=== PATIENT | female | born 1950 | race Caucasian/White ===

== ENCOUNTER 2017-12-20 21:58 | Emergency (ER) | payer SELFPAY ==
[2017-11-19 03:09] VITALS: BMI 25.9
[2017-11-20 18:10] VITALS: PULSE 93; RESP 26; O2SAT 94
[2017-12-20 22:07] VITALS: BP 140/68; PULSE 85; RESP 18; TEMP 36.8; O2SAT 96
[2017-12-20 23:10] VITALS: BP 116/76; PULSE 84; RESP 14; O2SAT 98
[2017-12-21] VITALS: BP 133/86; PULSE 68
--- NOTE | 2017-12-21 02:48 | ED_ITS ---
HPI - Wound/Laceration General Chief Complaint: Wound/Laceration Stated Complaint: Bleeding post biopsy Time Seen by Provider: 12/20/17 22:33 Source: patient and EMS Mode of arrival: EMS Limitations: no limitations History of Present Illness HPI narrative: Patient presents to the emergency department today with a chief complaint of bleeding from a bone biopsy site from earlier today. She was seen and evaluated at another facility this morning and had a bone biopsy for evaluation of chronic anemia. The patient takes no blood thinners. She bled through the ABD bandage and requested EMS bring her to the hospital for evaluation. She is not dizzy nor weak or lightheaded. She denies any shortness of breath. Onset (ago): hour(s) 2 1. 2. Patient tetanus UTD: Yes Context: other (Post bone marrow biopsy) Related Data Home Medications Medication Instructions Recorded Confirmed tramadol 50 mg PO Q4-6H PRN 12/20/17 12/20/17 Previous Rx's Medication Instructions Recorded pantoprazole 40 mg PO BID #60 tab 11/22/17 Allergies Allergy/AdvReac Type Severity Reaction Status Date / Time No Known Drug Allergies Allergy Verified 11/19/17 04:13 Review of Systems Review of Systems All systems reviewed & are unremarkable except as noted in HPI and below Constitutional Denies chills, Denies fever(s), Denies lethargy and Denies weakness Eyes Denies change in vision, Denies eye discharge, Denies irritation and Denies loss of vision ENT Ears, Nose, Mouth, and Throat: Denies change in voice, Denies neck pain and Denies sore throat Cardiovascular Denies chest pain, Denies irregular heart rhythm, Denies lightheadedness, Denies palpitations, Denies dyspnea, Denies dyspnea on exertion and Denies orthopnea Respiratory Denies cough, Denies dyspnea, Denies dyspnea on exertion and Denies wheezing Gastrointestinal Gastrointestinal: Denies abdominal pain, Denies change in bowel habits, Denies diarrhea, Denies nausea and Denies vomiting Genitourinary Denies hematuria, Denies flank pain, Denies urinary incontinence and Denies urinary urgency Musculoskeletal Denies neck pain Integumentary/Breasts Denies pruritus, Denies erythema, Denies rash and Denies wounds Comments: Bleeding from surgical site Neurologic Denies confusion, Denies loss of vision and Denies weakness Psychiatric Denies anxiety, Denies confusion, Denies depression, Denies homicidal ideation and Denies suicidal ideation Endocrine Denies palpitations Hematologic/Lymphatic Denies easy bruising Allergic/Immunologic Denies wheezing PFSH Medical History Monoclonal gammopathy (Chronic) No significant past surgical history (Acute) Anemia (Chronic) Pneumonia (Resolved) Social History household members: none Smoking Status: Current some day smoker alcohol intake: current additional social history: The patient smokes tobacco. She does not use alcohol. No drugs. Family and social history are otherwise noncontributory Exam Initial Vital Signs Initial Vital Signs: Vital Signs Temperature 98.3 F 12/20/17 22:07 Pulse Rate 85 12/20/17 22:07 Respiratory Rate 18 12/20/17 22:07 Blood Pressure 140/68 H 12/20/17 22:07 Pulse Oximetry 96 12/20/17 22:07 Const General: cooperative and well developed Nutritional Appearance: well nourished Orientation: alert, awake, oriented x3 and not confused Resp Effort & Inspection: normal respiratory effort, able to speak in complete sentences, no respiratory distress and no use of accessory muscles Auscultation: clear to auscultation bilaterally, no rales, no rhonchi and no wheezes GI Inspection: non-distended Palpation: soft, no hepatosplenomegaly, No guarding, No pulsatile mass and No tender Auscultation: normal bowel sounds Back/Spine/Pelvis Back: No CVA tenderness Cervical Spine: cervical ROM normal and No pain with cervical ROM Thoracic/Lumbar Spine: other (Two biopsy site present. Medial of to with active dark bleeding. No surrounding hematoma the, erythema, or underlying induration) Procedures Laceration Repair Laceration 1: Site: back Size (cm): 0.25 Description: linear Depth: simple, single layer Local Anesthetic: lidocaine 1% and with epi Amount of anesthesia used (mL): 2 Skin layer closed with: nylon Size (cm): 4-0 Number of sutures: 1 Technique: simple, interrupted (Single suture placed to achieve hemostasis ) Course Vital Signs - 8 hr 12/20/17 22:07 12/20/17 23:10 12/21/17 00:00 Temperature 98.3 F Pulse Rate 85 84 68 Respiratory Rate 18 14 Blood Pressure 140/68 H 133/86 H Blood Pressure [Left Arm] 116/76 Pulse Oximetry 96 98 Discharge Plan Departure Patient Disposition: Home, Self-Care Clinical Impression: Bleeding at insertion site Discharge Date/Time: 12/21/17 00:00 Interventions: ED Discharge Assessment Last Done: 12/21/17 00:00 Activity Restrictions/Additional Instructions: *You have been diagnosed with [ bleeding from biopsy site ] *What to do: *Follow up with your primary care provider tomorrow as planned, have him look at the 1 suture in your back and if appropriate it can be removed tomorrow *Return to ER if you should have any recurrent bleeding, worsening pain, or develop weakness or dizziness Prescriptions: No Action pantoprazole 40 mg tablet,delayed release (DR/EC) 40 mg PO BID Qty: 60 RF: 0 tramadol 50 mg Tablet 50 mg PO Q4-6H PRN (Reason: Pain (Scale Score 4-6)) RF: 0 Referrals: Eliu Barnard MD [Primary Care Provider] -
== END 2017-12-21 | disposition home or self-care (01) ==
LOC: ED 23:45
PROVIDERS: Emergency Provider Emergency Medicine; Family Provider Family Medicine; PCP Family Medicine
DX: S21.219A Laceration without foreign body of unspecified back wall of thorax without penetration into thoracic cavity, initial encounter (principal); Z98.890 Other specified postprocedural states
CPT/HCPCS: 12001; 99282; 99283

== ENCOUNTER 2021-03-08 08:39 | Inpatient (IN) | payer OTHER, SELFPAY ==
[2017-11-19 03:09] VITALS: BMI 25.9
[2017-11-20 18:10] VITALS: PULSE 93; RESP 26; O2SAT 94
[2021-03-08] VITALS (8 sets, daily range): BP systolic 104–113; BP diastolic 68–77; PULSE 59–71; RESP 18–22; TEMP 36.1–37.4; O2SAT 94–95; BMI 32.9
--- NOTE | 2021-03-08 09:08 | DI.RAD.S_ITS ---
PROCEDURE: XR CHEST 1V INDICATIONS: shortness of breath TECHNIQUE: One view of the chest was acquired. COMPARISON: Merged With [facility], CT, CT CHEST ABDOMEN PELVIS WITHOUT CONTRAST, 09/26/2018, 11:24. [facility], CR, XR CHEST 2V, 11/18/2017, 22:57. FINDINGS: Surgical changes and devices: None. Lungs and pleura: No focal infiltrates are seen. Mild generalized interstitial prominence can be seen. No pleural effusions or pneumothorax. Mediastinum: Mediastinal contours appear normal. Heart size is at the upper limits of normal. Bones and chest wall: Minimal lucency can be seen involving the proximal humerus on both sides. Overlying soft tissues appear unremarkable. IMPRESSION: Mild generalized interstitial prominence can be seen. Pulmonary edema is suspected. However, please also consider atypical infection, including COVID pneumonia. Minimal lucency can be seen involving the proximal humerus on both sides. This may be related to the known history of multiple myeloma. Dictated by: Ruperto Kc M.D. on 03/08/2021 at 9:01 Approved by: Ruperto Kc M.D. on 03/08/2021 at 9:03
--- NOTE | 2021-03-08 09:12 | ED.SOB ---
HPI - SOB/Dyspnea General Chief Complaint: Shortness of Breath/Dyspnea Stated Complaint: Cant breathe/ache all over Time Seen by Provider: 03/08/21 08:49 History of Present Illness HPI Narrative: The patient presents with cough and dyspnea onset 2 days ago. The cough is productive. She has no hemoptysis. She is unaware of fever and chills although she has low-grade fever upon arrival. She is a former smoker, quitting recently. She is currently receiving chemotherapy for multiple myeloma. With the cough and dyspnea she denies headache, sore throat, ordered changes in taste or smell. She has not received COVID-19 vaccine. She does not require inhaler, she has no chronic pulmonary disease. She denies chest pain with current symptoms. She has GI symptoms. She does my of mild peripheral edema, she has no history of CHF. She denies cardiac history. She has been around no one with similar symptoms. Related Data Home Medications Medication Instructions Recorded Confirmed aspirin 81 mg tablet 81 mg PO DAILY 03/08/21 03/08/21 furosemide 20 mg tablet (Lasix) 20 mg PO DAILY 03/08/21 03/08/21 pantoprazole 40 mg tablet,delayed 40 mg PO DAILY 03/08/21 03/08/21 release pomalidomide 3 mg capsule 3 mg PO DAILY 03/08/21 03/08/21 (Pomalyst) valacyclovir 500 mg tablet 500 mg PO BID 03/08/21 03/08/21 Allergies Allergy/AdvReac Type Severity Reaction Status Date / Time No Known Drug Allergies Allergy Verified 11/19/17 04:13 Review of Systems Constitutional Constitutional: Denies body ache(s), Denies chills, Reports fatigue, Denies fever(s) and Denies headache(s) Eyes Eyes: Denies change in vision ENT Ears, Nose, Mouth, and Throat: Reports as per HPI and Denies headache(s) Cardiovascular Cardiovascular: Denies chest pain, Denies chest pain at rest, Denies rapid heart rate and Reports pedal edema Respiratory Respiratory: Reports chest congestion, Reports cough, Denies hemoptysis and Reports excessive phlegm production Gastrointestinal Gastrointestinal: Denies abdominal pain and Denies nausea Musculoskeletal Musculoskeletal: Denies back pain Comments: Lower extremity edema. Neurologic Neurologic: Denies headache(s) Psychiatric Psychiatric: Reports system reviewed and no additional complaints, except as documented Endocrine Endocrine: Reports fatigue Hematologic/Lymphatic Hematologic/Lymphatic: Reports as per HPI On Anticoagulants: No Allergic/Immunologic Allergic/Immunologic: Reports as per HPI Patient History Medical History Anemia Monoclonal gammopathy Pneumonia Surgical History No significant past surgical history Social History household members: none Smoking Status: Current some day smoker alcohol intake: current additional social history: The patient smokes tobacco. She does not use alcohol. No drugs. Family and social history are otherwise noncontributory Smoking Status: Current some day smoker alcohol intake frequency: holidays/special occasions only Substance Use Type: does not use Exam Initial Vital Signs Initial Vital Signs: Vital Signs Temperature 99.4 F 03/08/21 09:00 Pulse Rate 64 03/08/21 09:00 Respiratory Rate 18 03/08/21 09:00 Blood Pressure 113/77 03/08/21 09:00 Pulse Oximetry 94 03/08/21 09:00 Const General: cooperative, comfortable, well developed, well groomed and No acute distress [facility] Head: normocephalic and atraumatic Mouth: oral mucosae normal Eyes General: appearance normal, both eyes and all related structures Neck Neck: full ROM, supple and No lymphadenopathy Chest Chest: normal inspection of the chest Resp Effort & Inspection: normal respiratory effort Auscultation: rales (Right medial foot) Cardio Rate: regular rate Rhythm: regular rhythm Heart Sounds: S1 normal, S2 normal and no murmurs GI Inspection: normal to inspection Palpation: soft Percussion: normal to percussion Auscultation: normal bowel sounds Back/Spine/Pelvis Back: No CVA tenderness Skin General: no rashes or lesions noted Neuro General: patient alert, patient awake, patient oriented x3 and no focal motor deficits Extrem General: no calf tenderness and pedal edema (Bilateral, 2+ edema. Normal dorsalis pedis pulses.) Psych Appearance: grossly normal Course Course Course Narrative: The patient is COVID positive. Additional Information: The patient has COVID. O2 sats are marginal, 90% upon arrival. Infiltrates consistent with COVID-19 or present on chest x-ray. However, she has labs suggesting sepsis with leukopenia. Zosyn was initiated. Remdesivir and Dexamethasone were given for COVID. The patient has CHF. Vitals are stable, case was discussed with the admitting hospitalist, Dr. Colon, an IV fluid bolus was avoided. The patient is stable with the time of admission. Orders Ordered: ED Orders 03/08/21 08:50 COVID19 -Nasal swab/Pre-Proc Stat 03/08/21 09:08 XR chest 1V Stat Measure peak expiratory flow ONCE RT Consult Eval and Treat Now 03/08/21 09:10 C-Reactive Protein Quant Stat Complete Blood Count AUTO DIFF Stat Comprehensive Metabolic Panel Stat Lactate (Lactic Acid) Stat NT-proBNP (BNP-Adult 18+) Stat Procalcitonin Stat Troponin & CK Cardiac Panel Stat 03/08/21 10:01 EKG-12 Lead Stat 03/08/21 10:05 Blood Culture Stat D Dimer Stat Acetaminophen (Acetaminophen 325 Mg Tablet) 650 mg PO Q4HR PRN PRN Reason: Fever/Mild Pain (1-3) Last Admin: 03/08/21 09:44 Dose: 650 mg Documented by: WALE Remdesivir 200 mg/ Sodium (Chloride) 250 mls @ 250 mls/hr IV NOW [facility] Home Med Storage 0 each PO PRN PRN PRN Reason: HOME MED STORAGE Discontinued Medications Dexamethasone (Dexamethasone 10 Mg/Ml Vial) 6 mg IV NOW ONE Stop: 03/08/21 10:38 Last Admin: 03/08/21 11:08 Dose: 6 mg Documented by: PRASANNA Piperacillin Sod/Tazobactam (Sod 4.5 gm/ Sodium Chloride) 100 mls @ 200 mls/hr IV NOW ONE Stop: 03/08/21 10:31 Last Admin: 03/08/21 11:07 Dose: 200 mls/hr Documented by: BTONEMeaghan Remdesivir 200 mg/ Sodium (Chloride) 270 mls @ 270 mls/hr IV DAILY [facility] Stop: 03/16/21 10:41 Remdesivir 200 mg/ Sodium (Chloride) 270 mls @ 270 mls/hr IV DAILY [facility] Stop: 03/15/21 11:12 Remdesivir 200 mg/ Sodium (Chloride) 270 mls @ 270 mls/hr IV NOW [facility] Vital Signs Vital signs: Vital Signs - 8 hr 03/08/21 09:00 03/08/21 09:44 Temperature 99.4 F 99.4 F Pulse Rate 64 Respiratory Rate 18 Blood Pressure 113/77 Pulse Oximetry 94 MDM - SOB/Dyspnea Lab Data Result diagrams: 03/08/21 09:10 03/08/21 09:10 Labs: Lab Results 03/08/21 03/08/21 03/08/21 Range/Units 08:50 09:10 09:10 WBC 1.2 L* (4.5-11.0) X10^3/uL RBC 3.97 L (4.0-5.2) X10^6/uL Hgb 12.5 (12.0-16.0) g/dL Hct 37.7 (36-46) % MCV 94.9 (80-100) fL MCH 31.5 (26-34) PG MCHC 33.2 (30-36) % RDW 13.6 (11.6-14.8) % Plt Count 90 L (150-400) X10^3/uL Neut % (Auto) Not Reportable Lymph % (Auto) Not Reportable Jack % (Auto) Not Reportable Eos % (Auto) Not Reportable Baso % (Auto) Not Reportable Lymph # (Auto) Not Reportable Jack # (Auto) Not Reportable Baso # (Auto) Not Reportable Total Counted 100 Seg Neutrophils % 32.0 L (38-70) % Band Neutrophils % 2.0 L (3-7) % Lymphocytes % (Manual) 18.0 L (25-45) % Atypical Lymphs % 30.0 H ( - 0) % Monocytes % (Manual) 14.0 H (2-11) % Eosinophils % (Manual) 2.0 (2-4) % Basophils % (Manual) 2.0 H (0-1) % Neutrophils # (Manual) 408 L (1120-8956) /uL RBC Morphology Normal morphology D-Dimer (<230) ng/mL Sodium 135 L (137-145) mmol/L Potassium 4.3 (3.4-5.1) mmol/L Chloride 101 (98-107) mmol/L Carbon Dioxide 29 (22-32) mmol/L BUN 13 (7-17) mg/dL Creatinine 0.77 (0.52-1.04) mg/dL Estimated GFR > 60.0 (>60) mL/min BUN/Creatinine Ratio 16.9 (6-22) Glucose 125 H (80-110) mg/dL Lactate (0.7-2.1) mmol/L Calcium 8.8 (8.4-10.2) mg/dL Total Bilirubin 0.8 (0.2-1.3) mg/dL AST 33 (14-36) IU/L ALT 29 (<35) IU/L Alkaline Phosphatase 87 (38-126) U/L Total Creatine Kinase (30-135) U/L CK-MB (CK-2) CK-MB (CK-2) Rel Index Troponin I (0.01-0.034) ng/mL C-Reactive Protein (<1.0) mg/dL NT-Pro-B Natriuret Pep (<125) pg/mL Total Protein 6.3 (6.3-8.2) g/dL Albumin 3.9 (3.5-5.0) g/dL Globulin 2.4 (1.7-4.1) g/dL Albumin/Globulin Ratio 1.6 (1.0-2.8) Procalcitonin (<0.5) ng/mL SARS-CoV-2 (PCR) Positive H (Negative) 03/08/21 03/08/21 03/08/21 Range/Units 09:10 09:10 09:10 WBC (4.5-11.0) X10^3/uL RBC (4.0-5.2) X10^6/uL Hgb (12.0-16.0) g/dL Hct (36-46) % MCV (80-100) fL MCH (26-34) PG MCHC (30-36) % RDW (11.6-14.8) % Plt Count (150-400) X10^3/uL Neut % (Auto) Lymph % (Auto) Jack % (Auto) Eos % (Auto) Baso % (Auto) Lymph # (Auto) Jack # (Auto) Baso # (Auto) Total Counted Seg Neutrophils % (38-70) % Band Neutrophils % (3-7) % Lymphocytes % (Manual) (25-45) % Atypical Lymphs % ( - 0) % Monocytes % (Manual) (2-11) % Eosinophils % (Manual) (2-4) % Basophils % (Manual) (0-1) % Neutrophils # (Manual) (2268-1379) /uL RBC Morphology D-Dimer (<230) ng/mL Sodium (137-145) mmol/L Potassium (3.4-5.1) mmol/L Chloride (98-107) mmol/L Carbon Dioxide (22-32) mmol/L BUN (7-17) mg/dL Creatinine (0.52-1.04) mg/dL Estimated GFR (>60) mL/min BUN/Creatinine Ratio (6-22) Glucose (80-110) mg/dL Lactate 2.3 H (0.7-2.1) mmol/L Calcium (8.4-10.2) mg/dL Total Bilirubin (0.2-1.3) mg/dL AST (14-36) IU/L ALT (<35) IU/L Alkaline Phosphatase (38-126) U/L Total Creatine Kinase (30-135) U/L CK-MB (CK-2) CK-MB (CK-2) Rel Index Troponin I (0.01-0.034) ng/mL C-Reactive Protein 2.5 H (<1.0) mg/dL NT-Pro-B Natriuret Pep (<125) pg/mL Total Protein (6.3-8.2) g/dL Albumin (3.5-5.0) g/dL Globulin (1.7-4.1) g/dL Albumin/Globulin Ratio (1.0-2.8) Procalcitonin 0.11 (<0.5) ng/mL SARS-CoV-2 (PCR) (Negative) 03/08/21 03/08/21 Range/Units 09:10 10:05 WBC (4.5-11.0) X10^3/uL RBC (4.0-5.2) X10^6/uL Hgb (12.0-16.0) g/dL Hct (36-46) % MCV (80-100) fL MCH (26-34) PG MCHC (30-36) % RDW (11.6-14.8) % Plt Count (150-400) X10^3/uL Neut % (Auto) Lymph % (Auto) Jack % (Auto) Eos % (Auto) Baso % (Auto) Lymph # (Auto) Jack # (Auto) Baso # (Auto) Total Counted Seg Neutrophils % (38-70) % Band Neutrophils % (3-7) % Lymphocytes % (Manual) (25-45) % Atypical Lymphs % ( - 0) % Monocytes % (Manual) (2-11) % Eosinophils % (Manual) (2-4) % Basophils % (Manual) (0-1) % Neutrophils # (Manual) (4269-2390) /uL RBC Morphology D-Dimer < 200 (<230) ng/mL Sodium (137-145) mmol/L Potassium (3.4-5.1) mmol/L Chloride (98-107) mmol/L Carbon Dioxide (22-32) mmol/L BUN (7-17) mg/dL Creatinine (0.52-1.04) mg/dL Estimated GFR (>60) mL/min BUN/Creatinine Ratio (6-22) Glucose (80-110) mg/dL Lactate (0.7-2.1) mmol/L Calcium (8.4-10.2) mg/dL Total Bilirubin (0.2-1.3) mg/dL AST (14-36) IU/L ALT (<35) IU/L Alkaline Phosphatase (38-126) U/L Total Creatine Kinase 42 (30-135) U/L CK-MB (CK-2) TNP CK-MB (CK-2) Rel Index TNP Troponin I < 0.012 (0.01-0.034) ng/mL C-Reactive Protein (<1.0) mg/dL NT-Pro-B Natriuret Pep 456 H (<125) pg/mL Total Protein (6.3-8.2) g/dL Albumin (3.5-5.0) g/dL Globulin (1.7-4.1) g/dL Albumin/Globulin Ratio (1.0-2.8) Procalcitonin (<0.5) ng/mL SARS-CoV-2 (PCR) (Negative) Imaging Data Chest x-ray: Radiologist's Impression: [address] [id number] ReportSigned Patient: Tory Barney [facility]#: [id number]: 3Acct:[id number]/Sex: 70 / FDate of Service: 03/08/21Loc: EDAccession Number: [id number] Procedure: XR chest 1V Ordering Provider: Chapin Jackson MD PROCEDURE: XR CHEST 1V INDICATIONS: shortness of breath TECHNIQUE: One view of the chest was acquired. COMPARISON: [facility], CT, CT CHEST ABDOMEN PELVIS WITHOUT CONTRAST, 09/26/2018, 11:24. [facility], CR, XR CHEST 2V, 11/18/2017, 22:57. FINDINGS: Surgical changes and devices: None. Lungs and pleura: No focal infiltrates are seen. Mild generalized interstitial prominence can be seen. No pleural effusions or pneumothorax. Mediastinum: Mediastinal contours appear normal. Heart size is at the upper limits of normal. Bones and chest wall: Minimal lucency can be seen involving the proximal humerus on both sides. Overlying soft tissues appear unremarkable. IMPRESSION: Mild generalized interstitial prominence can be seen. Pulmonary edema is suspected. However, please also consider atypical infection, including COVID pneumonia. Minimal lucency can be seen involving the proximal humerus on both sides. This may be related to the known history of multiple myeloma. Dictated by: Ruperto Kc M.D. on 03/08/2021 at 9:01 Approved by: Ruperto Kc M.D. on 03/08/2021 at 9:03 ECG Data Attestation: I personally reviewed and interpreted this ECG as follows: (Normal sinus rhythm rate 63 beats per minute. Associated ST T wave changes. Probable old anterior RI. No acute findings.) Critical Care Time Critical Care Time Critical Care Time: Yes Total Critical Care Time: 45 Attestation: Critical care time included the initial assessment patient, review of lab, radiology and EKG data, in review of medical record obtained from outside hospital. The patient was informed of the situation. The case was discussed with the patient prior to admission. Discharge Plan Departure Patient Disposition: Admitted As Inpatient Clinical Impression: 2019 novel coronavirus-infected pneumonia (NCIP) Sepsis Qualifiers: Sepsis type: sepsis due to unspecified organism Sepsis acute organ dysfunction status: without acute organ dysfunction Qualified Code(s): A41.9 - Sepsis, unspecified organism Congestive heart failure Qualifiers: Heart failure type: unspecified Admit Date/Time: 03/08/21 11:18 Admit Provider: Fabricio Colon
[2021-03-08 09:15] LABS: COVID19 -Nasal RAPID POSITIVE (Negative)
[2021-03-08] MEDS: ACETAMINOPHEN 325 MG TABLET 650 MG PO (09:44)
[2021-03-08 09:46] LABS: Hematocrit 37.7 % (36-46); Hemoglobin 12.5 g/dL (12.0-16.0); Mean Corpuscular HGB Conc 33.2 % (30-36); Mean Corpuscular Hemoglobin 31.5 PG (26-34); Mean Corpuscular Volume 94.9 fL (80-100); Platelet Count 90 X10^3/uL (150-400); Red Blood Cell Count 3.97 X10^6/uL (4.0-5.2); Red Cell Distribution Width 13.6 % (11.6-14.8)
[2021-03-08 09:47] LABS: Add Manual Diff / Slide Review YES; White Blood Cell Count 1.2 X10^3/uL (4.5-11.0)
[2021-03-08 09:52] LABS: Lactate (Lactic Acid) 2.3 mmol/L (0.7-2.1)
[2021-03-08 09:53] LABS: Alanine Aminotransferase 29 IU/L (<35); Albumin 3.9 g/dL (3.5-5.0); Albumin Globulin Ratio 1.6 (1.0-2.8); Alkaline Phosphatase 87 U/L (38-126); Aspartate Aminotransferase 33 IU/L (14-36); BUN Creatinine Ratio 16.9 (6-22); Bilirubin Total 0.8 mg/dL (0.2-1.3); Blood Urea Nitrogen 13 mg/dL (7-17); Calcium 8.8 mg/dL (8.4-10.2); Carbon Dioxide 29 mmol/L (22-32); Chloride 101 mmol/L (98-107); Creatine Kinase 42 U/L (30-135); Estimated Glomerular Filt Rate > 60.0 mL/min (>60); Globulin 2.4 g/dL (1.7-4.1); Glucose 125 mg/dL (80-110); HEMOLYSIS < 15 (0-50); Potassium 4.3 mmol/L (3.4-5.1); Sodium 135 mmol/L (137-145); Total Protein 6.3 g/dL (6.3-8.2)
[2021-03-08 09:57] LABS: C-Reactive Protein Quant 2.5 mg/dL (<1.0)
[2021-03-08 10:05] LABS: NT-proBNP (BNP-Adult 18+) 456 pg/mL (<125); Troponin I < 0.012 ng/mL (0.01-0.034)
[2021-03-08 10:10] LABS: Procalcitonin 0.11 ng/mL (<0.5)
[2021-03-08 10:13] LABS: Neutrophils Absolute Manual 408 /uL (3000-5900); RBC Morphology Normal Morphology; Total Cells Counted 100
[2021-03-08 10:26] LABS: D Dimer < 200 ng/mL (<230)
[2021-03-08] MEDS: PIPERACILLIN/TAZO 4.5 GM in SODIUM CHLORIDE 0.9% 100 ML 200 ML IV (11:07)
[2021-03-08] MEDS: DEXAMETHASONE 10 MG/ML VIAL 6 MG IV (11:08)
[2021-03-08 11:35] LABS: Reflexed Lactate in 2 Hours Y
[2021-03-08 12:19] LABS: Lactate 2HR (Lactic Acid Rflx) 1.4 mmol/L (0.7-2.1)
[2021-03-08 13:13] LABS: COVID19 - ADMIT (NP swab/PCR) POSITIVE (Negative)
[2021-03-08] MEDS: REMDESIVIR 200 MG in SODIUM CHLORIDE 0.9% 210 ML 250 ML IV (13:44)
--- NOTE | 2021-03-08 14:37 | PM.HP.1 ---
History of Present Illness History of Present Illness Date Patient Seen: 03/08/21 Time Patient Seen: 14:00 Date of Onset of Symptoms: 03/05/21 Chief complaint: Cant breathe/ache all over Narrative: Patient is a 70-year-old female current smoker who is unvaccinated for COVID and has history of multiple myeloma not in remission, on active 3rd line palliative therapy, presents with complaints difficulty breathing and body aches for 3 days. She denies fevers or chills. She does have a dry cough. Her O2 sat in ER was reported to me as 90% on room air though this does not seem to be documented. Her current sat is 94% on 2 L. her chest x-ray showed mild diffuse infiltrate. She was noted to be neutropenic with a total WBC 1.2 and absolute neutrophil count of 408. Also thrombocytopenic with platelet count of 90. D-dimer was less than 200. Her CRP is mildly elevated at 2.5. Lactate is 2.3, procalcitonin and troponin are normal. Her SARs COVID 2 PCR test came back positive. Patient was provided dexamethasone, remdesivir and Zosyn in the ED and admitted for treatment COVID pneumonia. Patient History Medical History Anemia Monoclonal gammopathy Pneumonia Surgical History No significant past surgical history Family & Social History Family History (Updated 03/08/21 @ 14:43 by Fabricio Colon MD) Mother Cancer Social History: household members none Safety & Behavioral: Feels Safe in Current Yes Environment Been Physically Hurt or No Threatened By a Person Suicidal Ideation Description None Suicide Plan Description No Plan Tobacco & Substance use: Tobacco type cigarettes Smoking Status Current some day smoker alcohol intake current alcohol intake frequency holiday/special occasion Substance Use Type does not use Meds Home Medications and Allergies Home Medications Medication Instructions Recorded Confirmed Type aspirin 81 mg tablet 81 mg PO DAILY 03/08/21 03/08/21 History furosemide 20 mg tablet (Lasix) 20 mg PO DAILY 03/08/21 03/08/21 History pantoprazole 40 mg tablet,delayed 40 mg PO DAILY 03/08/21 03/08/21 History release pomalidomide 3 mg capsule 3 mg PO DAILY 03/08/21 03/08/21 History (Pomalyst) valacyclovir 500 mg tablet 500 mg PO BID 03/08/21 03/08/21 History Allergies Allergy/AdvReac Type Severity Reaction Status Date / Time No Known Drug Allergies Allergy Verified 11/19/17 04:13 Review of Systems Review of Systems Narrative: Positive myalgias, no chest pain, abdominal pain, nausea, vomiting, dysuria, unusual bruising Exam Vital Signs (past 8 hours): - 03/08/21 09:00 03/08/21 09:44 03/08/21 11:30 Temperature 99.4 F 99.4 F Pulse Rate 64 62 Respiratory Rate 18 21 Blood Pressure 113/77 112/68 Pulse Oximetry 94 94 Oxygen Delivery Method Nasal Cannula Oxygen Flow Rate 2 Narrative Exam Narrative: General: Alert female who appears comfortable at rest HEENT: Anicteric, pupils equal and reactive Neck: No lymphadenopathy Lungs: Clear to auscultation Heart: Normal S1 and S2, regular rate and rhythm, no murmur Abdomen: Soft and nontender, no HSM Extremities: No cyanosis or edema Neurological: Oriented, speech normal, affect normal Objective Labs Result Diagrams: 03/08/21 09:10 03/08/21 09:10 Labs: Laboratory Results - last 24 hr 03/08/21 03/08/21 03/08/21 08:50 09:10 09:10 WBC 1.2 L* RBC 3.97 L Hgb 12.5 Hct 37.7 MCV 94.9 MCH 31.5 MCHC 33.2 RDW 13.6 Plt Count 90 L Neut % (Auto) Not Reportable Lymph % (Auto) Not Reportable [place] % (Auto) Not Reportable Eos % (Auto) Not Reportable Baso % (Auto) Not Reportable Lymph # (Auto) Not Reportable [place] # (Auto) Not Reportable Baso # (Auto) Not Reportable Total Counted 100 Seg Neutrophils % 32.0 L Band Neutrophils % 2.0 L Lymphocytes % (Manual) 18.0 L Atypical Lymphs % 30.0 H Monocytes % (Manual) 14.0 H Eosinophils % (Manual) 2.0 Basophils % (Manual) 2.0 H Neutrophils # (Manual) 408 L RBC Morphology Normal morphology D-Dimer Sodium 135 L Potassium 4.3 Chloride 101 Carbon Dioxide 29 BUN 13 Creatinine 0.77 Estimated GFR > 60.0 BUN/Creatinine Ratio 16.9 Glucose 125 H Lactate Calcium 8.8 Total Bilirubin 0.8 AST 33 ALT 29 Alkaline Phosphatase 87 Total Creatine Kinase CK-MB (CK-2) CK-MB (CK-2) Rel Index Troponin I C-Reactive Protein NT-Pro-B Natriuret Pep Total Protein 6.3 Albumin 3.9 Globulin 2.4 Albumin/Globulin Ratio 1.6 Procalcitonin SARS-CoV-2 (PCR) Positive H 03/08/21 03/08/21 03/08/21 09:10 09:10 09:10 WBC RBC Hgb Hct MCV MCH MCHC RDW Plt Count Neut % (Auto) Lymph % (Auto) [place] % (Auto) Eos % (Auto) Baso % (Auto) Lymph # (Auto) [place] # (Auto) Baso # (Auto) Total Counted Seg Neutrophils % Band Neutrophils % Lymphocytes % (Manual) Atypical Lymphs % Monocytes % (Manual) Eosinophils % (Manual) Basophils % (Manual) Neutrophils # (Manual) RBC Morphology D-Dimer Sodium Potassium Chloride Carbon Dioxide BUN Creatinine Estimated GFR BUN/Creatinine Ratio Glucose Lactate 2.3 H Calcium Total Bilirubin AST ALT Alkaline Phosphatase Total Creatine Kinase CK-MB (CK-2) CK-MB (CK-2) Rel Index Troponin I C-Reactive Protein 2.5 H NT-Pro-B Natriuret Pep Total Protein Albumin Globulin Albumin/Globulin Ratio Procalcitonin 0.11 SARS-CoV-2 (PCR) 03/08/21 03/08/21 03/08/21 09:10 10:05 11:30 WBC RBC Hgb Hct MCV MCH MCHC RDW Plt Count Neut % (Auto) Lymph % (Auto) [place] % (Auto) Eos % (Auto) Baso % (Auto) Lymph # (Auto) [place] # (Auto) Baso # (Auto) Total Counted Seg Neutrophils % Band Neutrophils % Lymphocytes % (Manual) Atypical Lymphs % Monocytes % (Manual) Eosinophils % (Manual) Basophils % (Manual) Neutrophils # (Manual) RBC Morphology D-Dimer < 200 Sodium Potassium Chloride Carbon Dioxide BUN Creatinine Estimated GFR BUN/Creatinine Ratio Glucose Lactate Calcium Total Bilirubin AST ALT Alkaline Phosphatase Total Creatine Kinase 42 CK-MB (CK-2) TNP CK-MB (CK-2) Rel Index TNP Troponin I < 0.012 C-Reactive Protein NT-Pro-B Natriuret Pep 456 H Total Protein Albumin Globulin Albumin/Globulin Ratio Procalcitonin SARS-CoV-2 (PCR) Positive H 03/08/21 12:00 WBC RBC Hgb Hct MCV MCH MCHC RDW Plt Count Neut % (Auto) Lymph % (Auto) [place] % (Auto) Eos % (Auto) Baso % (Auto) Lymph # (Auto) [place] # (Auto) Baso # (Auto) Total Counted Seg Neutrophils % Band Neutrophils % Lymphocytes % (Manual) Atypical Lymphs % Monocytes % (Manual) Eosinophils % (Manual) Basophils % (Manual) Neutrophils # (Manual) RBC Morphology D-Dimer Sodium Potassium Chloride Carbon Dioxide BUN Creatinine Estimated GFR BUN/Creatinine Ratio Glucose Lactate 1.4 Calcium Total Bilirubin AST ALT Alkaline Phosphatase Total Creatine Kinase CK-MB (CK-2) CK-MB (CK-2) Rel Index Troponin I C-Reactive Protein NT-Pro-B Natriuret Pep Total Protein Albumin Globulin Albumin/Globulin Ratio Procalcitonin SARS-CoV-2 (PCR) Assessment & Plan Assessment & Plan narrative: 1. COVID-19 pneumonia with hypoxia -presented with shortness of breath x3 days -patient is high risk for progression to severe pneumonia due to presence of hematologic malignancy, neutropenia, and current smoking status -O2 sat reported 90% at rest, is 94% on 2 L and at this time she is not appearing severely symptomatic -reviewed management with infectious disease provider Dr. Red Shell at [facility] who recommends standard therapy with dexamethasone and remdesivir, specifically patient would not benefit from monoclonal antibody therapy which is not indicated for hypoxic or hospitalized patients, and currently no indication for additional therapy such as baricitinib since not requiring high-flow O2 -ordered dexamethasone 6 mg IV daily times 10 days or until hospital discharge, remdesivir 200 mg x 1 in the ED then 100 mg IV q.d. x4 days 2. Neutropenia due to chemotherapy for multiple myeloma -patient is just completing cycle Pomalyst -patient is neutropenic with a total WBC 1.2, ANC 400 on admission -per discussion with ID, patient is started on antibiotic prophylaxis with cefepime 2 g IV q.8 hours as she is high risk for bacterial infection 3. Multiple myeloma not in remission -continue aspirin 81 mg q.d., valacyclovir 500 mg b.i.d., pantoprazole 40 mg q.d., furosemide 20 mg q.d. per home regimen -sees Dr. Garcia for oncology 4. Mild thrombocytopenia secondary to malignancy/chemotherapy -platelet count 90 K -will continue aspirin due to high risk thrombosis with her multiple myeloma but hold off on heparin/Lovenox since her D-dimer is normal -start DVT prophylaxis with heparin/Lovenox if platelet counts improved Code status: DNR. Patient understands she is high risk for progression of COVID pneumonia and does not want to be intubated. Quality VTE Deep Vein Thrombosis/Pulmonary Embolism Present on Admission: No
[2021-03-08] MEDS: CEFEPIME 2 GM in SODIUM CHLORIDE 0.9% 100 ML 200 ML IV (20:29)
[2021-03-08] MEDS: valACYclovir 500 MG TABLET PO (20:30)
--- NOTE | 2021-03-08 21:32 | PC.NURSE ---
Pt states that she is feeling 'ok' SpO2 95% 2L Resting quietly at intervals. RAC IV site intact/patent. Call light w/in reach, pt calls appropriately for needs. Continue w/plan of care.
[2021-03-09] VITALS (11 sets, daily range): BP systolic 101–117; BP diastolic 64–76; PULSE 53–61; RESP 17–18; TEMP 36–36.4; O2SAT 85–97
[2021-03-09 06:15] LABS: Hemoglobin 12.4 g/dL (12.0-16.0); Mean Corpuscular HGB Conc 33.5 % (30-36); Mean Corpuscular Hemoglobin 31.7 PG (26-34); Mean Corpuscular Volume 94.8 fL (80-100); Platelet Count 83 X10^3/uL (150-400); Red Cell Distribution Width 13.6 % (11.6-14.8)
[2021-03-09 06:26] LABS: BUN Creatinine Ratio 30.6 (6-22); Blood Urea Nitrogen 22 mg/dL (7-17); Calcium 8.6 mg/dL (8.4-10.2); Carbon Dioxide 30 mmol/L (22-32); Chloride 102 mmol/L (98-107); Estimated Glomerular Filt Rate > 60.0 mL/min (>60); Glucose 137 mg/dL (80-110); HEMOLYSIS < 15 (0-50); Potassium 4.8 mmol/L (3.4-5.1); Sodium 135 mmol/L (137-145)
[2021-03-09 06:39] LABS: Add Manual Diff / Slide Review YES
[2021-03-09 06:40] LABS: White Blood Cell Count 1.3 X10^3/uL (4.5-11.0)
[2021-03-09 06:41] LABS: Basophils Percent Manual 1.6 % (0-1); Eosinophils Percent Manual 1.6 % (2-4); Lymphocytes Percent Manual 17.7 % (25-45); Monocytes Percent Manual 30.6 % (2-11); Neutrophils Absolute Manual 629 /uL (3000-5900); Segmented Neutrophils Percent 48.4 % (38-70); Total Cells Counted 62
--- NOTE | 2021-03-09 06:41 | PC.NURSE ---
0635 Slept most of the night, denies any pain, no C/O dyspnea, denies SOB with exertion. UP to the BR. independently, denies any dizziness. resting heart rate or when asleep 52-55 & 2 liters 02/NC SPO2 95-96%. Will cont. POC & monitor.
[2021-03-09 06:42] LABS: RBC Morphology Normal Morphology
[2021-03-09] MEDS: DEXAMETHASONE 10 MG/ML VIAL 6 MG IV (10:05)
[2021-03-09] MEDS: ASPIRIN EC 81 MG TABLET PO (10:07)
[2021-03-09] MEDS: valACYclovir 500 MG TABLET PO (10:07)
[2021-03-09] MEDS: PANTOPRAZOLE DR 40 MG TABLET PO (10:07)
[2021-03-09] MEDS: FUROSEMIDE 20 MG TABLET PO (10:07)
[2021-03-09] MEDS: SODIUM CHLORIDE 0.9% FLUSH 10 ML IV (10:08)
[2021-03-09] MEDS: CEFEPIME 2 GM in SODIUM CHLORIDE 0.9% 100 ML 200 ML IV (10:40)
--- NOTE | 2021-03-09 12:14 | P.DS_ITS ---
History of Present Illness History of Present Illness Date Patient Seen: 03/09/21 Time Patient Seen: 12:14 Chief complaint: Cant breathe/ache all over Narrative: Per Dr. So Patient is a 70-year-old female current smoker who is unvaccinated for COVID and has history of multiple myeloma not in remission, on active 3rd line palliative therapy, presents with complaints difficulty breathing and body aches for 3 days. She denies fevers or chills. She does have a dry cough. Her O2 sat in ER was reported to me as 90% on room air though this does not seem to be documented. Her current sat is 94% on 2 L. her chest x-ray showed mild diffuse infiltrate. She was noted to be neutropenic with a total WBC 1.2 and absolute neutrophil count of 408. Also thrombocytopenic with platelet count of 90. D- dimer was less than 200. Her CRP is mildly elevated at 2.5. Lactate is 2.3, procalcitonin and troponin are normal. Her SARs COVID 2 PCR test came back positive. Patient was provided dexamethasone, remdesivir and Zosyn in the ED and admitted for treatment COVID pneumonia. Discharge Providers Provider Date of admission: 03/08/21 11:18 Discharge Date: 03/09/21 Primary care physician: Eliu Barnard MD Discharge provider: Blake De Dios DO Summary Hospital Course Discharge Diagnosis: 1. COVID-19 pneumonia with acute hypoxic respiratory failure 2. Neutropenia due to chemotherapy for multiple myeloma 3. Multiple myeloma not in remission 4. Mild thrombocytopenia secondary to malignancy/chemotherapy Hospital Course: This is a 70-year-old female with a past history of multiple myeloma who was admitted with COVID-19 pneumonia and acute respiratory failure. She was started on steroid and antiviral therapy, given her neutropenia she was also started on empiric antibiotic therapy. Her respiratory status improved quite dramatically, though she was still requiring a bit of oxygen at the time of discharge, though this had markedly improved from her arrival yesterday. Counseled the patient on possible continued use of steroids and antiviral see in the setting of COVID-19, however the patient did not like how she felt with dexamethasone and did not want further steroid treatment and very much wanted to go home. She was discharged with oral Levaquin given her mild neutropenia which is more likely secondary to her recent treatment of multiple myeloma. She was discharged home on oxygen therapy, and I recommend she follow-up with her [facility] care provider. At the time of discharge she she was 89% on room air which improved to the mid 90s on 1 L, she required 2 L with activity. She was given return precautions and instructed on home oxygen and use with a pulse oximeter as well. Time Spent with Patient Time spent: Greater than 30 minutes Exam Vital Signs (past 8 hours): - 03/09/21 05:00 03/09/21 06:40 03/09/21 07:14 Temperature 97.1 F L Pulse Rate 53 L Respiratory Rate 17 Blood Pressure 101/64 Pulse Oximetry 95 96 95 Oxygen Delivery Method Nasal Cannula Oxygen Flow Rate 2 Narrative Exam Narrative: General: Alert female who appears comfortable at rest HEENT: Anicteric, pupils equal and reactive Neck: No lymphadenopathy Lungs: Clear to auscultation Heart: Normal S1 and S2, regular rate and rhythm, no murmur Abdomen: Soft and nontender, no HSM Extremities: No cyanosis or edema Neurological: Oriented, speech normal, affect normal Objective Labs Result Diagrams: 03/09/21 05:52 03/09/21 05:52 Labs: Laboratory Results - last 24 hr 03/08/21 03/08/21 03/09/21 11:30 12:00 05:52 WBC 1.3 L* RBC 3.90 L Hgb 12.4 Hct 37.0 MCV 94.8 MCH 31.7 MCHC 33.5 RDW 13.6 Plt Count 83 L Neut % (Auto) Not Reportable Lymph % (Auto) Not Reportable [place] % (Auto) Not Reportable Eos % (Auto) Not Reportable Baso % (Auto) Not Reportable Lymph # (Auto) Not Reportable [place] # (Auto) Not Reportable Baso # (Auto) Not Reportable Total Counted 62 Seg Neutrophils % 48.4 D Lymphocytes % (Manual) 17.7 L Monocytes % (Manual) 30.6 H Eosinophils % (Manual) 1.6 L Basophils % (Manual) 1.6 H Neutrophils # (Manual) 629 L RBC Morphology Normal morphology Sodium Potassium Chloride Carbon Dioxide BUN Creatinine Estimated GFR BUN/Creatinine Ratio Glucose Lactate 1.4 Calcium SARS-CoV-2 (PCR) Positive H 03/09/21 05:52 WBC RBC Hgb Hct MCV MCH MCHC RDW Plt Count Neut % (Auto) Lymph % (Auto) [place] % (Auto) Eos % (Auto) Baso % (Auto) Lymph # (Auto) [place] # (Auto) Baso # (Auto) Total Counted Seg Neutrophils % Lymphocytes % (Manual) Monocytes % (Manual) Eosinophils % (Manual) Basophils % (Manual) Neutrophils # (Manual) RBC Morphology Sodium 135 L Potassium 4.8 Chloride 102 Carbon Dioxide 30 BUN 22 H Creatinine 0.72 Estimated GFR > 60.0 BUN/Creatinine Ratio 30.6 H Glucose 137 H Lactate Calcium 8.6 SARS-CoV-2 (PCR) [facility] Medical History Anemia Monoclonal gammopathy Pneumonia Surgical History No significant past surgical history Family History (Updated 03/08/21 @ 14:43 by Fabricio Colon MD) Mother Cancer Social History household members: none Smoking Status: Current some day smoker alcohol intake: current additional social history: The patient smokes tobacco. She does not use alcohol. No drugs. Family and social history are otherwise noncontributory Discharge Plan Discharge Plan Patient Disposition: Home Provider Discharge Comment: You were admitted to the hospital with COVID-19 pneumonia requiring oxygen. You completed a course of therapy with steroids and an antiviral. I recommend you get a pulse oximeter at home. Only use oxygen if your O2 is <90% at home with rest or activity. Lower oxygen if O2 is >96% while using oxygen. you may not need oxygen for much longer as you're beginning to improve. Should you be requiring more and more oxygen please return to the hospital. Your blood counts were low, likely due to treatments for you cancer. As a precaution you're being discharged on an antibiotic, you can stop this if your cough is improved and no longer requiring oxygen at home. Otherwise complete 7 days of therapy prescribed. Discharge orders & Medications Prescriptions: New levofloxacin 750 mg tablet 750 mg PO DAILY 7 Days Qty: 7 RF: 0 Continued aspirin 81 mg Tablet 81 mg PO DAILY RF: 0 pantoprazole 40 mg Tablet,Delayed Release (Dr/Ec) 40 mg PO DAILY RF: 0 furosemide [Lasix] 20 mg Tablet 20 mg PO DAILY RF: 0 Pomalyst 3 mg Capsule 3 mg PO DAILY RF: 0 valacyclovir 500 mg Tablet 500 mg PO BID RF: 0 Follow up/Referrals: Eliu Barnard MD [Primary Care Provider] - Diet/Activity/Treatments Diet: Diet as Tolerated Oxygen: As needed, directions noted above. Discharge Data Primary Care Provider: Eliu Barnard Quality VTE Deep Vein Thrombosis/Pulmonary Embolism Present on Admission: No
[2021-03-09] MEDS: REMDESIVIR 100 MG in SODIUM CHLORIDE 0.9% 230 ML 250 ML IV (14:56)
--- NOTE | 2021-03-10 08:15 | CM.DANOTE ---
DCP/Assessment: Reviewed chart. Patient COVID positive discharging home with home 02. No additional needs identified. MIGUEL
== END 2021-03-09 16:10 | disposition home or self-care (01) | DRG 177 ==
LOC: ED 10:37 → AC 11:19
PROVIDERS: Admitting Provider Internal Medicine; Emergency Provider Emergency Medicine; Family Provider Family Medicine; PCP Family Medicine; Referring Provider Emergency Medicine; Visit Provider Internal Medicine
DX: U07.1 COVID-19 (principal); J12.82 Pneumonia due to coronavirus disease 2019; J96.01 Acute respiratory failure with hypoxia; C90.00 Multiple myeloma not having achieved remission; D70.1 Agranulocytosis secondary to cancer chemotherapy; D69.59 Other secondary thrombocytopenia; F17.210 Nicotine dependence, cigarettes, uncomplicated; T45.1X5A Adverse effect of antineoplastic and immunosuppressive drugs, initial encounter
CPT/HCPCS: 36415; 71045; 80048; 80053; 82550; 83605; 83880; 84145; 84484; 85007; 85025; 85379; 86140; 87040; 87635; 93005; 93010; 94618; 94760; 96375; 99285; 99291; 99406; C9803; J0692; J1100; J2543

== ENCOUNTER 2021-12-15 00:51 | Emergency (ER) | payer OTHER, SELFPAY ==
[2017-11-20 18:10] VITALS: PULSE 93; RESP 26; O2SAT 94
[2021-03-08 13:08] VITALS: BMI 32.9
[2021-12-15] VITALS (12 sets, daily range): BP systolic 105–187; BP diastolic 69–104; PULSE 107–117; RESP 25–38; TEMP 36.4–37.1; O2SAT 90–100
--- NOTE | 2021-12-15 01:22 | ED_ITS ---
HPI - General Adult General Chief complaint: Shortness of Breath/Dyspnea Stated complaint: SOB fell 3 days ago, passed out Time Seen by Provider: 12/15/21 01:14 Source: patient Mode of arrival: Wheelchair History of Present Illness HPI narrative: 70-year-old woman with a history of relapsed multiple myeloma, chemotherapy today(bortezomib SQ, 4th line pale eat of treatment) and followed at [facility], hypertension, history of tobacco abuse, prior vertebral compression fractures presents after a syncopal episode 3 days ago. She was standing up in the bathroom and fell down landing on her face she has significant bilateral black eyes bruising over her nose. She was seen for chemotherapy today in nursing staff suggested that she follow up in the ER a but she was unwilling to do that. This evening she was becoming more short of breath so she presents to [place] the ER for further evaluation. She is using pursed lipped breathing, can speak in 4-5 word sentences, poor overall air movement complaining of headache, neck pain and abdominal pain. She is weak enough that she is unable to walk. She appears to be having chills but is not currently febrile. Med list from [facility] indicates that she is on valacyclovir daily due to her chemotherapy and has recently completed a 7 day course of Levaquin for uncertain reasons. She reports mild headache, no significant cough, does not note palpitations. She does have 5 kids at home who apparently love to climb up her legs, she has multiple minor skin abrasions up to the knees bilaterally. She has multiple bruises over her upper extremities. She reports no dysuria, flank pain, diarrhea or constipation but has noticed increasing abdominal pain. Related Data Home Medications Medication Instructions Recorded Confirmed aspirin 81 mg tablet 81 mg PO DAILY 03/08/21 03/08/21 furosemide 20 mg tablet (Lasix) 20 mg PO DAILY 03/08/21 03/08/21 pantoprazole 40 mg tablet,delayed 40 mg PO DAILY 03/08/21 03/08/21 release pomalidomide 3 mg capsule 3 mg PO DAILY 03/08/21 03/08/21 (Pomalyst) valacyclovir 500 mg tablet 500 mg PO BID 03/08/21 03/08/21 Allergies Allergy/AdvReac Type Severity Reaction Status Date / Time No Known Drug Allergies Allergy Verified 11/19/17 04:13 Review of Systems Review of Systems Narrative: Remainder of complete review of systems is otherwise unremarkable except for that included in the HPI. Patient History Medical History (Updated 12/15/21 @ 04:52 by Leah Acharya MD) Anemia Congestive heart failure Multiple myeloma Pneumonia Surgical History No significant past surgical history Family History Mother Cancer Social History household members: none Smoking Status: Current some day smoker alcohol intake: current additional social history: The patient smokes tobacco. She does not use alcohol. No drugs. Family and social history are otherwise noncontributory Smoking Status: Current some day smoker alcohol intake frequency: holidays/special occasions only Substance Use Type: does not use Exam Initial Vital Signs Initial Vital Signs: Vital Signs Temperature 97.6 F 12/15/21 00:57 Pulse Rate 113 H 12/15/21 00:57 Respiratory Rate 30 H 12/15/21 00:57 Blood Pressure 145/96 H 12/15/21 00:57 Pulse Oximetry 92 12/15/21 00:57 General: Chronically ill-appearing woman with tachypnea ended able to speak in 4-5 word sentences HEENT: Moist mucous membranes, normal sclera with reactive pupils, contusions around both eyes over the bridge of her nose and beginning to extend over the malar eminence bilaterally Neck: No JVD, midline cervical spine tenderness through the entire cervical spine extending into the trapezius muscles Respiratory: Lungs with overall diminished breath sounds, wheezing in all lung aguilar, no rhonchi, no crackles Cardiac: Tachycardic but otherwiseRegular rate and rhythm no murmurs no bruits Abdomen: Mild distention with mild diffuse abdominal tenderness, no rebound or guarding good bowel tones, no flank pain Skin: Overall bronze discoloration, multiple bruises in various stages of healing, multiple scratches over lower extremities from her 5 kittens Neurologic: Globally weak but Grossly neurologically intact with no obvious asymmetries or abnormalities Extremities: No acute trauma, decreased overall perfusion Psych: Cooperative, appropriate insight and affect Course Orders Ordered: ED Orders 12/15/21 EKG-12 Lead Routine 12/15/21 01:05 COVID19 -Nasal RAPID/Pre-Proc Stat 12/15/21 01:20 Complete Blood Count AUTO DIFF Stat Comprehensive Metabolic Panel Stat Lactate (Lactic Acid) Stat Lipase Stat Magnesium Stat NT-proBNP (BNP-Adult 18+) Stat Procalcitonin Stat Troponin I Stat 12/15/21 01:23 CT chest abd pel w con Stat 12/15/21 01:25 CT facial bones wo con Stat CT head/brain wo con Stat 12/15/21 01:26 CT cervical spine wo con Stat 12/15/21 01:35 Blood Culture Stat 12/15/21 03:00 Urinalysis and Microscopic Stat Discontinued Medications Albuterol/Ipratropium (Albuterol/Ipratropium 3 Ml Ampul) 3 ml INH NOW ONE Stop: 12/15/21 01:24 Last Admin: 12/15/21 02:05 Dose: 3 ml Documented by: HUNTER Sodium Chloride (Normal Saline 0.9%) 1,000 mls @ 1,000 mls/hr IV BOLUS ONE Stop: 12/15/21 02:22 Last Infusion: 12/15/21 03:55 Dose: 0 mls/hr Documented by: Admin: 12/15/21 02:05 Dose: 1,000 mls/hr Documented by: ZOE Ondansetron HCl (Ondansetron 4 Mg/2 Ml Inj) 4 mg IV NOW ONE Stop: 12/15/21 01:24 Last Admin: 12/15/21 02:06 Dose: 4 mg Documented by: ZOE Vital Signs Vital signs: Vital Signs - 8 hr 12/15/21 00:57 12/15/21 01:09 12/15/21 01:17 Temperature 97.6 F Pulse Rate 113 H 116 H 113 H Respiratory Rate 30 H Blood Pressure 145/96 H 125/86 Pulse Oximetry 92 100 99 12/15/21 01:30 12/15/21 02:03 12/15/21 02:05 Temperature 98.8 F Pulse Rate 107 H 116 H 115 H Respiratory Rate 38 H 29 H Blood Pressure 187/104 H Pulse Oximetry 100 99 100 12/15/21 02:30 12/15/21 03:01 12/15/21 03:30 Temperature Pulse Rate 117 H 117 H 114 H Respiratory Rate 26 H 32 H Blood Pressure 139/86 Pulse Oximetry 93 94 Medical Decision Making Lab Data Result diagrams: 12/15/21 01:20 12/15/21 01:20 Labs: Lab Results 12/15/21 12/15/21 12/15/21 Range/Units 01:05 01:20 01:20 WBC 6.8 (4.5-11.0) X10^3/uL RBC 3.48 L (4.0-5.2) X10^6/uL Hgb 11.7 L (12.0-16.0) g/dL Hct 34.2 L (36-46) % MCV 98.2 (80-100) fL MCH 33.5 (26-34) PG MCHC 34.1 (30-36) % RDW 13.7 (11.6-14.8) % Plt Count 33 L* (150-400) X10^3/uL Neut % (Auto) 96.0 H (50-75) % Lymph % (Auto) 0.3 L (25-40) % Mccreary % (Auto) 3.1 (3-14) % Eos % (Auto) 0.3 L (2-4) % Baso % (Auto) 0.3 (0-2) % Neut # (Auto) 6500 (9971-5807) /uL Lymph # (Auto) 0 L (7821-2279) /uL Mccreary # (Auto) 200 (0-900) /uL Eos # (Auto) 0 (0-450) /uL Baso # (Auto) 0 (0-100) /uL Platelet Estimate Decreased on smear RBC Morphology Normal morphology Sodium 140 (137-145) mmol/L Potassium 3.8 (3.4-5.1) mmol/L Chloride 100 (98-107) mmol/L Carbon Dioxide 31 (22-32) mmol/L BUN 19 H (7-17) mg/dL Creatinine 0.96 (0.52-1.04) mg/dL Estimated GFR > 60 (>60) mL/min BUN/Creatinine Ratio 19.8 (6-22) Glucose 111 H (80-110) mg/dL Lactate (0.7-2.1) mmol/L Calcium 9.2 (8.4-10.2) mg/dL Magnesium (1.6-2.3) mg/dL Total Bilirubin 0.8 (0.2-1.3) mg/dL AST 29 (14-36) IU/L ALT 24 (<35) IU/L Alkaline Phosphatase 77 (38-126) U/L Troponin I (0.01-0.034) ng/mL NT-Pro-B Natriuret Pep (<125) pg/mL Total Protein 6.5 (6.3-8.2) g/dL Albumin 4.2 (3.5-5.0) g/dL Globulin 2.3 (1.7-4.1) g/dL Albumin/Globulin Ratio 1.8 (1.0-2.8) Lipase (23-300) U/L Procalcitonin (<0.5) ng/mL Urine Color Urine Appearance Urine pH (4.5-8.0) Ur Specific [place] (1.000-1.035) Urine Protein (Negative) Urine Glucose (UA) (Negative) g/dL Urine Ketones (NEGATIVE) Urine Occult Blood (Negative) Urine Nitrate (Negative) Urine Bilirubin (NEGATIVE) Urine Urobilinogen (0.2) E.U./dL Ur Leukocyte Esterase (NEGATIVE) Urine RBC (0-5/HPF) Urine WBC (0-5/HPF) Ur Squamous Epith Cells (0-5/HPF) Urine Bacteria (None) Ur Culture Indicated? SARS-CoV-2 (PCR) Negative (Negative) 12/15/21 12/15/21 12/15/21 Range/Units 01:20 01:20 03:00 WBC (4.5-11.0) X10^3/uL RBC (4.0-5.2) X10^6/uL Hgb (12.0-16.0) g/dL Hct (36-46) % MCV (80-100) fL MCH (26-34) PG MCHC (30-36) % RDW (11.6-14.8) % Plt Count (150-400) X10^3/uL Neut % (Auto) (50-75) % Lymph % (Auto) (25-40) % Mccreary % (Auto) (3-14) % Eos % (Auto) (2-4) % Baso % (Auto) (0-2) % Neut # (Auto) (7516-7919) /uL Lymph # (Auto) (2134-4682) /uL Mccreary # (Auto) (0-900) /uL Eos # (Auto) (0-450) /uL Baso # (Auto) (0-100) /uL Platelet Estimate RBC Morphology Sodium (137-145) mmol/L Potassium (3.4-5.1) mmol/L Chloride (98-107) mmol/L Carbon Dioxide (22-32) mmol/L BUN (7-17) mg/dL Creatinine (0.52-1.04) mg/dL Estimated GFR (>60) mL/min BUN/Creatinine Ratio (6-22) Glucose (80-110) mg/dL Lactate 2.3 H (0.7-2.1) mmol/L Calcium (8.4-10.2) mg/dL Magnesium 1.4 L (1.6-2.3) mg/dL Total Bilirubin (0.2-1.3) mg/dL AST (14-36) IU/L ALT (<35) IU/L Alkaline Phosphatase (38-126) U/L Troponin I < 0.012 (0.01-0.034) ng/mL NT-Pro-B Natriuret Pep 4800 H (<125) pg/mL Total Protein (6.3-8.2) g/dL Albumin (3.5-5.0) g/dL Globulin (1.7-4.1) g/dL Albumin/Globulin Ratio (1.0-2.8) Lipase 84 (23-300) U/L Procalcitonin 0.11 (<0.5) ng/mL Urine Color Yellow Urine Appearance Clear Urine pH 5.0 (4.5-8.0) Ur Specific [place] <=1.005 (1.000-1.035) Urine Protein Negative (Negative) Urine Glucose (UA) Negative (Negative) g/dL Urine Ketones Negative (NEGATIVE) Urine Occult Blood Negative (Negative) Urine Nitrate Negative (Negative) Urine Bilirubin Negative (NEGATIVE) Urine Urobilinogen 0.2 (0.2) E.U./dL Ur Leukocyte Esterase Negative (NEGATIVE) Urine RBC None seen (0-5/HPF) Urine WBC None seen (0-5/HPF) Ur Squamous Epith Cells 0-1 /hpf (0-5/HPF) Urine Bacteria None seen (None) Ur Culture Indicated? Cult not indicated SARS-CoV-2 (PCR) (Negative) 12/15/21 Range/Units 03:34 WBC (4.5-11.0) X10^3/uL RBC (4.0-5.2) X10^6/uL Hgb (12.0-16.0) g/dL Hct (36-46) % MCV (80-100) fL MCH (26-34) PG MCHC (30-36) % RDW (11.6-14.8) % Plt Count (150-400) X10^3/uL Neut % (Auto) (50-75) % Lymph % (Auto) (25-40) % Mccreary % (Auto) (3-14) % Eos % (Auto) (2-4) % Baso % (Auto) (0-2) % Neut # (Auto) (5201-9185) /uL Lymph # (Auto) (8445-0090) /uL Mccreary # (Auto) (0-900) /uL Eos # (Auto) (0-450) /uL Baso # (Auto) (0-100) /uL Platelet Estimate RBC Morphology Sodium (137-145) mmol/L Potassium (3.4-5.1) mmol/L Chloride (98-107) mmol/L Carbon Dioxide (22-32) mmol/L BUN (7-17) mg/dL Creatinine (0.52-1.04) mg/dL Estimated GFR (>60) mL/min BUN/Creatinine Ratio (6-22) Glucose (80-110) mg/dL Lactate 2.0 (0.7-2.1) mmol/L Calcium (8.4-10.2) mg/dL Magnesium (1.6-2.3) mg/dL Total Bilirubin (0.2-1.3) mg/dL AST (14-36) IU/L ALT (<35) IU/L Alkaline Phosphatase (38-126) U/L Troponin I (0.01-0.034) ng/mL NT-Pro-B Natriuret Pep (<125) pg/mL Total Protein (6.3-8.2) g/dL Albumin (3.5-5.0) g/dL Globulin (1.7-4.1) g/dL Albumin/Globulin Ratio (1.0-2.8) Lipase (23-300) U/L Procalcitonin (<0.5) ng/mL Urine Color Urine Appearance Urine pH (4.5-8.0) Ur Specific [place] (1.000-1.035) Urine Protein (Negative) Urine Glucose (UA) (Negative) g/dL Urine Ketones (NEGATIVE) Urine Occult Blood (Negative) Urine Nitrate (Negative) Urine Bilirubin (NEGATIVE) Urine Urobilinogen (0.2) E.U./dL Ur Leukocyte Esterase (NEGATIVE) Urine RBC (0-5/HPF) Urine WBC (0-5/HPF) Ur Squamous Epith Cells (0-5/HPF) Urine Bacteria (None) Ur Culture Indicated? SARS-CoV-2 (PCR) (Negative) Imaging Data CT - cervical spine: My Impression: No acute bony abnormality involving the cervical spine Dr Gage Gilliland MD Radiologist's Impression: No acute bony abnormality involving the cervical spine. Degenerative changes from C3-C7. Dr Gage Gilliland MD CT scan - abdomen/pelvis: Radiologist's Impression: Chest: Multiple age indeterminate compression fractures of the spine. Small pulmonary nodules as outlined above although these may be infectious/inflammatory in etiology given the history of melanoma presents pulmonary metastatic disease is not excluded. (patient initially said that she had metastatic multiple melanoma, she actually has progressive multiple myeloma) Abd: No evidence of solid organ or visceral injury. Small bilateral adrenal nodules. Adrenal masses are not excluded. Multiple age indeterminate compression fractures throughout the lower thoracic spine and lumbar spine. Possible gallbladder wall thickening and trace amount of pericholecystic fluid. No radiopaque gallstones are identified however the gallbladder may be more sensitive maia assessed with abdominal ultrasound as clinically warranted. Dr Gage Gilliland MD CT scan - head: Radiologist's Impression: No acute intracranial abnormality. Subtle lucency within the calvarium likely related to her multiple myeloma. Left sphenoid sinus disease. MDM Narrative Medical decision making narrative: 70-year-old woman with progressive multiple myeloma on pale eat of chemotherapy. Syncopal episode 3 days ago with significant black eyes small nasal bone fracture no intracranial hemorrhage no cervical spine injury. Significant dyspnea with respiratory rate of 30 typically on 2-4 L of oxygen at home without evidence of infection, acute coronary syndrome, pulmonary embolism, pneumothorax or other immediately treatable diagnoses. I do not have full explanation for her syncopal episode 3 days ago however I suspect it is related to her progressive multiple myeloma. The bruises are consistent with her diagnosis as well as her thrombocytopenia. With deep breathing her oxygen levels are up to 98%. Wheezing has significantly improved. She remains mildly tachypneic and tachycardic however I think that that is not far from her baseline. She does complain of mid face pain which is consistent with the bruising and the nasal bone fracture. At this time I am not seeing signs or symptoms of sepsis. There does not appear to be any overt bacterial infection, pneumonia, pneumothorax, COPD exacerbation, asthma exacerbation. No pulmonary embolism, acute coronary disease, pneumothorax. At this time I believe she is at her baseline, progressively worsening overall health status. I have given her copies of her imaging study reports as well as all of her labs to share with her oncologist with her follow-up appointment that is scheduled on December 17. If she has worsening signs or symptoms she is welcome to return to the emergency department. Her lactate levels are trendin down and of her blood cultures do return positive will certainly call her. At this time she is safe for home discharge questions are answered Discharge Plan Departure Patient Disposition: Home Clinical Impression: Syncope, Closed fracture nasal bone, Traumatic black eye of left side, Trau matic black eye of right side, Thrombocytopenia Instructions: DI for Syncope in Adults (Fainting), DI for Nose Fracture Activity Restrictions/Additional Instructions: Thank you for coming in today You did break your nose, however, there is no additional work to be done at this time. You do have black eyes and these will likely get slightly worse before they begin to improve. We did do CT scans of your head your cervical spine your chest, abdomen and pelvis. There were no acute findings that seemed to be related to your fall from 3 days ago, specifically, you do not have any bleeding in your head, and nothing that appears that you have had a stroke. Your lab work does not suggest an acute heart attack or overall infection. At this time I think it is safe for you to return home. I have given you copies of the blood work as well as CT scan reports from today for you to share with Dr. Hampton with your follow-up appointment on you sec. If you find that you are getting worse or develop any new symptoms, please feel free to return to the emergency department for further evaluation. Prescriptions: No Action aspirin 81 mg Tablet 81 mg PO DAILY 0RF pantoprazole 40 mg Tablet,Delayed Release (Dr/Ec) 40 mg PO DAILY 0RF furosemide [Lasix] 20 mg Tablet 20 mg PO DAILY 0RF Pomalyst 3 mg Capsule 3 mg PO DAILY 0RF Rx Instructions: Patient takes this for 21 days straight and then is off of it for 7 days. She has 4 capsules left to take and then will be off for one week. valacyclovir 500 mg Tablet 500 mg PO BID 0RF Referrals: Eliu Barnard MD [Primary Care Provider] -
--- NOTE | 2021-12-15 01:23 | DI.CT.S_ITS ---
PROCEDURE: CT CHEST ABD PEL W CON INDICATIONS: fall, dyspnea, abdominal pain and distention TECHNIQUE: After the administration of intravenous contrast, axial sections acquired from the supraclavicular neck to the pubic symphysis. Coronal and sagittal reformats were performed. For radiation dose reduction, the following was used: automated exposure control, adjustment of mA and/or kV according to patient size. COMPARISON: [facility], CR, XR BONE SURVEY COMPLETE, 09/26/2018, 10:11. CT, CT CHEST ABD PEL WO CON, 11/20/2017, 8:38. [facility], CT, CT CHEST ABDOMEN PELVIS WITHOUT CONTRAST, 09/26/2018, 11:24. FINDINGS: Image quality: Excellent. CHEST: Lower Neck: No enlarged lymph nodes. Thyroid: Unremarkable. Axillae: No enlarged lymph nodes. Chest Wall: Right-sided port with the catheter tip terminating at the lower 3rd of the SVC. Healed bilateral rib fractures. Lungs and Airways: A few scattered pulmonary nodules. These nodules are indeterminate and cannot be confirmed on prior CT. For example: -Right upper lobe pulmonary nodule measuring 0.5 cm, (97). -Right middle lobe nodular opacity measuring 0.9 cm, (10/191). -Right lower lobe pulmonary nodule measuring 0.3 cm, (10/218). -Left upper lobe pulmonary nodule measuring 0.4 cm, (10/80). No acute airspace opacity. Airways are clear. Pleura: No pneumothorax or pleural effusions. Heart: Heart size is normal. Trace pericardial effusion. Thoracic Vessels: The aorta and pulmonary arteries demonstrate normal size. Mediastinum and Brandy: No enlarged lymph nodes. Esophagus: No wall thickening. No hiatal hernia. ABDOMEN: Liver: No focal lesion. Gallbladder: Not distended. Suspect trace pericholecystic fluid or wall thickening. No calcified gallstones. Biliary ducts: Unremarkable. Pancreas: Unremarkable. Spleen: No splenomegaly. Calcified granulomas. Adrenal Glands: Right adrenal nodule or thickening measuring 1 cm. Left adrenal nodule or thickening measuring 0.9 cm. Overall these appear similar to the prior CT. Kidneys and Ureters: No hydronephrosis. Mild perinephric stranding bilaterally. Left greater than right. No solid renal mass. Stomach and Bowel: Stomach, small bowel loops, and colon are unremarkable. Normal appendix. Peritoneum: No abnormal intraperitoneal fluid. No free air. Ventral Wall: Small fat containing umbilical hernia. Abdominal Nodes: No retroperitoneal or mesenteric adenopathy by size criteria. Vessels: Aorta and inferior vena cava are normal in size. Mild plaque. PELVIS: Pelvic Organs: Uterus is unremarkable. Bladder: Unremarkable. Pelvic Nodes: No enlarged lymph nodes. Miscellaneous: No inguinal hernias are seen. Flank and lumbar subcutaneous edema. Bones: Multiple thoracic and lumbar spine vertebral body fractures. Overall these appear similar to the prior CT from 2019. Multilevel DDD. Anterolisthesis of L5 on S1 measuring 0.7 cm, unchanged. Bilateral L5 pars defect. Cyst at the left scapula measuring 2.3 cm, (01/20), previously 2.5 cm in 2018, and partially visualized in 2006 where it measured 1.8 cm. Presence given the long time frame suggests a benign etiology. IMPRESSION: 1. Several small subcentimeter pulmonary nodules and nodular opacities which are not seen on the prior CT and indeterminate for metastatic disease. Recommend CT chest in 3 months. PET/CT could also be considered, but these pulmonary nodules may be below the resolution for PET. 2. Thickening of the adrenal glands or small adrenal nodules. These appear similar to the prior CTs. It is difficult to exclude metastatic disease. 3. Concern for trace gallbladder wall thickening or pericholecystic fluid. Recommend clinical correlation. This could be further evaluated with gallbladder ultrasound. 4. Multilevel thoracic and lumbar spine compression fractures. Overall these are similar to the prior CTs. This report is concordant with the overnight preliminary interpretation. Dictated by: Russell Hackett M.D. on 12/15/2021 at 7:45 Approved by: Russell Hackett M.D. on 12/15/2021 at 8:16
--- NOTE | 2021-12-15 01:25 | DI.CT.S_ITS ---
PROCEDURE: CT FACIAL BONES WO CON INDICATIONS: fall, trauma TECHNIQUE: Noncontrast 2.5 mm thick axial images acquired from the mandible through the frontal sinuses, with coronal and sagittal reformatting. For radiation dose reduction, the following was used: automated exposure control, adjustment of mA and/or kV according to patient size. COMPARISON: None. FINDINGS: Image quality: Excellent. Bones and teeth: Orbital johnson are intact. Sinus johnson show no fracture or deformity. Bilateral nasal bone fractures.. Visualized portions of the mandible demonstrate no fractures or subluxation. Zygomatic arches are intact. Pterygoid plates are intact. Visualized portions of the skull base and auditory canals are intact. Sinuses: Moderate mucosal thickening noted in the left sphenoid sinus. Scattered opacities noted in the dependent portions of the mastoid air cells bilaterally. Soft tissues: No edema, masses, or fluid collections. No enlarged lymph nodes. No soft tissue lacerations or debris. Vascular: Visualized vascular structures appear normal in the absence of contrast. Bony vascular foramina and canals are intact. IMPRESSION: Bilateral nasal bone fractures. Dictated by: Toya Mao MD, PhD on 12/15/2021 at 7:32 Approved by: Toya Mao MD, PhD on 12/15/2021 at 7:35
--- NOTE | 2021-12-15 01:25 | DI.CT.S_ITS ---
PROCEDURE: CT HEAD/BRAIN WO CON INDICATIONS: fall, trauma TECHNIQUE: Noncontrast 4.5 mm thick angled axial sections acquired from the foramen magnum to the vertex, with coronal and sagittal reformats. For radiation dose reduction, the following was used: automated exposure control, adjustment of mA and/or kV according to patient size. COMPARISON: None. FINDINGS: Image quality: Excellent. CSF spaces: Basal cisterns are patent. No extra-axial fluid collections. The ventricles are symmetric in size and shape. Brain: No intracranial bleeds or masses. There is cerebral volume loss for age, with resultant ventricular and sulcal prominence. There are periventricular and deep white matter chronic small vessel ischemic changes. There is intracranial internal carotid artery atherosclerosis. Skull and face: Scattered lucencies in the calvarium visualized facial bones appear intact, without suspicious lesions. Sinuses: Visualized sinuses and mastoids are clear. IMPRESSION: No acute intracranial disease process. Scattered lucencies in the calvarium which could represent multiple venous lakes or metastatic disease. Left sphenoid sinusitis. Fluid in the mastoid air cells. Recommend correlation with physical findings to differentiate serous fluid from an inflammatory process. Dictated by: Toya Mao MD, PhD on 12/15/2021 at 7:36 Approved by: Toya Mao MD, PhD on 12/15/2021 at 7:38
--- NOTE | 2021-12-15 01:26 | DI.CT.S_ITS ---
PROCEDURE: CT CERVICAL SPINE WO CON INDICATIONS: fall, pain midline c spine TECHNIQUE: Noncontrast 3 mm thick sections acquired from the skull base to the T4 level. Sagittal and coronal reformats were then constructed. For radiation dose reduction, the following was used: automated exposure control, adjustment of mA and/or kV according to patient size. COMPARISON: None. FINDINGS: Image quality: Excellent. Bones: No fractures or dislocations. Visualized superior ribs are intact. Spine degenerative disc disease and facet arthropathy. Soft tissues: Prevertebral soft tissues are normal in thickness. No paravertebral hematomas. No apical pneumothoraces. Right IJ central venous catheter. IMPRESSION: No fracture. No acute osseous lesion. If symptoms and/or clinical suspicion for pathology persists, evaluation with MRI should be considered for further assessment. Dictated by: Toya Mao MD, PhD on 12/15/2021 at 7:28 Approved by: Toya Mao MD, PhD on 12/15/2021 at 7:31
[2021-12-15 01:43] LABS: Lipase 84 U/L (23-300); Magnesium 1.4 mg/dL (1.6-2.3)
[2021-12-15 01:44] LABS: Alanine Aminotransferase 24 IU/L (<35); Albumin 4.2 g/dL (3.5-5.0); Albumin Globulin Ratio 1.8 (1.0-2.8); Alkaline Phosphatase 77 U/L (38-126); Aspartate Aminotransferase 29 IU/L (14-36); BUN Creatinine Ratio 19.8 (6-22); Bilirubin Total 0.8 mg/dL (0.2-1.3); Blood Urea Nitrogen 19 mg/dL (7-17); Calcium 9.2 mg/dL (8.4-10.2); Carbon Dioxide 31 mmol/L (22-32); Chloride 100 mmol/L (98-107); Estimated Glomerular Filt Rate > 60 mL/min (>60); Globulin 2.3 g/dL (1.7-4.1); Glucose 111 mg/dL (80-110); HEMOLYSIS < 15 (0-50); Potassium 3.8 mmol/L (3.4-5.1); Sodium 140 mmol/L (137-145); Total Protein 6.5 g/dL (6.3-8.2)
[2021-12-15 01:45] LABS: Lactate (Lactic Acid) 2.3 mmol/L (0.7-2.1)
[2021-12-15 01:45] LABS: COVID19 -Nasal RAPID Negative (Negative)
[2021-12-15 01:46] LABS: Add Manual Diff / Slide Review NO; Basophils Absolute Auto 0 /uL (0-100); Basophils Percent Auto 0.3 % (0-2); Eosinophils Absolute Auto 0 /uL (0-450); Eosinophils Percent Auto 0.3 % (2-4); Hematocrit 34.2 % (36-46); Hemoglobin 11.7 g/dL (12.0-16.0); Lymphocytes Absolute Auto 0 /uL (1100-4500); Lymphocytes Percent Auto 0.3 % (25-40); Mean Corpuscular HGB Conc 34.1 % (30-36); Mean Corpuscular Hemoglobin 33.5 PG (26-34); Mean Corpuscular Volume 98.2 fL (80-100); Monocytes Absolute Auto 200 /uL (0-900); Monocytes Percent Auto 3.1 % (3-14); Neutrophils Absolute Auto 6500 /uL (1500-7000); Red Blood Cell Count 3.48 X10^6/uL (4.0-5.2); Red Cell Distribution Width 13.7 % (11.6-14.8); White Blood Cell Count 6.8 X10^3/uL (4.5-11.0)
[2021-12-15 01:48] LABS: Platelet Count 33 X10^3/uL (150-400)
[2021-12-15 01:56] LABS: NT-proBNP (BNP-Adult 18+) 4800 pg/mL (<125); Troponin I < 0.012 ng/mL (0.01-0.034)
[2021-12-15 02:01] LABS: Procalcitonin 0.11 ng/mL (<0.5)
[2021-12-15] MEDS: SODIUM CHLORIDE 0.9% 1,000 ML 1000 ML IV (02:05)
[2021-12-15] MEDS: ALBUTEROL/IPRATROPIUM 3 ML AMPUL INH (02:05)
[2021-12-15] MEDS: ONDANSETRON 4 MG/2 ML INJ IV (02:06)
[2021-12-15 02:16] LABS: Platelet Estimate Decreased on smear; RBC Morphology Normal Morphology
[2021-12-15 03:16] LABS: Appearance Urine UA CLEAR; Bilirubin Urine UA NEGATIVE (NEGATIVE); Color Urine UA YELLOW; Glucose Urine UA NEGATIVE (Negative); Ketones Urine UA NEGATIVE (NEGATIVE); Leukocyte Esterase Urine UA NEGATIVE (NEGATIVE); Nitrite Urine UA NEGATIVE (Negative); Occult Blood Urine UA NEGATIVE (Negative); Protein Urine UA NEGATIVE (Negative); Specific Gravity Urine UA <=1.005 (1.000-1.035); Urobilinogen Urine UA 0.2 E.U./dL (0.2)
[2021-12-15 03:21] LABS: Bacteria Urine None Seen; Culture Indicated Urine Cult Not Indicated; RBC Urine None Seen (0-5/HPF); Squamous Epithelial Cell Urine 0-1 /HPF (0-5/HPF); WBC Urine None Seen (0-5/HPF)
[2021-12-15 03:29] LABS: Reflexed Lactate in 2 Hours Y
--- NOTE | 2021-12-15 04:20 | PC.NURSE ---
R chest port heparinized per protocol
== END 2021-12-15 05:05 | disposition home or self-care (01) ==
PROVIDERS: Emergency Provider Emergency Medicine; Family Provider Family Medicine; PCP Family Medicine
DX: R55 Syncope and collapse (principal); S02.2XXA Fracture of nasal bones, initial encounter for closed fracture; S00.12XA Contusion of left eyelid and periocular area, initial encounter; S00.11XA Contusion of right eyelid and periocular area, initial encounter; D69.6 Thrombocytopenia, unspecified; R51.9 Headache, unspecified; R10.9 Unspecified abdominal pain; Z20.822 Contact with and (suspected) exposure to COVID-19
CPT/HCPCS: 36415; 70450; 70486; 71260; 72125; 74177; 80053; 81001; 83605; 83690; 83735; 83880; 84145; 84484; 85025; 87040; 87635; 93005; 94640; 96361; 96374; 99285; C9803; J1642; J2405

== ENCOUNTER 2022-08-30 06:50 | Emergency (ER) | payer MEDICARE, SELFPAY ==
[2017-11-20 18:10] VITALS: PULSE 93; RESP 26; O2SAT 94
[2021-03-08 13:08] VITALS: BMI 32.9
[2022-08-30] VITALS (31 sets, daily range): BP systolic 92–125; BP diastolic 55–73; PULSE 85–114; RESP 25–40; TEMP 38.1–39.8; O2SAT 91–98; BMI 30.9
--- NOTE | 2022-08-30 07:27 | DI.RAD.S_ITS ---
PROCEDURE: XR CHEST 1V INDICATIONS: suspected sepsis TECHNIQUE: One view of the chest was acquired. COMPARISON: [facility], JOSE ANTONIO, XR CHEST 1V, 03/08/2021, 9:37. [facility], JOSE ANTONIO, XR CHEST 2V, 11/18/2017, 22:57. FINDINGS: Surgical changes and devices: Right port catheter terminates in the SVC. Lungs and pleura: No dense consolidation or pleural effusion. Mediastinum: Heart size is normal. Bones and chest wall: No suspicious bony lesions. Overlying soft tissues appear unremarkable. IMPRESSION: No acute radiographic abnormality. Dictated by: Tod Joyce M.D. on 08/30/2022 at 7:52 Approved by: Tod Joyce M.D. on 08/30/2022 at 7:53
--- NOTE | 2022-08-30 07:31 | ED_ITS ---
HPI - SOB/Dyspnea General Chief Complaint: Shortness of Breath/Dyspnea Stated Complaint: difficulty breathing, sore throat Time Seen by Provider: 08/30/22 06:53 Source: patient and family Mode of arrival: Wheelchair History of Present Illness HPI Narrative: 71F smoker with relapsed IgA multiple myeloma, chronic pain, chronic lower extremity edema and GERD presents with a chief complaint of fever and shortness of breath. She was just discharged yesterday from an outside facility after having been admitted for a week for the initiation of Teclistamab. She tolerated the initiation quite well and was told upon discharge that she should present to the emergency department for any worsening symptoms hence her visit. Patient started feeling anxious and having some generalized achy pain around her lower abdomen over the course of the night and presents with fever as high as 103.6. She denies any headache or blurred vision. She has no runny nose, sore throat but has had a rather chronic cough. She denies her cough is any differ ent than normal and states she is no more short of breath than normal. She does activate our sepsis protocol Related Data Home Medications Medication Instructions Recorded Confirmed aspirin 81 mg tablet 81 mg PO DAILY 03/08/21 03/08/21 furosemide 20 mg tablet (Lasix) 20 mg PO DAILY 03/08/21 03/08/21 pantoprazole 40 mg tablet,delayed 40 mg PO DAILY 03/08/21 03/08/21 release pomalidomide 3 mg capsule 3 mg PO DAILY 03/08/21 03/08/21 (Pomalyst) valacyclovir 500 mg tablet 500 mg PO BID 03/08/21 03/08/21 Previous Rx's Medication Instructions Recorded oxycodone 5 mg tablet 5 mg PO Q8H PRN pain #14 tabs 12/15/21 Allergies Allergy/AdvReac Type Severity Reaction Status Date / Time No Known Drug Allergies Allergy Verified 11/19/17 04:13 Review of Systems Review of Systems Narrative: GENERAL: see HPI HEENT: Denies sinus pain, ear pain, sore throat, difficulty swallowing, dizziness. RESPIRATORY: see HPI CARDIOVASCULAR: Denies chest pain, palpitations, orthopnea, edema, GASTROINTESTINAL: Denies nausea, vomiting, abdominal pain, diarrhea, constip ation, melena. : Denies dysuria, frequency, incontinence, hematuria, urinary retention. MUSCULOSKELETAL: denies weakness, joint pain, or bony pain SKIN: Denies rash, skin lesions, or other NEUROLOGIC: Denies weakness, headache, numbness, change in speech, confusion, seizures, incoordination. PSYCHIATRIC: No concerning psychosocial issues. 12 point review of systems is negative except for those stated above Patient History Medical History (Updated 08/30/22 @ 13:03 by Trenton Davila DO) Anemia Congestive heart failure Multiple myeloma Pneumonia Surgical History No significant past surgical history Family History Mother Cancer Social History household members: none Smoking Status: Current some day smoker alcohol intake: current additional social history: The patient smokes tobacco. She does not use alcohol. No drugs. Family and social history are otherwise noncontributory Smoking Status: Current some day smoker tobacco type: cigarettes alcohol intake frequency: holidays/special occasions only Substance Use Type: does not use Exam Narrative Exam Narrative: GENERAL: [71] year old patient appears stated age. Well-developed patient, in mild distress. HEAD: Atraumatic. Normocephalic. EYES: Pupils equal round and reactive. Extraocular motions intact. No scleral icterus. No injection or drainage. ENT: Nose without bleeding, purulent drainage. Throat without erythema, tons illar hypertrophy or exudate. Airway patent. NECK: Trachea midline. Non tender CARDIOVASCULAR: Regular rate and rhythm without murmurs, gallops, or rubs. RESPIRATORY: Clear to auscultation. Breath sounds equal bilaterally. No wheezes, rales, or rhonchi. GASTROINTESTINAL: Abdomen soft, non-tender, nondistended. EXTREMITIES: No edema or joint tenderness. BACK: Nontender without deformity or crepitance. No flank tenderness. NEURO: AOx3. SKIN: No rash or erythema of visible areas Initial Vital Signs Initial Vital Signs: Vital Signs Pulse Rate 113 H 08/30/22 07:22 Respiratory Rate 38 H 08/30/22 07:22 Pulse Oximetry 96 08/30/22 07:22 Course Orders Ordered: ED Orders 08/30/22 07:20 Complete Blood Count AUTO DIFF Stat Comprehensive Metabolic Panel Stat D Dimer Stat Fibrinogen Stat LDH [Lactate Dehydrogenase] Stat Lactate (Lactic Acid) Stat Lipase Stat Partial Thromboplastin Time Stat Procalcitonin Stat Prothrombin Time INR Stat Respiratory Panel (Film Array) Stat 08/30/22 07:27 XR chest 1V Stat EKG-12 Lead Stat RT Consult Eval and Treat NOW 08/30/22 08:20 Blood Culture Stat 08/30/22 08:51 CT angio chest PE protocol Stat Discontinued Medications Acetaminophen (Acetaminophen 325 Mg Tablet) 650 mg PO NOW ONE Stop: 08/30/22 07:30 Last Admin: 08/30/22 07:34 Dose: 650 mg Documented By: SHANE Sodium Chloride (Normal Saline 0.9%) 1,000 mls @ 1,000 mls/hr IV BOLUS ONE Stop: 08/30/22 08:26 Last Infusion: 08/30/22 09:20 Dose: 0 mls/hr Documented By: Admin: 08/30/22 07:35 Dose: 1,000 mls/hr Documented By: SHANE Sodium Chloride (Normal Saline 0.9%) 1,503 mls @ 501 mls/hr 30 ml/kg infuse over 3 hr (1503 ml) IV NOW ONE Stop: 08/30/22 10:56 Last Infusion: 08/30/22 10:15 Dose: 0 mls/hr Documented By: Admin: 08/30/22 08:41 Dose: 501 mls/hr Documented By: SHANE Ceftriaxone Sodium 2,000 mg/ (Sodium Chloride) 100 mls @ 200 mls/hr IV NOW ONE Stop: 08/30/22 08:23 Last Infusion: 08/30/22 09:21 Dose: 0 mls/hr Documented By: Admin: 08/30/22 08:40 Dose: 200 mls/hr Documented By: SHANE Lorazepam (Lorazepam 2 Mg/Ml Inj) 0.5 mg IV NOW ONE Stop: 08/30/22 08:20 Last Admin: 08/30/22 08:23 Dose: 0.5 mg Documented By: SHANE Reevaluation(s) Reevaluation #1: Improved vitals after fluids, antibiotics and fever control Consultations Consultation #1: discussed with Dr. Garcia, patient's oncologist who suggest patient be hospitalized, agrees with our septic evaluation for now, recommends addition of fibrinogen and LDH, transfer to [facility] if bed available Consultation #2: discussed with Dr. Atkinson (hospitalist [facility]). Happy to accept patient in [facility], no request to add additional antibiotics for now Vital Signs Vital signs: Vital Signs - 8 hr 08/30/22 07:23 08/30/22 07:22 08/30/22 07:25 Temperature 103.6 F H Pulse Rate 114 H 113 H 114 H Respiratory Rate 30 H 38 H 36 H Blood Pressure 125/73 Pulse Oximetry 96 96 97 Oxygen Delivery Method Room Air 08/30/22 07:25 08/30/22 07:30 08/30/22 07:30 Temperature Pulse Rate 111 H Respiratory Rate 33 H Blood Pressure 114/71 117/72 Pulse Oximetry 98 Oxygen Delivery Method 08/30/22 08:00 08/30/22 08:30 08/30/22 08:33 Temperature Pulse Rate 110 H 112 H Respiratory Rate 36 H 40 H Blood Pressure 96/68 Pulse Oximetry 98 97 Oxygen Delivery Method 08/30/22 08:33 08/30/22 09:00 08/30/22 09:00 Temperature Pulse Rate 111 H 109 H Respiratory Rate 30 H 32 H Blood Pressure 104/64 Pulse Oximetry 97 93 Oxygen Delivery Method Room Air 08/30/22 10:00 08/30/22 09:15 08/30/22 09:30 Temperature 100.6 F H Pulse Rate 108 H 104 H Respiratory Rate 37 H 32 H Blood Pressure Pulse Oximetry 95 91 Oxygen Delivery Method 08/30/22 09:45 08/30/22 10:00 08/30/22 10:15 Temperature Pulse Rate 107 H 100 H 98 H Respiratory Rate 29 H 29 H 28 H Blood Pressure Pulse Oximetry 93 94 Oxygen Delivery Method 08/30/22 10:30 08/30/22 10:45 08/30/22 11:00 Temperature Pulse Rate 99 H 97 H 94 H Respiratory Rate 31 H 30 H 30 H Blood Pressure Pulse Oximetry 94 96 95 Oxygen Delivery Method 08/30/22 11:14 08/30/22 11:14 08/30/22 11:15 Temperature Pulse Rate 93 H 92 H Respiratory Rate 30 H 28 H Blood Pressure 106/70 Pulse Oximetry 94 93 Oxygen Delivery Method 08/30/22 11:30 08/30/22 11:32 08/30/22 11:32 Temperature Pulse Rate 97 H 94 H Respiratory Rate 33 H 34 H Blood Pressure 92/55 L Pulse Oximetry 97 95 Oxygen Delivery Method 08/30/22 11:45 08/30/22 12:00 08/30/22 12:00 Temperature Pulse Rate 92 H 93 H Respiratory Rate 32 H 26 H Blood Pressure 107/63 Pulse Oximetry 93 92 Oxygen Delivery Method 08/30/22 12:15 08/30/22 12:30 08/30/22 12:30 Temperature Pulse Rate 92 H 89 Respiratory Rate 27 H 29 H Blood Pressure 96/59 L Pulse Oximetry 94 95 Oxygen Delivery Method Room Air MDM - SOB/Dyspnea Lab Data 08/30/22 07:20 08/30/22 07:20 Labs: Lab Results 08/30/22 08/30/22 08/30/22 Range/Units 07:20 07:20 07:20 WBC 4.1 L (4.5-11.0) X10^3/uL RBC 3.24 L (4.0-5.2) X10^6/uL Hgb 10.9 L (12.0-16.0) g/dL Hct 31.5 L (36-46) % MCV 97.5 (80-100) fL MCH 33.7 (26-34) PG MCHC 34.6 (30-36) % RDW 12.4 (11.6-14.8) % Plt Count 83 L (150-400) X10^3/uL Neut % (Auto) Not Reportable Lymph % (Auto) Not Reportable [place] % (Auto) Not Reportable Eos % (Auto) Not Reportable Baso % (Auto) Not Reportable Lymph # (Auto) Not Reportable [place] # (Auto) Not Reportable Baso # (Auto) Not Reportable Total Counted 100 Seg Neutrophils % 78.0 H (38-70) % Band Neutrophils % 2.0 L (3-7) % Lymphocytes % (Manual) 1.0 L (25-45) % Monocytes % (Manual) 14.0 H (2-11) % Eosinophils % (Manual) 4.0 (2-4) % Basophils % (Manual) 1.0 (0-1) % Neutrophils # (Manual) 3280 (4689-7303) /uL RBC Morphology Normal morphology PT 12.8 H (10.1-12.7) SECONDS INR 1.1 (0.9-1.3) APTT 25 L (26-36) SECONDS Fibrinogen (211-428) mg/dL D-Dimer (<500) ng/ml Sodium 136 L (137-145) mmol/L Potassium 4.2 (3.4-5.1) mmol/L Chloride 97 L (98-107) mmol/L Carbon Dioxide 27 (22-32) mmol/L BUN 22 H (7-17) mg/dL Creatinine 0.98 (0.52-1.04) mg/dL Estimated GFR > 60 (>60) mL/min BUN/Creatinine Ratio 22.4 H (6-22) Glucose 122 H (80-110) mg/dL Lactate (0.7-2.1) mmol/L Calcium 8.6 (8.4-10.2) mg/dL Total Bilirubin 0.7 (0.2-1.3) mg/dL AST 28 (14-36) IU/L ALT 44 H (<35) IU/L Alkaline Phosphatase 85 (38-126) U/L Lactate Dehydrogenase (120-246) U/L Total Protein 7.4 (6.3-8.2) g/dL Albumin 4.1 (3.5-5.0) g/dL Globulin 3.3 (1.7-4.1) g/dL Albumin/Globulin Ratio 1.2 (1.0-2.8) Lipase 27 (23-300) U/L Procalcitonin 4.82 H (<0.5) ng/mL Chlamy pneumoniae PCR (Not Detect) Adenovirus (PCR) (Not Detect) B. pertussis DNA (PCR) (Not Detecte) B.parapertussis DNA PCR (Not Detecte) Coronavirus OC43 (PCR) (Not Detect) Coronavirus HKU1 (PCR) (Not Detect) Coronavirus 229E (PCR) (Not Detect) SARS-CoV-2 (PCR) (Not Detecte) Coronavirus NL63 (PCR) (Not Detect) Human Metapneumovir PCR (Not Detect) Influenza Type A (PCR) (Not Detect) Influenza Type B (PCR) (Not Detect) M. pneumoniae (PCR) (Not Detect) Parainfluenza 1 (PCR) (Not Detect) Parainfluenza 2 (PCR) (Not Detect) Parainfluenza 3 (PCR) (Not Detect) Parainfluenza 4 (PCR) (Not Detect) RSV (PCR) (Not Detect) Entero/Rhino (PCR) (Not Detect) 08/30/22 08/30/22 08/30/22 Range/Units 07:20 07:20 07:20 WBC (4.5-11.0) X10^3/uL RBC (4.0-5.2) X10^6/uL Hgb (12.0-16.0) g/dL Hct (36-46) % MCV (80-100) fL MCH (26-34) PG MCHC (30-36) % RDW (11.6-14.8) % Plt Count (150-400) X10^3/uL Neut % (Auto) Lymph % (Auto) [place] % (Auto) Eos % (Auto) Baso % (Auto) Lymph # (Auto) [place] # (Auto) Baso # (Auto) Total Counted Seg Neutrophils % (38-70) % Band Neutrophils % (3-7) % Lymphocytes % (Manual) (25-45) % Monocytes % (Manual) (2-11) % Eosinophils % (Manual) (2-4) % Basophils % (Manual) (0-1) % Neutrophils # (Manual) (4973-5600) /uL RBC Morphology PT (10.1-12.7) SECONDS INR (0.9-1.3) APTT (26-36) SECONDS Fibrinogen (211-428) mg/dL D-Dimer 1768 H (<500) ng/ml Sodium (137-145) mmol/L Potassium (3.4-5.1) mmol/L Chloride (98-107) mmol/L Carbon Dioxide (22-32) mmol/L BUN (7-17) mg/dL Creatinine (0.52-1.04) mg/dL Estimated GFR (>60) mL/min BUN/Creatinine Ratio (6-22) Glucose (80-110) mg/dL Lactate 1.8 (0.7-2.1) mmol/L Calcium (8.4-10.2) mg/dL Total Bilirubin (0.2-1.3) mg/dL AST (14-36) IU/L ALT (<35) IU/L Alkaline Phosphatase (38-126) U/L Lactate Dehydrogenase (120-246) U/L Total Protein (6.3-8.2) g/dL Albumin (3.5-5.0) g/dL Globulin (1.7-4.1) g/dL Albumin/Globulin Ratio (1.0-2.8) Lipase (23-300) U/L Procalcitonin (<0.5) ng/mL Chlamy pneumoniae PCR Not detected (Not Detect) Adenovirus (PCR) Not detected (Not Detect) B. pertussis DNA (PCR) Not detected (Not Detecte) B.parapertussis DNA PCR Not detected (Not Detecte) Coronavirus OC43 (PCR) Not detected (Not Detect) Coronavirus HKU1 (PCR) Not detected (Not Detect) Coronavirus 229E (PCR) Not detected (Not Detect) SARS-CoV-2 (PCR) Not detected (Not Detecte) Coronavirus NL63 (PCR) Not detected (Not Detect) Human Metapneumovir PCR Not detected (Not Detect) Influenza Type A (PCR) Not detected (Not Detect) Influenza Type B (PCR) Not detected (Not Detect) M. pneumoniae (PCR) Not detected (Not Detect) Parainfluenza 1 (PCR) Not detected (Not Detect) Parainfluenza 2 (PCR) Not detected (Not Detect) Parainfluenza 3 (PCR) Not detected (Not Detect) Parainfluenza 4 (PCR) Not detected (Not Detect) RSV (PCR) Not detected (Not Detect) Entero/Rhino (PCR) Not detected (Not Detect) 08/30/22 08/30/22 Range/Units 07:20 07:20 WBC (4.5-11.0) X10^3/uL RBC (4.0-5.2) X10^6/uL Hgb (12.0-16.0) g/dL Hct (36-46) % MCV (80-100) fL MCH (26-34) PG MCHC (30-36) % RDW (11.6-14.8) % Plt Count (150-400) X10^3/uL Neut % (Auto) Lymph % (Auto) [place] % (Auto) Eos % (Auto) Baso % (Auto) Lymph # (Auto) [place] # (Auto) Baso # (Auto) Total Counted Seg Neutrophils % (38-70) % Band Neutrophils % (3-7) % Lymphocytes % (Manual) (25-45) % Monocytes % (Manual) (2-11) % Eosinophils % (Manual) (2-4) % Basophils % (Manual) (0-1) % Neutrophils # (Manual) (6743-8031) /uL RBC Morphology PT (10.1-12.7) SECONDS INR (0.9-1.3) APTT (26-36) SECONDS Fibrinogen 483 H (211-428) mg/dL D-Dimer (<500) ng/ml Sodium (137-145) mmol/L Potassium (3.4-5.1) mmol/L Chloride (98-107) mmol/L Carbon Dioxide (22-32) mmol/L BUN (7-17) mg/dL Creatinine (0.52-1.04) mg/dL Estimated GFR (>60) mL/min BUN/Creatinine Ratio (6-22) Glucose (80-110) mg/dL Lactate (0.7-2.1) mmol/L Calcium (8.4-10.2) mg/dL Total Bilirubin (0.2-1.3) mg/dL AST (14-36) IU/L ALT (<35) IU/L Alkaline Phosphatase (38-126) U/L Lactate Dehydrogenase 196 (120-246) U/L Total Protein (6.3-8.2) g/dL Albumin (3.5-5.0) g/dL Globulin (1.7-4.1) g/dL Albumin/Globulin Ratio (1.0-2.8) Lipase (23-300) U/L Procalcitonin (<0.5) ng/mL Chlamy pneumoniae PCR (Not Detect) Adenovirus (PCR) (Not Detect) B. pertussis DNA (PCR) (Not Detecte) B.parapertussis DNA PCR (Not Detecte) Coronavirus OC43 (PCR) (Not Detect) Coronavirus HKU1 (PCR) (Not Detect) Coronavirus 229E (PCR) (Not Detect) SARS-CoV-2 (PCR) (Not Detecte) Coronavirus NL63 (PCR) (Not Detect) Human Metapneumovir PCR (Not Detect) Influenza Type A (PCR) (Not Detect) Influenza Type B (PCR) (Not Detect) M. pneumoniae (PCR) (Not Detect) Parainfluenza 1 (PCR) (Not Detect) Parainfluenza 2 (PCR) (Not Detect) Parainfluenza 3 (PCR) (Not Detect) Parainfluenza 4 (PCR) (Not Detect) RSV (PCR) (Not Detect) Entero/Rhino (PCR) (Not Detect) Urine Dip Bedside Urine Glucose Negative Bedside Urine Bilirubin - Negative Bedside Urine Ketone - Negative Urine Specific Camilla 1.010 Bedside Urine Occult Blood - Negative Bedside Urine pH 6.0 Bedside Urine Protein +/- 15 Bedside Urine Urobilinogen - Negative Bedside Urine Nitrite - Negative Bedside Urine Leukocytes - Negative Esterase Imaging Data Chest x-ray: Radiologist's Impression: [address] [address] XRay Report Signed Patient: Tory Barney MR#: [id number] : 1950 Acct:[id number] Age/Sex: 71 / F Date of Service: 08/30/22 Loc: ED Accession Number: [id number] ?? Procedure: XR chest 1V Ordering Provider: Trenton Davila D.O. PROCEDURE:? XR CHEST 1V ? INDICATIONS:? suspected sepsis ? TECHNIQUE:? One view of the chest was acquired.? ? COMPARISON:? [facility], CR, XR CHEST 1V, 03/08/2021, 9:37.? [facility], CR, XR CHEST 2V, 11/18/2017, 22:57. ? FINDINGS:? ? Surgical changes and devices:? Right port catheter terminates in the SVC. ? Lungs and pleura:? No dense consolidation or pleural effusion. ? Mediastinum:? Heart size is normal. ? Bones and chest wall:? No suspicious bony lesions.? Overlying soft tissues appear unremarkable.? ? IMPRESSION:? No acute radiographic abnormality. ? ? Dictated by: Tod Joyce M.D. on 08/30/2022 at 7:52 ? ? Approved by: Tod Joyce M.D. on 08/30/2022 at 7:53 ? CT scan - chest: Radiologist's Impression: [address] [address] [address] Scan Report Signed Patient: Tory Barney MR#: [id number] : 1950 Acct:[id number] Age/Sex: 71 / F Date of Service: 08/30/22 Loc: ED Accession Number: [id number] ?? Procedure: CT angio chest PE protocol Ordering Provider: Trenton Davila D.O. PROCEDURE:? CT ANGIO CHEST PE PROTOCOL ? INDICATIONS:? septic, SOB, tachy, recent admit, critical Dimer ? TECHNIQUE:? After the administration of intravenous contrast, 2 mm thick sections acquired from the pulmonary apices to the posterior costophrenic angles.? 3-dimensional maximum intensity projection (MIP) coronal and sagittal reformats were then acquired through the thorax.? For radiation dose reduction, the following was used:? automated exposure control, adjustment of mA and/or kV according to patient size.? ? COMPARISON:? [facility], CT, CT CHEST ABD PEL W CON, 12/15/2021, 1:31. ? FINDINGS:? Image quality:? Excellent.? ? Pulmonary arteries:? Pulmonary arteries are prominent in size, and demonstrate no intraluminal filling defects to suggest central pulmonary embolism.? ? Lungs and pleura:? Previously described bilateral subcentimeter pulmonary nodules are not well seen on the current study likely represent resolved nodular infiltrates versus atelectasis.? 7 x 5 mm oval nodule is noted in posterior left lower lobe series 5, image 158 not definitely seen on previous study.? Scattered atelectasis in periphery of bilateral lung aguilar are seen.? No acute airspace opacities.? No pleural effusions or pneumothorax.? Central and peripheral airways are patent.? ? Mediastinum:? Heart size is enlarged, without pericardial effusion.? No mediastinal or hilar adenopathy.? Thoracic aorta is normal in caliber and enhancement.? Esophagus is normal in caliber, without hiatal hernia.? ? Bones and chest wall:? Right chest wall Port-A-Cath tip is in SVC.? No suspicious bony lesions.? Chronic appearing compression deformities involving numerous mid to lower thoracic spine and upper lumbar spine vertebral bodies is seen.? Degenerative endplate changes also noted throughout thoracic spine and visualized upper lumbar spine.? Thyroid gland is within normal limits No axillary or supraclavicular adenopathy.? ? Abdomen:? Visualized upper abdominal solid organs appear normal in the early arterial phase of enhancement.? ? IMPRESSION:? 1. No evidence of pulmonary emboli.? Enlarged main pulmonary artery size which can be seen associated with pulmonary vascular hypertension. ? 2. No thoracic aortic aneurysm or gross dissection.? Cardiomegaly, no pericardial effusion.? No mediastinal or hilar lymphadenopathy. ? 3. Scattered atelectasis in periphery of bilateral lung aguilar.? No focal infiltrate, pleural effusion or pneumothorax.? Previously described scattered bilateral pulmonary nodules are not definitely seen on the current study.? Interval development of 7 x 5 mm nodular density in posterior left lower lobe.? CT chest follow-up in 6 months is recommended. ? 4. Chronic appearing anterior wedge compression deformities involving numerous mid to lower thoracic spine and lumbar spine vertebral bodies.? No suspicious bony lesions.? No definite acute vertebral body compression fracture.? ? ? Dictated by: Boom Mayberry M.D. on 08/30/2022 at 9:38 ? ? Approved by: Boom Mayberry M.D. on 08/30/2022 at 9:54? MDM Narrative Medical decision making narrative: CC: 71F with septic presentation after recent hospitalization for initiation of chemotherapy Complicating co-morbidities: Age, chemotherapy, recent hospitalization Data collected from: Patient Medical records reviewed: Including visits here and recent discharge note from [facility] Differential considered, but not limited to: Sepsis, cytokine release, versus other Exam documented above, pertinent findings include: Patient initially febrile, tachycardic and tachypneic without abnormal lung sounds patient has soft nontender abdomen Lab Test results independently reviewed as above. Pertinent findings: Absolute neutrophil count in reassuring zone, lactate in normal range, procalcitonin is critically elevated suggesting sepsis, critically elevated D-dimer to suggest advanced imaging to rule out PE would be indicated Independently reviewed EKG as above Imaging studies independently reviewed: CTA without evidence of pneumonia or pulmonary embolism Consultations: Discussed with patient's oncologist and accepting hospitalist at [facility], see details above Treatments: Patient treated with septic protocol including IV fluids at 30 cc/kilogram of ideal body weight given BMI greater than 30, antibiotics after cultures, Ativan 0.5 mg for anxiety Re-evaluations: Improved vital signs after above-stated therapies Discussion: Patient requires hospitalization due to septic presentation, particularly concerning in the aftermath of recent chemotherapy, transfer is indicated given need for inpatient Oncology and continuity of care Critical Care Time Critical Care Time Critical Care Time: Yes Total Critical Care Time: 30 Attestation: Critical Care Time [30] minutes: Critical care time is separate from other billable procedures. This critical care time includes consultation with family and other consulting doctors, review of records, and interpretation of data from labs, EKGs, imaging, etc. Discharge Plan Departure Patient Disposition: [facility] Clinical Impression: Sepsis Qualifiers: Sepsis type: sepsis due to unspecified organism Sepsis acute organ dysfunction status: without acute organ dysfunction Qualified Code(s): A41.9 - Sepsis, unspecified organism Prescriptions: No Action oxycodone 5 mg tablet 5 mg PO Q8H PRN (Reason: pain) Qty: 14 0RF aspirin 81 mg Tablet 81 mg PO DAILY pantoprazole 40 mg Tablet,Delayed Release (Dr/Ec) 40 mg PO DAILY furosemide [Lasix] 20 mg Tablet 20 mg PO DAILY Pomalyst 3 mg Capsule 3 mg PO DAILY Rx Instructions: Patient takes this for 21 days straight and then is off of it for 7 days. She has 4 capsules left to take and then will be off for one week. valacyclovir 500 mg Tablet 500 mg PO BID Referrals: Wilfredo Garcia MD [Primary Care Provider] -
[2022-08-30] MEDS: ACETAMINOPHEN 325 MG TABLET 650 MG PO (07:34)
[2022-08-30] MEDS: SODIUM CHLORIDE 0.9% 1,000 ML 1000 ML IV (07:35)
[2022-08-30 07:47] LABS: Hemoglobin 10.9 g/dL (12.0-16.0); Red Blood Cell Count 3.24 X10^6/uL (4.0-5.2); Red Cell Distribution Width 12.4 % (11.6-14.8); White Blood Cell Count 4.1 X10^3/uL (4.5-11.0)
[2022-08-30 07:51] LABS: Hematocrit 31.5 % (36-46); Mean Corpuscular HGB Conc 34.6 % (30-36); Mean Corpuscular Hemoglobin 33.7 PG (26-34); Mean Corpuscular Volume 97.5 fL (80-100); Platelet Count 83 X10^3/uL (150-400)
[2022-08-30 07:52] LABS: Add Manual Diff / Slide Review YES
[2022-08-30 07:54] LABS: INR 1.1 (0.9-1.3); Prothrombin Time 12.8 SECONDS (10.1-12.7)
[2022-08-30 07:57] LABS: PTT Partial Thromboplastin Tim 25 SECONDS (26-36)
[2022-08-30 08:04] LABS: D Dimer 1768 ng/ml (<500); Lactate (Lactic Acid) 1.8 mmol/L (0.7-2.1)
[2022-08-30 08:06] LABS: Alanine Aminotransferase 44 IU/L (<35); Albumin 4.1 g/dL (3.5-5.0); Albumin Globulin Ratio 1.2 (1.0-2.8); Alkaline Phosphatase 85 U/L (38-126); Aspartate Aminotransferase 28 IU/L (14-36); BUN Creatinine Ratio 22.4 (6-22); Bilirubin Total 0.7 mg/dL (0.2-1.3); Blood Urea Nitrogen 22 mg/dL (7-17); Calcium 8.6 mg/dL (8.4-10.2); Carbon Dioxide 27 mmol/L (22-32); Chloride 97 mmol/L (98-107); Estimated Glomerular Filt Rate > 60 mL/min (>60); Globulin 3.3 g/dL (1.7-4.1); Glucose 122 mg/dL (80-110); HEMOLYSIS 22 (0-50); Lipase 27 U/L (23-300); Potassium 4.2 mmol/L (3.4-5.1); Sodium 136 mmol/L (137-145); Total Protein 7.4 g/dL (6.3-8.2)
[2022-08-30 08:22] LABS: Procalcitonin 4.82 ng/mL (<0.5)
[2022-08-30] MEDS: LORazepam 2 MG/ML INJ 0.5 MG IV (08:23)
[2022-08-30 08:28] LABS: Neutrophils Absolute Manual 3280 /uL (3000-5900); Total Cells Counted 100
[2022-08-30 08:29] LABS: RBC Morphology Normal Morphology
[2022-08-30] MEDS: cefTRIAXone 2,000 MG in SODIUM CHLORIDE 0.9% 100 ML 200 MG IV (08:40)
[2022-08-30 08:41] LABS: Adenovirus Not Detected (Not Detect); B. parapertussis Not Detected (Not Detecte); Bordetella pertussis Not Detected (Not Detecte); Chlamydophila pneumoniae Not Detected (Not Detect); Coronavirus 229E Not Detected (Not Detect); Coronavirus HKU1 Not Detected (Not Detect); Coronavirus NL 63 Not Detected (Not Detect); Coronavirus OC43 Not Detected (Not Detect); Human Metapneumovirus Not Detected (Not Detect); Human Rhinovirus/Enterovirus Not Detected (Not Detect); Influenza A Not Detected (Not Detect); Influenza B Not Detected (Not Detect); Mycoplasma pneumoniae Not Detected (Not Detect); Parainfluenza Virus 1 Not Detected (Not Detect); Parainfluenza Virus 2 Not Detected (Not Detect); Parainfluenza Virus 3 Not Detected (Not Detect); Parainfluenza Virus 4 Not Detected (Not Detect); Respiratory Syncytial Virus Not Detected (Not Detect); SARS- CoV-2 Not Detected (Not Detecte)
[2022-08-30] MEDS: SODIUM CHLORIDE 0.9% 1,503 ML 501 ML IV (08:41)
--- NOTE | 2022-08-30 08:51 | DI.CT.S_ITS ---
PROCEDURE: CT ANGIO CHEST PE PROTOCOL INDICATIONS: septic, SOB, tachy, recent admit, critical Dimer TECHNIQUE: After the administration of intravenous contrast, 2 mm thick sections acquired from the pulmonary apices to the posterior costophrenic angles. 3-dimensional maximum intensity projection (MIP) coronal and sagittal reformats were then acquired through the thorax. For radiation dose reduction, the following was used: automated exposure control, adjustment of mA and/or kV according to patient size. COMPARISON: [facility], CT, CT CHEST ABD PEL W CON, 12/15/2021, 1:31. FINDINGS: Image quality: Excellent. Pulmonary arteries: Pulmonary arteries are prominent in size, and demonstrate no intraluminal filling defects to suggest central pulmonary embolism. Lungs and pleura: Previously described bilateral subcentimeter pulmonary nodules are not well seen on the current study likely represent resolved nodular infiltrates versus atelectasis. 7 x 5 mm oval nodule is noted in posterior left lower lobe series 5, image 158 not definitely seen on previous study. Scattered atelectasis in periphery of bilateral lung aguilar are seen. No acute airspace opacities. No pleural effusions or pneumothorax. Central and peripheral airways are patent. Mediastinum: Heart size is enlarged, without pericardial effusion. No mediastinal or hilar adenopathy. Thoracic aorta is normal in caliber and enhancement. Esophagus is normal in caliber, without hiatal hernia. Bones and chest wall: Right chest wall Port-A-Cath tip is in SVC. No suspicious bony lesions. Chronic appearing compression deformities involving numerous mid to lower thoracic spine and upper lumbar spine vertebral bodies is seen. Degenerative endplate changes also noted throughout thoracic spine and visualized upper lumbar spine. Thyroid gland is within normal limits No axillary or supraclavicular adenopathy. Abdomen: Visualized upper abdominal solid organs appear normal in the early arterial phase of enhancement. IMPRESSION: 1. No evidence of pulmonary emboli. Enlarged main pulmonary artery size which can be seen associated with pulmonary vascular hypertension. 2. No thoracic aortic aneurysm or gross dissection. Cardiomegaly, no pericardial effusion. No mediastinal or hilar lymphadenopathy. 3. Scattered atelectasis in periphery of bilateral lung aguilar. No focal infiltrate, pleural effusion or pneumothorax. Previously described scattered bilateral pulmonary nodules are not definitely seen on the current study. Interval development of 7 x 5 mm nodular density in posterior left lower lobe. CT chest follow-up in 6 months is recommended. 4. Chronic appearing anterior wedge compression deformities involving numerous mid to lower thoracic spine and lumbar spine vertebral bodies. No suspicious bony lesions. No definite acute vertebral body compression fracture. Dictated by: Boom Mayberry M.D. on 08/30/2022 at 9:38 Approved by: Boom Mayberry M.D. on 08/30/2022 at 9:54
[2022-08-30 10:56] LABS: Fibrinogen 483 mg/dL (211-428)
[2022-08-30 10:59] LABS: Lactate Dehydrogenase 196 U/L (120-246)
== END 2022-08-30 14:21 | disposition short-term general hospital (02) ==
PROVIDERS: Emergency Provider Emergency Medicine; Family Provider Family Medicine; PCP Internal Medicine Hematology & Oncology
DX: A41.9 Sepsis, unspecified organism (principal); R79.1 Abnormal coagulation profile; R00.0 Tachycardia, unspecified; R50.9 Fever, unspecified; Z20.822 Contact with and (suspected) exposure to COVID-19
CPT/HCPCS: 36415; 71045; 71275; 80053; 81003; 83605; 83615; 83690; 84145; 85007; 85025; 85379; 85384; 85610; 85730; 87040; 87633; 93005; 93010; 96365; 96375; 99285; 99291; J0696; J2060; Q9967

== ENCOUNTER 2022-09-30 15:08 | Inpatient (IN) | payer MEDICARE, MEDICAID, SELFPAY ==
[2017-11-20 18:10] VITALS: PULSE 93; RESP 26; O2SAT 94
[2021-03-08 13:08] VITALS: BMI 32.9
[2022-09-30] VITALS (67 sets, daily range): BP systolic 75–145; BP diastolic 50–95; PULSE 51–126; RESP 0–58; TEMP 36.3–37.7; O2SAT 70–100; BMI 30.9
--- NOTE | 2022-09-30 15:26 | DI.RAD.S_ITS ---
PROCEDURE: XR CHEST 1V INDICATIONS: suspected sepsis TECHNIQUE: One view of the chest was acquired. COMPARISON: [facility], CR, XR CHEST 1V, 08/30/2022, 7:34. [facility], CR, XR CHEST 1V, 03/08/2021, 9:37. FINDINGS: Surgical changes and devices: Right chest wall port tip projects over the mid SVC. Lungs and pleura: Consolidation of the right mid to lower lung zone. Mediastinum: Mediastinal contours appear normal. Heart size is normal. Bones and chest wall: No suspicious bony lesions. Overlying soft tissues appear unremarkable. IMPRESSION: Consolidation of the mid to lower right lung, concerning for pneumonia. Dictated by: Aftab Vega M.D. on 09/30/2022 at 15:46 Approved by: Aftab Vega M.D. on 09/30/2022 at 15:47
--- NOTE | 2022-09-30 15:35 | DI.CT.S_ITS ---
PROCEDURE: CT ANGIO CHEST PE PROTOCOL INDICATIONS: Right-sided chest pain/dyspnea TECHNIQUE: After the administration of intravenous contrast, 2 mm thick sections acquired from the pulmonary apices to the posterior costophrenic angles. 3-dimensional maximum intensity projection (MIP) coronal and sagittal reformats were then acquired through the thorax. For radiation dose reduction, the following was used: automated exposure control, adjustment of mA and/or kV according to patient size. COMPARISON: [facility], CT, CT ANGIO CHEST PE PROTOCOL, 08/30/2022, 9:13. FINDINGS: Image quality: Mildly motion degraded Lungs and pleura: Bilateral, right greater than left opacities, particularly involving the right middle lobe. There is superimposed atelectasis. Few solitary nodules are also present, for example in the left lower lobe (lung series image 5/133) measuring 7 mm, in a similar position in size compared to prior. No drainable effusion. Mediastinum, heart, and esophagus: No hiatal hernia. Mild cardiomegaly. Prominent main pulmonary artery can be seen with chronically high pulmonary pressures, as well as prominent right ventricle and right atrium. No pulmonary embolism identified. The distal arteries are difficult to evaluate due to motion. No pathologic adenopathy by size criteria. The right port catheter terminates in the lower SVC. Chest wall and thyroid: Unremarkable Upper abdomen: Splenic calcified granulomas. A left adrenal nodule is partially seen, as before. Mild nonspecific distal esophageal wall thickening. No gross abnormality otherwise on these limited arterial phase images. Bones: Degenerative changes. Multiple rib deformities. Exaggerated thoracic kyphosis. Height loss of multiple vertebral bodies in the thoracic spine, grossly similar compared to last month and 2021 imaging, but overall age-indeterminate IMPRESSION: No acute pulmonary embolism. The distal arteries are difficult to evaluate due to motion artifact. Right greater than left airspace disease, as well as a few individual nodules, for example in the left lower lobe 5/133 measuring up to 7 mm. Recommend surveillance imaging. Other findings as above. Dictated by: Tod Joyce M.D. on 09/30/2022 at 16:38 Approved by: Tod Joyce M.D. on 09/30/2022 at 16:45
[2022-09-30] MEDS: fentaNYL 100 MCG/2 ML INJ 50 MCG IV (15:36)
[2022-09-30] MEDS: ALBUTEROL/IPRATROPIUM 3 ML AMPUL INH (15:38)
--- NOTE | 2022-09-30 15:38 | ED_ITS ---
HPI - SOB/Dyspnea General Chief Complaint: Shortness of Breath/Dyspnea Stated Complaint: ABD pain Time Seen by Provider: 09/30/22 15:27 Source: patient Mode of arrival: Wheelchair History of Present Illness HPI Narrative: Patient complains of right side chest pain and shortness of breath for the past 2 days. Patient has history of multiple myeloma. Patient followed by [facility] oncology dr dacosta. Admitted last month for sepsis after starting chemotherapy. No cough cold congestion or fever complains of painful breathing on the right side. CT chest PE protocol last month negative for PE. Patient is not on home oxygen. Patient is dyspneic at this time. Related Data Home Medications Medication Instructions Recorded Confirmed aspirin 81 mg tablet 81 mg PO DAILY 03/08/21 10/01/22 pantoprazole 40 mg tablet,delayed 40 mg PO DAILY 03/08/21 10/01/22 release pomalidomide 3 mg capsule 3 mg PO DAILY 03/08/21 10/01/22 (Pomalyst) Previous Rx's Medication Instructions Recorded oxycodone 5 mg tablet 5 mg PO Q8H PRN pain #14 tabs 12/15/21 levofloxacin 750 mg tablet 750 mg PO DAILY 11 days #11 tabs 10/03/22 hydrocodone 5 mg-acetaminophen 325 1 tab PO BEDTIME PRN pain #7 tabs 10/06/22 mg tablet Allergies Allergy/AdvReac Type Severity Reaction Status Date / Time No Known Drug Allergies Allergy Verified 09/30/22 15:13 Review of Systems Review of Systems Narrative: GENERAL: negative chills, fatigue, malaise, fever, sweats. HEENT: negative sinus pain, ear pain, sore throat RESPIRATORY: Positive dyspnea, negative cough CARDIOVASCULAR: Positive right chest pain, negative palpitations GASTROINTESTINAL: negative nausea, vomiting, abdominal pain : negative dysuria, frequency, hematuria MUSCULOSKELETAL: negative muscle or bony pain SKIN: negative rash, skin lesions NEUROLOGIC: negative weakness, numbness ROS Unobtainable: All systems reviewed & are unremarkable except as noted in HPI and below Patient History Medical History Anemia Congestive heart failure Multiple myeloma Pneumonia Surgical History No significant past surgical history Family History Mother Cancer Social History household members: none Smoking Status: Current some day smoker alcohol intake: current additional social history: The patient smokes tobacco. She does not use alcohol. No drugs. Family and social history are otherwise noncontributory Smoking Status: Current some day smoker tobacco type: cigarettes alcohol intake frequency: holidays/special occasions only Substance Use Type: does not use Exam Narrative Exam Narrative: GENERAL: in no distress, not toxic not dyspneic HEAD: Normocephalic. EYES: Pupils equal round ENT: Mucous membranes moist. NECK: Trachea midline. CARDIOVASCULAR: Regular rate and rhythm without murmurs RESPIRATORY: Coarse lung sounds right worse than left at the bases. Patient is speaking short sentences. In respiratory distress but protecting airway. GASTROINTESTINAL: Abdomen soft, non-tender EXTREMITIES: No gross deformities. BACK: No flank tenderness. Healing left-sided shingles lesions. On right chest there is right lower anterior rib tenderness NEURO: AOx4. SKIN: Warm and dry PSYCH: Not anxious, is cooperative Initial Vital Signs Initial Vital Signs: Vital Signs Temperature 98.1 F 09/30/22 15:16 Course Orders Ordered: Discontinued Medications Acetaminophen (Acetaminophen 325 Mg Tablet) 650 mg PO Q6H PRN PRN Reason: Fever/Mild Pain (1-3) Last Admin: 10/02/22 18:02 Dose: 650 mg Documented By: Admin: 10/01/22 14:37 Dose: 650 mg Documented By: PRISCILLA Albuterol/Ipratropium (Albuterol/Ipratropium 3 Ml Ampul) 3 ml INH NOW ONE Stop: 09/30/22 15:39 Last Admin: 09/30/22 15:38 Dose: 3 ml Documented By: BEBA Dextrose (Dextrose 50 % In Water 25 Gm/50 Ml Syringe) 25 gm IV PRN PRN; Protocol PRN Reason: Hypoglycemia Famotidine (Famotidine 20 Mg/2 Ml Vial) 20 mg IV BID [facility] Last Admin: 10/02/22 08:14 Dose: 20 mg Documented By: Admin: 10/01/22 20:48 Dose: 20 mg Documented By: Admin: 10/01/22 08:10 Dose: 20 mg Documented By: Admin: 09/30/22 22:27 Dose: 20 mg Documented By: CHLOE Famotidine (Famotidine 20 Mg Tablet) 20 mg PO BID [facility] Last Admin: 10/03/22 08:56 Dose: 20 mg Documented By: Admin: 10/02/22 20:46 Dose: 20 mg Documented By: ROBERTO Fentanyl (Fentanyl 100 Mcg/2 Ml Inj) 50 mcg IV Q1H PRN PRN Reason: Pain, Severe (7-10) Last Admin: 09/30/22 15:36 Dose: 50 mcg Documented By: SHANE Fentanyl (Fentanyl 100 Mcg/2 Ml Inj) 100 mcg IV NOW ONE Stop: 09/30/22 15:59 Last Admin: 09/30/22 16:21 Dose: 100 mcg Documented By: SHANE Heparin Sodium (Porcine) (Heparin 5,000 Unit/Ml Vial) 5,000 unit SUBCUT BID [facility] Last Admin: 10/03/22 08:51 Dose: Not Given Documented By: Admin: 10/02/22 20:45 Dose: 5,000 unit Documented By: Admin: 10/02/22 08:14 Dose: 5,000 unit Documented By: Admin: 10/01/22 20:47 Dose: 5,000 unit Documented By: Admin: 10/01/22 08:10 Dose: 5,000 unit Documented By: Admin: 09/30/22 22:28 Dose: 5,000 unit Documented By: CHLOE Hydrocortisone (Hydrocortisone 100 Mg/2 Ml Vial) 50 mg IV Q6HR [facility] Last Admin: 10/02/22 06:22 Dose: 50 mg Documented By: Admin: 10/01/22 23:37 Dose: 50 mg Documented By: Admin: 10/01/22 18:11 Dose: 50 mg Documented By: Admin: 10/01/22 12:17 Dose: 50 mg Documented By: Admin: 10/01/22 05:47 Dose: 50 mg Documented By: Admin: 10/01/22 00:17 Dose: Not Given Documented By: Admin: 09/30/22 22:40 Dose: 50 mg Documented By: CHLOE Hydromorphone HCl (Hydromorphone 0.5 Mg Inj) 0.5 mg IV Q2H PRN PRN Reason: Pain, Moderate (4-6) Last Admin: 09/30/22 18:13 Dose: 0.5 mg Documented By: ANNALISE Hydromorphone HCl (Hydromorphone 0.5 Mg Inj) 0.5 mg IV Q2H PRN PRN Reason: Pain, Severe (7-10) Sodium Chloride (Normal Saline 0.9%) 1,000 mls @ 1,000 mls/hr IV BOLUS ONE Stop: 09/30/22 16:25 Last Admin: 09/30/22 15:38 Dose: Not Given Documented By: JOSUE Piperacillin Sod/Tazobactam (Sod 4.5 gm/ Sodium Chloride) 100 mls @ 200 mls/hr IV NOW ONE Stop: 09/30/22 16:42 Last Infusion: 09/30/22 17:31 Dose: 0 mls/hr Documented By: Admin: 09/30/22 16:47 Dose: 200 mls/hr Documented By: SHANE Sodium Chloride (Normal Saline 0.9%) 500 mls @ 1,000 mls/hr IV BOLUS ONE Stop: 09/30/22 17:15 Last Infusion: 09/30/22 17:31 Dose: 0 mls/hr Documented By: Admin: 09/30/22 16:49 Dose: 1,000 mls/hr Documented By: SHANE Dextrose/Sodium Chloride (Dextrose 5%-0.45% Ns) 1,000 mls @ 100 mls/hr IV CONT MYRNA Last Admin: 09/30/22 22:59 Dose: 100 mls/hr Documented By: Infusion: 09/30/22 22:59 Dose: 100 mls/hr Documented By: Admin: 09/30/22 18:16 Dose: 100 mls/hr Documented By: ANNALISE Piperacillin Sod/Tazobactam (Sod 3.375 gm/ Sodium Chloride) 100 mls @ 25 mls/hr IV Q8H MYRNA Last Admin: 10/03/22 05:25 Dose: 25 mls/hr Documented By: Infusion: 10/03/22 00:45 Dose: 25 mls/hr Documented By: Admin: 10/02/22 20:45 Dose: 25 mls/hr Documented By: Infusion: 10/02/22 16:20 Dose: 0 mls/hr Documented By: Admin: 10/02/22 12:16 Dose: 25 mls/hr Documented By: Infusion: 10/02/22 08:40 Dose: 0 mls/hr Documented By: Admin: 10/02/22 04:39 Dose: 25 mls/hr Documented By: Infusion: 10/02/22 00:48 Dose: 25 mls/hr Documented By: Admin: 10/01/22 20:48 Dose: 25 mls/hr Documented By: Infusion: 10/01/22 18:16 Dose: 0 mls/hr Documented By: Admin: 10/01/22 12:17 Dose: 25 mls/hr Documented By: Infusion: 10/01/22 09:17 Dose: 25 mls/hr Documented By: Admin: 10/01/22 05:17 Dose: 25 mls/hr Documented By: Infusion: 10/01/22 02:27 Dose: 25 mls/hr Documented By: Admin: 09/30/22 22:27 Dose: 25 mls/hr Documented By: CHLOE Lactated Ringer's (Lactated Ringers) 2,299.71 mls @ 766.57 mls/hr 30 ml/kg infuse over 3 hr (2299.71 ml) IV NOW ONE Stop: 09/30/22 21:53 Last Infusion: 09/30/22 22:46 Dose: 0 mls/hr Documented By: Admin: 09/30/22 20:52 Dose: 766.57 mls/hr Documented By: CHLOE Lactated Ringer's (Lactated Ringers) 1,000 mls @ 1,000 mls/hr IV BOLUS ONE Stop: 09/30/22 19:55 Last Infusion: 09/30/22 22:41 Dose: 0 mls/hr Documented By: Admin: 09/30/22 19:06 Dose: 1,000 mls/hr Documented By: MIROSLAVA Azithromycin 500 mg/ Dextrose 250 mls @ 250 mls/hr IV Q24H MYRNA Stop: 10/02/22 21:59 Last Infusion: 10/02/22 05:00 Dose: 0 mls/hr Documented By: Admin: 10/01/22 20:47 Dose: 250 mls/hr Documented By: Infusion: 09/30/22 23:30 Dose: 0 mls/hr Documented By: Admin: 09/30/22 22:30 Dose: 250 mls/hr Documented By: CHLOE Linezolid (Zyvox) 600 mg in 300 mls @ 600 mls/hr IV Q12H MYRNA Last Infusion: 10/01/22 12:52 Dose: 0 mls/hr Documented By: Admin: 10/01/22 08:10 Dose: 600 mls/hr Documented By: Infusion: 09/30/22 23:30 Dose: 0 mls/hr Documented By: Admin: 09/30/22 22:39 Dose: 600 mls/hr Documented By: CHLOE NOREPINEPHRINE BITARTRATE/D5W (Levophed) 4 mg in 250 mls @ 30 mls/hr IV TITRATE MYRNA; Protocol Last Titration: 10/01/22 08:37 Dose: 0 mcg/min, 0 mls/hr Documented By: Admin: 10/01/22 08:37 Dose: 2 mcg/min, 7.5 mls/hr Documented By: Titration: 10/01/22 08:36 Dose: 0 mcg/min, 0 mls/hr Documented By: Admin: 09/30/22 23:22 Dose: 8 mcg/min, 30 mls/hr Documented By: CHLOE Lactated Ringer's (Lactated Ringers) 1,000 mls @ 100 mls/hr IV CONT MYRNA Last Infusion: 10/02/22 09:45 Dose: 0 mls/hr Documented By: Admin: 10/02/22 04:40 Dose: 100 mls/hr Documented By: Infusion: 10/02/22 04:40 Dose: 100 mls/hr Documented By: Admin: 10/01/22 18:43 Dose: 100 mls/hr Documented By: Infusion: 10/01/22 18:43 Dose: 100 mls/hr Documented By: Admin: 10/01/22 10:33 Dose: 100 mls/hr Documented By: PRISCILLA Insulin Glargine (Insulin Glargine 100 Unit/Ml 3ml Pen) 5 unit SUBCUT BEDTIME ONE Stop: 10/01/22 05:55 Last Admin: 10/01/22 06:09 Dose: 5 unit Documented By: CHLOE Co-signed By: MARKUS Insulin Human Lispro (Insulin Lispro 100 Unit/Ml 3ml Vial) 0 unit SUBCUT Q6H MYRNA; Protocol Last Admin: 10/01/22 18:37 Dose: 1 unit Documented By: PRISCILLA Co-signed By: Admin: 10/01/22 12:43 Dose: 1 unit Documented By: PRISCILLA Co-signed By: Admin: 10/01/22 06:08 Dose: 1 unit Documented By: CHLOE Co-signed By: MARKUS Admin: 10/01/22 01:50 Dose: 3 unit Documented By: CHLOE Co-signed By: MARKUS Insulin Human Lispro (Insulin Lispro 100 Unit/Ml 3ml Vial) 0 unit SUBCUT Q6H [facility]; Protocol Last Admin: 10/02/22 18:04 Dose: 1 unit Documented By: BOSSMAN Co-signed By: Admin: 10/02/22 12:12 Dose: 1 unit Documented By: BOSSMAN Co-signed By: Admin: 10/02/22 06:22 Dose: Not Given Documented By: Admin: 10/01/22 23:39 Dose: 1 unit Documented By: ROBERTO Co-signed By: SHANT Levofloxacin (Levofloxacin 250 Mg Tablet) 750 mg PO NOW ONE Stop: 10/03/22 11:14 Last Admin: 10/03/22 11:53 Dose: 750 mg Documented By: MIROSLAVA Magnesium Chloride (Magnesium Chloride 64 Mg Tablet) 128 mg PO NOW ONE Stop: 10/03/22 09:01 Last Admin: 10/03/22 11:53 Dose: 128 mg Documented By: MIROSLAVA Naloxone HCl (Naloxone 0.4 Mg/Ml Vial) 0.2 mg IV Q2MIN PRN PRN Reason: Opiate Reversal Ondansetron HCl (Ondansetron 4 Mg/2 Ml Inj) 4 mg IV NOW PRN PRN Reason: Nausea And Vomiting Last Admin: 09/30/22 23:29 Dose: 4 mg Documented By: CHLOE Oxycodone HCl (Oxycodone Ir 5 Mg Tablet) 5 mg PO Q3HR PRN PRN Reason: Pain, Moderate (4-6) Last Admin: 10/02/22 20:45 Dose: 5 mg Documented By: Admin: 10/02/22 10:01 Dose: 5 mg Documented By: Admin: 10/01/22 23:50 Dose: 5 mg Documented By: Admin: 10/01/22 20:47 Dose: 5 mg Documented By: Admin: 10/01/22 15:26 Dose: 5 mg Documented By: PRISCILLA Potassium Chloride (Potassium Chloride 20 Meq Tab) 40 meq PO NOW ONE Stop: 10/03/22 09:01 Last Admin: 10/03/22 09:02 Dose: 40 meq Documented By: MIROSLAVA Potassium Phos/Sodium Phos (Sodium,Potassium Phosphates Packet) 2 each PO NOW ONE Stop: 10/03/22 09:01 Last Admin: 10/03/22 09:02 Dose: 2 each Documented By: MIROSLAVA Vital Signs Vital signs: Vital Signs - 8 hr 09/30/22 15:16 09/30/22 15:40 09/30/22 15:24 Temperature 98.1 F Pulse Rate 119 H Respiratory Rate 30 H Blood Pressure Pulse Oximetry 99 73 L Oxygen Delivery Method Non -Rebreather Oxygen Flow Rate 15 Fraction of Inspired Oxygen 90 09/30/22 15:25 09/30/22 15:25 09/30/22 15:30 Temperature Pulse Rate 51 L 126 H Respiratory Rate 54 H Blood Pressure 122/86 Pulse Oximetry 70 L 81 L Oxygen Delivery Method Oxygen Flow Rate Fraction of Inspired Oxygen 09/30/22 15:31 09/30/22 15:31 09/30/22 15:35 Temperature Pulse Rate 126 H 125 H Respiratory Rate 48 H 51 H Blood Pressure 103/74 Pulse Oximetry 80 L 83 L Oxygen Delivery Method Oxygen Flow Rate Fraction of Inspired Oxygen 09/30/22 15:40 09/30/22 15:44 09/30/22 15:44 Temperature Pulse Rate 121 H 123 H Respiratory Rate 40 H 50 H Blood Pressure 101/64 Pulse Oximetry 83 L 88 L Oxygen Delivery Method Oxygen Flow Rate Fraction of Inspired Oxygen 09/30/22 15:45 09/30/22 15:45 09/30/22 15:50 Temperature Pulse Rate 123 H 121 H Respiratory Rate 47 H 54 H Blood Pressure 97/67 Pulse Oximetry 84 L 87 L Oxygen Delivery Method Oxygen Flow Rate Fraction of Inspired Oxygen 09/30/22 15:55 09/30/22 15:58 09/30/22 15:58 Temperature Pulse Rate 122 H 120 H Respiratory Rate 51 H 58 H Blood Pressure 114/54 L Pulse Oximetry 85 L 77 L Oxygen Delivery Method Oxygen Flow Rate Fraction of Inspired Oxygen 09/30/22 16:00 09/30/22 16:00 09/30/22 16:05 Temperature Pulse Rate 119 H Respiratory Rate 32 H Blood Pressure 108/74 95/70 Pulse Oximetry 93 Oxygen Delivery Method Oxygen Flow Rate Fraction of Inspired Oxygen 09/30/22 16:05 09/30/22 16:10 09/30/22 16:15 Temperature Pulse Rate 119 H 118 H 118 H Respiratory Rate 41 H Blood Pressure Pulse Oximetry 81 L 92 Oxygen Delivery Method Oxygen Flow Rate Fraction of Inspired Oxygen 09/30/22 16:19 09/30/22 16:19 09/30/22 16:20 Temperature Pulse Rate 117 H Respiratory Rate Blood Pressure 97/63 105/65 Pulse Oximetry 92 Oxygen Delivery Method Nasal Cannula Oxygen Flow Rate 6 Fraction of Inspired Oxygen 09/30/22 16:25 09/30/22 16:25 09/30/22 17:10 Temperature Pulse Rate 115 H Respiratory Rate 22 Blood Pressure 102/59 L Pulse Oximetry 97 95 Oxygen Delivery Method High Flow Nasal Cannula Oxygen Flow Rate Fraction of Inspired Oxygen 09/30/22 16:32 09/30/22 16:33 09/30/22 16:33 Temperature Pulse Rate 118 H Respiratory Rate Blood Pressure 87/51 L 87/54 L Pulse Oximetry 90 L Oxygen Delivery Method Oxygen Flow Rate Fraction of Inspired Oxygen 09/30/22 16:35 09/30/22 16:37 09/30/22 16:40 Temperature Pulse Rate Respiratory Rate Blood Pressure 84/56 L 89/59 L 91/60 Pulse Oximetry Oxygen Delivery Method Oxygen Flow Rate Fraction of Inspired Oxygen 09/30/22 16:45 09/30/22 16:50 09/30/22 16:55 Temperature Pulse Rate Respiratory Rate Blood Pressure 98/66 101/67 90/62 Pulse Oximetry Oxygen Delivery Method Oxygen Flow Rate Fraction of Inspired Oxygen 09/30/22 17:00 09/30/22 17:05 09/30/22 16:45 Temperature Pulse Rate 118 H Respiratory Rate 22 Blood Pressure 95/65 90/61 Pulse Oximetry 95 Oxygen Delivery Method Heated High Flow Oxygen Flow Rate 50 Fraction of Inspired Oxygen 45 09/30/22 16:45 Temperature Pulse Rate 122 H Respiratory Rate 22 Blood Pressure Pulse Oximetry 95 Oxygen Delivery Method Oxygen Flow Rate Fraction of Inspired Oxygen MDM - SOB/Dyspnea Lab Data 10/03/22 05:30 10/03/22 05:30 Labs: Lab Results 09/30/22 09/30/22 09/30/22 Range/Units 15:25 15:25 15:25 WBC 14.2 H (4.5-11.0) X10^3/uL RBC 3.53 L (4.0-5.2) X10^6/uL Hgb 11.4 L (12.0-16.0) g/dL Hct 33.7 L (36-46) % MCV 95.5 (80-100) fL MCH 32.2 (26-34) PG MCHC 33.7 (30-36) % RDW 12.2 (11.6-14.8) % Plt Count 137 L (150-400) X10^3/uL Neut % (Auto) 84.7 H (50-75) % Lymph % (Auto) 2.9 L (25-40) % [place] % (Auto) 12.2 (3-14) % Eos % (Auto) 0.0 L (2-4) % Baso % (Auto) 0.2 (0-2) % Neut # (Auto) 77739 H (4609-6527) /uL Lymph # (Auto) 400 L (9924-2335) /uL [place] # (Auto) 1700 H (0-900) /uL Eos # (Auto) 0 (0-450) /uL Baso # (Auto) 0 (0-100) /uL PT 15.6 H (10.1-12.7) SECONDS INR 1.4 H (0.9-1.3) APTT 31 (26-36) SECONDS ABG pH (7.35-7.45) ABG pCO2 (35-45) mmHg ABG pO2 (80-100) mmHg ABG HCO3 (23-27) mmol/L ABG Total CO2 (23-27) mmol/L ABG O2 Saturation (95-100) % ABG Base Excess (-2-3) mmol/L FiO2 Sodium 131 L (137-145) mmol/L Potassium 4.3 (3.4-5.1) mmol/L Chloride 94 L (98-107) mmol/L Carbon Dioxide 23 (22-32) mmol/L BUN 23 H (7-17) mg/dL Creatinine 2.34 H (0.52-1.04) mg/dL Estimated GFR 22 L (>60) mL/min BUN/Creatinine Ratio 9.8 (6-22) Glucose 195 H (80-110) mg/dL Lactate (0.7-2.1) mmol/L Calcium 7.8 L (8.4-10.2) mg/dL Total Bilirubin 2.1 H (0.2-1.3) mg/dL AST 25 (14-36) IU/L ALT 38 H (<35) IU/L Alkaline Phosphatase 83 (38-126) U/L Total Creatine Kinase 84 (30-135) U/L CK-MB (CK-2) TNP CK-MB (CK-2) Rel Index TNP Troponin I < 0.012 (0.01-0.034) ng/mL NT-Pro-B Natriuret Pep 60274 H (<125) pg/mL Total Protein 6.6 (6.3-8.2) g/dL Albumin 4.2 (3.5-5.0) g/dL Globulin 2.4 (1.7-4.1) g/dL Albumin/Globulin Ratio 1.8 (1.0-2.8) Lipase 20 L (23-300) U/L Procalcitonin 16.9 H (<0.5) ng/mL A. baumannii (PCR) (Not Detect) Chlamy pneumoniae PCR (Not Detect) Adenovirus (PCR) (Not Detect) B. pertussis DNA (PCR) (Not Detecte) B.parapertussis DNA PCR (Not Detecte) Orquidea albicans (PCR) (Not Detect) C. glabrata (PCR) (Not Detect) C. krusei (PCR) (Not Detect) C. parapsilosis (PCR) (Not Detect) C. tropicalis (PCR) (Not Detect) Coronavirus OC43 (PCR) (Not Detect) Coronavirus HKU1 (PCR) (Not Detect) Coronavirus 229E (PCR) (Not Detect) SARS-CoV-2 (PCR) (Not Detecte) Coronavirus NL63 (PCR) (Not Detect) Enterobacteriac sp PCR (Not Detect) E. cloacae complex PCR (Not Detect) Enterococcus sp PCR (Not Detect) E. coli (PCR) (Not Detect) H. influenzae (PCR) (Not Detect) Human Metapneumovir PCR (Not Detect) Influenza Type A (PCR) (Not Detect) Influenza Type B (PCR) (Not Detect) Klebsiella oxytoca PCR (Not Detect) Klebsiella pneumoniae (Not Detect) List. monocytogenes PCR (Not Detect) M. pneumoniae (PCR) (Not Detect) N. meningitidis (PCR) (Not Detect) Parainfluenza 1 (PCR) (Not Detect) Parainfluenza 2 (PCR) (Not Detect) Parainfluenza 3 (PCR) (Not Detect) Parainfluenza 4 (PCR) (Not Detect) Proteus species (PCR) (Not Detect) RSV (PCR) (Not Detect) Entero/Rhino (PCR) (Not Detect) Serratia marcescens PCR (Not Detect) Staphylococcus sp PCR (Not Detect) Staph aureus (PCR) (Not Detect) mecA-Methicil Res Gene Streptococcus sp PCR (Not Detect) Group A Strep (PCR) (Not Detect) Strep agalactiae (PCR) (Not Detect) Strep pneumoniae (PCR) (Not Detect) P. aeruginosa (PCR) (Not Detect) KPC-Carbap Res Gene PCR 09/30/22 09/30/22 09/30/22 Range/Units 15:25 15:25 15:30 WBC (4.5-11.0) X10^3/uL RBC (4.0-5.2) X10^6/uL Hgb (12.0-16.0) g/dL Hct (36-46) % MCV (80-100) fL MCH (26-34) PG MCHC (30-36) % RDW (11.6-14.8) % Plt Count (150-400) X10^3/uL Neut % (Auto) (50-75) % Lymph % (Auto) (25-40) % [place] % (Auto) (3-14) % Eos % (Auto) (2-4) % Baso % (Auto) (0-2) % Neut # (Auto) (5010-3373) /uL Lymph # (Auto) (4539-4686) /uL [place] # (Auto) (0-900) /uL Eos # (Auto) (0-450) /uL Baso # (Auto) (0-100) /uL PT (10.1-12.7) SECONDS INR (0.9-1.3) APTT (26-36) SECONDS ABG pH (7.35-7.45) ABG pCO2 (35-45) mmHg ABG pO2 (80-100) mmHg ABG HCO3 (23-27) mmol/L ABG Total CO2 (23-27) mmol/L ABG O2 Saturation (95-100) % ABG Base Excess (-2-3) mmol/L FiO2 Sodium (137-145) mmol/L Potassium (3.4-5.1) mmol/L Chloride (98-107) mmol/L Carbon Dioxide (22-32) mmol/L BUN (7-17) mg/dL Creatinine (0.52-1.04) mg/dL Estimated GFR (>60) mL/min BUN/Creatinine Ratio (6-22) Glucose (80-110) mg/dL Lactate 4.3 H* (0.7-2.1) mmol/L Calcium (8.4-10.2) mg/dL Total Bilirubin (0.2-1.3) mg/dL AST (14-36) IU/L ALT (<35) IU/L Alkaline Phosphatase (38-126) U/L Total Creatine Kinase (30-135) U/L CK-MB (CK-2) CK-MB (CK-2) Rel Index Troponin I (0.01-0.034) ng/mL NT-Pro-B Natriuret Pep (<125) pg/mL Total Protein (6.3-8.2) g/dL Albumin (3.5-5.0) g/dL Globulin (1.7-4.1) g/dL Albumin/Globulin Ratio (1.0-2.8) Lipase (23-300) U/L Procalcitonin (<0.5) ng/mL A. baumannii (PCR) Not detected (Not Detect) Chlamy pneumoniae PCR Not detected (Not Detect) Adenovirus (PCR) Not detected (Not Detect) B. pertussis DNA (PCR) Not detected (Not Detecte) B.parapertussis DNA PCR Not detected (Not Detecte) Orquidea albicans (PCR) Not detected (Not Detect) C. glabrata (PCR) Not detected (Not Detect) C. krusei (PCR) Not detected (Not Detect) C. parapsilosis (PCR) Not detected (Not Detect) C. tropicalis (PCR) Not detected (Not Detect) Coronavirus OC43 (PCR) Not detected (Not Detect) Coronavirus HKU1 (PCR) Not detected (Not Detect) Coronavirus 229E (PCR) Not detected (Not Detect) SARS-CoV-2 (PCR) Not detected (Not Detecte) Coronavirus NL63 (PCR) Not detected (Not Detect) Enterobacteriac sp PCR Not detected (Not Detect) E. cloacae complex PCR Not detected (Not Detect) Enterococcus sp PCR Not detected (Not Detect) E. coli (PCR) Not detected (Not Detect) H. influenzae (PCR) Not detected (Not Detect) Human Metapneumovir PCR Not detected (Not Detect) Influenza Type A (PCR) Not detected (Not Detect) Influenza Type B (PCR) Not detected (Not Detect) Klebsiella oxytoca PCR Not detected (Not Detect) Klebsiella pneumoniae Not detected (Not Detect) List. monocytogenes PCR Not detected (Not Detect) M. pneumoniae (PCR) Not detected (Not Detect) N. meningitidis (PCR) Not detected (Not Detect) Parainfluenza 1 (PCR) Not detected (Not Detect) Parainfluenza 2 (PCR) Not detected (Not Detect) Parainfluenza 3 (PCR) Not detected (Not Detect) Parainfluenza 4 (PCR) Not detected (Not Detect) Proteus species (PCR) Not detected (Not Detect) RSV (PCR) Not detected (Not Detect) Entero/Rhino (PCR) Detected H (Not Detect) Serratia marcescens PCR Not detected (Not Detect) Staphylococcus sp PCR Not detected (Not Detect) Staph aureus (PCR) Not detected (Not Detect) mecA-Methicil Res Gene Not Reportable Streptococcus sp PCR Detected H (Not Detect) Group A Strep (PCR) Not detected (Not Detect) Strep agalactiae (PCR) Not detected (Not Detect) Strep pneumoniae (PCR) Detected H (Not Detect) P. aeruginosa (PCR) Not detected (Not Detect) KPC-Carbap Res Gene PCR Not Reportable 09/30/22 Range/Units 15:45 WBC (4.5-11.0) X10^3/uL RBC (4.0-5.2) X10^6/uL Hgb (12.0-16.0) g/dL Hct (36-46) % MCV (80-100) fL MCH (26-34) PG MCHC (30-36) % RDW (11.6-14.8) % Plt Count (150-400) X10^3/uL Neut % (Auto) (50-75) % Lymph % (Auto) (25-40) % [place] % (Auto) (3-14) % Eos % (Auto) (2-4) % Baso % (Auto) (0-2) % Neut # (Auto) (5889-1246) /uL Lymph # (Auto) (7978-0892) /uL [place] # (Auto) (0-900) /uL Eos # (Auto) (0-450) /uL Baso # (Auto) (0-100) /uL PT (10.1-12.7) SECONDS INR (0.9-1.3) APTT (26-36) SECONDS ABG pH 7.38 (7.35-7.45) ABG pCO2 38.5 (35-45) mmHg ABG pO2 101 H (80-100) mmHg ABG HCO3 23 (23-27) mmol/L ABG Total CO2 24 (23-27) mmol/L ABG O2 Saturation 98 (95-100) % ABG Base Excess -3.0 L (-2-3) mmol/L FiO2 90 Sodium (137-145) mmol/L Potassium (3.4-5.1) mmol/L Chloride (98-107) mmol/L Carbon Dioxide (22-32) mmol/L BUN (7-17) mg/dL Creatinine (0.52-1.04) mg/dL Estimated GFR (>60) mL/min BUN/Creatinine Ratio (6-22) Glucose (80-110) mg/dL Lactate (0.7-2.1) mmol/L Calcium (8.4-10.2) mg/dL Total Bilirubin (0.2-1.3) mg/dL AST (14-36) IU/L ALT (<35) IU/L Alkaline Phosphatase (38-126) U/L Total Creatine Kinase (30-135) U/L CK-MB (CK-2) CK-MB (CK-2) Rel Index Troponin I (0.01-0.034) ng/mL NT-Pro-B Natriuret Pep (<125) pg/mL Total Protein (6.3-8.2) g/dL Albumin (3.5-5.0) g/dL Globulin (1.7-4.1) g/dL Albumin/Globulin Ratio (1.0-2.8) Lipase (23-300) U/L Procalcitonin (<0.5) ng/mL A. baumannii (PCR) (Not Detect) Chlamy pneumoniae PCR (Not Detect) Adenovirus (PCR) (Not Detect) B. pertussis DNA (PCR) (Not Detecte) B.parapertussis DNA PCR (Not Detecte) Orquidea albicans (PCR) (Not Detect) C. glabrata (PCR) (Not Detect) C. krusei (PCR) (Not Detect) C. parapsilosis (PCR) (Not Detect) C. tropicalis (PCR) (Not Detect) Coronavirus OC43 (PCR) (Not Detect) Coronavirus HKU1 (PCR) (Not Detect) Coronavirus 229E (PCR) (Not Detect) SARS-CoV-2 (PCR) (Not Detecte) Coronavirus NL63 (PCR) (Not Detect) Enterobacteriac sp PCR (Not Detect) E. cloacae complex PCR (Not Detect) Enterococcus sp PCR (Not Detect) E. coli (PCR) (Not Detect) H. influenzae (PCR) (Not Detect) Human Metapneumovir PCR (Not Detect) Influenza Type A (PCR) (Not Detect) Influenza Type B (PCR) (Not Detect) Klebsiella oxytoca PCR (Not Detect) Klebsiella pneumoniae (Not Detect) List. monocytogenes PCR (Not Detect) M. pneumoniae (PCR) (Not Detect) N. meningitidis (PCR) (Not Detect) Parainfluenza 1 (PCR) (Not Detect) Parainfluenza 2 (PCR) (Not Detect) Parainfluenza 3 (PCR) (Not Detect) Parainfluenza 4 (PCR) (Not Detect) Proteus species (PCR) (Not Detect) RSV (PCR) (Not Detect) Entero/Rhino (PCR) (Not Detect) Serratia marcescens PCR (Not Detect) Staphylococcus sp PCR (Not Detect) Staph aureus (PCR) (Not Detect) mecA-Methicil Res Gene Streptococcus sp PCR (Not Detect) Group A Strep (PCR) (Not Detect) Strep agalactiae (PCR) (Not Detect) Strep pneumoniae (PCR) (Not Detect) P. aeruginosa (PCR) (Not Detect) KPC-Carbap Res Gene PCR Point of Care Testing Glucose POC 217 Imaging Data Chest x-ray: Radiologist's Impression: PROCEDURE:? XR CHEST 1V ? INDICATIONS:? suspected sepsis ? TECHNIQUE:? One view of the chest was acquired.? ? COMPARISON:? [facility], CR, XR CHEST 1V, 08/30/2022, 7:34.? [facility], CR, XR CHEST 1V, 03/08/2021, 9:37. ? FINDINGS:? ? Surgical changes and devices:? Right chest wall port tip projects over the mid SVC. ? Lungs and pleura:? Consolidation of the right mid to lower lung zone. ? Mediastinum:? Mediastinal contours appear normal.? Heart size is normal.? ? Bones and chest wall:? No suspicious bony lesions.? Overlying soft tissues appear unremarkable.? ? IMPRESSION:? Consolidation of the mid to lower right lung, concerning for pneumonia. ? ? Dictated by: Aftab Vega M.D. on 09/30/2022 at 15:46 ? ? Approved by: Aftab Vega M.D. on 09/30/2022 at 15:47 ? CT scan - chest: Radiologist's Impression: PROCEDURE:? CT ANGIO CHEST PE PROTOCOL ? INDICATIONS:? Right-sided chest pain/dyspnea ? TECHNIQUE:? After the administration of intravenous contrast, 2 mm thick sections acquired from the pulmonary apices to the posterior costophrenic angles.? 3-dimensional maximum intensity projection (MIP) coronal and sagittal reformats were then acquired through the thorax.? For radiation dose reduction, the following was used:? automated exposure control, adjustment of mA and/or kV according to patient size.? ? COMPARISON:? [facility], CT, CT ANGIO CHEST PE PROTOCOL, 08/30/2022, 9:13. ? FINDINGS:? Image quality:? Mildly motion degraded ? Lungs and pleura:? Bilateral, right greater than left opacities, particularly involving the right middle lobe.? There is superimposed atelectasis.? Few solitary nodules are also present, for example in the left lower lobe (lung series image 5/133) measuring 7 mm, in a similar position in size compared to prior.? No drainable effusion. ? Mediastinum, heart, and esophagus:? No hiatal hernia.? Mild cardiomegaly.? Prominent main pulmonary artery can be seen with chronically high pulmonary pressures, as well as prominent right ventricle and right atrium.? No pulmonary embolism identified.? The distal arteries are difficult to evaluate due to motion. No pathologic adenopathy by size criteria. The right port catheter terminates in the lower SVC. ? Chest wall and thyroid:? Unremarkable ? Upper abdomen:? Splenic calcified granulomas.? A left adrenal nodule is partially seen, as before.? Mild nonspecific distal esophageal wall thickening.? No gross abnormality otherwise on these limited arterial phase images. ? Bones:? Degenerative changes.? Multiple rib deformities.? Exaggerated thoracic kyphosis.? Height loss of multiple vertebral bodies in the thoracic spine, grossly similar compared to last month and 2021 imaging, but overall age-indeterminate ? IMPRESSION:? No acute pulmonary embolism.? The distal arteries are difficult to evaluate due to motion artifact. ? Right greater than left airspace disease, as well as a few individual nodules, for example in the left lower lobe 5/133 measuring up to 7 mm.? Recommend surveillance imaging. ? Other findings as above.? ? ? Dictated by: Tod Joyce M.D. on 09/30/2022 at 16:38 ? ? Approved by: Tod Joyce M.D. on 09/30/2022 at 16:45 ? [facility] Narrative Medical decision making narrative: Patient complains of right side chest pain and shortness of breath for the past 2 days. Patient has history of multiple myeloma. Patient followed by [facility] oncology dr dacosta. Admitted last month for sepsis after starting chemotherapy. No cough cold congestion or fever complains of painful breathing on the right side. CT chest PE protocol last month negative for PE. Patient is not on home oxygen. Patient is dyspneic at this time. After history and exam CBC CMP EKG troponin chest x-ray CT chest fentanyl ordered respiratory therapist at bedside MDM CC: Right-sided chest pain dyspnea Complicating co-morbidities: Multiple myeloma with chemotherapy Data collected from: Patient Medical records reviewed: ER records last month here Differential considered: Includes but not limited to pulmonary embolism pneumothorax pneumonia metastatic neoplasm Exam documented above, pertinent findings include: Coarse lung sounds tender right lower chest Lab Test results independently reviewed as above. Pertinent findings: WBC 14.2 hemoglobin 11.4 platelets 137 ABG pH 7.34 CO2 38 PO2 101 O2 saturation 98 Sodium 131 potassium 4.3 bicarb 23 BUN 23 creatinine 2.34 GFR 22 glucose 195 Lactic acid 4.3 Procalcitonin 16.9 Independently reviewed EKG as above sinus tachycardia rate [address] elevation or depression Imaging studies independently reviewed: Chest x-ray consolidation of the mid to lower right lung concerning for pneumonia, CT chest bilateral right greater than left opacities particular involving right middle lobe., no pulmonary embolism Consultations: 5:15 p.m.. Spoke with hospitalist, Dr. Santana, he will admit patient Treatments: Zosyn fentanyl normal saline Re-evaluations: 5:27 p.m.. Patient breathing much easier. Pain controlled. Heart rate 109. Breathing 24 respirations per minute. Patient on high flow. Patient agrees and understands reason for admit. Requiring ICU admission. ABG is reassuring Discussion: Appropriate for admission. Patient requiring high-flow supplem ental oxygen requiring ICU. Zosyn antibiotic has been started. Likely concomitant bacterial infection with viral infection. Procalcitonin 16.9 Patient feeling much better after high flow and pain control. Patient likely early sepsis. IV fluids have been started as well as antibiotics and blood culture and lactic acid and procalcitonin, clinically likely not CHF. [place] [address]. Fentanyl given for pain control as well as work of breathing. It has been successful. Patient protecting her airway Diagnosis: Community-acquired pneumonia Critical Care Time Critical Care Time Attestation: Critical Care Time 35 minutes: Critical care time is separate from other billable procedures. This critical care time includes consultation with family and other consulting doctors, review of records, and interpretation of data from labs, EKGs, imaging, etc. Discharge Plan Departure Patient Disposition: Admitted As Inpatient Clinical Impression: Respiratory failure, Community acquired pneumonia, Hypoxia Admit Date/Time: 09/30/22 17:15 Admit Provider: Fabricio Santana
--- NOTE | 2022-09-30 15:41 | PC.NURSE ---
Pt immediately to room 1. Yuan color, unable to speak in full sentences, severe resp distress. Placed on 100% NRB immediately. Dr. Shirley to bedside.
[2022-09-30 15:51] LABS: INR 1.4 (0.9-1.3); Prothrombin Time 15.6 SECONDS (10.1-12.7)
[2022-09-30 15:52] LABS: Add Manual Diff / Slide Review NO; Basophils Absolute Auto 0 /uL (0-100); Basophils Percent Auto 0.2 % (0-2); Eosinophils Absolute Auto 0 /uL (0-450); Hematocrit 33.7 % (36-46); Hemoglobin 11.4 g/dL (12.0-16.0); Lymphocytes Absolute Auto 400 /uL (1100-4500); Lymphocytes Percent Auto 2.9 % (25-40); Mean Corpuscular HGB Conc 33.7 % (30-36); Mean Corpuscular Hemoglobin 32.2 PG (26-34); Mean Corpuscular Volume 95.5 fL (80-100); Monocytes Absolute Auto 1700 /uL (0-900); Monocytes Percent Auto 12.2 % (3-14); Neutrophils Absolute Auto 12000 /uL (1500-7000); Neutrophils Percent Auto 84.7 % (50-75); Platelet Count 137 X10^3/uL (150-400); Red Blood Cell Count 3.53 X10^6/uL (4.0-5.2); Red Cell Distribution Width 12.2 % (11.6-14.8); White Blood Cell Count 14.2 X10^3/uL (4.5-11.0)
[2022-09-30 15:54] LABS: PTT Partial Thromboplastin Tim 31 SECONDS (26-36)
[2022-09-30 15:57] LABS: Alanine Aminotransferase 38 IU/L (<35); Albumin 4.2 g/dL (3.5-5.0); Albumin Globulin Ratio 1.8 (1.0-2.8); Alkaline Phosphatase 83 U/L (38-126); Aspartate Aminotransferase 25 IU/L (14-36); BUN Creatinine Ratio 9.8 (6-22); Bilirubin Total 2.1 mg/dL (0.2-1.3); Blood Urea Nitrogen 23 mg/dL (7-17); Calcium 7.8 mg/dL (8.4-10.2); Carbon Dioxide 23 mmol/L (22-32); Chloride 94 mmol/L (98-107); Creatine Kinase 84 U/L (30-135); Estimated Glomerular Filt Rate 22 mL/min (>60); Globulin 2.4 g/dL (1.7-4.1); Glucose 195 mg/dL (80-110); HEMOLYSIS < 15 (0-50); Lipase 20 U/L (23-300); Potassium 4.3 mmol/L (3.4-5.1); Sodium 131 mmol/L (137-145); Total Protein 6.6 g/dL (6.3-8.2)
[2022-09-30 16:05] LABS: Fractionated Inspired Oxygen 90; HCO3 ABG 23 mmol/L (23-27); Oxygen Saturation ABG 98 % (95-100); PCO2 ABG 38.5 mmHg (35-45); PO2 ABG 101 mmHg (80-100); TCO2 ABG 24 mmol/L (23-27); pH ABG 7.38 (7.35-7.45)
[2022-09-30 16:06] LABS: Lactate (Lactic Acid) 4.3 mmol/L (0.7-2.1)
[2022-09-30 16:08] LABS: NT-proBNP (BNP-Adult 18+) 10400 pg/mL (<125); Troponin I < 0.012 ng/mL (0.01-0.034)
--- NOTE | 2022-09-30 16:09 | PC.NURSE ---
pt vitals q5min, unable to obtain good waveform on pulse oximeter. ABG preformed by RT. patient immediately started on 15 nonrebreather. after ABG, Rt placed pt on 5L NC to transport to CT. Nurse to CT with pt.
[2022-09-30 16:12] LABS: Procalcitonin 16.9 ng/mL (<0.5)
[2022-09-30] MEDS: fentaNYL 100 MCG/2 ML INJ IV (16:21)
--- NOTE | 2022-09-30 16:25 | PC.NURSE ---
RT at bedside, pt switching from 6L NC to high flow NC. Continuing to monitor pt's airway/ breathing.
[2022-09-30] MEDS: PIPERACILLIN/TAZO 4.5 GM in SODIUM CHLORIDE 0.9% 100 ML IV (16:47)
[2022-09-30] MEDS: SODIUM CHLORIDE 0.9% 500 ML 1000 ML IV (16:49)
[2022-09-30 16:59] LABS: Adenovirus Not Detected (Not Detect); B. parapertussis Not Detected (Not Detecte); Coronavirus 229E Not Detected (Not Detect); Coronavirus HKU1 Not Detected (Not Detect); Coronavirus NL 63 Not Detected (Not Detect); Coronavirus OC43 Not Detected (Not Detect); Human Metapneumovirus Not Detected (Not Detect); Human Rhinovirus/Enterovirus Detected (Not Detect); Influenza A Not Detected (Not Detect); Influenza B Not Detected (Not Detect); Parainfluenza Virus 1 Not Detected (Not Detect); Parainfluenza Virus 2 Not Detected (Not Detect); Parainfluenza Virus 3 Not Detected (Not Detect); Parainfluenza Virus 4 Not Detected (Not Detect); Respiratory Syncytial Virus Not Detected (Not Detect); SARS- CoV-2 Not Detected (Not Detecte)
[2022-09-30 17:00] LABS: Bordetella pertussis Not Detected (Not Detecte); Chlamydophila pneumoniae Not Detected (Not Detect); Mycoplasma pneumoniae Not Detected (Not Detect)
--- NOTE | 2022-09-30 17:27 | CM.IDA ---
Initial Brief DCP Assessment Patient is 71 y/o female who presents to due to concern for right sided pain and SOB. Patient's PCP is Dr. Armando Jurado at [facility], Patient has Oncologist Dr. Garcia through [facility]. Patient has [facility] Medicare and Medicaid insurance. Patient has hx of Anemia, CHF, Pneumonia and Multiple Myeloma. SCREW MACHINE OPERATOR is unable to enter room to meet with patient at this time due to patient's SOB distress and patient resting. Per RN, patient endorses her friend drives her to oncology and PCP appts. RN reports hen asked if patient is in need of any social service resources or to speak with an SCREW MACHINE OPERATOR, patient declines. At this time, SCREW MACHINE OPERATOR is unable to assess patient's baseline, living situation and/or DCP needs. Per ED provider Dr. Shirley patient has been accepted by Hospitalist Dr. Santana to ICU and is currently in need of high flow oxygen. Patient is admitted due to concern for respiratory failure, community acquired Pneumonia and hypoxia. Plan: Patient to admit to ICU, DCP to f/u with patient regarding DCP needs DON Tena Discharge Planning/Care Management CM Discharge Assessment Start: 09/30/22 17:22 Freq: Status: Active Protocol: Document 09/30/22 17:22 LN (Rec: 09/30/22 17:27 LN [id number]) Discharge Planning Assessment Assigned Lawn Sprinkler Servicer DON Grace Advance Directives? No Advance Directives on File No History Provided By Medical Record Has Patient been admitted in last 30 No days? Comment Unknown at this time Household Members none Type of transporation used prior to Relies on Others admit Independent with ADL's Yes Is patient alert and oriented? Yes Comment It's likely none are needed, follow closely. Discharge Plan Home Transportation Arrangement Family/friend Please Provide Date Initial DC 09/30/22 Assessment Was Performed
[2022-09-30 17:35] LABS: Reflexed Lactate in 2 Hours Y
--- NOTE | 2022-09-30 17:40 | PM.HP.1 ---
History of Present Illness History of Present Illness Date Patient Seen: 09/30/22 Time Patient Seen: 18:30 Chief complaint: ABD pain Narrative: The patient is a 71-year-old female with a history of multiple myeloma which been treated for over 5 years. She presented to emergency department today with right-sided chest pain as well as dyspnea which has been progressive and worsening for 2 days. The patient denies a cough, or fevers. The patient is followed by Oncology at [facility]. The patient denies chest pain other than with cough or movement of her right ribcage. The recent URI symptoms including rhinorrhea, sore throat or cough. The son denies any exertional chest pain. The patient is quite hypoxemic see department and required high-flow oxygen in which she became comfortable sided anterior chest pain over the rib with palpation and was treated with IV patient lives on [facility] with a roommate. She notes full resuscitation and intubate if needed. The patient does not take oxygen at home. She was also slightly hypotensive was given 500 mL of fluid in the emergency department and had an elevated lactic acid. Patient History Medical History Anemia Congestive heart failure Multiple myeloma Pneumonia Surgical History No significant past surgical history Family & Social History Family History Mother Cancer Social History: household members none Safety & Behavioral: Feels Safe in Current Yes Environment Tobacco & Substance use: Tobacco type cigarettes Smoking Status Current some day smoker alcohol intake current alcohol intake frequency holiday/special occasion Substance Use Type does not use Comment: She lives on [facility] with her roommate. Meds Home Medications and Allergies Home Medications Medication Instructions Recorded Confirmed Type aspirin 81 mg tablet 81 mg PO DAILY 03/08/21 03/08/21 History furosemide 20 mg tablet (Lasix) 20 mg PO DAILY 03/08/21 03/08/21 History pantoprazole 40 mg tablet,delayed 40 mg PO DAILY 03/08/21 03/08/21 History release pomalidomide 3 mg capsule 3 mg PO DAILY 03/08/21 03/08/21 History (Pomalyst) valacyclovir 500 mg tablet 500 mg PO BID 03/08/21 03/08/21 History oxycodone 5 mg tablet 5 mg PO Q8H PRN pain #14 tabs 12/15/21 Rx Allergies Allergy/AdvReac Type Severity Reaction Status Date / Time No Known Drug Allergies Allergy Verified 09/30/22 15:13 Review of Systems Review of Systems Narrative: She denies recent fevers, nausea, vomiting or diarrhea. Also denies any abdominal pain. All else reviewed and otherwise negative. Exam Vital Signs (past 8 hours): - 09/30/22 15:16 09/30/22 15:40 09/30/22 15:24 Temperature 98.1 F Pulse Rate 119 H Respiratory Rate 30 H Blood Pressure Pulse Oximetry 99 73 L Oxygen Delivery Method Non -Rebreather Oxygen Flow Rate 15 Fraction of Inspired Oxygen 90 09/30/22 15:25 09/30/22 15:25 09/30/22 15:30 Temperature Pulse Rate 51 L 126 H Respiratory Rate 54 H Blood Pressure 122/86 Pulse Oximetry 70 L 81 L Oxygen Delivery Method Oxygen Flow Rate Fraction of Inspired Oxygen 09/30/22 15:31 09/30/22 15:31 09/30/22 15:35 Temperature Pulse Rate 126 H 125 H Respiratory Rate 48 H 51 H Blood Pressure 103/74 Pulse Oximetry 80 L 83 L Oxygen Delivery Method Oxygen Flow Rate Fraction of Inspired Oxygen 09/30/22 15:40 09/30/22 15:44 09/30/22 15:44 Temperature Pulse Rate 121 H 123 H Respiratory Rate 40 H 50 H Blood Pressure 101/64 Pulse Oximetry 83 L 88 L Oxygen Delivery Method Oxygen Flow Rate Fraction of Inspired Oxygen 09/30/22 15:45 09/30/22 15:45 09/30/22 15:50 Temperature Pulse Rate 123 H 121 H Respiratory Rate 47 H 54 H Blood Pressure 97/67 Pulse Oximetry 84 L 87 L Oxygen Delivery Method Oxygen Flow Rate Fraction of Inspired Oxygen 09/30/22 15:55 09/30/22 15:58 09/30/22 15:58 Temperature Pulse Rate 122 H 120 H Respiratory Rate 51 H 58 H Blood Pressure 114/54 L Pulse Oximetry 85 L 77 L Oxygen Delivery Method Oxygen Flow Rate Fraction of Inspired Oxygen 09/30/22 16:00 09/30/22 16:00 09/30/22 16:05 Temperature Pulse Rate 119 H Respiratory Rate 32 H Blood Pressure 108/74 95/70 Pulse Oximetry 93 Oxygen Delivery Method Oxygen Flow Rate Fraction of Inspired Oxygen 09/30/22 16:05 09/30/22 16:10 09/30/22 16:15 Temperature Pulse Rate 119 H 118 H 118 H Respiratory Rate 41 H Blood Pressure Pulse Oximetry 81 L 92 Oxygen Delivery Method Oxygen Flow Rate Fraction of Inspired Oxygen 09/30/22 16:19 09/30/22 16:19 09/30/22 16:20 Temperature Pulse Rate 117 H Respiratory Rate Blood Pressure 97/63 105/65 Pulse Oximetry 92 Oxygen Delivery Method Nasal Cannula Oxygen Flow Rate 6 Fraction of Inspired Oxygen 09/30/22 16:25 09/30/22 16:25 09/30/22 17:10 Temperature Pulse Rate 115 H Respiratory Rate 22 Blood Pressure 102/59 L Pulse Oximetry 97 95 Oxygen Delivery Method High Flow Nasal Cannula Oxygen Flow Rate Fraction of Inspired Oxygen 09/30/22 16:32 09/30/22 16:33 09/30/22 16:33 Temperature Pulse Rate 118 H Respiratory Rate Blood Pressure 87/51 L 87/54 L Pulse Oximetry 90 L Oxygen Delivery Method Oxygen Flow Rate Fraction of Inspired Oxygen 09/30/22 16:35 09/30/22 16:37 09/30/22 16:40 Temperature Pulse Rate Respiratory Rate Blood Pressure 84/56 L 89/59 L 91/60 Pulse Oximetry Oxygen Delivery Method Oxygen Flow Rate Fraction of Inspired Oxygen 09/30/22 16:45 09/30/22 16:50 09/30/22 16:55 Temperature Pulse Rate Respiratory Rate Blood Pressure 98/66 101/67 90/62 Pulse Oximetry Oxygen Delivery Method Oxygen Flow Rate Fraction of Inspired Oxygen 09/30/22 17:00 09/30/22 17:05 09/30/22 16:45 Temperature Pulse Rate 118 H Respiratory Rate 22 Blood Pressure 95/65 90/61 Pulse Oximetry 95 Oxygen Delivery Method Heated High Flow Oxygen Flow Rate 50 Fraction of Inspired Oxygen 45 09/30/22 16:45 Temperature Pulse Rate 122 H Respiratory Rate 22 Blood Pressure Pulse Oximetry 95 Oxygen Delivery Method Oxygen Flow Rate Fraction of Inspired Oxygen Fraction of Inspired Oxygen 45 SaO2/FiO2 Ratio 211 Oxygen Delivery Method High Flow Nasal Cannula Oxygen Flow Rate 50 Narrative Exam Narrative: The patient is comfortable on high-flow, she was normal speech and not dyspneic with talking. Head is atraumatic, eyes are notable for symmetric pupils and anicteric sclera. Oropharynx is with normal mucosa. Neck is supple, no adenopathy, normal thyroid. Lungs are clear to auscultation, with normal effort and rate on high-flow oxygen. Heart is regular without murmur gallop or rub. Abdomen is distended but nontender with no organomegaly. Right thorax is tender to palpation over the anterolateral aspect of the chest. No deformity. Extremities are free of edema, Good pedal pulses. Skin is free of rash, lesions or petechiae. Speech is normal, judgment normal. Neurologically the patient has intact cranial nerves and moves arms and legs symmetrically. Objective ECG Impression: Normal sinus rhythm Imaging CT scan - chest: Radiologist's impression: chest CTA is negative for pulmonary embolism, positive for bibasilar infiltrates consistent with pneumonia. Labs 09/30/22 15:25 09/30/22 15:25 Labs: Laboratory Results - last 24 hr 09/30/22 09/30/22 09/30/22 15:25 15:25 15:25 WBC 14.2 H RBC 3.53 L Hgb 11.4 L Hct 33.7 L MCV 95.5 MCH 32.2 MCHC 33.7 RDW 12.2 Plt Count 137 L Neut % (Auto) 84.7 H Lymph % (Auto) 2.9 L Mcdonald % (Auto) 12.2 Eos % (Auto) 0.0 L Baso % (Auto) 0.2 Neut # (Auto) 40661 H Lymph # (Auto) 400 L Mcdonald # (Auto) 1700 H Eos # (Auto) 0 Baso # (Auto) 0 PT 15.6 H INR 1.4 H APTT 31 ABG pH ABG pCO2 ABG pO2 ABG HCO3 ABG Total CO2 ABG O2 Saturation ABG Base Excess FiO2 Sodium 131 L Potassium 4.3 Chloride 94 L Carbon Dioxide 23 BUN 23 H Creatinine 2.34 H Estimated GFR 22 L BUN/Creatinine Ratio 9.8 Glucose 195 H Lactate Calcium 7.8 L Total Bilirubin 2.1 H AST 25 ALT 38 H Alkaline Phosphatase 83 Total Creatine Kinase 84 CK-MB (CK-2) TNP CK-MB (CK-2) Rel Index TNP Troponin I < 0.012 NT-Pro-B Natriuret Pep 99071 H Total Protein 6.6 Albumin 4.2 Globulin 2.4 Albumin/Globulin Ratio 1.8 Lipase 20 L Procalcitonin 16.9 H Chlamy pneumoniae PCR Adenovirus (PCR) B. pertussis DNA (PCR) B.parapertussis DNA PCR Coronavirus OC43 (PCR) Coronavirus HKU1 (PCR) Coronavirus 229E (PCR) SARS-CoV-2 (PCR) Coronavirus NL63 (PCR) Human Metapneumovir PCR Influenza Type A (PCR) Influenza Type B (PCR) M. pneumoniae (PCR) Parainfluenza 1 (PCR) Parainfluenza 2 (PCR) Parainfluenza 3 (PCR) Parainfluenza 4 (PCR) RSV (PCR) Entero/Rhino (PCR) 09/30/22 09/30/22 09/30/22 15:25 15:30 15:45 WBC RBC Hgb Hct MCV MCH MCHC RDW Plt Count Neut % (Auto) Lymph % (Auto) Mcdonald % (Auto) Eos % (Auto) Baso % (Auto) Neut # (Auto) Lymph # (Auto) Mcdonald # (Auto) Eos # (Auto) Baso # (Auto) PT INR APTT ABG pH 7.38 ABG pCO2 38.5 ABG pO2 101 H ABG HCO3 23 ABG Total CO2 24 ABG O2 Saturation 98 ABG Base Excess -3.0 L FiO2 90 Sodium Potassium Chloride Carbon Dioxide BUN Creatinine Estimated GFR BUN/Creatinine Ratio Glucose Lactate 4.3 H* Calcium Total Bilirubin AST ALT Alkaline Phosphatase Total Creatine Kinase CK-MB (CK-2) CK-MB (CK-2) Rel Index Troponin I NT-Pro-B Natriuret Pep Total Protein Albumin Globulin Albumin/Globulin Ratio Lipase Procalcitonin Chlamy pneumoniae PCR Not detected Adenovirus (PCR) Not detected B. pertussis DNA (PCR) Not detected B.parapertussis DNA PCR Not detected Coronavirus OC43 (PCR) Not detected Coronavirus HKU1 (PCR) Not detected Coronavirus 229E (PCR) Not detected SARS-CoV-2 (PCR) Not detected Coronavirus NL63 (PCR) Not detected Human Metapneumovir PCR Not detected Influenza Type A (PCR) Not detected Influenza Type B (PCR) Not detected M. pneumoniae (PCR) Not detected Parainfluenza 1 (PCR) Not detected Parainfluenza 2 (PCR) Not detected Parainfluenza 3 (PCR) Not detected Parainfluenza 4 (PCR) Not detected RSV (PCR) Not detected Entero/Rhino (PCR) Detected H Assessment & Plan Assessment & Plan narrative: 1. Acute hypoxic respiratory failure secondary to rhinovirus and super bacterial pneumonia. Present on admission and active. - the plan is to treat empirically with antibiotics, and support with high-flow oxygen, wean as able. The patient is intubate if she has decompensation. 2. Rhinovirus viral pneumonia, present on admission and active. 3. Probable secondary bacterial pneumonia, present on admission and active. 4. Severe sepsis, present on admission And active. - Fluid resuscitate, trend lactic, blood cultures. Sputum culture 1 able. 5. Lactic acidosis, present on admission and active 6. Apparent musculoskeletal chest pain versus bone pain of the right anterior thorax , present on admission and active. - analgesia as needed 7. Multiple myeloma, present on admission and stable. - We will notify oncologist of her admission tomorrow. Time Spent With Patient Critical Care time: I spent a total of 45 minutes of critical care time on this patient's care today; this time is exclusive of procedural time.
[2022-09-30] MEDS: HYDROMORPHONE 0.5 MG INJ IV (18:13)
[2022-09-30 18:16] LABS: Lactate 2HR (Lactic Acid Rflx) 1.1 mmol/L (0.7-2.1)
[2022-09-30] MEDS: DEXTROSE 5%-0.45% NS 1,000 ML 100 ML IV ×2 (18:16→22:59)
[2022-09-30] MEDS: LACTATED RINGERS 1,000 ML 1000 ML IV (19:06)
[2022-09-30 20:30] LABS: Add Manual Diff / Slide Review NO; Basophils Absolute Auto 0 /uL (0-100); Basophils Percent Auto 0.2 % (0-2); Eosinophils Absolute Auto 0 /uL (0-450); Hematocrit 26.3 % (36-46); Lymphocytes Absolute Auto 200 /uL (1100-4500); Lymphocytes Percent Auto 2.2 % (25-40); Mean Corpuscular HGB Conc 34.4 % (30-36); Mean Corpuscular Hemoglobin 32.6 PG (26-34); Mean Corpuscular Volume 94.9 fL (80-100); Monocytes Absolute Auto 1100 /uL (0-900); Monocytes Percent Auto 13.5 % (3-14); Neutrophils Absolute Auto 6800 /uL (1500-7000); Neutrophils Percent Auto 84.1 % (50-75); Platelet Count 94 X10^3/uL (150-400); Red Blood Cell Count 2.77 X10^6/uL (4.0-5.2); Red Cell Distribution Width 12.2 % (11.6-14.8); White Blood Cell Count 8.1 X10^3/uL (4.5-11.0)
[2022-09-30 20:45] LABS: Glucose 188 mg/dL (80-110)
[2022-09-30] MEDS: LACTATED RINGERS 766.57 ML IV (20:52)
[2022-09-30 21:15] LABS: Lactate (Lactic Acid) 1.9 mmol/L (0.7-2.1)
--- NOTE | 2022-09-30 21:56 | P.TELICUCN_ITS ---
History of Present Illness Consult details IF CAMERA ACTIVATED, patient seen via real-time interactive audiovisual communication: Camera activated Date Patient Seen: 09/30/22 Chief complaint: ABD pain Reason for consult: Septic shock Requesting provider: Russell Aadm Consent obtained for tele-adjunct philosophy faculty care: Yes Patient Location: ICU Provider location (State): [place] Other participants/roles: Bedside RN and Dr. Adam Narrative: Patient is a 71 year old female with history of multiple myeloma who was recently started on a new injection therapy 5 weeks ago presenting to the ER with complaints of right sided chest pain. Symptoms started about three days ago and pain worsen with deep inspiration. Associated with subjective chills and cough. Denies recent sick contact, travel history, abdominal pain, dysuria, or N/V. On presentation she was tested positive for rhinovirus. CTA PE study showed patchy RLL alveolar filling process and no central filling defect seen. Labs notable for WBC 14.2, lactic acid 4.3, procalcitonin 16.9, NT-BNP 21271, BUN 23, Cr 2.34, and ABG -> 7.38/38/101. She was placed on supplemental O2 and resuscitated with 30 cc/kg per sepsis protocol. Started on zosyn/linezolid/azithromycin. Repeat lactic acid 1.1. Admitted to ICU for further management. In ICU, patient remains hjypotensive with SBP ~85s and MAP ~62. Plan to start levophed for septic shock. Added stress dose steroids. [facility] Medical History Anemia Congestive heart failure Multiple myeloma Pneumonia Surgical History No significant past surgical history Family History Mother Cancer Social History household members: none Smoking Status: Current some day smoker alcohol intake: current additional social history: The patient smokes tobacco. She does not use alcohol. No drugs. Family and social history are otherwise noncontributory Current Medications Current Medications Medications: Home Medications aspirin 81 mg tablet 81 mg PO DAILY 03/08/21 [History Confirmed 03/08/21] furosemide 20 mg tablet (Lasix) 20 mg PO DAILY 03/08/21 [History Confirmed 03/08/21] pantoprazole 40 mg tablet,delayed release 40 mg PO DAILY 03/08/21 [History Confirmed 03/08/21] pomalidomide 3 mg capsule (Pomalyst) 3 mg PO DAILY 03/08/21 [History Confirmed 03/08/21] valacyclovir 500 mg tablet 500 mg PO BID 03/08/21 [History Confirmed 03/08/21] oxycodone 5 mg tablet 5 mg PO Q8H PRN pain #14 tabs 12/15/21 [Rx] Visit Medications (administered) Generic Name Dose Route Start Last Admin Trade Name Freq PRN Reason Stop Dose Admin Dextrose/Sodium Chloride 1,000 mls @ 100 mls/hr 09/30/22 17:45 09/30/22 18:16 Dextrose 5%-0.45% Ns IV 100 mls/hr CONT MYRNA Administration Exam Vital Signs (past 8 hours): - 09/30/22 15:16 09/30/22 15:40 09/30/22 15:24 Temperature 98.1 F Pulse Rate 119 H Respiratory Rate 30 H Blood Pressure Pulse Oximetry 99 73 L Oxygen Delivery Method Non -Rebreather Oxygen Flow Rate 15 Fraction of Inspired Oxygen 90 09/30/22 15:25 09/30/22 15:25 09/30/22 15:30 Temperature Pulse Rate 51 L 126 H Respiratory Rate 54 H Blood Pressure 122/86 Pulse Oximetry 70 L 81 L Oxygen Delivery Method Oxygen Flow Rate Fraction of Inspired Oxygen 09/30/22 15:31 09/30/22 15:31 09/30/22 15:35 Temperature Pulse Rate 126 H 125 H Respiratory Rate 48 H 51 H Blood Pressure 103/74 Pulse Oximetry 80 L 83 L Oxygen Delivery Method Oxygen Flow Rate Fraction of Inspired Oxygen 09/30/22 15:40 09/30/22 15:44 09/30/22 15:44 Temperature Pulse Rate 121 H 123 H Respiratory Rate 40 H 50 H Blood Pressure 101/64 Pulse Oximetry 83 L 88 L Oxygen Delivery Method Oxygen Flow Rate Fraction of Inspired Oxygen 09/30/22 15:45 09/30/22 15:45 09/30/22 15:50 Temperature Pulse Rate 123 H 121 H Respiratory Rate 47 H 54 H Blood Pressure 97/67 Pulse Oximetry 84 L 87 L Oxygen Delivery Method Oxygen Flow Rate Fraction of Inspired Oxygen 09/30/22 15:55 09/30/22 15:58 09/30/22 15:58 Temperature Pulse Rate 122 H 120 H Respiratory Rate 51 H 58 H Blood Pressure 114/54 L Pulse Oximetry 85 L 77 L Oxygen Delivery Method Oxygen Flow Rate Fraction of Inspired Oxygen 09/30/22 16:00 09/30/22 16:00 09/30/22 16:05 Temperature Pulse Rate 119 H Respiratory Rate 32 H Blood Pressure 108/74 95/70 Pulse Oximetry 93 Oxygen Delivery Method Oxygen Flow Rate Fraction of Inspired Oxygen 09/30/22 16:05 09/30/22 16:10 09/30/22 16:15 Temperature Pulse Rate 119 H 118 H 118 H Respiratory Rate 41 H Blood Pressure Pulse Oximetry 81 L 92 Oxygen Delivery Method Oxygen Flow Rate Fraction of Inspired Oxygen 09/30/22 16:19 09/30/22 16:19 09/30/22 16:20 Temperature Pulse Rate 117 H Respiratory Rate Blood Pressure 97/63 105/65 Pulse Oximetry 92 Oxygen Delivery Method Nasal Cannula Oxygen Flow Rate 6 Fraction of Inspired Oxygen 09/30/22 16:25 09/30/22 16:25 09/30/22 17:10 Temperature Pulse Rate 115 H Respiratory Rate 22 Blood Pressure 102/59 L Pulse Oximetry 97 95 Oxygen Delivery Method High Flow Nasal Cannula Oxygen Flow Rate Fraction of Inspired Oxygen 09/30/22 16:32 09/30/22 16:33 09/30/22 16:33 Temperature Pulse Rate 118 H Respiratory Rate Blood Pressure 87/51 L 87/54 L Pulse Oximetry 90 L Oxygen Delivery Method Oxygen Flow Rate Fraction of Inspired Oxygen 09/30/22 16:35 09/30/22 16:37 09/30/22 16:40 Temperature Pulse Rate Respiratory Rate Blood Pressure 84/56 L 89/59 L 91/60 Pulse Oximetry Oxygen Delivery Method Oxygen Flow Rate Fraction of Inspired Oxygen 09/30/22 16:45 09/30/22 16:50 09/30/22 16:55 Temperature Pulse Rate Respiratory Rate Blood Pressure 98/66 101/67 90/62 Pulse Oximetry Oxygen Delivery Method Oxygen Flow Rate Fraction of Inspired Oxygen 09/30/22 17:00 09/30/22 17:05 09/30/22 16:45 Temperature Pulse Rate 118 H Respiratory Rate 22 Blood Pressure 95/65 90/61 Pulse Oximetry 95 Oxygen Delivery Method Heated High Flow Oxygen Flow Rate 50 Fraction of Inspired Oxygen 45 09/30/22 16:45 09/30/22 17:10 09/30/22 17:10 Temperature Pulse Rate 122 H 111 H Respiratory Rate 22 Blood Pressure 100/64 Pulse Oximetry 95 95 Oxygen Delivery Method Oxygen Flow Rate Fraction of Inspired Oxygen 09/30/22 17:15 09/30/22 17:15 09/30/22 17:20 Temperature Pulse Rate 109 H Respiratory Rate Blood Pressure 97/56 L 93/60 Pulse Oximetry 97 Oxygen Delivery Method Oxygen Flow Rate Fraction of Inspired Oxygen 09/30/22 17:20 09/30/22 17:25 09/30/22 17:25 Temperature Pulse Rate 109 H 109 H Respiratory Rate Blood Pressure 93/61 Pulse Oximetry 95 97 Oxygen Delivery Method Oxygen Flow Rate Fraction of Inspired Oxygen 09/30/22 17:30 09/30/22 17:35 09/30/22 17:35 Temperature Pulse Rate 111 H Respiratory Rate Blood Pressure 92/59 L 89/57 L Pulse Oximetry 100 Oxygen Delivery Method Oxygen Flow Rate Fraction of Inspired Oxygen 09/30/22 17:40 09/30/22 17:40 09/30/22 17:45 Temperature Pulse Rate 112 H Respiratory Rate Blood Pressure 96/58 L 91/53 L Pulse Oximetry 98 Oxygen Delivery Method Oxygen Flow Rate Fraction of Inspired Oxygen 09/30/22 17:45 09/30/22 17:50 09/30/22 17:50 Temperature Pulse Rate 112 H 112 H Respiratory Rate Blood Pressure 93/55 L Pulse Oximetry 98 99 Oxygen Delivery Method Oxygen Flow Rate Fraction of Inspired Oxygen 09/30/22 17:55 09/30/22 18:00 09/30/22 17:22 Temperature Pulse Rate 112 H 113 H Respiratory Rate Blood Pressure Pulse Oximetry 96 Oxygen Delivery Method High Flow Nasal Cannula Heated High Flow Humidification Oxygen Flow Rate Fraction of Inspired Oxygen 09/30/22 18:05 09/30/22 19:40 09/30/22 19:00 Temperature 99.1 F Pulse Rate 123 H 106 H 109 H Respiratory Rate 24 17 Blood Pressure 91/58 L Pulse Oximetry 97 95 Oxygen Delivery Method Oxygen Flow Rate Fraction of Inspired Oxygen 09/30/22 20:00 09/30/22 20:13 09/30/22 20:13 Temperature Pulse Rate 105 H 108 H Respiratory Rate 23 36 H Blood Pressure 77/53 L Pulse Oximetry 94 91 Oxygen Delivery Method Oxygen Flow Rate Fraction of Inspired Oxygen 09/30/22 20:14 09/30/22 20:14 09/30/22 20:19 Temperature Pulse Rate 106 H Respiratory Rate 34 H Blood Pressure 80/53 L 80/52 L Pulse Oximetry 90 L Oxygen Delivery Method Oxygen Flow Rate Fraction of Inspired Oxygen 09/30/22 20:19 09/30/22 20:28 09/30/22 20:28 Temperature 97.4 F L Pulse Rate 102 H 100 H Respiratory Rate 23 24 Blood Pressure 79/50 L Pulse Oximetry 94 93 Oxygen Delivery Method Oxygen Flow Rate 50 Fraction of Inspired Oxygen 09/30/22 20:41 09/30/22 20:41 09/30/22 20:45 Temperature Pulse Rate 103 H Respiratory Rate 41 H Blood Pressure 75/52 L 79/54 L Pulse Oximetry 95 Oxygen Delivery Method Oxygen Flow Rate Fraction of Inspired Oxygen 09/30/22 20:45 09/30/22 21:00 09/30/22 21:00 Temperature Pulse Rate 105 H 104 H Respiratory Rate 30 H 29 H Blood Pressure 80/51 L Pulse Oximetry 88 L 95 Oxygen Delivery Method Oxygen Flow Rate Fraction of Inspired Oxygen Fraction of Inspired Oxygen 45 SaO2/FiO2 Ratio 211 Oxygen Delivery Method High Flow Nasal Cannula,Heated High Flow, Humidification Oxygen Flow Rate 50 Narrative Exam Narrative: Toxic appearing, tachypnea, on HFNC 50/45%; able to speak in full complete sentence Objective Labs 09/30/22 20:16 09/30/22 20:16 Labs: Laboratory Results - last 24 hr 09/30/22 09/30/22 09/30/22 15:25 15:25 15:25 WBC 14.2 H RBC 3.53 L Hgb 11.4 L Hct 33.7 L MCV 95.5 MCH 32.2 MCHC 33.7 RDW 12.2 Plt Count 137 L Neut % (Auto) 84.7 H Lymph % (Auto) 2.9 L [place] % (Auto) 12.2 Eos % (Auto) 0.0 L Baso % (Auto) 0.2 Neut # (Auto) 61298 H Lymph # (Auto) 400 L [place] # (Auto) 1700 H Eos # (Auto) 0 Baso # (Auto) 0 PT 15.6 H INR 1.4 H APTT 31 ABG pH ABG pCO2 ABG pO2 ABG HCO3 ABG Total CO2 ABG O2 Saturation ABG Base Excess FiO2 Sodium 131 L Potassium 4.3 Chloride 94 L Carbon Dioxide 23 BUN 23 H Creatinine 2.34 H Estimated GFR 22 L BUN/Creatinine Ratio 9.8 Glucose 195 H Lactate Calcium 7.8 L Total Bilirubin 2.1 H AST 25 ALT 38 H Alkaline Phosphatase 83 Total Creatine Kinase 84 CK-MB (CK-2) TNP CK-MB (CK-2) Rel Index TNP Troponin I < 0.012 NT-Pro-B Natriuret Pep 57606 H Total Protein 6.6 Albumin 4.2 Globulin 2.4 Albumin/Globulin Ratio 1.8 Lipase 20 L Procalcitonin 16.9 H Chlamy pneumoniae PCR Adenovirus (PCR) B. pertussis DNA (PCR) B.parapertussis DNA PCR Coronavirus OC43 (PCR) Coronavirus HKU1 (PCR) Coronavirus 229E (PCR) SARS-CoV-2 (PCR) Coronavirus NL63 (PCR) Human Metapneumovir PCR Influenza Type A (PCR) Influenza Type B (PCR) M. pneumoniae (PCR) Parainfluenza 1 (PCR) Parainfluenza 2 (PCR) Parainfluenza 3 (PCR) Parainfluenza 4 (PCR) RSV (PCR) Entero/Rhino (PCR) 09/30/22 09/30/22 09/30/22 15:25 15:30 15:45 WBC RBC Hgb Hct MCV MCH MCHC RDW Plt Count Neut % (Auto) Lymph % (Auto) [place] % (Auto) Eos % (Auto) Baso % (Auto) Neut # (Auto) Lymph # (Auto) [place] # (Auto) Eos # (Auto) Baso # (Auto) PT INR APTT ABG pH 7.38 ABG pCO2 38.5 ABG pO2 101 H ABG HCO3 23 ABG Total CO2 24 ABG O2 Saturation 98 ABG Base Excess -3.0 L FiO2 90 Sodium Potassium Chloride Carbon Dioxide BUN Creatinine Estimated GFR BUN/Creatinine Ratio Glucose Lactate 4.3 H* Calcium Total Bilirubin AST ALT Alkaline Phosphatase Total Creatine Kinase CK-MB (CK-2) CK-MB (CK-2) Rel Index Troponin I NT-Pro-B Natriuret Pep Total Protein Albumin Globulin Albumin/Globulin Ratio Lipase Procalcitonin Chlamy pneumoniae PCR Not detected Adenovirus (PCR) Not detected B. pertussis DNA (PCR) Not detected B.parapertussis DNA PCR Not detected Coronavirus OC43 (PCR) Not detected Coronavirus HKU1 (PCR) Not detected Coronavirus 229E (PCR) Not detected SARS-CoV-2 (PCR) Not detected Coronavirus NL63 (PCR) Not detected Human Metapneumovir PCR Not detected Influenza Type A (PCR) Not detected Influenza Type B (PCR) Not detected M. pneumoniae (PCR) Not detected Parainfluenza 1 (PCR) Not detected Parainfluenza 2 (PCR) Not detected Parainfluenza 3 (PCR) Not detected Parainfluenza 4 (PCR) Not detected RSV (PCR) Not detected Entero/Rhino (PCR) Detected H 09/30/22 09/30/22 09/30/22 17:30 20:16 20:16 WBC 8.1 RBC 2.77 L Hgb 9.0 L Hct 26.3 L MCV 94.9 MCH 32.6 MCHC 34.4 RDW 12.2 Plt Count 94 L Neut % (Auto) 84.1 H Lymph % (Auto) 2.2 L [place] % (Auto) 13.5 Eos % (Auto) 0.0 L Baso % (Auto) 0.2 Neut # (Auto) 6800 Lymph # (Auto) 200 L [place] # (Auto) 1100 H Eos # (Auto) 0 Baso # (Auto) 0 PT INR APTT ABG pH ABG pCO2 ABG pO2 ABG HCO3 ABG Total CO2 ABG O2 Saturation ABG Base Excess FiO2 Sodium Potassium Chloride Carbon Dioxide BUN Creatinine Estimated GFR BUN/Creatinine Ratio Glucose 188 H Lactate 1.1 Calcium Total Bilirubin AST ALT Alkaline Phosphatase Total Creatine Kinase CK-MB (CK-2) CK-MB (CK-2) Rel Index Troponin I NT-Pro-B Natriuret Pep Total Protein Albumin Globulin Albumin/Globulin Ratio Lipase Procalcitonin Chlamy pneumoniae PCR Adenovirus (PCR) B. pertussis DNA (PCR) B.parapertussis DNA PCR Coronavirus OC43 (PCR) Coronavirus HKU1 (PCR) Coronavirus 229E (PCR) SARS-CoV-2 (PCR) Coronavirus NL63 (PCR) Human Metapneumovir PCR Influenza Type A (PCR) Influenza Type B (PCR) M. pneumoniae (PCR) Parainfluenza 1 (PCR) Parainfluenza 2 (PCR) Parainfluenza 3 (PCR) Parainfluenza 4 (PCR) RSV (PCR) Entero/Rhino (PCR) 09/30/22 20:40 WBC RBC Hgb Hct MCV MCH MCHC RDW Plt Count Neut % (Auto) Lymph % (Auto) [place] % (Auto) Eos % (Auto) Baso % (Auto) Neut # (Auto) Lymph # (Auto) [place] # (Auto) Eos # (Auto) Baso # (Auto) PT INR APTT ABG pH ABG pCO2 ABG pO2 ABG HCO3 ABG Total CO2 ABG O2 Saturation ABG Base Excess FiO2 Sodium Potassium Chloride Carbon Dioxide BUN Creatinine Estimated GFR BUN/Creatinine Ratio Glucose Lactate 1.9 Calcium Total Bilirubin AST ALT Alkaline Phosphatase Total Creatine Kinase CK-MB (CK-2) CK-MB (CK-2) Rel Index Troponin I NT-Pro-B Natriuret Pep Total Protein Albumin Globulin Albumin/Globulin Ratio Lipase Procalcitonin Chlamy pneumoniae PCR Adenovirus (PCR) B. pertussis DNA (PCR) B.parapertussis DNA PCR Coronavirus OC43 (PCR) Coronavirus HKU1 (PCR) Coronavirus 229E (PCR) SARS-CoV-2 (PCR) Coronavirus NL63 (PCR) Human Metapneumovir PCR Influenza Type A (PCR) Influenza Type B (PCR) M. pneumoniae (PCR) Parainfluenza 1 (PCR) Parainfluenza 2 (PCR) Parainfluenza 3 (PCR) Parainfluenza 4 (PCR) RSV (PCR) Entero/Rhino (PCR) Assessment & Plan Assessment & Plan narrative: NEURO: -- PT/OT consultation -- Early mobility RESP: # Acute hypoxemia respiratory failure -- Secondary to viral PNA w/ superimposed bacterial PNA -- On HFNC 50/45% -- On linezolid/zosyn/azithromycin -- Check resp cx -- HOB elevation -- Aspiration precaution -- Goal SpO2 > 88% # Pneumonia -- On abx as above -- Check urinary legionella/strep -- Follow up cx data CVS: # Distributive shock -- Secondary to septic shock -- Received 30 cc/kg IVF bolus -- Plan to start levophed given persistent shock -- Added stress dose steroids -- Check TTE -- MAP goal > 65 : # LYLE vs CKD -- Unknown baseline Cr -- Avoid nephrotoxin agents -- Cont IVF -- Monitor UOP -- Daily BMP ID: # Septic shock -- Secondary to PNA -- Check blood and resp cx -- Follow up cx data -- Abx as above -- Follow up urinary legionella/strep -- Check MRSA swab HEME: # Anemia -- Secondary to multiple myeloma and sepsis -- Daily CBC -- Goal Hb > 7 # Multiple myeloma -- Will obtain records from [facility] -- Hold off all chemotherapy given septic shock ENDO: -- Goal BS < 180 D/w bedside RN and Dr. Adam. Time Spent With Patient Critical Care time: I spent a total of 38 minutes of critical care time on this patient's care today; this time is exclusive of procedural time.
[2022-09-30] MEDS: FAMOTIDINE 20 MG/2 ML VIAL IV (22:27)
[2022-09-30] MEDS: PIPERACILLIN/TAZO 3.375 GM in SODIUM CHLORIDE 0.9% 100 ML IV (22:27)
[2022-09-30] MEDS: HEPARIN 5,000 UNIT/ML VIAL 5000 UNIT SUBCUT (22:28)
[2022-09-30] MEDS: AZITHROMYCIN 500 MG in DEXTROSE 5% IN WATER 250 ML 250 MG IV (22:30)
[2022-09-30] MEDS: LINEZOLID 600 MG/300 ML IV.SOLN IV (22:39)
[2022-09-30] MEDS: HYDROCORTISONE 100 MG/2 ML VIAL 50 MG IV (22:40)
[2022-09-30] MEDS: NOREPINEPHRINE BITARTRATE/D5W 4 MG/250 ML PLAST..BAG 30 MG IV (23:22)
[2022-09-30] MEDS: ONDANSETRON 4 MG/2 ML INJ IV (23:29)
[2022-10-01] VITALS (183 sets, daily range): BP systolic 88–165; BP diastolic 55–108; PULSE 54–105; RESP 0–61; TEMP 36.5–37.7; O2SAT 61–100
[2022-10-01 00:03] LABS: MRSA (Nasal) PCR Not Detected (Not Detect)
[2022-10-01] MEDS: INSULIN LISPRO 100 UNIT/ML 3ML VIAL SUBCUT ×5 (01:50→23:39)
--- NOTE | 2022-10-01 02:03 | PC.NURSE ---
2009--pt's sbp high 70s to low 80s; MAP<65; status report called to Dr Adam; he is coming to see the patient
--- NOTE | 2022-10-01 02:06 | PC.NURSE ---
2029--Dr Adam here to see pt; she is able to answer questions; new orders received; will be speaking with teleICU (Dr Martínez)
--- NOTE | 2022-10-01 02:11 | PC.NURSE ---
2139--Dr Martínez called; status report given; he rang into the room and spoke with the patient
[2022-10-01] MEDS: PIPERACILLIN/TAZO 3.375 GM in SODIUM CHLORIDE 0.9% 100 ML IV ×3 (05:17→20:48)
[2022-10-01] MEDS: HYDROCORTISONE 100 MG/2 ML VIAL 50 MG IV ×4 (05:47→23:37)
[2022-10-01] MEDS: INSULIN GLARGINE 100 UNIT/ML 3ML PEN SUBCUT (06:09)
--- NOTE | 2022-10-01 06:38 | PC.NURSE ---
0425--Dr Martínez called for status report; he also video monitored into the room and visualized the patient; reported finger stick of [phone] earlier and new orders received
[2022-10-01 07:00] LABS: Acinetobacter baumannii Not Detected (Not Detect); Candida albicans Not Detected (Not Detect); Candida glabrata Not Detected (Not Detect); Candida krusei Not Detected (Not Detect); Candida parapsilosis Not Detected (Not Detect); Candida tropicalis Not Detected (Not Detect); E. coli Not Detected (Not Detect); Enterobacter cloacae complex Not Detected (Not Detect); Enterobacteriaceae species Not Detected (Not Detect); Enterococcus species Not Detected (Not Detect); Haemophilus influenzae Not Detected (Not Detect); Listeria monocytogenes Not Detected (Not Detect); Neisseria meningitidis Not Detected (Not Detect); Proteus species Not Detected (Not Detect); Pseudomonas aeruginosa Not Detected (Not Detect); Serratia marcescens Not Detected (Not Detect); Staphylococcus species Not Detected (Not Detect); Streptococcus agalactiae (Gr B Not Detected (Not Detect); Streptococcus pneumonia DETECTED (Not Detect); Streptococcus pyogenes (Gr A) Not Detected (Not Detect); Streptococcus species DETECTED (Not Detect)
--- NOTE | 2022-10-01 07:45 | P.PN_ITS ---
Subjective Subjective Interval history: No chest pain, dyspnea better. No chest or abdomen pain. Exam Vital Signs (past 8 hours): - 09/30/22 23:46 09/30/22 23:46 09/30/22 23:51 Temperature 99.7 F H 99.7 F H Pulse Rate 83 93 H Respiratory Rate 9 L 0 L Blood Pressure 145/95 H Pulse Oximetry 100 100 Oxygen Flow Rate 09/30/22 23:51 09/30/22 23:55 09/30/22 23:55 Temperature 99.7 F H Pulse Rate 92 H Respiratory Rate 7 L Blood Pressure 135/79 125/76 Pulse Oximetry 100 Oxygen Flow Rate 10/01/22 00:00 10/01/22 00:00 10/01/22 00:05 Temperature 99.7 F H Pulse Rate 91 H Respiratory Rate 9 L Blood Pressure 125/80 134/82 Pulse Oximetry 99 Oxygen Flow Rate 10/01/22 00:05 10/01/22 00:10 10/01/22 00:10 Temperature 99.7 F H 99.9 F H Pulse Rate 88 90 Respiratory Rate 3 L 26 H Blood Pressure 132/84 Pulse Oximetry 98 100 Oxygen Flow Rate 50 10/01/22 00:15 10/01/22 00:15 10/01/22 00:20 Temperature 99.9 F H Pulse Rate 95 H Respiratory Rate 25 H Blood Pressure 102/62 104/63 Pulse Oximetry 99 Oxygen Flow Rate 10/01/22 00:20 10/01/22 00:26 10/01/22 00:26 Temperature 99.9 F H 99.9 F H Pulse Rate 94 H 93 H Respiratory Rate 0 L 0 L Blood Pressure 101/64 Pulse Oximetry 99 99 Oxygen Flow Rate 10/01/22 00:30 10/01/22 00:30 10/01/22 00:35 Temperature 99.9 F H Pulse Rate 94 H Respiratory Rate 0 L Blood Pressure 100/64 108/65 Pulse Oximetry 99 Oxygen Flow Rate 10/01/22 00:35 10/01/22 00:40 10/01/22 00:40 Temperature 99.9 F H 99.9 F H Pulse Rate 93 H 98 H Respiratory Rate 0 L 32 H Blood Pressure 109/69 Pulse Oximetry 99 98 Oxygen Flow Rate 10/01/22 00:45 10/01/22 00:45 10/01/22 00:50 Temperature 99.7 F H 99.7 F H Pulse Rate 93 H 92 H Respiratory Rate 29 H 19 Blood Pressure 104/58 L Pulse Oximetry 98 99 Oxygen Flow Rate 10/01/22 00:50 10/01/22 00:55 10/01/22 00:55 Temperature 99.5 F Pulse Rate 90 Respiratory Rate 24 Blood Pressure 103/57 L 98/62 Pulse Oximetry 99 Oxygen Flow Rate 10/01/22 01:00 10/01/22 01:00 10/01/22 01:05 Temperature 99.5 F Pulse Rate 92 H Respiratory Rate 22 Blood Pressure 96/61 98/62 Pulse Oximetry 98 Oxygen Flow Rate 10/01/22 01:05 10/01/22 01:10 10/01/22 01:10 Temperature 99.5 F 99.3 F Pulse Rate 90 90 Respiratory Rate 15 20 Blood Pressure 100/64 Pulse Oximetry 98 98 Oxygen Flow Rate 10/01/22 01:15 10/01/22 01:15 10/01/22 01:20 Temperature 99.3 F Pulse Rate 89 Respiratory Rate 18 Blood Pressure 102/65 104/66 Pulse Oximetry 98 Oxygen Flow Rate 10/01/22 01:20 10/01/22 01:25 10/01/22 01:25 Temperature 99.3 F 99.1 F Pulse Rate 89 87 Respiratory Rate 21 22 Blood Pressure 102/63 Pulse Oximetry 99 98 Oxygen Flow Rate 10/01/22 01:30 10/01/22 01:30 10/01/22 01:35 Temperature 99.1 F Pulse Rate 88 Respiratory Rate 9 L Blood Pressure 102/64 108/67 Pulse Oximetry 98 Oxygen Flow Rate 10/01/22 01:35 10/01/22 01:40 10/01/22 01:40 Temperature 99.0 F 99.0 F Pulse Rate 86 86 Respiratory Rate 24 23 Blood Pressure 108/69 Pulse Oximetry 98 99 Oxygen Flow Rate 10/01/22 01:45 10/01/22 01:45 10/01/22 01:50 Temperature 99.0 F 99.0 F Pulse Rate 82 93 H Respiratory Rate 8 L 13 Blood Pressure 109/69 Pulse Oximetry 98 96 Oxygen Flow Rate 10/01/22 01:50 10/01/22 01:55 10/01/22 01:55 Temperature 99.0 F Pulse Rate 87 Respiratory Rate 25 H Blood Pressure 111/72 115/72 Pulse Oximetry 99 Oxygen Flow Rate 10/01/22 02:00 10/01/22 02:00 10/01/22 01:37 Temperature 99.0 F Pulse Rate 86 87 Respiratory Rate 22 20 Blood Pressure 108/69 108/67 Pulse Oximetry 98 98 Oxygen Flow Rate 40 10/01/22 02:51 10/01/22 02:05 10/01/22 02:05 Temperature 98.8 F Pulse Rate 80 84 Respiratory Rate 22 21 Blood Pressure 110/66 106/66 Pulse Oximetry 98 98 Oxygen Flow Rate 10/01/22 02:10 10/01/22 02:10 10/01/22 02:15 Temperature 98.8 F Pulse Rate 84 Respiratory Rate 23 Blood Pressure 111/67 115/69 Pulse Oximetry 98 Oxygen Flow Rate 10/01/22 02:15 10/01/22 02:20 10/01/22 02:20 Temperature 98.6 F 98.6 F Pulse Rate 84 84 Respiratory Rate 22 23 Blood Pressure 108/65 Pulse Oximetry 98 98 Oxygen Flow Rate 10/01/22 02:25 10/01/22 02:25 10/01/22 02:30 Temperature 98.6 F Pulse Rate 84 Respiratory Rate 19 Blood Pressure 118/70 116/72 Pulse Oximetry 99 Oxygen Flow Rate 10/01/22 02:30 10/01/22 02:35 10/01/22 02:35 Temperature 98.6 F 98.4 F Pulse Rate 82 83 Respiratory Rate 9 L 19 Blood Pressure 118/69 Pulse Oximetry 99 98 Oxygen Flow Rate 10/01/22 02:40 10/01/22 02:40 10/01/22 02:45 Temperature 98.4 F Pulse Rate 85 Respiratory Rate 13 Blood Pressure 112/69 114/68 Pulse Oximetry 98 Oxygen Flow Rate 10/01/22 02:45 10/01/22 02:50 10/01/22 02:50 Temperature 98.4 F 98.4 F Pulse Rate 81 80 Respiratory Rate 26 H 24 Blood Pressure 110/66 Pulse Oximetry 99 99 Oxygen Flow Rate 10/01/22 02:55 10/01/22 02:55 10/01/22 03:00 Temperature 98.4 F Pulse Rate 80 Respiratory Rate 25 H Blood Pressure 114/67 115/68 Pulse Oximetry 98 Oxygen Flow Rate 10/01/22 03:00 10/01/22 03:05 10/01/22 03:05 Temperature 98.2 F 98.2 F Pulse Rate 80 79 Respiratory Rate 25 H 23 Blood Pressure 109/67 Pulse Oximetry 97 97 Oxygen Flow Rate 10/01/22 03:10 10/01/22 03:10 10/01/22 03:15 Temperature 98.2 F Pulse Rate 79 Respiratory Rate 23 Blood Pressure 114/68 119/71 Pulse Oximetry 97 Oxygen Flow Rate 10/01/22 03:15 10/01/22 03:20 10/01/22 03:20 Temperature 98.1 F 98.1 F Pulse Rate 78 79 Respiratory Rate 24 25 H Blood Pressure 114/72 Pulse Oximetry 97 97 Oxygen Flow Rate 10/01/22 03:25 10/01/22 03:25 10/01/22 03:30 Temperature 98.1 F Pulse Rate 80 Respiratory Rate 22 Blood Pressure 115/69 118/67 Pulse Oximetry 96 Oxygen Flow Rate 40 10/01/22 03:30 10/01/22 03:35 10/01/22 03:35 Temperature 98.1 F 98.1 F Pulse Rate 76 81 Respiratory Rate 11 L 21 Blood Pressure 112/67 Pulse Oximetry 98 96 Oxygen Flow Rate 10/01/22 03:40 10/01/22 03:40 10/01/22 03:45 Temperature 98.1 F Pulse Rate 86 Respiratory Rate 26 H Blood Pressure 129/78 112/68 Pulse Oximetry 97 Oxygen Flow Rate 10/01/22 03:45 10/01/22 03:50 10/01/22 03:50 Temperature 98.1 F 98.1 F Pulse Rate 71 81 Respiratory Rate 21 20 Blood Pressure 115/73 Pulse Oximetry 97 96 Oxygen Flow Rate 10/01/22 03:55 10/01/22 03:55 10/01/22 04:00 Temperature 98.2 F 98.2 F Pulse Rate 81 79 Respiratory Rate 23 23 Blood Pressure 116/72 Pulse Oximetry 97 99 Oxygen Flow Rate 10/01/22 04:01 10/01/22 04:01 10/01/22 04:05 Temperature 98.2 F 98.2 F Pulse Rate 77 78 Respiratory Rate 20 14 Blood Pressure 120/81 Pulse Oximetry 99 98 Oxygen Flow Rate 10/01/22 04:05 10/01/22 04:10 10/01/22 04:10 Temperature 98.2 F Pulse Rate 76 Respiratory Rate 12 Blood Pressure 111/65 111/66 Pulse Oximetry 98 Oxygen Flow Rate 10/01/22 04:15 10/01/22 04:15 10/01/22 04:20 Temperature 98.2 F Pulse Rate 74 Respiratory Rate 22 Blood Pressure 111/71 109/69 Pulse Oximetry 98 Oxygen Flow Rate 10/01/22 04:20 10/01/22 04:25 10/01/22 04:25 Temperature 98.2 F 98.2 F Pulse Rate 75 72 Respiratory Rate 15 13 Blood Pressure 109/70 Pulse Oximetry 98 98 Oxygen Flow Rate 10/01/22 04:30 10/01/22 04:30 10/01/22 04:35 Temperature 98.1 F 98.1 F Pulse Rate 73 71 Respiratory Rate 12 12 Blood Pressure 110/71 Pulse Oximetry 98 98 Oxygen Flow Rate 10/01/22 04:35 10/01/22 04:40 10/01/22 04:40 Temperature 97.9 F Pulse Rate 72 Respiratory Rate 16 Blood Pressure 105/70 108/70 Pulse Oximetry 98 Oxygen Flow Rate 10/01/22 04:45 10/01/22 04:45 10/01/22 04:50 Temperature 97.9 F Pulse Rate 73 Respiratory Rate 13 Blood Pressure 107/69 110/70 Pulse Oximetry 97 Oxygen Flow Rate 10/01/22 04:50 10/01/22 04:55 10/01/22 04:55 Temperature 97.9 F 97.7 F Pulse Rate 72 69 Respiratory Rate 10 L 10 L Blood Pressure 107/66 Pulse Oximetry 98 98 Oxygen Flow Rate 40 10/01/22 04:56 10/01/22 05:00 10/01/22 05:00 Temperature 97.7 F Pulse Rate 67 70 Respiratory Rate 20 17 Blood Pressure 110/70 109/69 Pulse Oximetry 97 99 Oxygen Flow Rate 10/01/22 05:05 10/01/22 05:05 10/01/22 05:10 Temperature 97.9 F Pulse Rate 63 Respiratory Rate 15 Blood Pressure 106/70 117/74 Pulse Oximetry 98 Oxygen Flow Rate 10/01/22 05:10 10/01/22 05:15 10/01/22 05:15 Temperature 97.9 F 97.9 F Pulse Rate 77 76 Respiratory Rate 18 21 Blood Pressure 121/73 Pulse Oximetry 98 99 Oxygen Flow Rate 10/01/22 05:20 10/01/22 05:20 10/01/22 05:25 Temperature 97.9 F Pulse Rate 82 Respiratory Rate 26 H Blood Pressure 118/76 123/74 Pulse Oximetry 98 Oxygen Flow Rate 10/01/22 05:25 10/01/22 05:30 10/01/22 05:30 Temperature 97.9 F 97.9 F Pulse Rate 73 71 Respiratory Rate 22 23 Blood Pressure 119/72 Pulse Oximetry 98 99 Oxygen Flow Rate 10/01/22 05:35 10/01/22 05:35 10/01/22 05:40 Temperature 97.9 F Pulse Rate 72 Respiratory Rate 22 Blood Pressure 120/72 120/73 Pulse Oximetry 99 Oxygen Flow Rate 10/01/22 05:40 10/01/22 05:45 10/01/22 05:45 Temperature 97.9 F 97.9 F Pulse Rate 73 73 Respiratory Rate 20 17 Blood Pressure 117/74 Pulse Oximetry 99 100 Oxygen Flow Rate 10/01/22 05:50 10/01/22 05:50 10/01/22 05:55 Temperature 97.9 F Pulse Rate 72 Respiratory Rate 22 Blood Pressure 121/76 122/75 Pulse Oximetry 100 Oxygen Flow Rate 10/01/22 05:55 10/01/22 06:00 10/01/22 06:05 Temperature 97.9 F 97.9 F Pulse Rate 71 71 Respiratory Rate 14 23 Blood Pressure 120/75 Pulse Oximetry 100 100 Oxygen Flow Rate 10/01/22 06:05 10/01/22 06:10 10/01/22 06:10 Temperature 97.9 F 97.9 F Pulse Rate 81 72 Respiratory Rate 11 L 9 L Blood Pressure 119/76 Pulse Oximetry 99 99 Oxygen Flow Rate 10/01/22 06:15 10/01/22 06:15 10/01/22 06:20 Temperature 97.9 F Pulse Rate 74 Respiratory Rate 9 L Blood Pressure 115/73 110/70 Pulse Oximetry 100 Oxygen Flow Rate 40 10/01/22 06:20 10/01/22 06:25 10/01/22 06:25 Temperature 97.7 F 97.9 F Pulse Rate 89 76 Respiratory Rate 31 H 29 H Blood Pressure 139/76 Pulse Oximetry 97 100 Oxygen Flow Rate 10/01/22 06:30 10/01/22 06:32 10/01/22 06:32 Temperature 97.9 F 97.9 F Pulse Rate 76 83 Respiratory Rate 36 H 37 H Blood Pressure 119/80 Pulse Oximetry 100 99 Oxygen Flow Rate 10/01/22 06:35 10/01/22 06:35 10/01/22 06:40 Temperature 97.9 F 97.9 F Pulse Rate 76 71 Respiratory Rate 23 24 Blood Pressure 130/75 Pulse Oximetry 98 99 Oxygen Flow Rate 10/01/22 06:40 10/01/22 06:45 10/01/22 06:45 Temperature 98.1 F Pulse Rate 69 Respiratory Rate 26 H Blood Pressure 129/77 128/81 Pulse Oximetry 99 Oxygen Flow Rate 10/01/22 06:50 10/01/22 06:50 10/01/22 06:55 Temperature 98.1 F Pulse Rate 71 Respiratory Rate 26 H Blood Pressure 134/80 119/69 Pulse Oximetry 99 Oxygen Flow Rate 10/01/22 06:55 10/01/22 07:00 10/01/22 07:00 Temperature 98.1 F 98.1 F Pulse Rate 71 74 Respiratory Rate 25 H 22 Blood Pressure 126/77 Pulse Oximetry 99 82 L Oxygen Flow Rate 10/01/22 07:05 10/01/22 07:05 10/01/22 07:11 Temperature 98.1 F Pulse Rate 71 Respiratory Rate 23 Blood Pressure 127/81 130/63 Pulse Oximetry 100 Oxygen Flow Rate 10/01/22 07:11 10/01/22 07:15 10/01/22 07:15 Temperature 98.2 F 98.2 F Pulse Rate 83 73 Respiratory Rate 34 H 27 H Blood Pressure 137/78 Pulse Oximetry 99 100 Oxygen Flow Rate 10/01/22 07:20 10/01/22 07:20 10/01/22 07:25 Temperature 98.2 F Pulse Rate 71 Respiratory Rate 28 H Blood Pressure 131/77 127/72 Pulse Oximetry 100 Oxygen Flow Rate 10/01/22 07:25 10/01/22 07:30 10/01/22 07:30 Temperature 98.2 F 98.2 F Pulse Rate 63 67 Respiratory Rate 18 27 H Blood Pressure 132/84 Pulse Oximetry 100 100 Oxygen Flow Rate Fraction of Inspired Oxygen 45 SaO2/FiO2 Ratio 211 Oxygen Delivery Method High Flow Nasal Cannula Oxygen Flow Rate 40 Narrative Exam Narrative: The patient is comfortable on high-flow, she was normal speech. HF O2. ? Head is atraumatic, eyes are notable for symmetric pupils and anicteric sclera. ? Oropharynx is with normal mucosa. ? Neck is supple, no adenopathy, normal thyroid. ? Lungs are clear to auscultation, with normal effort and rate on high-flow oxygen. ? Heart is regular without murmur gallop or rub. ? Abdomen is distended but nontender with no organomegaly. ? Right thorax is tender to palpation over the anterolateral aspect of the chest.? No deformity. ? Extremities are free of edema, ? Good pedal pulses. ? Skin is free of rash, lesions or petechiae. ? Speech is normal, judgment normal. Objective Imaging CT scan - chest: Radiologist's impression: ? IMPRESSION:? No acute pulmonary embolism.? The distal arteries are difficult to evaluate due to motion artifact. ? Right greater than left airspace disease, as well as a few individual nodules, for example in the left lower lobe measuring up to 7 mm.? Recommend surveillance imaging. ? Labs 09/30/22 20:16 09/30/22 20:16 Labs: Laboratory Results - last 24 hr 09/30/22 09/30/22 09/30/22 15:25 15:25 15:25 WBC 14.2 H RBC 3.53 L Hgb 11.4 L Hct 33.7 L MCV 95.5 MCH 32.2 MCHC 33.7 RDW 12.2 Plt Count 137 L Neut % (Auto) 84.7 H Lymph % (Auto) 2.9 L [place] % (Auto) 12.2 Eos % (Auto) 0.0 L Baso % (Auto) 0.2 Neut # (Auto) 10497 H Lymph # (Auto) 400 L [place] # (Auto) 1700 H Eos # (Auto) 0 Baso # (Auto) 0 PT 15.6 H INR 1.4 H APTT 31 ABG pH ABG pCO2 ABG pO2 ABG HCO3 ABG Total CO2 ABG O2 Saturation ABG Base Excess FiO2 Sodium 131 L Potassium 4.3 Chloride 94 L Carbon Dioxide 23 BUN 23 H Creatinine 2.34 H Estimated GFR 22 L BUN/Creatinine Ratio 9.8 Glucose 195 H Lactate Calcium 7.8 L Total Bilirubin 2.1 H AST 25 ALT 38 H Alkaline Phosphatase 83 Total Creatine Kinase 84 CK-MB (CK-2) TNP CK-MB (CK-2) Rel Index TNP Troponin I < 0.012 NT-Pro-[place] Natri[place]t Pep 43844 H Total Protein 6.6 Albumin 4.2 Globulin 2.4 Albumin/Globulin Ratio 1.8 Lipase 20 L Procalcitonin 16.9 H Nasal Screen MRSA (PCR) A. baumannii (PCR) Chlamy pneumoniae PCR Adenovirus (PCR) B. pertussis DNA (PCR) B.parapertussis DNA PCR Orquidea albicans (PCR) C. glabrata (PCR) C. krusei (PCR) C. parapsilosis (PCR) C. tropicalis (PCR) Coronavirus OC43 (PCR) Coronavirus HKU1 (PCR) Coronavirus 229E (PCR) SARS-CoV-2 (PCR) Coronavirus NL63 (PCR) Enterobacteriac sp PCR E. cloacae complex PCR Enterococcus sp PCR E. coli (PCR) H. influenzae (PCR) Human Metapneumovir PCR Influenza Type A (PCR) Influenza Type B (PCR) Klebsiella oxytoca PCR Klebsiella pneumoniae List. monocytogenes PCR M. pneumoniae (PCR) N. meningitidis (PCR) Parainfluenza 1 (PCR) Parainfluenza 2 (PCR) Parainfluenza 3 (PCR) Parainfluenza 4 (PCR) Proteus species (PCR) RSV (PCR) Entero/Rhino (PCR) Serratia marcescens PCR Staphylococcus sp PCR Staph aureus (PCR) mecA-Methicil Res Gene Streptococcus sp PCR Group A Strep (PCR) Strep agalactiae (PCR) Strep pneumoniae (PCR) P. aeruginosa (PCR) KPC-Carbap Res Gene PCR 09/30/22 09/30/22 09/30/22 15:25 15:25 15:30 WBC RBC Hgb Hct MCV MCH MCHC RDW Plt Count Neut % (Auto) Lymph % (Auto) [place] % (Auto) Eos % (Auto) Baso % (Auto) Neut # (Auto) Lymph # (Auto) [place] # (Auto) Eos # (Auto) Baso # (Auto) PT INR APTT ABG pH ABG pCO2 ABG pO2 ABG HCO3 ABG Total CO2 ABG O2 Saturation ABG Base Excess FiO2 Sodium Potassium Chloride Carbon Dioxide BUN Creatinine Estimated GFR BUN/Creatinine Ratio Glucose Lactate 4.3 H* Calcium Total Bilirubin AST ALT Alkaline Phosphatase Total Creatine Kinase CK-MB (CK-2) CK-MB (CK-2) Rel Index Troponin I NT-Pro-B Natriuret Pep Total Protein Albumin Globulin Albumin/Globulin Ratio Lipase Procalcitonin Nasal Screen MRSA (PCR) A. baumannii (PCR) Not detected Chlamy pneumoniae PCR Not detected Adenovirus (PCR) Not detected B. pertussis DNA (PCR) Not detected B.parapertussis DNA PCR Not detected [place] albicans (PCR) Not detected C. glabrata (PCR) Not detected C. krusei (PCR) Not detected C. parapsilosis (PCR) Not detected C. tropicalis (PCR) Not detected Coronavirus OC43 (PCR) Not detected Coronavirus HKU1 (PCR) Not detected Coronavirus 229E (PCR) Not detected SARS-CoV-2 (PCR) Not detected Coronavirus NL63 (PCR) Not detected Enterobacteriac sp PCR Not detected E. cloacae complex PCR Not detected Enterococcus sp PCR Not detected E. coli (PCR) Not detected H. influenzae (PCR) Not detected Human Metapneumovir PCR Not detected Influenza Type A (PCR) Not detected Influenza Type B (PCR) Not detected Klebsiella oxytoca PCR Not detected Klebsiella pneumoniae Not detected List. monocytogenes PCR Not detected M. pneumoniae (PCR) Not detected N. meningitidis (PCR) Not detected Parainfluenza 1 (PCR) Not detected Parainfluenza 2 (PCR) Not detected Parainfluenza 3 (PCR) Not detected Parainfluenza 4 (PCR) Not detected Proteus species (PCR) Not detected RSV (PCR) Not detected Entero/Rhino (PCR) Detected H Serratia marcescens PCR Not detected Staphylococcus sp PCR Not detected Staph aureus (PCR) Not detected mecA-Methicil Res Gene Not Reportable Streptococcus sp PCR Detected H Group A Strep (PCR) Not detected Strep agalactiae (PCR) Not detected Strep pneumoniae (PCR) Detected H P. aeruginosa (PCR) Not detected KPC-Carbap Res Gene PCR Not Reportable 09/30/22 09/30/22 09/30/22 15:45 17:30 20:13 WBC RBC Hgb Hct MCV MCH MCHC RDW Plt Count Neut % (Auto) Lymph % (Auto) [place] % (Auto) Eos % (Auto) Baso % (Auto) Neut # (Auto) Lymph # (Auto) [place] # (Auto) Eos # (Auto) Baso # (Auto) PT INR APTT ABG pH 7.38 ABG pCO2 38.5 ABG pO2 101 H ABG HCO3 23 ABG Total CO2 24 ABG O2 Saturation 98 ABG Base Excess -3.0 L FiO2 90 Sodium Potassium Chloride Carbon Dioxide BUN Creatinine Estimated GFR BUN/Creatinine Ratio Glucose Lactate 1.1 Calcium Total Bilirubin AST ALT Alkaline Phosphatase Total Creatine Kinase CK-MB (CK-2) CK-MB (CK-2) Rel Index Troponin I NT-Pro-B Natriuret Pep Total Protein Albumin Globulin Albumin/Globulin Ratio Lipase Procalcitonin Nasal Screen MRSA (PCR) Not detected A. baumannii (PCR) Chlamy pneumoniae PCR Adenovirus (PCR) B. pertussis DNA (PCR) B.parapertussis DNA PCR Orquidea albicans (PCR) C. glabrata (PCR) C. krusei (PCR) C. parapsilosis (PCR) C. tropicalis (PCR) Coronavirus OC43 (PCR) Coronavirus HKU1 (PCR) Coronavirus 229E (PCR) SARS-CoV-2 (PCR) Coronavirus NL63 (PCR) Enterobacteriac sp PCR E. cloacae complex PCR Enterococcus sp PCR E. coli (PCR) H. influenzae (PCR) Human Metapneumovir PCR Influenza Type A (PCR) Influenza Type B (PCR) Klebsiella oxytoca PCR Klebsiella pneumoniae List. monocytogenes PCR M. pneumoniae (PCR) N. meningitidis (PCR) Parainfluenza 1 (PCR) Parainfluenza 2 (PCR) Parainfluenza 3 (PCR) Parainfluenza 4 (PCR) Proteus species (PCR) RSV (PCR) Entero/Rhino (PCR) Serratia marcescens PCR Staphylococcus sp PCR Staph aureus (PCR) mecA-Methicil Res Gene Streptococcus sp PCR Group A Strep (PCR) Strep agalactiae (PCR) Strep pneumoniae (PCR) P. aeruginosa (PCR) KPC-Carbap Res Gene PCR 09/30/22 09/30/22 09/30/22 20:16 20:16 20:40 WBC 8.1 RBC 2.77 L Hgb 9.0 L Hct 26.3 L MCV 94.9 MCH 32.6 MCHC 34.4 RDW 12.2 Plt Count 94 L Neut % (Auto) 84.1 H Lymph % (Auto) 2.2 L [place] % (Auto) 13.5 Eos % (Auto) 0.0 L Baso % (Auto) 0.2 Neut # (Auto) 6800 Lymph # (Auto) 200 L [place] # (Auto) 1100 H Eos # (Auto) 0 Baso # (Auto) 0 PT INR APTT ABG pH ABG pCO2 ABG pO2 ABG HCO3 ABG Total CO2 ABG O2 Saturation ABG Base Excess FiO2 Sodium Potassium Chloride Carbon Dioxide BUN Creatinine Estimated GFR BUN/Creatinine Ratio Glucose 188 H Lactate 1.9 Calcium Total Bilirubin AST ALT Alkaline Phosphatase Total Creatine Kinase CK-MB (CK-2) CK-MB (CK-2) Rel Index Troponin I NT-Pro-B Natriuret Pep Total Protein Albumin Globulin Albumin/Globulin Ratio Lipase Procalcitonin Nasal Screen MRSA (PCR) A. baumannii (PCR) Chlamy pneumoniae PCR Adenovirus (PCR) B. pertussis DNA (PCR) B.parapertussis DNA PCR Orquidea albicans (PCR) C. glabrata (PCR) C. krusei (PCR) C. parapsilosis (PCR) C. tropicalis (PCR) Coronavirus OC43 (PCR) Coronavirus HKU1 (PCR) Coronavirus 229E (PCR) SARS-CoV-2 (PCR) Coronavirus NL63 (PCR) Enterobacteriac sp PCR E. cloacae complex PCR Enterococcus sp PCR E. coli (PCR) H. influenzae (PCR) Human Metapneumovir PCR Influenza Type A (PCR) Influenza Type B (PCR) Klebsiella oxytoca PCR Klebsiella pneumoniae List. monocytogenes PCR M. pneumoniae (PCR) N. meningitidis (PCR) Parainfluenza 1 (PCR) Parainfluenza 2 (PCR) Parainfluenza 3 (PCR) Parainfluenza 4 (PCR) Proteus species (PCR) RSV (PCR) Entero/Rhino (PCR) Serratia marcescens PCR Staphylococcus sp PCR Staph aureus (PCR) mecA-Methicil Res Gene Streptococcus sp PCR Group A Strep (PCR) Strep agalactiae (PCR) Strep pneumoniae (PCR) P. aeruginosa (PCR) KPC-Carbap Res Gene PCR PFSH Medical History Anemia Congestive heart failure Multiple myeloma Pneumonia Surgical History No significant past surgical history Family History Mother Cancer Social History household members: none Smoking Status: Current some day smoker alcohol intake: current additional social history: The patient smokes tobacco. She does not use alcohol. No drugs. Family and social history are otherwise noncontributory Assessment & Plan Assessment & Plan narrative: 1. ? Acute hypoxic respiratory failure secondary to rhinovirus and super bacterial pneumonia.? Present on admission and active. - the plan is to treat empirically with antibiotics, and support with high-flow oxygen, wean as able.? The patient is intubate if she has decompensation. - expanded antibiotic coverage (Zosyn + Azithro). - PULM consult. - question of effect of MM treatment, however PCR pos for RHINO and Strept. 2. ? Rhinovirus viral pneumonia, present on admission and active. 3. ? Probable secondary bacterial pneumonia (possible pneumococcal), present on admission and active. 4. ? Severe sepsis, present on admission ?and active. -? Fluid resuscitate, trend lactic, blood cultures.? Sputum culture 1 able. - PULM/ICU added stress steroids. - Follow cultures (blood and sputum). 5. ? Lactic acidosis, present on admission and improving. - Trend. 6. ? Apparent musculoskeletal chest pain versus bone pain of the right anterior thorax? , present on admission and active. ?? ? - analgesia as needed 7.? Multiple myeloma, present on admission and stable. ?? ? -? We will notify oncologist of her admission tomorrow. Time Spent With Patient Critical Care time: I spent a total of 40 minutes of critical care time on this patient's care today; this time is exclusive of procedural time.
[2022-10-01] MEDS: HEPARIN 5,000 UNIT/ML VIAL 5000 UNIT SUBCUT ×2 (08:10→20:47)
[2022-10-01] MEDS: LINEZOLID 600 MG/300 ML IV.SOLN IV (08:10)
[2022-10-01] MEDS: FAMOTIDINE 20 MG/2 ML VIAL IV ×2 (08:10→20:48)
[2022-10-01] MEDS: NOREPINEPHRINE BITARTRATE/D5W 4 MG/250 ML PLAST..BAG 7.5 MG IV (08:37)
--- NOTE | 2022-10-01 09:18 | PM.PN.EICU ---
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 Adam and bedside RN Interval history: No acute issues overnight. Off levophed this morning. HFNC FiO2 down to 35%. Current Medications Current Medications Medications: Home Medications aspirin 81 mg tablet 81 mg PO DAILY 03/08/21 [History Confirmed 03/08/21] furosemide 20 mg tablet (Lasix) 20 mg PO DAILY 03/08/21 [History Confirmed 03/08/21] pantoprazole 40 mg tablet,delayed release 40 mg PO DAILY 03/08/21 [History Confirmed 03/08/21] pomalidomide 3 mg capsule (Pomalyst) 3 mg PO DAILY 03/08/21 [History Confirmed 03/08/21] valacyclovir 500 mg tablet 500 mg PO BID 03/08/21 [History Confirmed 03/08/21] oxycodone 5 mg tablet 5 mg PO Q8H PRN pain #14 tabs 12/15/21 [Rx] Visit Medications (administered) Generic Name Dose Route Start Last Admin Trade Name Freq PRN Reason Stop Dose Admin Famotidine 20 mg 09/30/22 21:00 10/01/22 08:10 Famotidine 20 Mg/2 Ml Vial IV 20 mg BID MYRNA Administration Heparin Sodium (Porcine) 5,000 unit 09/30/22 21:00 10/01/22 08:10 Heparin 5,000 Unit/Ml Vial SUBCUT 5,000 unit BID MYRNA Administration Hydrocortisone 50 mg 09/30/22 22:05 10/01/22 05:47 Hydrocortisone 100 Mg/2 Ml Vial IV 50 mg Q6HR MYRNA Administration Dextrose/Sodium Chloride 1,000 mls @ 100 mls/hr 09/30/22 17:45 09/30/22 22:59 Dextrose 5%-0.45% Ns IV 100 mls/hr CONT MYRNA Administration Piperacillin Sod/Tazobactam 100 mls @ 25 mls/hr 09/30/22 21:00 10/01/22 05:17 Sod 3.375 gm/ Sodium Chloride IV 25 mls/hr Q8H MYRNA Administration Azithromycin 500 mg/ Dextrose 250 mls @ 250 mls/hr 09/30/22 21:00 09/30/22 23:30 IV Infused Q24H MYRNA Infusion Linezolid 600 mg in 300 mls @ 600 mls/hr 09/30/22 20:52 10/01/22 08:10 Zyvox IV 600 mls/hr Q12H MYRNA Administration NOREPINEPHRINE BITARTRATE/D5W 4 mg in 250 mls @ 30 mls/hr 09/30/22 20:54 10/01/22 08:37 Levophed IV 0 mcg/min TITRATE MYRNA 0 mls/hr Titration Protocol 8 MCG/MIN Insulin Human Lispro 0 unit 10/01/22 01:30 10/01/22 06:08 Insulin Lispro 100 Unit/Ml 3ml Vial SUBCUT 1 unit Q6H MYRNA Administration Protocol Ondansetron HCl 4 mg 09/30/22 15:26 09/30/22 23:29 Ondansetron 4 Mg/2 Ml Inj IV 4 mg NOW PRN Administration Nausea And Vomiting Objective Ventilator Parameters: Ventilator Settings FiO2 35 Labs 09/30/22 20:16 09/30/22 20:16 Labs: Laboratory Results - last 24 hr 09/30/22 09/30/22 09/30/22 15:25 15:25 15:25 WBC 14.2 H RBC 3.53 L Hgb 11.4 L Hct 33.7 L MCV 95.5 MCH 32.2 MCHC 33.7 RDW 12.2 Plt Count 137 L Neut % (Auto) 84.7 H Lymph % (Auto) 2.9 L Clinch % (Auto) 12.2 Eos % (Auto) 0.0 L Baso % (Auto) 0.2 Neut # (Auto) 71646 H Lymph # (Auto) 400 L Clinch # (Auto) 1700 H Eos # (Auto) 0 Baso # (Auto) 0 PT 15.6 H INR 1.4 H APTT 31 ABG pH ABG pCO2 ABG pO2 ABG HCO3 ABG Total CO2 ABG O2 Saturation ABG Base Excess FiO2 Sodium 131 L Potassium 4.3 Chloride 94 L Carbon Dioxide 23 BUN 23 H Creatinine 2.34 H Estimated GFR 22 L BUN/Creatinine Ratio 9.8 Glucose 195 H Lactate Calcium 7.8 L Total Bilirubin 2.1 H AST 25 ALT 38 H Alkaline Phosphatase 83 Total Creatine Kinase 84 CK-MB (CK-2) TNP CK-MB (CK-2) Rel Index TNP Troponin I < 0.012 NT-Pro-B Natriuret Pep 97412 H Total Protein 6.6 Albumin 4.2 Globulin 2.4 Albumin/Globulin Ratio 1.8 Lipase 20 L Procalcitonin 16.9 H Nasal Screen MRSA (PCR) A. baumannii (PCR) Chlamy pneumoniae PCR Adenovirus (PCR) B. pertussis DNA (PCR) B.parapertussis DNA PCR Orquidea albicans (PCR) C. glabrata (PCR) C. krusei (PCR) C. parapsilosis (PCR) C. tropicalis (PCR) Coronavirus OC43 (PCR) Coronavirus HKU1 (PCR) Coronavirus 229E (PCR) SARS-CoV-2 (PCR) Coronavirus NL63 (PCR) Enterobacteriac sp PCR E. cloacae complex PCR Enterococcus sp PCR E. coli (PCR) H. influenzae (PCR) Human Metapneumovir PCR Influenza Type A (PCR) Influenza Type B (PCR) Klebsiella oxytoca PCR Klebsiella pneumoniae List. monocytogenes PCR M. pneumoniae (PCR) N. meningitidis (PCR) Parainfluenza 1 (PCR) Parainfluenza 2 (PCR) Parainfluenza 3 (PCR) Parainfluenza 4 (PCR) Proteus species (PCR) RSV (PCR) Entero/Rhino (PCR) Serratia marcescens PCR Staphylococcus sp PCR Staph aureus (PCR) mecA-Methicil Res Gene Streptococcus sp PCR Group A Strep (PCR) Strep agalactiae (PCR) Strep pneumoniae (PCR) P. aeruginosa (PCR) KPC-Carbap Res Gene PCR 09/30/22 09/30/22 09/30/22 15:25 15:25 15:30 WBC RBC Hgb Hct MCV MCH MCHC RDW Plt Count Neut % (Auto) Lymph % (Auto) Clinch % (Auto) Eos % (Auto) Baso % (Auto) Neut # (Auto) Lymph # (Auto) Clinch # (Auto) Eos # (Auto) Baso # (Auto) PT INR APTT ABG pH ABG pCO2 ABG pO2 ABG HCO3 ABG Total CO2 ABG O2 Saturation ABG Base Excess FiO2 Sodium Potassium Chloride Carbon Dioxide BUN Creatinine Estimated GFR BUN/Creatinine Ratio Glucose Lactate 4.3 H* Calcium Total Bilirubin AST ALT Alkaline Phosphatase Total Creatine Kinase CK-MB (CK-2) CK-MB (CK-2) Rel Index Troponin I NT-Pro-B Natriuret Pep Total Protein Albumin Globulin Albumin/Globulin Ratio Lipase Procalcitonin Nasal Screen MRSA (PCR) A. baumannii (PCR) Not detected Chlamy pneumoniae PCR Not detected Adenovirus (PCR) Not detected B. pertussis DNA (PCR) Not detected B.parapertussis DNA PCR Not detected Orquidea albicans (PCR) Not detected C. glabrata (PCR) Not detected C. krusei (PCR) Not detected C. parapsilosis (PCR) Not detected C. tropicalis (PCR) Not detected Coronavirus OC43 (PCR) Not detected Coronavirus HKU1 (PCR) Not detected Coronavirus 229E (PCR) Not detected SARS-CoV-2 (PCR) Not detected Coronavirus NL63 (PCR) Not detected Enterobacteriac sp PCR Not detected E. cloacae complex PCR Not detected Enterococcus sp PCR Not detected E. coli (PCR) Not detected H. influenzae (PCR) Not detected Human Metapneumovir PCR Not detected Influenza Type A (PCR) Not detected Influenza Type B (PCR) Not detected Klebsiella oxytoca PCR Not detected Klebsiella pneumoniae Not detected List. monocytogenes PCR Not detected M. pneumoniae (PCR) Not detected N. meningitidis (PCR) Not detected Parainfluenza 1 (PCR) Not detected Parainfluenza 2 (PCR) Not detected Parainfluenza 3 (PCR) Not detected Parainfluenza 4 (PCR) Not detected Proteus species (PCR) Not detected RSV (PCR) Not detected Entero/Rhino (PCR) Detected H Serratia marcescens PCR Not detected Staphylococcus sp PCR Not detected Staph aureus (PCR) Not detected mecA-Methicil Res Gene Not Reportable Streptococcus sp PCR Detected H Group A Strep (PCR) Not detected Strep agalactiae (PCR) Not detected Strep pneumoniae (PCR) Detected H P. aeruginosa (PCR) Not detected KPC-Carbap Res Gene PCR Not Reportable 09/30/22 09/30/22 09/30/22 15:45 17:30 20:13 WBC RBC Hgb Hct MCV MCH MCHC RDW Plt Count Neut % (Auto) Lymph % (Auto) Clinch % (Auto) Eos % (Auto) Baso % (Auto) Neut # (Auto) Lymph # (Auto) Clinch # (Auto) Eos # (Auto) Baso # (Auto) PT INR APTT ABG pH 7.38 ABG pCO2 38.5 ABG pO2 101 H ABG HCO3 23 ABG Total CO2 24 ABG O2 Saturation 98 ABG Base Excess -3.0 L FiO2 90 Sodium Potassium Chloride Carbon Dioxide BUN Creatinine Estimated GFR BUN/Creatinine Ratio Glucose Lactate 1.1 Calcium Total Bilirubin AST ALT Alkaline Phosphatase Total Creatine Kinase CK-MB (CK-2) CK-MB (CK-2) Rel Index Troponin I NT-Pro-B Natriuret Pep Total Protein Albumin Globulin Albumin/Globulin Ratio Lipase Procalcitonin Nasal Screen MRSA (PCR) Not detected A. baumannii (PCR) Chlamy pneumoniae PCR Adenovirus (PCR) B. pertussis DNA (PCR) B.parapertussis DNA PCR Orquidea albicans (PCR) C. glabrata (PCR) C. krusei (PCR) C. parapsilosis (PCR) C. tropicalis (PCR) Coronavirus OC43 (PCR) Coronavirus HKU1 (PCR) Coronavirus 229E (PCR) SARS-CoV-2 (PCR) Coronavirus NL63 (PCR) Enterobacteriac sp PCR E. cloacae complex PCR Enterococcus sp PCR E. coli (PCR) H. influenzae (PCR) Human Metapneumovir PCR Influenza Type A (PCR) Influenza Type B (PCR) Klebsiella oxytoca PCR Klebsiella pneumoniae List. monocytogenes PCR M. pneumoniae (PCR) N. meningitidis (PCR) Parainfluenza 1 (PCR) Parainfluenza 2 (PCR) Parainfluenza 3 (PCR) Parainfluenza 4 (PCR) Proteus species (PCR) RSV (PCR) Entero/Rhino (PCR) Serratia marcescens PCR Staphylococcus sp PCR Staph aureus (PCR) mecA-Methicil Res Gene Streptococcus sp PCR Group A Strep (PCR) Strep agalactiae (PCR) Strep pneumoniae (PCR) P. aeruginosa (PCR) KPC-Carbap Res Gene PCR 09/30/22 09/30/22 09/30/22 20:16 20:16 20:40 WBC 8.1 RBC 2.77 L Hgb 9.0 L Hct 26.3 L MCV 94.9 MCH 32.6 MCHC 34.4 RDW 12.2 Plt Count 94 L Neut % (Auto) 84.1 H Lymph % (Auto) 2.2 L Clinch % (Auto) 13.5 Eos % (Auto) 0.0 L Baso % (Auto) 0.2 Neut # (Auto) 6800 Lymph # (Auto) 200 L Clinch # (Auto) 1100 H Eos # (Auto) 0 Baso # (Auto) 0 PT INR APTT ABG pH ABG pCO2 ABG pO2 ABG HCO3 ABG Total CO2 ABG O2 Saturation ABG Base Excess FiO2 Sodium Potassium Chloride Carbon Dioxide BUN Creatinine Estimated GFR BUN/Creatinine Ratio Glucose 188 H Lactate 1.9 Calcium Total Bilirubin AST ALT Alkaline Phosphatase Total Creatine Kinase CK-MB (CK-2) CK-MB (CK-2) Rel Index Troponin I NT-Pro-B Natriuret Pep Total Protein Albumin Globulin Albumin/Globulin Ratio Lipase Procalcitonin Nasal Screen MRSA (PCR) A. baumannii (PCR) Chlamy pneumoniae PCR Adenovirus (PCR) B. pertussis DNA (PCR) B.parapertussis DNA PCR Orquidea albicans (PCR) C. glabrata (PCR) C. krusei (PCR) C. parapsilosis (PCR) C. tropicalis (PCR) Coronavirus OC43 (PCR) Coronavirus HKU1 (PCR) Coronavirus 229E (PCR) SARS-CoV-2 (PCR) Coronavirus NL63 (PCR) Enterobacteriac sp PCR E. cloacae complex PCR Enterococcus sp PCR E. coli (PCR) H. influenzae (PCR) Human Metapneumovir PCR Influenza Type A (PCR) Influenza Type B (PCR) Klebsiella oxytoca PCR Klebsiella pneumoniae List. monocytogenes PCR M. pneumoniae (PCR) N. meningitidis (PCR) Parainfluenza 1 (PCR) Parainfluenza 2 (PCR) Parainfluenza 3 (PCR) Parainfluenza 4 (PCR) Proteus species (PCR) RSV (PCR) Entero/Rhino (PCR) Serratia marcescens PCR Staphylococcus sp PCR Staph aureus (PCR) mecA-Methicil Res Gene Streptococcus sp PCR Group A Strep (PCR) Strep agalactiae (PCR) Strep pneumoniae (PCR) P. aeruginosa (PCR) KPC-Carbap Res Gene PCR Exam Vital Signs (past 8 hours): - 10/01/22 01:20 10/01/22 01:20 10/01/22 01:25 Temperature 99.3 F Pulse Rate 89 Respiratory Rate 21 Blood Pressure 104/66 102/63 Pulse Oximetry 99 Oxygen Flow Rate 10/01/22 01:25 10/01/22 01:30 10/01/22 01:30 Temperature 99.1 F 99.1 F Pulse Rate 87 88 Respiratory Rate 22 9 L Blood Pressure 102/64 Pulse Oximetry 98 98 Oxygen Flow Rate 10/01/22 01:35 10/01/22 01:35 10/01/22 01:40 Temperature 99.0 F Pulse Rate 86 Respiratory Rate 24 Blood Pressure 108/67 108/69 Pulse Oximetry 98 Oxygen Flow Rate 10/01/22 01:40 10/01/22 01:45 10/01/22 01:45 Temperature 99.0 F 99.0 F Pulse Rate 86 82 Respiratory Rate 23 8 L Blood Pressure 109/69 Pulse Oximetry 99 98 Oxygen Flow Rate 10/01/22 01:50 10/01/22 01:50 10/01/22 01:55 Temperature 99.0 F Pulse Rate 93 H Respiratory Rate 13 Blood Pressure 111/72 115/72 Pulse Oximetry 96 Oxygen Flow Rate 10/01/22 01:55 10/01/22 02:00 10/01/22 02:00 Temperature 99.0 F 99.0 F Pulse Rate 87 86 Respiratory Rate 25 H 22 Blood Pressure 108/69 Pulse Oximetry 99 98 Oxygen Flow Rate 40 10/01/22 01:37 10/01/22 02:51 10/01/22 02:05 Temperature 98.8 F Pulse Rate 87 80 84 Respiratory Rate 20 22 21 Blood Pressure 108/67 110/66 Pulse Oximetry 98 98 98 Oxygen Flow Rate 10/01/22 02:05 10/01/22 02:10 10/01/22 02:10 Temperature 98.8 F Pulse Rate 84 Respiratory Rate 23 Blood Pressure 106/66 111/67 Pulse Oximetry 98 Oxygen Flow Rate 10/01/22 02:15 10/01/22 02:15 10/01/22 02:20 Temperature 98.6 F 98.6 F Pulse Rate 84 84 Respiratory Rate 22 23 Blood Pressure 115/69 Pulse Oximetry 98 98 Oxygen Flow Rate 10/01/22 02:20 10/01/22 02:25 10/01/22 02:25 Temperature 98.6 F Pulse Rate 84 Respiratory Rate 19 Blood Pressure 108/65 118/70 Pulse Oximetry 99 Oxygen Flow Rate 10/01/22 02:30 10/01/22 02:30 10/01/22 02:35 Temperature 98.6 F Pulse Rate 82 Respiratory Rate 9 L Blood Pressure 116/72 118/69 Pulse Oximetry 99 Oxygen Flow Rate 10/01/22 02:35 10/01/22 02:40 10/01/22 02:40 Temperature 98.4 F 98.4 F Pulse Rate 83 85 Respiratory Rate 19 13 Blood Pressure 112/69 Pulse Oximetry 98 98 Oxygen Flow Rate 10/01/22 02:45 10/01/22 02:45 10/01/22 02:50 Temperature 98.4 F Pulse Rate 81 Respiratory Rate 26 H Blood Pressure 114/68 110/66 Pulse Oximetry 99 Oxygen Flow Rate 10/01/22 02:50 10/01/22 02:55 10/01/22 02:55 Temperature 98.4 F 98.4 F Pulse Rate 80 80 Respiratory Rate 24 25 H Blood Pressure 114/67 Pulse Oximetry 99 98 Oxygen Flow Rate 10/01/22 03:00 10/01/22 03:00 10/01/22 03:05 Temperature 98.2 F Pulse Rate 80 Respiratory Rate 25 H Blood Pressure 115/68 109/67 Pulse Oximetry 97 Oxygen Flow Rate 10/01/22 03:05 10/01/22 03:10 10/01/22 03:10 Temperature 98.2 F 98.2 F Pulse Rate 79 79 Respiratory Rate 23 23 Blood Pressure 114/68 Pulse Oximetry 97 97 Oxygen Flow Rate 10/01/22 03:15 10/01/22 03:15 10/01/22 03:20 Temperature 98.1 F Pulse Rate 78 Respiratory Rate 24 Blood Pressure 119/71 114/72 Pulse Oximetry 97 Oxygen Flow Rate 10/01/22 03:20 10/01/22 03:25 10/01/22 03:25 Temperature 98.1 F 98.1 F Pulse Rate 79 80 Respiratory Rate 25 H 22 Blood Pressure 115/69 Pulse Oximetry 97 96 Oxygen Flow Rate 40 10/01/22 03:30 10/01/22 03:30 10/01/22 03:35 Temperature 98.1 F Pulse Rate 76 Respiratory Rate 11 L Blood Pressure 118/67 112/67 Pulse Oximetry 98 Oxygen Flow Rate 10/01/22 03:35 10/01/22 03:40 10/01/22 03:40 Temperature 98.1 F 98.1 F Pulse Rate 81 86 Respiratory Rate 21 26 H Blood Pressure 129/78 Pulse Oximetry 96 97 Oxygen Flow Rate 10/01/22 03:45 10/01/22 03:45 10/01/22 03:50 Temperature 98.1 F Pulse Rate 71 Respiratory Rate 21 Blood Pressure 112/68 115/73 Pulse Oximetry 97 Oxygen Flow Rate 10/01/22 03:50 10/01/22 03:55 10/01/22 03:55 Temperature 98.1 F 98.2 F Pulse Rate 81 81 Respiratory Rate 20 23 Blood Pressure 116/72 Pulse Oximetry 96 97 Oxygen Flow Rate 10/01/22 04:00 10/01/22 04:01 10/01/22 04:01 Temperature 98.2 F 98.2 F Pulse Rate 79 77 Respiratory Rate 23 20 Blood Pressure 120/81 Pulse Oximetry 99 99 Oxygen Flow Rate 10/01/22 04:05 10/01/22 04:05 10/01/22 04:10 Temperature 98.2 F Pulse Rate 78 Respiratory Rate 14 Blood Pressure 111/65 111/66 Pulse Oximetry 98 Oxygen Flow Rate 10/01/22 04:10 10/01/22 04:15 10/01/22 04:15 Temperature 98.2 F 98.2 F Pulse Rate 76 74 Respiratory Rate 12 22 Blood Pressure 111/71 Pulse Oximetry 98 98 Oxygen Flow Rate 10/01/22 04:20 10/01/22 04:20 10/01/22 04:25 Temperature 98.2 F Pulse Rate 75 Respiratory Rate 15 Blood Pressure 109/69 109/70 Pulse Oximetry 98 Oxygen Flow Rate 10/01/22 04:25 10/01/22 04:30 10/01/22 04:30 Temperature 98.2 F 98.1 F Pulse Rate 72 73 Respiratory Rate 13 12 Blood Pressure 110/71 Pulse Oximetry 98 98 Oxygen Flow Rate 10/01/22 04:35 10/01/22 04:35 10/01/22 04:40 Temperature 98.1 F 97.9 F Pulse Rate 71 72 Respiratory Rate 12 16 Blood Pressure 105/70 Pulse Oximetry 98 98 Oxygen Flow Rate 10/01/22 04:40 10/01/22 04:45 10/01/22 04:45 Temperature 97.9 F Pulse Rate 73 Respiratory Rate 13 Blood Pressure 108/70 107/69 Pulse Oximetry 97 Oxygen Flow Rate 10/01/22 04:50 10/01/22 04:50 10/01/22 04:55 Temperature 97.9 F Pulse Rate 72 Respiratory Rate 10 L Blood Pressure 110/70 107/66 Pulse Oximetry 98 Oxygen Flow Rate 10/01/22 04:55 10/01/22 04:56 10/01/22 05:00 Temperature 97.7 F Pulse Rate 69 67 Respiratory Rate 10 L 20 Blood Pressure 110/70 109/69 Pulse Oximetry 98 97 Oxygen Flow Rate 40 10/01/22 05:00 10/01/22 05:05 10/01/22 05:05 Temperature 97.7 F 97.9 F Pulse Rate 70 63 Respiratory Rate 17 15 Blood Pressure 106/70 Pulse Oximetry 99 98 Oxygen Flow Rate 10/01/22 05:10 10/01/22 05:10 10/01/22 05:15 Temperature 97.9 F Pulse Rate 77 Respiratory Rate 18 Blood Pressure 117/74 121/73 Pulse Oximetry 98 Oxygen Flow Rate 10/01/22 05:15 10/01/22 05:20 10/01/22 05:20 Temperature 97.9 F 97.9 F Pulse Rate 76 82 Respiratory Rate 21 26 H Blood Pressure 118/76 Pulse Oximetry 99 98 Oxygen Flow Rate 10/01/22 05:25 10/01/22 05:25 10/01/22 05:30 Temperature 97.9 F Pulse Rate 73 Respiratory Rate 22 Blood Pressure 123/74 119/72 Pulse Oximetry 98 Oxygen Flow Rate 10/01/22 05:30 10/01/22 05:35 10/01/22 05:35 Temperature 97.9 F 97.9 F Pulse Rate 71 72 Respiratory Rate 23 22 Blood Pressure 120/72 Pulse Oximetry 99 99 Oxygen Flow Rate 10/01/22 05:40 10/01/22 05:40 10/01/22 05:45 Temperature 97.9 F Pulse Rate 73 Respiratory Rate 20 Blood Pressure 120/73 117/74 Pulse Oximetry 99 Oxygen Flow Rate 10/01/22 05:45 10/01/22 05:50 10/01/22 05:50 Temperature 97.9 F 97.9 F Pulse Rate 73 72 Respiratory Rate 17 22 Blood Pressure 121/76 Pulse Oximetry 100 100 Oxygen Flow Rate 10/01/22 05:55 10/01/22 05:55 10/01/22 06:00 Temperature 97.9 F 97.9 F Pulse Rate 71 71 Respiratory Rate 14 23 Blood Pressure 122/75 Pulse Oximetry 100 100 Oxygen Flow Rate 10/01/22 06:05 10/01/22 06:05 10/01/22 06:10 Temperature 97.9 F Pulse Rate 81 Respiratory Rate 11 L Blood Pressure 120/75 119/76 Pulse Oximetry 99 Oxygen Flow Rate 10/01/22 06:10 10/01/22 06:15 10/01/22 06:15 Temperature 97.9 F 97.9 F Pulse Rate 72 74 Respiratory Rate 9 L 9 L Blood Pressure 115/73 Pulse Oximetry 99 100 Oxygen Flow Rate 40 10/01/22 06:20 10/01/22 06:20 10/01/22 06:25 Temperature 97.7 F Pulse Rate 89 Respiratory Rate 31 H Blood Pressure 110/70 139/76 Pulse Oximetry 97 Oxygen Flow Rate 10/01/22 06:25 10/01/22 06:30 10/01/22 06:32 Temperature 97.9 F 97.9 F Pulse Rate 76 76 Respiratory Rate 29 H 36 H Blood Pressure 119/80 Pulse Oximetry 100 100 Oxygen Flow Rate 10/01/22 06:32 10/01/22 06:35 10/01/22 06:35 Temperature 97.9 F 97.9 F Pulse Rate 83 76 Respiratory Rate 37 H 23 Blood Pressure 130/75 Pulse Oximetry 99 98 Oxygen Flow Rate 10/01/22 06:40 10/01/22 06:40 10/01/22 06:45 Temperature 97.9 F Pulse Rate 71 Respiratory Rate 24 Blood Pressure 129/77 128/81 Pulse Oximetry 99 Oxygen Flow Rate 10/01/22 06:45 10/01/22 06:50 10/01/22 06:50 Temperature 98.1 F 98.1 F Pulse Rate 69 71 Respiratory Rate 26 H 26 H Blood Pressure 134/80 Pulse Oximetry 99 99 Oxygen Flow Rate 10/01/22 06:55 10/01/22 06:55 10/01/22 07:00 Temperature 98.1 F Pulse Rate 71 Respiratory Rate 25 H Blood Pressure 119/69 126/77 Pulse Oximetry 99 Oxygen Flow Rate 10/01/22 07:00 10/01/22 07:05 10/01/22 07:05 Temperature 98.1 F 98.1 F Pulse Rate 74 71 Respiratory Rate 22 23 Blood Pressure 127/81 Pulse Oximetry 82 L 100 Oxygen Flow Rate 10/01/22 07:11 10/01/22 07:11 10/01/22 07:15 Temperature 98.2 F Pulse Rate 83 Respiratory Rate 34 H Blood Pressure 130/63 137/78 Pulse Oximetry 99 Oxygen Flow Rate 10/01/22 07:15 10/01/22 07:20 10/01/22 07:20 Temperature 98.2 F 98.2 F Pulse Rate 73 71 Respiratory Rate 27 H 28 H Blood Pressure 131/77 Pulse Oximetry 100 100 Oxygen Flow Rate 10/01/22 07:25 10/01/22 07:25 10/01/22 07:30 Temperature 98.2 F Pulse Rate 63 Respiratory Rate 18 Blood Pressure 127/72 132/84 Pulse Oximetry 100 Oxygen Flow Rate 10/01/22 07:30 10/01/22 07:35 10/01/22 07:35 Temperature 98.2 F 98.2 F Pulse Rate 67 64 Respiratory Rate 27 H 17 Blood Pressure 130/74 Pulse Oximetry 100 99 Oxygen Flow Rate 10/01/22 07:40 10/01/22 07:40 10/01/22 07:45 Temperature 98.2 F Pulse Rate 71 Respiratory Rate 22 Blood Pressure 137/75 122/69 Pulse Oximetry 100 Oxygen Flow Rate 10/01/22 07:45 10/01/22 07:50 10/01/22 07:50 Temperature 98.2 F 98.2 F Pulse Rate 87 70 Respiratory Rate 27 H 16 Blood Pressure 129/81 Pulse Oximetry 100 98 Oxygen Flow Rate 10/01/22 07:55 10/01/22 07:55 10/01/22 08:00 Temperature 98.2 F Pulse Rate 80 Respiratory Rate 33 H Blood Pressure 138/81 146/77 H Pulse Oximetry 61 L Oxygen Flow Rate 10/01/22 08:00 10/01/22 08:06 10/01/22 08:06 Temperature 98.2 F 98.2 F Pulse Rate 80 90 Respiratory Rate 31 H 36 H Blood Pressure 141/67 H Pulse Oximetry 100 100 Oxygen Flow Rate 10/01/22 08:10 10/01/22 08:10 10/01/22 08:15 Temperature 98.2 F 98.2 F Pulse Rate 72 81 Respiratory Rate 34 H 40 H Blood Pressure 135/64 Pulse Oximetry 100 99 Oxygen Flow Rate 10/01/22 08:16 10/01/22 08:16 10/01/22 08:22 Temperature 98.2 F Pulse Rate 80 Respiratory Rate 36 H Blood Pressure 141/64 H 165/79 H Pulse Oximetry 99 Oxygen Flow Rate 10/01/22 08:22 10/01/22 08:23 10/01/22 08:23 Temperature 98.2 F 98.2 F Pulse Rate 55 L 54 L Respiratory Rate 21 24 Blood Pressure 151/102 H Pulse Oximetry 100 100 Oxygen Flow Rate 10/01/22 08:25 10/01/22 08:25 10/01/22 08:30 Temperature 98.2 F Pulse Rate 81 Respiratory Rate 16 Blood Pressure 138/108 H 102/62 Pulse Oximetry 99 Oxygen Flow Rate 10/01/22 08:30 Temperature 98.2 F Pulse Rate 87 Respiratory Rate 32 H Blood Pressure Pulse Oximetry 96 Oxygen Flow Rate Fraction of Inspired Oxygen 45 SaO2/FiO2 Ratio 211 Oxygen Delivery Method High Flow Nasal Cannula Oxygen Flow Rate 40 Narrative Exam Narrative: Awake, sitting up in bed eating breakfast Assessment & Plan Assessment & Plan narrative: NEURO: -- PT/OT and early mobiility RESP: # Acute hypoxemia respiratory failure -- Secondary to viral PNA w/ superimposed bacterial PNA -- FiO2 improving slowly -- Blood cx + GPC -- On linezolid/zosyn/azithromycin -- HOB elevation -- Aspiration precaution -- Goal SpO2 > 88% # Pneumonia? -- On abx as above -- Pending urinary legionella/strep -- Follow up cx data CVS: # Distributive shock -- Secondary to septic shock -- Received 30 cc/kg IVF bolus -- Off levophed this morning -- Cont stress dose steroids -- Pending TTE -- MAP goal > 65 : # LYLE vs CKD -- Avoid nephrotoxin agents -- Cont IVF -- Monitor UOP -- Daily BMP ID: # Septic shock -- Secondary to GPC bacteremia from ? PNA ? -- Follow up cx -- Abx as above -- Follow up urinary legionella/strep -- Pending MRSA swab HEME: # Anemia -- Secondary to multiple myeloma and sepsis -- Daily CBC -- Goal Hb > 7 # Multiple myeloma -- Pending records from [facility] -- Hold off all chemotherapy given septic shock ENDO: # Hyperglycemia -- Added lantus 5 U and on ISS -- DC D51/2 NS -- Goal BS < 180 Time Spent With Patient Critical Care time: I spent a total of 32 minutes of critical care time on this patient's care today; this time is exclusive of procedural time.
--- NOTE | 2022-10-01 09:38 | DI.ECHO.S_ITS ---
[facility]---------+ [facility] +---------+ : : [address] : : : : [id number] : : : : Phone: [phone]+ Echocardiogram Report + + :Name: MICHI LEA Study Date: 10/03/2022 Height: 62 in : :[facility] ReadingLocation: Weight: 169 lb : : Gender: Female BSA: 1.8 m2 : :: 1950 Age: 71 yrs BP: 118/80 mmHg: :Reason For Study: BACTEREMIA : :Ordering Physician: STAR ENGPerformed By: Misty Harrington : :Referring: STAR ENG : + + Interpretation Summary Normal sinus rhythm. Normal LV size and wall thickness. There is mild global hypokinesis and mildly reduced LV systolic function. Ejection fraction is 45-50%. Mildly dilated right ventricle with normal right ventricular function. Otherwise normal chamber sizes. D-shaped LV in systole and diastole consistent with RV pressure overload. Estimated PA systolic pressure of 51 mm Hg assuming RA pressure of 8 mm Hg. No significant valvular abnormalities. Mildly dilated ascending aorta measuring 4 cm in diameter. No prior study available for comparison. Procedure: A two-dimensional transthoracic echocardiogram with color flow and Doppler was performed. The study quality was technically adequate. There is no prior echocardiogram noted for this patient. The heart rate ranged between 78-100 bpm during the study. Left Ventricle: The left ventricle is normal in size and wall thickness. The ejection fraction is estimated to be 45-50%. Right Ventricle: The right ventricle is mildly dilated. The right ventricular systolic function is normal. Atria: The left atrial size is normal. Right atrial size is normal. There is no Doppler evidence for an interatrial shunt. Mitral Valve: The mitral valve leaflets appear mildly thickened, but open well. There is mild mitral annular calcification. There is mild mitral regurgitation. Aortic Valve: The aortic valve is trileaflet. The aortic valve opens well. There is no aortic valve stenosis. No aortic regurgitation is present. Tricuspid Valve: The tricuspid valve is normal in structure and function. There is mild tricuspid regurgitation. The right ventricular systolic pressure is estimated to be at least 51 mmHg based on an estimated right atrial pressure of 8 mm Hg. Pulmonic Valve: The pulmonic valve leaflets are thin and pliable; valve motion is normal. There is mild pulmonic regurgitation. Great Vessels: The aortic root is normal size. The ascending aorta is mildly enlarged. The IVC is dilated (diameter is greater than 2.1 cm) yet it collapses greater than 50% with a sniff. This suggests a right atrial pressure of 8 mm Hg. Pericardium/ Pleura There is no pericardial effusion. There is no pleural effusion. MMode/2D Measurements & Calculations LVIDd: 5.3 cm LVOT diam: 2.2 cm LVIDs: 3.7 cm Ao root diam: 3.1 cm FS: 29.3 % asc Aorta Diam: 4.0 cm IVSd: 0.75 cm Ao Arch Diam (Prox Trans): 2.8 cm LVPWd: 0.70 cm LV daniel. diameter/BSA (cm/m^2): 3.0 LV sys. diameter/BSA (cm/m^2): 2.1 LA A2 area: 20.0 cm2 RA long axis: 5.5 cm LA A4 area: 16.6 cm2 RA area: 19.5 cm2 LA length (vol): 5.4 cm RA vol: 58.8 ml LA vol: 52.4 ml RA : 33.0 ml/m2 LA vol index: 29.4 ml/m2 IVC diam: 2.6 cm RVD1 (basal): 4.1 cm RVD2 (mid): 3.7 cm TAPSE: 1.8 cm Doppler Measurements & Calculations Ao V2 max: 131.1 cm/sec LVOT Max Moise: 97.1 cm/sec Ao V2 mean: 88.0 cm/sec LV V1 max P.8 mmHg Ao max P.9 mmHg LV V1 VTI: 18.2 cm Ao mean P.5 mmHg CED(I,D): 3.0 cm2 Ao V2 VTI: 24.1 cm CED(V,D): 2.9 cm2 sev ratio: 0.76 CED indexed to BSA (cm^2/m^2): 1.7 MV E max moise: 51.9 cm/sec TR max omise: 329.3 cm/sec MV A max moise: 87.4 cm/sec TR max P.4 mmHg MV E/A: 0.59 PA V2 max: 96.1 cm/sec Med Peak E' Moise: 4.6 cm/sec PA V2 mean: 62.7 cm/sec E/E' med: 11.3 PA mean P.8 mmHg Lat Peak E' Moise: 6.5 cm/sec PA pr(Accel): 53.3 mmHg E/E' lat: 8.0 E/e' average: 9.7 MV dec time: 0.21 sec SV(OT): 72.0 ml Electronically signed by: Chelsie Jalloh M.D. on [place] Physician:10/03/2022 01:49 PM
[2022-10-01] MEDS: LACTATED RINGERS 1,000 ML 100 ML IV ×2 (10:33→18:43)
--- NOTE | 2022-10-01 12:59 | CM.DPNOTE ---
DCP Note Patient up in chair this afternoon, appears improved from yesterday, visiting with friend Ted Patient rhino and strep+ CM team will plan to follow closely for continued assessment of need and discussion about dispo options, expect DC home, support network unknown at this time JW
[2022-10-01] MEDS: ACETAMINOPHEN 325 MG TABLET 650 MG PO (14:37)
[2022-10-01] MEDS: OXYCODONE IR 5 MG TABLET PO ×3 (15:26→23:50)
--- NOTE | 2022-10-01 16:21 | PT.IIE ---
Current Diagnoses Acute respiratory failure with hypoxia (09/30/22) Surgical History (Last Reviewed 09/30/22 @ 15:41 by Roque Shirley MD) No significant past surgical history Medical History (Last Reviewed 09/30/22 @ 15:41 by Roque Shirley MD) Anemia Congestive heart failure Multiple myeloma Pneumonia Physical Therapy Inpatient Evaluation/Re-Eval M1 PT/OT-IP Prior Functional Status Start: 10/01/22 16:25 Freq: NEEDED Status: Active Protocol: Document 10/01/22 16:21 DLM (Rec: 10/01/22 16:51 [facility] [id number]) Medical Review Prior Functional Status Medical History Reviewed Yes Diet/Fluid Consistency Regular Communication WNL Mobility and Gait Independent in trailer without device, uses cane when she goes out. She reports she is not going out much due to her health issues. Activities of Daily Living and IADL's Independent Social History Household Members none Living Arrangements RV Number of Floors (Floors) One Floor Number of Stairs To Enter/Railing? 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 She lives with a roommate/ friend who helps her as needed . M2 PT-IP Current Condition Start: 10/01/22 16:25 Freq: NEEDED Status: Active Protocol: Document 10/01/22 16:21 DLM (Rec: 10/01/22 16:51 [facility] [id number]) Physical Therapy Current Condition Current Condition Evaluation Date 10/01/22 Treatment Diagnosis PNA/hypoxia, impaired mobility Onset Date 09/30/22 M3 PT-IP Subjective Start: 10/01/22 16:25 Freq: NEEDED Status: Active Protocol: Document 10/01/22 16:21 DLM (Rec: 10/01/22 16:51 DL [id number]) Subjective Physical Therapy Visit Type Type Initial Evaluation Visit Start Time 15:55 Visit Stop Time 16:21 Total Visit Minutes 26 Number of DOUGHNUT ICER MACHINE Visits 0 Physical Therapy Visit Comments Patient Comments She reports she has right sided chest/rib area pain. She reports her shingles has gotten a lot better. Patient Goals Discharge home Therapy Pain Assessment Pain When Pain Assessed At Rest Pain Present Pain Present Pain Reported Location Right side Intensity 5 Scale Used Numeric (0 - 10) Description Aching Pain Behaviors Wincing Pain Management Techniques Re-positioning M4 PT-IP Mobility and Gait Start: 10/01/22 16:25 Freq: NEEDED Status: Active Protocol: Document 10/01/22 16:21 DL (Rec: 10/01/22 16:51 [facility] [id number]) PT-Bed Mobility Assessment Supine to Sit Supine to Sit Standby Assistance,Head of Bed Elevated Sit to Supine Sit to Supine Standby Assistance Scooting Scooting to Edge of Bed Independent PT-Transfer Assessment Sit to and From Stand Sit to and from Stand Standby Assistance Equipment Transfer Assistive Device Front Wheeled Walker Transfers Transfer Destination Chair Transfer Technique Stand Step Pivot Transfer Ability Level of Assist Standby Assistance,Use of Upper Extremities Comments Mobility Comments She stood with the FWW and did stepping in place before progressing to up in the recliner. She demonstrates good balance with use of the FWW. Therapist and nurse assisted with her many lines. No shortness of breath noted with light activity Gait Assessment Gait Gait Assistance Required: Standby Assistance Distance (Feet) 3 Assistive Devices Assistive Device Front Wheeled Walker Factors Limiting Gait Function Factors Limiting Gait Function Decreased Activity Tolerance, Pain Comments Gait Comments she demonstrates safe and functional steps for gait with FWW Stair Climbing Assessment Comments Stair Climbing Comments she has 5 steps to enter the RV PT-Balance Assessment Sitting Balance and Reactions Static Sitting Balance Ability Good Dynamic Sitting Balance Ability Good Standing Balance and Reactions Static Standing Balance Ability Good Dynamic Standing Balance Ability Good Device Used FWW M5 PT-IP Objective Assessments Start: 10/01/22 16:25 Freq: NEEDED Status: Active Protocol: Document 10/01/22 16:21 DL (Rec: 10/01/22 16:51 [facility] [id number]) Orientation Orientation/Cognition Level of Alertness Alert Orientation Name,Age,Birthday,Month,Date, Year,Day of Week,Place, Situation Language Function Ability No Deficits Noted Safety Awareness Understands Safety Issues Memory Description No Deficits Noted Gross Range of Motion Upper Extremity ROM Assessment Within Functional Limits Lower Extremity ROM Assessment Within Functional Limits Strength Upper Extremity Strength Assessment Within Functional Limits Lower Extremity Strength Assessment Within Functional Limits Coordination Assessment Gross Coordination Gross Coordination WNL Sensation Assessment Sensation Gross Sensation Right LE Impaired,Left LE Impaired Sensation Description Tingling Comments Sensation Comments she reports tingling in bilateral feet in standing Muscle Tone Muscle Tone WNL Yes M6 PT-IP Treatment Start: 10/01/22 16:25 Freq: NEEDED Status: Active Protocol: Document 10/01/22 16:21 DLM (Rec: 10/01/22 16:51 DL [id number]) Physical Therapy Treatment Other Treatments Other Treatment Performed no family/friends present this visit M7 PT-IP Assessment and Plan Start: 10/01/22 16:25 Freq: NEEDED Status: Active Protocol: Document 10/01/22 16:21 DLM (Rec: 10/01/22 16:51 DL [id number]) PT Summary Assessment and Plan Potential Rehabilitation Potential Good Status of Condition at Evaluation Evolving Summary Impairments Pain,Bed Mobility,Transfers, Gait,Activity Tolerance Assessment Summary Tory is alert and is motivated to participate in physical therapy. She was up in the chair earlier today with nursing. Pt shows good functional strength for standing and taking steps with the FWW. She has many lines at this time which limit her mobility. Pt up to the recliner again this visit and plans to stay up for dinner. She is progressing well during this admission. She wants to discharge home and has a supportive roommate to help. Will plan for discharge home if she continues to progress well during this admission. Goals Bed Mobility Goal Independent Transfer Goal Independent,Front Wheeled Walker Gait Goal Independent,Front Wheel Walker Gait Distance 100 feet Other Goals up/down 5 steps with rail and CG assist Days to Meet Goals 7 Frequency of Treatment Frequency Of Treatment Once a Day Treatment Plan Physical Therapy Treatment Plan Bed Mobility Training,Transfer Training,Gait Training, Therapeutic Exercise,Balance Retraining,Discharge Planning Precautions Other Precautions help with her many lines Recommendations To Nursing Amount of Assist Needed 1 Person Assist Discharge Recommendations PT Discharge Recommendations Home with Assistance Other Discharge Recommendations she does not want home health services, she feels she has enough help from her roommate Transportation Needs at Discharge Private Vehicle
--- NOTE | 2022-10-01 17:41 | PC.NURSE ---
Day shift: Patient up with minimal standby assistance with FWW. Oxygenation saturation during movement stable with heated HiFlow O2 nasal cannula. Patient has healing shingles rash from left back to anterior chest midline between her breasts from a recent shingles infection. Patient states comfort in the chair and ease of breathing while sitting up. VSS, call light in reach, will continue to monitor.
--- NOTE | 2022-10-01 20:26 | PM.ICURNDS ---
- Date Patient Seen: 10/01/22 Time Patient Seen: 20:26 :: This patient was seen via real time interactive two-way audiovisual telecommunication. Note: Patient remains off pressor. On HFNC 40/35%. Ordered repeat blood cx for tomorrow X2. TTE pending. Will stop stress dose steroids. Discussed with bedside RN.
[2022-10-01] MEDS: AZITHROMYCIN 500 MG in DEXTROSE 5% IN WATER 250 ML 250 MG IV (20:47)
[2022-10-02] VITALS (52 sets, daily range): BP systolic 112–133; BP diastolic 69–87; PULSE 55–101; RESP 11–61; TEMP 36.2–37.1; O2SAT 91–100
[2022-10-02] MEDS: PIPERACILLIN/TAZO 3.375 GM in SODIUM CHLORIDE 0.9% 100 ML IV ×3 (04:39→20:45)
[2022-10-02] MEDS: LACTATED RINGERS 1,000 ML 100 ML IV (04:40)
[2022-10-02] MEDS: HYDROCORTISONE 100 MG/2 ML VIAL 50 MG IV (06:22)
[2022-10-02] MEDS: HEPARIN 5,000 UNIT/ML VIAL 5000 UNIT SUBCUT ×2 (08:14→20:45)
[2022-10-02] MEDS: FAMOTIDINE 20 MG/2 ML VIAL IV (08:14)
--- NOTE | 2022-10-02 09:25 | PC.NURSE ---
[address] Martínez for morning rounds. Okay to downgrade patient to acute care. Follow blood cultures and echo. Work to get patient to [place]. Stop LR.
--- NOTE | 2022-10-02 09:26 | P.TELICUPN_ITS ---
Subjective Subjective IF CAMERA ACTIVATED, patient seen via real-time interactive audiovisual communication: Camera activated Date Patient Seen: 10/02/22 Consent obtained for tele-cane flume watcher care: Yes Patient Location: ICU Provider location (State): [place] Other participants/roles: Bedside RN Interval history: NO acute issues overnight. Remains off pressor. On HFNC 40/30%. Repeat blood cx drawn this morning. Pending TTE. Current Medications Current Medications Medications: Home Medications aspirin 81 mg tablet 81 mg PO DAILY 03/08/21 [History Confirmed 10/01/22] furosemide 20 mg tablet (Lasix) 20 mg PO DAILY 03/08/21 [History Confirmed 10/01/22] pantoprazole 40 mg tablet,delayed release 40 mg PO DAILY 03/08/21 [History Confirmed 10/01/22] pomalidomide 3 mg capsule (Pomalyst) 3 mg PO DAILY 03/08/21 [History Confirmed 10/01/22] oxycodone 5 mg tablet 5 mg PO Q8H PRN pain #14 tabs 12/15/21 [Rx Confirmed 10/01/22] Visit Medications (administered) Generic Name Dose Route Start Last Admin Trade Name Freq PRN Reason Stop Dose Admin Acetaminophen 650 mg 09/30/22 17:37 10/01/22 14:37 Acetaminophen 325 Mg Tablet PO 650 mg Q6H PRN Administration Fever/Mild Pain (1-3) Famotidine 20 mg 09/30/22 21:00 10/02/22 08:14 Famotidine 20 Mg/2 Ml Vial IV 20 mg BID MYRNA Administration Heparin Sodium (Porcine) 5,000 unit 09/30/22 21:00 10/02/22 08:14 Heparin 5,000 Unit/Ml Vial SUBCUT 5,000 unit BID MYRNA Administration Piperacillin Sod/Tazobactam 100 mls @ 25 mls/hr 09/30/22 21:00 10/02/22 04:39 Sod 3.375 gm/ Sodium Chloride IV 25 mls/hr Q8H MYRNA Administration Insulin Human Lispro 0 unit 10/02/22 00:00 10/02/22 06:22 Insulin Lispro 100 Unit/Ml 3ml Vial SUBCUT Not Given Q6H MYRNA Protocol Ondansetron HCl 4 mg 09/30/22 15:26 09/30/22 23:29 Ondansetron 4 Mg/2 Ml Inj IV 4 mg NOW PRN Administration Nausea And Vomiting Oxycodone HCl 5 mg 10/01/22 15:07 10/01/22 23:50 Oxycodone Ir 5 Mg Tablet PO 5 mg Q3HR PRN Administration Pain, Moderate (4-6) Objective Ventilator Parameters: Ventilator Settings FiO2 35 Labs 09/30/22 20:16 09/30/22 20:16 Exam Vital Signs (past 8 hours): - 10/02/22 01:30 10/02/22 01:45 10/02/22 02:00 Pulse Rate 96 H 99 H 95 H Respiratory Rate 17 33 H 21 Blood Pressure Pulse Oximetry 96 96 96 Oxygen Delivery Method 10/02/22 02:15 10/02/22 02:30 10/02/22 02:45 Pulse Rate 95 H 95 H 92 H Respiratory Rate 37 H 19 22 Blood Pressure Pulse Oximetry 97 97 97 Oxygen Delivery Method 10/02/22 03:00 10/02/22 03:15 10/02/22 03:30 Pulse Rate 90 92 H 89 Respiratory Rate 19 25 H 16 Blood Pressure Pulse Oximetry 97 95 97 Oxygen Delivery Method 10/02/22 03:45 10/02/22 04:02 10/02/22 04:15 Pulse Rate 68 91 H 98 H Respiratory Rate 21 42 H 30 H Blood Pressure Pulse Oximetry 95 95 Oxygen Delivery Method 10/02/22 04:00 10/02/22 04:30 10/02/22 04:45 Pulse Rate 94 H 90 86 Respiratory Rate 22 23 26 H Blood Pressure Pulse Oximetry 96 95 91 Oxygen Delivery Method 10/02/22 05:00 10/02/22 05:05 10/02/22 05:05 Pulse Rate 96 H 73 Respiratory Rate Blood Pressure 118/84 Pulse Oximetry 98 98 Oxygen Delivery Method 10/02/22 05:15 10/02/22 05:30 10/02/22 05:45 Pulse Rate 63 73 100 H Respiratory Rate Blood Pressure Pulse Oximetry 99 99 98 Oxygen Delivery Method 10/02/22 07:46 10/02/22 07:45 10/02/22 07:50 Pulse Rate 78 79 Respiratory Rate 18 20 Blood Pressure Pulse Oximetry 99 97 Oxygen Delivery Method Heated High Flow 10/02/22 06:00 10/02/22 06:15 10/02/22 06:30 Pulse Rate 88 84 83 Respiratory Rate 26 H Blood Pressure Pulse Oximetry 97 98 99 Oxygen Delivery Method 10/02/22 06:45 10/02/22 07:00 10/02/22 07:15 Pulse Rate 85 85 76 Respiratory Rate 20 17 26 H Blood Pressure Pulse Oximetry 98 98 99 Oxygen Delivery Method 10/02/22 07:30 10/02/22 07:45 10/02/22 08:00 Pulse Rate 55 L 57 L Respiratory Rate 11 L 18 Blood Pressure 133/87 Pulse Oximetry 99 100 Oxygen Delivery Method 10/02/22 08:00 10/02/22 08:15 10/02/22 08:30 Pulse Rate 75 101 H 84 Respiratory Rate 17 15 Blood Pressure Pulse Oximetry 100 96 94 Oxygen Delivery Method 10/02/22 08:45 10/02/22 09:00 Pulse Rate 91 H 87 Respiratory Rate 23 21 Blood Pressure Pulse Oximetry 93 92 Oxygen Delivery Method Fraction of Inspired Oxygen 45 SaO2/FiO2 Ratio 211 Oxygen Delivery Method Heated High Flow Oxygen Flow Rate 40 Narrative Exam Narrative: Not in acute distress. Sitting at side of bed eating breakfast. Assessment & Plan Assessment & Plan narrative: NEURO: -- Encourage mobiility RESP: # Acute hypoxemia respiratory failure -- Secondary to viral PNA w/ superimposed bacterial PNA -- FiO2 down to 30% -- Plan to transition to NC -- Follow up blood cx -- DC zithromycin -- On linezolid/zosyn -- HOB elevation -- Aspiration precaution -- Goal SpO2 > 88% # Pneumonia? -- On abx as above -- Pending urinary legionella/strep -- Follow up cx data CVS: # Distributive shock -- Resolved -- DC stress dose steroids -- MAP goal > 65 : # LYLE vs CKD -- Check renal panel -- DC IVF -- Avoid nephrotoxin agents -- Monitor UOP -- Daily BMP ID: # GPC bacteremia -- Secondary to PNA from ? strep vs MRSA -- Pending speciation -- Repeat blood cx sent -- Pending TTE to rule out endocarditis -- On linezolid and zosyn -- Follow up urinary legionella/strep HEME: # Anemia -- Secondary to multiple myeloma and sepsis -- Check CBC -- Goal Hb > 7 # Multiple myeloma -- Hold off all chemotherapy given septic shock ENDO: # Hyperglycemia -- On ISS and latnus 5 U -- Goal BS < 180 D/w bedside RN Time Spent With Patient Time with patient: less than 30 minutes Critical Care time: I spent a total of [] minutes of critical care time on this patient's care today; this time is exclusive of procedural time.
[2022-10-02] MEDS: OXYCODONE IR 5 MG TABLET PO ×2 (10:01→20:45)
[2022-10-02 10:26] LABS: Add Manual Diff / Slide Review NO; Basophils Absolute Auto 0 /uL (0-100); Eosinophils Absolute Auto 0 /uL (0-450); Hematocrit 26.4 % (36-46); Hemoglobin 9.2 g/dL (12.0-16.0); Lymphocytes Absolute Auto 100 /uL (1100-4500); Lymphocytes Percent Auto 1.9 % (25-40); Mean Corpuscular HGB Conc 34.8 % (30-36); Mean Corpuscular Hemoglobin 32.9 PG (26-34); Mean Corpuscular Volume 94.3 fL (80-100); Monocytes Absolute Auto 400 /uL (0-900); Monocytes Percent Auto 6.5 % (3-14); Neutrophils Absolute Auto 5900 /uL (1500-7000); Neutrophils Percent Auto 91.6 % (50-75); Platelet Count 112 X10^3/uL (150-400); Red Blood Cell Count 2.79 X10^6/uL (4.0-5.2); White Blood Cell Count 6.4 X10^3/uL (4.5-11.0)
[2022-10-02 10:43] LABS: Albumin 3.2 g/dL (3.5-5.0); BUN Creatinine Ratio 17.4 (6-22); Blood Urea Nitrogen 16 mg/dL (7-17); Calcium 7.5 mg/dL (8.4-10.2); Carbon Dioxide 28 mmol/L (22-32); Chloride 100 mmol/L (98-107); Estimated Glomerular Filt Rate > 60 mL/min (>60); Glucose 187 mg/dL (80-110); HEMOLYSIS < 15 (0-50); Magnesium 1.6 mg/dL (1.6-2.3); Phosphorous 2.4 mg/dL (2.8-4.1); Potassium 3.8 mmol/L (3.4-5.1); Sodium 135 mmol/L (137-145)
--- NOTE | 2022-10-02 11:02 | CM.DPNOTE ---
Discharge Planning Note: Patient is ICU status with acute hypoxemic respiratory failure 2ndary to PNA. Septic shock from bacteremia, cultures pending. Hx multiple yeloma which she is currently being treated for. She is currently on high flow O2. Echo pending. Patient apparently lives in a trailer with a roommate and has expressed she does not want Home Health upon discharge. Plan: When medically cleared return home with assistance from roommate. Regine Trinh RN/DCP
--- NOTE | 2022-10-02 11:27 | PT.IPTN ---
Current Diagnoses Acute respiratory failure with hypoxia (09/30/22) Physical Therapy Treatment Note M2 PT-IP Current Condition Start: 10/01/22 16:25 Freq: NEEDED Status: Active Protocol: Document 10/01/22 16:21 DLM (Rec: 10/01/22 16:51 DLM [id number]) Physical Therapy Current Condition Current Condition Evaluation Date 10/01/22 Treatment Diagnosis PNA/hypoxia, impaired mobility Onset Date 09/30/22 M3 PT-IP Subjective Start: 10/01/22 16:25 Freq: NEEDED Status: Active Protocol: Document 10/02/22 11:57 TS (Rec: 10/02/22 12:36 TS [id number]) Subjective Physical Therapy Visit Type Type Treatment Note Visit Start Time 11:27 Visit Stop Time 11:55 Total Visit Minutes 28 Notes On high flow O2 95% 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 Patient Goals Discharge home M4 PT-IP Mobility and Gait Start: 10/01/22 16:25 Freq: NEEDED Status: Active Protocol: Document 10/02/22 11:57 TS (Rec: 10/02/22 12:36 TS [id number]) PT-Bed Mobility Assessment Supine to Sit Supine to Sit Independent,Head of Bed Elevated Scooting Scooting to Edge of Bed Independent PT-Transfer Assessment Sit to and From Stand Sit to and from Stand Standby Assistance Equipment Transfer Assistive Device None,Gait Belt Transfers Transfer Destination Chair Transfer Technique Stand Step Pivot Transfer Ability Level of Assist Standby Assistance Comments Mobility Comments Pt was impulsive to move before therapist had room setup. She performed supine to sit SBA with no use of UE's. Sit to stands x2 no AD and UE' s SBA. Standing september x5 no signs of buckling or LOB. She ambulated to window and back to bed 5x10' with some swaying , SBA, no LOB or buckling of knees. She performed NBOS with eyes closed x30 secs with some swaying but no LOB. SLS x 2 secs ea LE Ryan for LOB. Sit to stand test x5 13 secs. She performed stairs CGA with LUE handrail support x5, minor LOB descending stair x1 Ryan. She was left in bedside chair with call light nearby and chair alarm. Gait Assessment Gait Gait Assistance Required: Standby Assistance Distance (Feet) 50 Assistive Devices Assistive Device None,Gait Belt Gait Deviations General Gait Pattern Narrow Based Gait Factors Limiting Gait Function Factors Limiting Gait Function Poor Safety Awareness, Respiratory Distress Comments Gait Comments She ambulated 50' this session progressing to no AD, demonstrated some swaying but no LOB or buckling of knees. Stair Climbing Assessment Evaluation Level of Assist On Stairs Contact Guard Assistance, Minimal Assistance Devices Stair Climbing Assistive Devices Left Railing Technique/Endurance Stair Climbing Direction Ascend and Descend Stair Climbing Technique Step to Step Number of Steps Climbed 5 Comments Stair Climbing Comments She performed stairs x5 CGA with 1 LOB descending due to quick pacing,requiring Ryan and cues for slower pace. PT-Balance Assessment Sitting Balance and Reactions Static Sitting Balance Ability Normal Dynamic Sitting Balance Ability Good Standing Balance and Reactions Static Standing Balance Ability Good Dynamic Standing Balance Ability Good Balance Tests Single Limb Standing x2 secs ea LE Functional Assessments Functional Tests 5 Times Sit to Stand 13 secs M5 PT-IP Objective Assessments Start: 10/01/22 16:25 Freq: NEEDED Status: Active Protocol: Document 10/01/22 16:21 DLM (Rec: 10/01/22 16:51 [facility] [id number]) Orientation Orientation/Cognition Level of Alertness Alert Orientation Name,Age,Birthday,Month,Date, Year,Day of Week,Place, Situation Language Function Ability No Deficits Noted Safety Awareness Understands Safety Issues Memory Description No Deficits Noted Gross Range of Motion Upper Extremity ROM Assessment Within Functional Limits Lower Extremity ROM Assessment Within Functional Limits Strength Upper Extremity Strength Assessment Within Functional Limits Lower Extremity Strength Assessment Within Functional Limits Coordination Assessment Gross Coordination Gross Coordination WNL Sensation Assessment Sensation Gross Sensation Right LE Impaired,Left LE Impaired Sensation Description Tingling Comments Sensation Comments she reports tingling in bilateral feet in standing Muscle Tone Muscle Tone WNL Yes M6 PT-IP Treatment Start: 10/01/22 16:25 Freq: NEEDED Status: Active Protocol: Document 10/01/22 16:21 DLM (Rec: 10/01/22 16:51 DL [id number]) Physical Therapy Treatment Other Treatments Other Treatment Performed no family/friends present this visit M7 PT-IP Assessment and Plan Start: 10/01/22 16:25 Freq: NEEDED Status: Active Protocol: Document 10/02/22 11:57 TS (Rec: 10/02/22 12:36 TS [id number]) PT Summary Assessment and Plan Potential Rehabilitation Potential Good Status of Condition at Evaluation Evolving Summary Impairments Pain,Bed Mobility,Transfers, Gait,Activity Tolerance Assessment Summary Tory progressed her ambulation distance this session to 50' with no AD SBA, demonstrated some swaying but no LOB or buckling of knees. She performs sit to stands with no UE support and is independent with her bed mobility. She had difficulty finding her balance with SLS but did well with NBOS with HT 's and eyes closed. She continues to want to go home and has roommate who can help her when she needs. PT is recommending she return home with HHPT (which she refuses at this time). She was open to trying outpatient therapy to improve her balance and activity tolerance, discussed with JEFFREY Aguayo. Goals Bed Mobility Goal Independent Transfer Goal Independent,Front Wheeled Walker Gait Goal Independent,Front Wheel Walker Gait Distance 100 feet Other Goals up/down 5 steps with rail and CG assist Days to Meet Goals 7 Frequency of Treatment Frequency Of Treatment Once a Day Treatment Plan Physical Therapy Treatment Plan Bed Mobility Training,Transfer Training,Gait Training, Therapeutic Exercise,Balance Retraining,Discharge Planning Precautions Other Precautions help with her many lines Recommendations To Nursing Amount of Assist Needed Standby Assistance Discharge Recommendations PT Discharge Recommendations Home with Assistance Other Discharge Recommendations she does not want home health services, she feels she has enough help from her roommate. Discussed trying outpatient therapy, she is open to trying to improve her balance and activity tolerance, discussed with JEFFREY Aguayo. Transportation Needs at Discharge Private Vehicle
[2022-10-02] MEDS: INSULIN LISPRO 100 UNIT/ML 3ML VIAL SUBCUT ×2 (12:12→18:04)
--- NOTE | 2022-10-02 16:53 | PM.PN.1 ---
Subjective Subjective Interval history: No chest pain, dyspnea better and on much less O2 today. No chest or abdomen pain. Exam Vital Signs (past 8 hours): - 10/02/22 09:00 10/02/22 09:15 10/02/22 09:30 Temperature Pulse Rate 87 84 82 Respiratory Rate 21 20 30 H Blood Pressure Pulse Oximetry 92 95 94 Oxygen Delivery Method Oxygen Flow Rate 10/02/22 09:45 10/02/22 10:00 10/02/22 10:15 Temperature Pulse Rate 89 83 97 H Respiratory Rate 61 H 39 H 44 H Blood Pressure Pulse Oximetry 95 97 98 Oxygen Delivery Method Oxygen Flow Rate 10/02/22 10:30 10/02/22 10:45 10/02/22 11:00 Temperature Pulse Rate 69 75 92 H Respiratory Rate 17 16 20 Blood Pressure Pulse Oximetry 100 99 93 Oxygen Delivery Method Oxygen Flow Rate 10/02/22 12:00 10/02/22 12:05 10/02/22 13:30 Temperature Pulse Rate Respiratory Rate Blood Pressure Pulse Oximetry 94 Oxygen Delivery Method High Flow Nasal Cannula High Flow Nasal Cannula High Flow Nasal Cannula Oxygen Flow Rate 5 10/02/22 14:30 10/02/22 12:30 10/02/22 15:30 Temperature 97.4 F L Pulse Rate 93 H Respiratory Rate 21 Blood Pressure 116/74 Pulse Oximetry 96 Oxygen Delivery Method High Flow Nasal Cannula Room Air Oxygen Flow Rate Fraction of Inspired Oxygen 45 SaO2/FiO2 Ratio 211 Oxygen Delivery Method Room Air Oxygen Flow Rate 5 Narrative Exam Narrative: The patient is comfortable on nasal cannula this afternoon, no distress. ? Head is atraumatic, eyes are notable for symmetric pupils and anicteric sclera. ? Oropharynx is with normal mucosa. ? Neck is supple, no adenopathy, normal thyroid. ? Lungs are clear to auscultation, with normal effort on nasal cannula. ? Heart is regular without murmur gallop or rub. ? Abdomen is distended but nontender with no organomegaly. ? Right thorax is tender to palpation over the anterolateral aspect of the chest.? No deformity. ? Extremities are free of edema, ? Good pedal pulses. ? Skin is free of rash, lesions or petechiae. ? Speech is normal, judgment normal. Objective Labs 10/02/22 10:15 10/02/22 10:15 Labs: Laboratory Results - last 24 hr 10/02/22 10/02/22 10:15 10:15 WBC 6.4 RBC 2.79 L Hgb 9.2 L Hct 26.4 L MCV 94.3 MCH 32.9 MCHC 34.8 RDW 12.0 Plt Count 112 L Neut % (Auto) 91.6 H Lymph % (Auto) 1.9 L [place] % (Auto) 6.5 Eos % (Auto) 0.0 L Baso % (Auto) 0.0 Neut # (Auto) 5900 Lymph # (Auto) 100 L [place] # (Auto) 400 Eos # (Auto) 0 Baso # (Auto) 0 Sodium 135 L Potassium 3.8 Chloride 100 Carbon Dioxide 28 BUN 16 Creatinine 0.92 Estimated GFR > 60 BUN/Creatinine Ratio 17.4 Glucose 187 H Calcium 7.5 L Phosphorus 2.4 L Magnesium 1.6 Albumin 3.2 L PFSH Medical History Anemia Congestive heart failure Multiple myeloma Pneumonia Surgical History No significant past surgical history Family History Mother Cancer Social History household members: none Smoking Status: Current some day smoker alcohol intake: current additional social history: The patient smokes tobacco. She does not use alcohol. No drugs. Family and social history are otherwise noncontributory Assessment & Plan Assessment & Plan narrative: 1. ?Sepsis with shock with Acute hypoxic respiratory failure,thromboycytopenia, secondary to rhinovirus and superimposed bacterial pneumonia and gram positive bacteremia.? Present on admission and active. - on as much as high flow nasal cannula, now improved. Continue zosyn. - was on Levophed, now weaned off. - blood cultures with GPC, follow up final sp. and sens. - wean O2 as tolerated, goal O2 90-96%. - trialed stress dose steroids as well, now off per tele-icu. Teleintensivists signed off. - TTE pending given GPC in blood. 2. ? Rhinovirus viral pneumonia, present on admission and active. - continue supportive care. 3. ? Probable secondary bacterial pneumonia (possible pneumococcal), and gram positive bacteremia present on admission and active. - Continue zosyn, narrow once results finalized. Will need at least 2 weeks of IV antibiotics. - follow up TTE. 4. ? Lactic acidosis, present on admission, resolved 6. ? Apparent musculoskeletal chest pain versus bone pain of the right anterior thorax? , present on admission and active. ?? ? - analgesia as needed 7.? Multiple myeloma, present on admission and stable. Code: Full Dispo: probable discharge home in the next couple of days, will need 2 weeks of IV antibiotics at least. Pending TTE and repeat blood cultures. Able to be downgraded today from ICU now that off of high flow nasal cannula and off pressors. I spent 35 minutes providing critical care management this patient. This excludes time spent in performing separately billed procedures. Time Spent With Patient Critical Care time: I spent a total of [] minutes of critical care time on this patient's care today; this time is exclusive of procedural time.
[2022-10-02] MEDS: ACETAMINOPHEN 325 MG TABLET 650 MG PO (18:02)
[2022-10-02] MEDS: FAMOTIDINE 20 MG TABLET PO (20:46)
[2022-10-03] MEDS: PIPERACILLIN/TAZO 3.375 GM in SODIUM CHLORIDE 0.9% 100 ML IV (05:25)
[2022-10-03 05:45] LABS: Add Manual Diff / Slide Review NO; Basophils Absolute Auto 0 /uL (0-100); Basophils Percent Auto 0.1 % (0-2); Eosinophils Absolute Auto 0 /uL (0-450); Eosinophils Percent Auto 0.3 % (2-4); Hematocrit 24.7 % (36-46); Hemoglobin 8.5 g/dL (12.0-16.0); Lymphocytes Absolute Auto 100 /uL (1100-4500); Lymphocytes Percent Auto 2.3 % (25-40); Mean Corpuscular HGB Conc 34.4 % (30-36); Mean Corpuscular Hemoglobin 32.3 PG (26-34); Monocytes Absolute Auto 600 /uL (0-900); Monocytes Percent Auto 16.5 % (3-14); Neutrophils Absolute Auto 3100 /uL (1500-7000); Neutrophils Percent Auto 80.8 % (50-75); Platelet Count 100 X10^3/uL (150-400); Red Blood Cell Count 2.63 X10^6/uL (4.0-5.2); Red Cell Distribution Width 11.7 % (11.6-14.8); White Blood Cell Count 3.8 X10^3/uL (4.5-11.0)
[2022-10-03 05:56] LABS: Alanine Aminotransferase 21 IU/L (<35); Albumin 2.7 g/dL (3.5-5.0); Albumin Globulin Ratio 1.3 (1.0-2.8); Alkaline Phosphatase 56 U/L (38-126); Aspartate Aminotransferase 32 IU/L (14-36); BUN Creatinine Ratio 16.5 (6-22); Bilirubin Total 0.3 mg/dL (0.2-1.3); Blood Urea Nitrogen 15 mg/dL (7-17); Calcium 7.3 mg/dL (8.4-10.2); Carbon Dioxide 32 mmol/L (22-32); Chloride 105 mmol/L (98-107); Estimated Glomerular Filt Rate > 60 mL/min (>60); Globulin 2.1 g/dL (1.7-4.1); Glucose 87 mg/dL (80-110); HEMOLYSIS < 15 (0-50); Magnesium 1.7 mg/dL (1.6-2.3); Potassium 3.3 mmol/L (3.4-5.1); Sodium 140 mmol/L (137-145); Total Protein 4.8 g/dL (6.3-8.2)
[2022-10-03 07:50] VITALS: BP 118/80; PULSE 91; RESP 23; TEMP 36.4; O2SAT 96
[2022-10-03] MEDS: FAMOTIDINE 20 MG TABLET PO (08:56)
[2022-10-03] MEDS: POTASSIUM CHLORIDE 20 MEQ TAB 40 MEQ PO (09:02)
[2022-10-03] MEDS: SODIUM,POTASSIUM PHOSPHATES PACKET 2 EACH PO (09:02)
--- NOTE | 2022-10-03 10:52 | PT.IPTN ---
Current Diagnoses Acute respiratory failure with hypoxia (09/30/22) Physical Therapy Treatment Note M2 PT-IP Current Condition Start: 10/01/22 16:25 Freq: NEEDED Status: Active Protocol: Document 10/01/22 16:21 DLM (Rec: 10/01/22 16:51 DLM [id number]) Physical Therapy Current Condition Current Condition Evaluation Date 10/01/22 Treatment Diagnosis PNA/hypoxia, impaired mobility Onset Date 09/30/22 M3 PT-IP Subjective Start: 10/01/22 16:25 Freq: NEEDED Status: Active Protocol: Document 10/03/22 10:40 KS (Rec: 10/03/22 11:13 KS [id number]) Subjective Physical Therapy Visit Type Type Treatment Note Visit Start Time 10:35 Visit Stop Time 10:52 Total Visit Minutes 17 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 Patient Goals Discharge home M4 PT-IP Mobility and Gait Start: 10/01/22 16:25 Freq: NEEDED Status: Active Protocol: Document 10/03/22 10:40 KS (Rec: 10/03/22 11:13 KS [id number]) PT-Bed Mobility Assessment Supine to Sit Supine to Sit Independent,Head of Bed Elevated Sit to Supine Sit to Supine Independent Scooting Scooting to Edge of Bed Independent PT-Transfer Assessment Sit to and From Stand Sit to and from Stand Standby Assistance Equipment Transfer Assistive Device None,Gait Belt Transfers Transfer Destination Bed Transfer Technique Ambulated w/o AD Transfer Ability Level of Assist Standby Assistance Comments Mobility Comments Pt continues to be somewhat impulsive, requiring jacklyn to wait for gaitbelt application. Ambulated ~60 ft around room w/o AD SBA w/ no LOB. Became slightly SOB but recovered quickly. Reveiwed LE exercises and energy conservation tecniques. Gait Assessment Gait Gait Assistance Required: Standby Assistance Distance (Feet) 60 Assistive Devices Assistive Device None,Gait Belt Gait Deviations General Gait Pattern Narrow Based Gait Factors Limiting Gait Function Factors Limiting Gait Function Poor Safety Awareness, Respiratory Distress Comments Gait Comments 60 ft w/o AD SBA NBOS and SOB. PT-Balance Assessment Sitting Balance and Reactions Static Sitting Balance Ability Normal Dynamic Sitting Balance Ability Good Standing Balance and Reactions Static Standing Balance Ability Good Dynamic Standing Balance Ability Good M5 PT-IP Objective Assessments Start: 10/01/22 16:25 Freq: NEEDED Status: Active Protocol: Document 10/01/22 16:21 DLM (Rec: 10/01/22 16:51 DLM [id number]) Orientation Orientation/Cognition Level of Alertness Alert Orientation Name,Age,Birthday,Month,Date, Year,Day of Week,Place, Situation Language Function Ability No Deficits Noted Safety Awareness Understands Safety Issues Memory Description No Deficits Noted Gross Range of Motion Upper Extremity ROM Assessment Within Functional Limits Lower Extremity ROM Assessment Within Functional Limits Strength Upper Extremity Strength Assessment Within Functional Limits Lower Extremity Strength Assessment Within Functional Limits Coordination Assessment Gross Coordination Gross Coordination WNL Sensation Assessment Sensation Gross Sensation Right LE Impaired,Left LE Impaired Sensation Description Tingling Comments Sensation Comments she reports tingling in bilateral feet in standing Muscle Tone Muscle Tone WNL Yes M6 PT-IP Treatment Start: 10/01/22 16:25 Freq: NEEDED Status: Active Protocol: Document 10/03/22 11:13 KS (Rec: 10/03/22 11:15 KS [id number]) Physical Therapy Treatment Exercises Exercises Ankle Pumps,Gluteal Sets,Quad Sets Other Treatments Other Treatment Performed Discussed energy conservation techniques, HHPT vs OP PT to improve safety and activity tolerance. M7 PT-IP Assessment and Plan Start: 10/01/22 16:25 Freq: NEEDED Status: Active Protocol: Document 10/03/22 10:40 KS (Rec: 10/03/22 11:13 KS [id number]) PT Summary Assessment and Plan Potential Rehabilitation Potential Good Summary Impairments Pain,Bed Mobility,Transfers, Gait,Activity Tolerance Progress Towards Goals Slow Progress due to Activity Tolerance Assessment Summary Pt able to ambulate ~60 ft w/o AD, becoming somewhat SOB following but was able to recover quickly once resting. Agreeable to LE exercises to promote bloodflow and strengthening. PT recommends HHPT to improve activity tolerance however pt at this does is not agreeable. Goals Bed Mobility Goal Independent Transfer Goal Independent,Front Wheeled Walker Gait Goal Independent,Front Wheel Walker Gait Distance 100 feet Other Goals up/down 5 steps with rail and CG assist Days to Meet Goals 7 Frequency of Treatment Frequency Of Treatment Once a Day Treatment Plan Physical Therapy Treatment Plan Bed Mobility Training,Transfer Training,Gait Training, Therapeutic Exercise,Balance Retraining,Discharge Planning Recommendations To Nursing Amount of Assist Needed Standby Assistance Discharge Recommendations PT Discharge Recommendations Home with Assistance,Home Health Other Discharge Recommendations she does not want home health services, she feels she has enough help from her roommate. Discussed trying outpatient therapy, she is open to trying to improve her balance and activity tolerance, discussed with PT Dede. Transportation Needs at Discharge Private Vehicle
--- NOTE | 2022-10-03 11:06 | P.DS_ITS ---
History of Present Illness History of Present Illness Date Patient Seen: 10/03/22 Time Patient Seen: 10:55 Chief complaint: ABD pain Narrative: Per admitting provider, The patient is a 71-year-old female with a history of multiple myeloma which been treated for over 5 years. She presented to emergency department today with right-sided chest pain as well as dyspnea which has been progressive and worsening for 2 days. The patient denies a cough, or fevers. The patient is followed by Oncology at [facility]. The patient denies chest pain other than with cough or movement of her right ribcage. The recent URI symptoms including rhinorrhea, sore throat or cough. The son denies any exertional chest pain. The patient is quite hypoxemic see department and required high-flow oxygen in which she became comfortable sided anterior chest pain over the rib with palpation and was treated with IV patient lives on [facility] with a roommate. She notes full resuscitation and intubate if needed. The patient does not take oxygen at home. She was also slightly hypotensive was given 500 mL of fluid in the emergency department and had an elevated lactic acid. Discharge Providers Provider Date of admission: 09/30/22 17:15 Discharge Date: 10/03/22 Primary care physician: Wilfredo Garcia MD Consults: 09/30/22 15:27 Consult to JUNIOR DATABASE ADMINISTRATOR - Program Strategist Stat Comment: 09/30/22 17:38 Consult to Physical Therapy Evaluate & Treat Comment: Physician Instructions: Evaluate and Treat 09/30/22 22:01 Consult to Tele-bindery assistant Routine Comment: Consulting Provider: [employer] Tele-intensivists Reason for consultation: Elevator Service Mechanic services Has provider been notified: Yes Discharge provider: Blake De Dios DO Summary Hospital Course Discharge Diagnosis: 1. ?Sepsis with shock with Acute hypoxic respiratory failure,thromboycytopenia, secondary to rhinovirus and superimposed bacterial pneumonia and gram positive bacteremia.? Present on admission and active. 2. ? Rhinovirus viral pneumonia, present on admission and active. 3. ? Probable secondary bacterial pneumonia (possible pneumococcal), and gram positive bacteremia present on admission and active. 4. ? Lactic acidosis, present on admission, resolved 6. ? Apparent musculoskeletal chest pain versus bone pain of the right anterior thorax? , present on admission and active. 7.? Multiple myeloma, present on admission and stable. Hospital Course: This is a 71 year old female with PMH of multiple myeloma who was admitted with sepsis and developed septic shock requiring pressor support. Blood cultures from the ER ultimately grew Strep pneumoniae, suspected source is pneumonia with recent rhinoviral infection and subsequent superimposed bacterial pneumonia. She developed hypoxic respiratory failure requiring high flow oxygen. She improved with initiation of broad antibiotics, and once blood cultures finalized she was transitioned to oral levofloxacin (HD#3). On HD#3 patient had improvement in BP, was asymptomatic, mobilizing well and tolerating a diet. Risks and benefits of continued hospitalization or discharge home were discussed, and patient elected for discharge home. Repeat blood cultures were negative, and there was no cinda dence of infection near her port site, and TTE showed no evidence of possible vegetation. Her echo did show an EF of 45-50% but with no current symptoms and rapid improvement no futher investigation is necessary at this time. With a probable pneumonia as the underlying cause, rapid clearance of her bacteremia, further evaluation of her port site was not deemed necessary at this time and oral antibiotic therapy is appropriate for treatment of her bacteremia. She will complete 2 week total course of therapy with levofloxacin based on susceptabilities at home. I recommend she hold furosemide at home until SBP is >130, at which point she can resume this medication. No other medication changes are recommended at this time. Time Spent with Patient Time spent: Greater than 30 minutes Exam Vital Signs (past 8 hours): - 10/03/22 07:50 10/03/22 07:00 Temperature 97.6 F Pulse Rate 91 H Respiratory Rate 23 Blood Pressure 118/80 Pulse Oximetry 96 Oxygen Delivery Method Room Air Fraction of Inspired Oxygen 45 SaO2/FiO2 Ratio 211 Oxygen Delivery Method Room Air Oxygen Flow Rate 2 Narrative Exam Narrative: The patient is comfortable on nasal cannula this afternoon, no distress. ? Head is atraumatic, eyes are notable for symmetric pupils and anicteric sclera. ? Oropharynx is with normal mucosa. ? Neck is supple, no adenopathy, normal thyroid. ? Lungs are clear to auscultation, with normal effort on nasal cannula. ? Heart is regular without murmur gallop or rub. ? Abdomen is distended but nontender with no organomegaly. ? Right thorax is tender to palpation over the anterolateral aspect of the chest.? No deformity. ? Extremities are free of edema, ? Good pedal pulses. ? Skin is free of rash, lesions or petechiae. ? Speech is normal, judgment normal. Objective Labs 10/03/22 05:30 10/03/22 05:30 Labs: Laboratory Results - last 24 hr 10/03/22 10/03/22 05:30 05:30 WBC 3.8 L RBC 2.63 L Hgb 8.5 L Hct 24.7 L MCV 94.0 MCH 32.3 MCHC 34.4 RDW 11.7 Plt Count 100 L Neut % (Auto) 80.8 H Lymph % (Auto) 2.3 L [place] % (Auto) 16.5 H Eos % (Auto) 0.3 L Baso % (Auto) 0.1 Neut # (Auto) 3100 Lymph # (Auto) 100 L [place] # (Auto) 600 Eos # (Auto) 0 Baso # (Auto) 0 Sodium 140 Potassium 3.3 L Chloride 105 Carbon Dioxide 32 BUN 15 Creatinine 0.91 Estimated GFR > 60 BUN/Creatinine Ratio 16.5 Glucose 87 D Calcium 7.3 L Magnesium 1.7 Total Bilirubin 0.3 AST 32 ALT 21 Alkaline Phosphatase 56 Total Protein 4.8 L Albumin 2.7 L Globulin 2.1 Albumin/Globulin Ratio 1.3 PFSH Medical History Anemia Congestive heart failure Multiple myeloma Pneumonia Surgical History No significant past surgical history Family History Mother Cancer Social History household members: none Smoking Status: Current some day smoker alcohol intake: current additional social history: The patient smokes tobacco. She does not use alcohol. No drugs. Family and social history are otherwise noncontributory Discharge Plan Discharge Plan Patient Disposition: Home Provider Discharge Comment: You were admitted to the hospital with pneumonia, which the bacteria then entered your blood stream. This blood stream infection cleared quickly, and you elected for discharge home. Complete full course of antibiotics at home. I would continue to not take furosemide at home unless your BP improves to SBP (top #) > 130. No other medication changes are needed at this time. Discharge orders & Medications Prescriptions: New levofloxacin 750 mg tablet 750 mg PO DAILY 11 Days Qty: 11 0RF Continued oxycodone 5 mg tablet 5 mg PO Q8H PRN (Reason: pain) Qty: 14 0RF aspirin 81 mg Tablet 81 mg PO DAILY pantoprazole 40 mg Tablet,Delayed Release (Dr/Ec) 40 mg PO DAILY Pomalyst 3 mg Capsule 3 mg PO DAILY Rx Instructions: Patient takes this for 21 days straight and then is off of it for 7 days. She has 4 capsules left to take and then will be off for one week. Discontinued furosemide [Lasix] 20 mg Tablet 20 mg PO DAILY Follow up/Referrals: Wilfredo Garica MD [Primary Care Provider] - Diet/Activity/Treatments Diet: Diet as Tolerated Activity: As tolerated Visit Report/Discharge Packet Stand Alone Forms: Patient Portal/API, Stroke Signs & Symptoms Discharge Data Primary Care Provider: Wilfreod Garcia
--- NOTE | 2022-10-03 11:24 | CM.DPNOTE ---
Discharge Planning Note: Spoke with patient about need for home IV infusions upon discharge for several weeks based on MD orders. Cultures are still pending as to type(s) of antibiotics needed. Patient is amenable to receiving IV antibiotic home teaching and administering and with the help of her roommate who she states would be available to learn and administer. Called [facility] to place initial referral and will fax. Regine Trinh RN/DCP
[2022-10-03] MEDS: levoFLOXacin 250 MG TABLET 750 MG PO (11:53)
[2022-10-03] MEDS: MAGNESIUM CHLORIDE 64 MG TABLET 128 MG PO (11:53)
--- NOTE | 2022-10-03 12:11 | CM.DPNOTE ---
Discharge Planning Note: Patient unexpectedly discharged. Cancelled [facility] referral. Regine Trinh RN/DCP
[2022-10-04 14:37] LABS: Legionella pneumo Antigen Negative (Negative)
== END 2022-10-03 11:57 | disposition home or self-care (01) | DRG 871 ==
LOC: ED 15:27 → AC 17:16 → ICU 17:42
PROVIDERS: Internal Medicine; Internal Medicine Pulmonary Disease; Admitting Provider Hospitalist; Emergency Provider Emergency Medicine; Family Provider Family Medicine; PCP Internal Medicine Hematology & Oncology; Referring Provider Emergency Medicine; Visit Provider Hospitalist
DX: A41.9 Sepsis, unspecified organism (principal); J13 Pneumonia due to Streptococcus pneumoniae; J96.01 Acute respiratory failure with hypoxia; R65.21 Severe sepsis with septic shock; J16.8 Pneumonia due to other specified infectious organisms; E87.20 Acidosis, unspecified; C90.00 Multiple myeloma not having achieved remission; B97.89 Other viral agents as the cause of diseases classified elsewhere; D69.59 Other secondary thrombocytopenia; R07.89 Other chest pain; F17.210 Nicotine dependence, cigarettes, uncomplicated; Z20.822 Contact with and (suspected) exposure to COVID-19
CPT/HCPCS: 36415; 36600; 71045; 71275; 80053; 80069; 82550; 82805; 82947; 82962; 83605; 83690; 83735; 83880; 84145; 84484; 85025; 85610; 85730; 87040; 87077; 87150; 87186; 87449; 87633; 87797; 87899; 93005; 93010; 93306; 94640; 96365; 96375; 96376; 97110; 97112; 97162; 97530; 99232; 99285; 99291; 99292; A9270; J1170; J1644; J1720; J1815; J2020; J2405; J2543; J3010; Q9967

== ENCOUNTER 2022-10-06 05:37 | Emergency (ER) | payer MEDICARE, MEDICAID, SELFPAY ==
[2017-11-20 18:10] VITALS: PULSE 93; RESP 26; O2SAT 94
[2022-09-30 17:22] VITALS: BMI 30.9
[2022-10-06] VITALS (9 sets, daily range): BP systolic 125–176; BP diastolic 80–108; PULSE 100–116; RESP 20–26; TEMP 37.3; O2SAT 88–98
--- NOTE | 2022-10-06 05:46 | ED.GENADULT ---
HPI - General Adult <Trenton Davila DO - Last Filed: 10/07/22 04:59> General Chief complaint: Upper Respiratory Symptoms Stated complaint: chest pain, dehydrated Time Seen by Provider: 10/06/22 05:46 History of Present Illness HPI narrative: 71-year-old female smoker with a history of multiple myeloma and recent hospitalization for pneumonia with sepsis and left anterior chest pain secondary to herpes zoster returns with family in the chief complaint of increasing chest pain and shortness of breath as well as fatigue. She is had fever and chills as well as nausea but denies any vomiting. She denies coughing up any phlegm. She had initially been seen and evaluated on September 30 and was admitted to the hospital for a few days and just discharged on the . She had been at home and taking her medications as directed and symptoms have been gradually worsening. As part of her hospitalization she had a CT angiogram to rule out pulmonary embolism as well as an echocardiogram which noted an EF of about 45% Related Data Home Medications Medication Instructions Recorded Confirmed aspirin 81 mg tablet 81 mg PO DAILY 03/08/21 10/01/22 pantoprazole 40 mg tablet,delayed 40 mg PO DAILY 03/08/21 10/01/22 release pomalidomide 3 mg capsule 3 mg PO DAILY 03/08/21 10/01/22 (Pomalyst) Previous Rx's Medication Instructions Recorded oxycodone 5 mg tablet 5 mg PO Q8H PRN pain #14 tabs 12/15/21 levofloxacin 750 mg tablet 750 mg PO DAILY 11 days #11 tabs 10/03/22 hydrocodone 5 mg-acetaminophen 325 1 tab PO BEDTIME PRN pain #7 tabs 10/06/22 mg tablet Allergies Allergy/AdvReac Type Severity Reaction Status Date / Time No Known Drug Allergies Allergy Verified 09/30/22 15:13 Review of Systems <Trenton Davila DO - Last Filed: 10/07/22 04:59> Review of Systems Narrative: GENERAL: See HPI HEENT: Denies sinus pain, ear pain, sore throat, difficulty swallowing, dizziness. RESPIRATORY: See HPI CARDIOVASCULAR: See HPI GASTROINTESTINAL: Denies nausea, vomiting, abdominal pain, diarrhea, constipation, melena. : Denies dysuria, frequency, incontinence, hematuria, urinary retention. MUSCULOSKELETAL: denies weakness, joint pain, or bony pain SKIN: Denies rash, skin lesions, or other NEUROLOGIC: Denies weakness, headache, numbness, change in speech, confusion, seizures, incoordination. PSYCHIATRIC: No concerning psychosocial issues. 12 point review of systems is negative except for those stated above Patient History <Trenton Davila DO - Last Filed: 10/07/22 04:59> Medical History Anemia Congestive heart failure Multiple myeloma Pneumonia Surgical History No significant past surgical history Family History Mother Cancer Social History household members: none Smoking Status: Current some day smoker alcohol intake: current additional social history: The patient smokes tobacco. She does not use alcohol. No drugs. Family and social history are otherwise noncontributory Smoking Status: Current some day smoker tobacco type: cigarettes alcohol intake frequency: holidays/special occasions only Substance Use Type: does not use Exam <Trenton Davila DO - Last Filed: 10/07/22 04:59> Narrative Exam Narrative: GENERAL: [71] year old patient appears stated age. Well-developed patient, in mild distress. Tearful, clearly in pain HEAD: Atraumatic. Normocephalic. EYES: Pupils equal round and reactive. Extraocular motions intact. No scleral icterus. No injection or drainage. ENT: Nose without bleeding, purulent drainage. Throat without erythema, tonsillar hypertrophy or exudate. Airway patent. NECK: Trachea midline. Non tender CARDIOVASCULAR: Tachycardic but regular rhythm without murmurs, gallops, or rubs. RESPIRATORY: Increased work of breathing, relatively rapid and shallow with crackles in her right mid lung and base, pulse ox in the low 90s GASTROINTESTINAL: Abdomen soft, non-tender, nondistended. EXTREMITIES: No edema or joint tenderness. BACK: Nontender without deformity or crepitance. No flank tenderness. NEURO: AOx3. SKIN: Scabbed, healing rash on left lateral chest in the distribution of a single dermatome consistent with healing zoster Initial Vital Signs Initial Vital Signs: Vital Signs Temperature 99.2 F 10/06/22 05:45 Pulse Rate 116 H 10/06/22 05:45 Respiratory Rate 26 H 10/06/22 05:45 Blood Pressure 133/108 H 10/06/22 05:45 Pulse Oximetry 92 10/06/22 05:45 Oxygen Delivery Method Room Air 10/06/22 05:45 <Eliu Triplett DO - Last Filed: 10/06/22 09:51> Initial Vital Signs Initial Vital Signs: Vital Signs Temperature 99.2 F 10/06/22 05:45 Pulse Rate 116 H 10/06/22 05:45 Respiratory Rate 26 H 10/06/22 05:45 Blood Pressure 133/108 H 10/06/22 05:45 Pulse Oximetry 92 10/06/22 05:45 Oxygen Delivery Method Room Air 10/06/22 05:45 Course <Trenton Davila DO - Last Filed: 10/07/22 04:59> Orders Ordered: Discontinued Medications Sodium Chloride (Normal Saline 0.9%) 1,000 mls @ 150 mls/hr IV CONT MYRNA Last Infusion: 10/06/22 10:03 Dose: 0 mls/hr Documented By: Infusion: 10/06/22 07:00 Dose: 0 mls/hr Documented By: Admin: 10/06/22 06:18 Dose: 150 mls/hr Documented By: KH Sodium Chloride (Normal Saline 0.9%) 2,299.71 mls @ 766.57 mls/hr 30 ml/kg infuse over 3 hr (2299.71 ml) IV NOW ONE Stop: 10/06/22 09:28 Last Infusion: 10/06/22 09:40 Dose: 0 mls/hr Documented By: Admin: 10/06/22 06:48 Dose: 766.57 mls/hr Documented By: KH Cefepime HCl 2 gm/ Sodium (Chloride) 100 mls @ 200 mls/hr IV NOW ONE Stop: 10/06/22 06:45 Last Infusion: 10/06/22 07:37 Dose: 0 mls/hr Documented By: Admin: 10/06/22 07:06 Dose: 200 mls/hr Documented By: KH Vancomycin HCl/Dextrose (Vancomycin) 1,500 mg in 300 mls @ 200 mls/hr IV NOW ONE Stop: 10/06/22 08:13 Last Infusion: 10/06/22 09:40 Dose: 0 mls/hr Documented By: Admin: 10/06/22 07:40 Dose: 200 mls/hr Documented By: AT Ketorolac Tromethamine (Ketorolac 30 Mg/Ml Vial) 15 mg IV NOW ONE Stop: 10/06/22 06:32 Last Admin: 10/06/22 06:48 Dose: 15 mg Documented By: MIROSLAVA Vital Signs Vital signs: Vital Signs - 8 hr 10/06/22 05:45 10/06/22 06:30 10/06/22 07:00 Temperature 99.2 F Pulse Rate 116 H 102 H 100 H Respiratory Rate 26 H 26 H 26 H Blood Pressure 133/108 H 139/88 135/88 Pulse Oximetry 92 93 97 Oxygen Delivery Method Room Air Room Air Nasal Cannula Oxygen Flow Rate 2 10/06/22 07:30 10/06/22 08:00 10/06/22 08:30 Temperature Pulse Rate 105 H 116 H 103 H Respiratory Rate 24 22 24 Blood Pressure 176/80 H 125/82 136/90 Pulse Oximetry 97 98 96 Oxygen Delivery Method Nasal Cannula Room Air Nasal Cannula Oxygen Flow Rate 2 2 10/06/22 08:50 10/06/22 08:51 Temperature Pulse Rate Respiratory Rate Blood Pressure Pulse Oximetry 88 L 95 Oxygen Delivery Method Room Air Nasal Cannula Oxygen Flow Rate 2 <Eliu Triplett DO - Last Filed: 10/06/22 09:51> Orders Ordered: Discontinued Medications Sodium Chloride (Normal Saline 0.9%) 1,000 mls @ 150 mls/hr IV CONT MYRNA Last Infusion: 10/06/22 10:03 Dose: 0 mls/hr Documented By: Infusion: 10/06/22 07:00 Dose: 0 mls/hr Documented By: Admin: 10/06/22 06:18 Dose: 150 mls/hr Documented By: MIROSLAVA Sodium Chloride (Normal Saline 0.9%) 2,299.71 mls @ 766.57 mls/hr 30 ml/kg infuse over 3 hr (2299.71 ml) IV NOW ONE Stop: 10/06/22 09:28 Last Infusion: 10/06/22 09:40 Dose: 0 mls/hr Documented By: Admin: 10/06/22 06:48 Dose: 766.57 mls/hr Documented By: MIROSLAVA Cefepime HCl 2 gm/ Sodium (Chloride) 100 mls @ 200 mls/hr IV NOW ONE Stop: 10/06/22 06:45 Last Infusion: 10/06/22 07:37 Dose: 0 mls/hr Documented By: Admin: 10/06/22 07:06 Dose: 200 mls/hr Documented By: MIROSLAVA Vancomycin HCl/Dextrose (Vancomycin) 1,500 mg in 300 mls @ 200 mls/hr IV NOW ONE Stop: 10/06/22 08:13 Last Infusion: 10/06/22 09:40 Dose: 0 mls/hr Documented By: Admin: 10/06/22 07:40 Dose: 200 mls/hr Documented By: AT Ketorolac Tromethamine (Ketorolac 30 Mg/Ml Vial) 15 mg IV NOW ONE Stop: 10/06/22 06:32 Last Admin: 10/06/22 06:48 Dose: 15 mg Documented By: MIROSLAVA Vital Signs Vital signs: Vital Signs - 8 hr 10/06/22 05:45 10/06/22 06:30 10/06/22 07:00 Temperature 99.2 F Pulse Rate 116 H 102 H 100 H Respiratory Rate 26 H 26 H 26 H Blood Pressure 133/108 H 139/88 135/88 Pulse Oximetry 92 93 97 Oxygen Delivery Method Room Air Room Air Nasal Cannula Oxygen Flow Rate 2 10/06/22 07:30 10/06/22 08:00 10/06/22 08:30 Temperature Pulse Rate 105 H 116 H 103 H Respiratory Rate 24 22 24 Blood Pressure 176/80 H 125/82 136/90 Pulse Oximetry 97 98 96 Oxygen Delivery Method Nasal Cannula Room Air Nasal Cannula Oxygen Flow Rate 2 2 10/06/22 08:50 10/06/22 08:51 Temperature Pulse Rate Respiratory Rate Blood Pressure Pulse Oximetry 88 L 95 Oxygen Delivery Method Room Air Nasal Cannula Oxygen Flow Rate 2 Medical Decision Making <Trenton Davila, DO - Last Filed: 10/07/22 04:59> Lab Data 10/06/22 05:50 10/06/22 05:50 Labs: Lab Results 10/06/22 10/06/22 10/06/22 Range/Units 05:50 05:50 05:50 WBC 4.6 (4.5-11.0) X10^3/uL RBC 3.12 L (4.0-5.2) X10^6/uL Hgb 10.0 L (12.0-16.0) g/dL Hct 29.4 L (36-46) % MCV 94.4 (80-100) fL MCH 32.0 (26-34) PG MCHC 33.9 (30-36) % RDW 12.3 (11.6-14.8) % Plt Count 134 L (150-400) X10^3/uL Neut % (Auto) 76.2 H (50-75) % Lymph % (Auto) 3.1 L (25-40) % Evangeline % (Auto) 19.1 H (3-14) % Eos % (Auto) 1.4 L (2-4) % Baso % (Auto) 0.2 (0-2) % Neut # (Auto) 3500 (8179-9826) /uL Lymph # (Auto) 100 L (6216-2907) /uL Evangeline # (Auto) 900 (0-900) /uL Eos # (Auto) 100 (0-450) /uL Baso # (Auto) 0 (0-100) /uL PT 13.3 H (10.1-12.7) SECONDS INR 1.2 (0.9-1.3) D-Dimer 1659 H (<500) ng/ml Sodium 138 (137-145) mmol/L Potassium 3.4 (3.4-5.1) mmol/L Chloride 101 (98-107) mmol/L Carbon Dioxide 33 H (22-32) mmol/L BUN 8 (7-17) mg/dL Creatinine 0.88 (0.52-1.04) mg/dL Estimated GFR > 60 (>60) mL/min BUN/Creatinine Ratio 9.1 (6-22) Glucose 128 H (80-110) mg/dL Lactate (0.7-2.1) mmol/L Calcium 8.3 L (8.4-10.2) mg/dL Total Bilirubin 0.6 (0.2-1.3) mg/dL AST 18 (14-36) IU/L ALT 21 (<35) IU/L Alkaline Phosphatase 66 (38-126) U/L Total Creatine Kinase 28 L (30-135) U/L CK-MB (CK-2) TNP CK-MB (CK-2) Rel Index TNP Troponin I < 0.012 (0.01-0.034) ng/mL NT-Pro-B Natriuret Pep (<125) pg/mL Total Protein 5.7 L (6.3-8.2) g/dL Albumin 3.4 L (3.5-5.0) g/dL Globulin 2.3 (1.7-4.1) g/dL Albumin/Globulin Ratio 1.5 (1.0-2.8) Lipase 40 D (23-300) U/L Procalcitonin 0.32 (<0.5) ng/mL Chlamy pneumoniae PCR (Not Detect) Adenovirus (PCR) (Not Detect) B. pertussis DNA (PCR) (Not Detecte) B.parapertussis DNA PCR (Not Detecte) Coronavirus OC43 (PCR) (Not Detect) Coronavirus HKU1 (PCR) (Not Detect) Coronavirus 229E (PCR) (Not Detect) SARS-CoV-2 (PCR) (Not Detecte) Coronavirus NL63 (PCR) (Not Detect) Human Metapneumovir PCR (Not Detect) Influenza Type A (PCR) (Not Detect) Influenza Type B (PCR) (Not Detect) M. pneumoniae (PCR) (Not Detect) Parainfluenza 1 (PCR) (Not Detect) Parainfluenza 2 (PCR) (Not Detect) Parainfluenza 3 (PCR) (Not Detect) Parainfluenza 4 (PCR) (Not Detect) RSV (PCR) (Not Detect) Entero/Rhino (PCR) (Not Detect) 10/06/22 10/06/22 10/06/22 Range/Units 05:50 05:50 06:55 WBC (4.5-11.0) X10^3/uL RBC (4.0-5.2) X10^6/uL Hgb (12.0-16.0) g/dL Hct (36-46) % MCV (80-100) fL MCH (26-34) PG MCHC (30-36) % RDW (11.6-14.8) % Plt Count (150-400) X10^3/uL Neut % (Auto) (50-75) % Lymph % (Auto) (25-40) % Evangeline % (Auto) (3-14) % Eos % (Auto) (2-4) % Baso % (Auto) (0-2) % Neut # (Auto) (8505-5994) /uL Lymph # (Auto) (4073-2788) /uL Evangeline # (Auto) (0-900) /uL Eos # (Auto) (0-450) /uL Baso # (Auto) (0-100) /uL PT (10.1-12.7) SECONDS INR (0.9-1.3) D-Dimer (<500) ng/ml Sodium (137-145) mmol/L Potassium (3.4-5.1) mmol/L Chloride (98-107) mmol/L Carbon Dioxide (22-32) mmol/L BUN (7-17) mg/dL Creatinine (0.52-1.04) mg/dL Estimated GFR (>60) mL/min BUN/Creatinine Ratio (6-22) Glucose (80-110) mg/dL Lactate 1.2 (0.7-2.1) mmol/L Calcium (8.4-10.2) mg/dL Total Bilirubin (0.2-1.3) mg/dL AST (14-36) IU/L ALT (<35) IU/L Alkaline Phosphatase (38-126) U/L Total Creatine Kinase (30-135) U/L CK-MB (CK-2) CK-MB (CK-2) Rel Index Troponin I (0.01-0.034) ng/mL NT-Pro-B Natriuret Pep 2940 H (<125) pg/mL Total Protein (6.3-8.2) g/dL Albumin (3.5-5.0) g/dL Globulin (1.7-4.1) g/dL Albumin/Globulin Ratio (1.0-2.8) Lipase (23-300) U/L Procalcitonin (<0.5) ng/mL Chlamy pneumoniae PCR Not detected (Not Detect) Adenovirus (PCR) Not detected (Not Detect) B. pertussis DNA (PCR) Not detected (Not Detecte) B.parapertussis DNA PCR Not detected (Not Detecte) Coronavirus OC43 (PCR) Not detected (Not Detect) Coronavirus HKU1 (PCR) Not detected (Not Detect) Coronavirus 229E (PCR) Not detected (Not Detect) SARS-CoV-2 (PCR) Not detected (Not Detecte) Coronavirus NL63 (PCR) Not detected (Not Detect) Human Metapneumovir PCR Not detected (Not Detect) Influenza Type A (PCR) Not detected (Not Detect) Influenza Type B (PCR) Not detected (Not Detect) M. pneumoniae (PCR) Not detected (Not Detect) Parainfluenza 1 (PCR) Not detected (Not Detect) Parainfluenza 2 (PCR) Not detected (Not Detect) Parainfluenza 3 (PCR) Not detected (Not Detect) Parainfluenza 4 (PCR) Not detected (Not Detect) RSV (PCR) Not detected (Not Detect) Entero/Rhino (PCR) Detected H (Not Detect) 10/06/22 Range/Units 07:53 WBC (4.5-11.0) X10^3/uL RBC (4.0-5.2) X10^6/uL Hgb (12.0-16.0) g/dL Hct (36-46) % MCV (80-100) fL MCH (26-34) PG MCHC (30-36) % RDW (11.6-14.8) % Plt Count (150-400) X10^3/uL Neut % (Auto) (50-75) % Lymph % (Auto) (25-40) % Evangeline % (Auto) (3-14) % Eos % (Auto) (2-4) % Baso % (Auto) (0-2) % Neut # (Auto) (4525-3728) /uL Lymph # (Auto) (9586-8214) /uL Evangeline # (Auto) (0-900) /uL Eos # (Auto) (0-450) /uL Baso # (Auto) (0-100) /uL PT (10.1-12.7) SECONDS INR (0.9-1.3) D-Dimer (<500) ng/ml Sodium (137-145) mmol/L Potassium (3.4-5.1) mmol/L Chloride (98-107) mmol/L Carbon Dioxide (22-32) mmol/L BUN (7-17) mg/dL Creatinine (0.52-1.04) mg/dL Estimated GFR (>60) mL/min BUN/Creatinine Ratio (6-22) Glucose (80-110) mg/dL Lactate (0.7-2.1) mmol/L Calcium (8.4-10.2) mg/dL Total Bilirubin (0.2-1.3) mg/dL AST (14-36) IU/L ALT (<35) IU/L Alkaline Phosphatase (38-126) U/L Total Creatine Kinase (30-135) U/L CK-MB (CK-2) CK-MB (CK-2) Rel Index Troponin I < 0.012 (0.01-0.034) ng/mL NT-Pro-B Natriuret Pep (<125) pg/mL Total Protein (6.3-8.2) g/dL Albumin (3.5-5.0) g/dL Globulin (1.7-4.1) g/dL Albumin/Globulin Ratio (1.0-2.8) Lipase (23-300) U/L Procalcitonin (<0.5) ng/mL Chlamy pneumoniae PCR (Not Detect) Adenovirus (PCR) (Not Detect) B. pertussis DNA (PCR) (Not Detecte) B.parapertussis DNA PCR (Not Detecte) Coronavirus OC43 (PCR) (Not Detect) Coronavirus HKU1 (PCR) (Not Detect) Coronavirus 229E (PCR) (Not Detect) SARS-CoV-2 (PCR) (Not Detecte) Coronavirus NL63 (PCR) (Not Detect) Human Metapneumovir PCR (Not Detect) Influenza Type A (PCR) (Not Detect) Influenza Type B (PCR) (Not Detect) M. pneumoniae (PCR) (Not Detect) Parainfluenza 1 (PCR) (Not Detect) Parainfluenza 2 (PCR) (Not Detect) Parainfluenza 3 (PCR) (Not Detect) Parainfluenza 4 (PCR) (Not Detect) RSV (PCR) (Not Detect) Entero/Rhino (PCR) (Not Detect) <Eliu Triplett DO - Last Filed: 10/06/22 09:51> Differential Diagnosis Chronic Condition is having:: Moderate exacerbation Condition is at treatment goal?: No Medical Records Medical records reviewed: Yes I reviewed the patient's medical records. Lab Data Lab results reviewed: Yes I reviewed the patient's lab results. Labs: Lab Results 10/06/22 10/06/22 10/06/22 Range/Units 05:50 05:50 05:50 WBC 4.6 (4.5-11.0) X10^3/uL RBC 3.12 L (4.0-5.2) X10^6/uL Hgb 10.0 L (12.0-16.0) g/dL Hct 29.4 L (36-46) % MCV 94.4 (80-100) fL MCH 32.0 (26-34) PG MCHC 33.9 (30-36) % RDW 12.3 (11.6-14.8) % Plt Count 134 L (150-400) X10^3/uL Neut % (Auto) 76.2 H (50-75) % Lymph % (Auto) 3.1 L (25-40) % Evangeline % (Auto) 19.1 H (3-14) % Eos % (Auto) 1.4 L (2-4) % Baso % (Auto) 0.2 (0-2) % Neut # (Auto) 3500 (8879-4032) /uL Lymph # (Auto) 100 L (2604-7835) /uL Evangeline # (Auto) 900 (0-900) /uL Eos # (Auto) 100 (0-450) /uL Baso # (Auto) 0 (0-100) /uL PT 13.3 H (10.1-12.7) SECONDS INR 1.2 (0.9-1.3) D-Dimer 1659 H (<500) ng/ml Sodium 138 (137-145) mmol/L Potassium 3.4 (3.4-5.1) mmol/L Chloride 101 (98-107) mmol/L Carbon Dioxide 33 H (22-32) mmol/L BUN 8 (7-17) mg/dL Creatinine 0.88 (0.52-1.04) mg/dL Estimated GFR > 60 (>60) mL/min BUN/Creatinine Ratio 9.1 (6-22) Glucose 128 H (80-110) mg/dL Lactate (0.7-2.1) mmol/L Calcium 8.3 L (8.4-10.2) mg/dL Total Bilirubin 0.6 (0.2-1.3) mg/dL AST 18 (14-36) IU/L ALT 21 (<35) IU/L Alkaline Phosphatase 66 (38-126) U/L Total Creatine Kinase 28 L (30-135) U/L CK-MB (CK-2) TNP CK-MB (CK-2) Rel Index TNP Troponin I < 0.012 (0.01-0.034) ng/mL NT-Pro-B Natriuret Pep (<125) pg/mL Total Protein 5.7 L (6.3-8.2) g/dL Albumin 3.4 L (3.5-5.0) g/dL Globulin 2.3 (1.7-4.1) g/dL Albumin/Globulin Ratio 1.5 (1.0-2.8) Lipase 40 D (23-300) U/L Procalcitonin 0.32 (<0.5) ng/mL Chlamy pneumoniae PCR (Not Detect) Adenovirus (PCR) (Not Detect) B. pertussis DNA (PCR) (Not Detecte) B.parapertussis DNA PCR (Not Detecte) Coronavirus OC43 (PCR) (Not Detect) Coronavirus HKU1 (PCR) (Not Detect) Coronavirus 229E (PCR) (Not Detect) SARS-CoV-2 (PCR) (Not Detecte) Coronavirus NL63 (PCR) (Not Detect) Human Metapneumovir PCR (Not Detect) Influenza Type A (PCR) (Not Detect) Influenza Type B (PCR) (Not Detect) M. pneumoniae (PCR) (Not Detect) Parainfluenza 1 (PCR) (Not Detect) Parainfluenza 2 (PCR) (Not Detect) Parainfluenza 3 (PCR) (Not Detect) Parainfluenza 4 (PCR) (Not Detect) RSV (PCR) (Not Detect) Entero/Rhino (PCR) (Not Detect) 10/06/22 10/06/22 10/06/22 Range/Units 05:50 05:50 06:55 WBC (4.5-11.0) X10^3/uL RBC (4.0-5.2) X10^6/uL Hgb (12.0-16.0) g/dL Hct (36-46) % MCV (80-100) fL MCH (26-34) PG MCHC (30-36) % RDW (11.6-14.8) % Plt Count (150-400) X10^3/uL Neut % (Auto) (50-75) % Lymph % (Auto) (25-40) % Evangeline % (Auto) (3-14) % Eos % (Auto) (2-4) % Baso % (Auto) (0-2) % Neut # (Auto) (2172-5437) /uL Lymph # (Auto) (7156-5770) /uL Evangeline # (Auto) (0-900) /uL Eos # (Auto) (0-450) /uL Baso # (Auto) (0-100) /uL PT (10.1-12.7) SECONDS INR (0.9-1.3) D-Dimer (<500) ng/ml Sodium (137-145) mmol/L Potassium (3.4-5.1) mmol/L Chloride (98-107) mmol/L Carbon Dioxide (22-32) mmol/L BUN (7-17) mg/dL Creatinine (0.52-1.04) mg/dL Estimated GFR (>60) mL/min BUN/Creatinine Ratio (6-22) Glucose (80-110) mg/dL Lactate 1.2 (0.7-2.1) mmol/L Calcium (8.4-10.2) mg/dL Total Bilirubin (0.2-1.3) mg/dL AST (14-36) IU/L ALT (<35) IU/L Alkaline Phosphatase (38-126) U/L Total Creatine Kinase (30-135) U/L CK-MB (CK-2) CK-MB (CK-2) Rel Index Troponin I (0.01-0.034) ng/mL NT-Pro-B Natriuret Pep 2940 H (<125) pg/mL Total Protein (6.3-8.2) g/dL Albumin (3.5-5.0) g/dL Globulin (1.7-4.1) g/dL Albumin/Globulin Ratio (1.0-2.8) Lipase (23-300) U/L Procalcitonin (<0.5) ng/mL Chlamy pneumoniae PCR Not detected (Not Detect) Adenovirus (PCR) Not detected (Not Detect) B. pertussis DNA (PCR) Not detected (Not Detecte) B.parapertussis DNA PCR Not detected (Not Detecte) Coronavirus OC43 (PCR) Not detected (Not Detect) Coronavirus HKU1 (PCR) Not detected (Not Detect) Coronavirus 229E (PCR) Not detected (Not Detect) SARS-CoV-2 (PCR) Not detected (Not Detecte) Coronavirus NL63 (PCR) Not detected (Not Detect) Human Metapneumovir PCR Not detected (Not Detect) Influenza Type A (PCR) Not detected (Not Detect) Influenza Type B (PCR) Not detected (Not Detect) M. pneumoniae (PCR) Not detected (Not Detect) Parainfluenza 1 (PCR) Not detected (Not Detect) Parainfluenza 2 (PCR) Not detected (Not Detect) Parainfluenza 3 (PCR) Not detected (Not Detect) Parainfluenza 4 (PCR) Not detected (Not Detect) RSV (PCR) Not detected (Not Detect) Entero/Rhino (PCR) Detected H (Not Detect) 10/06/22 Range/Units 07:53 WBC (4.5-11.0) X10^3/uL RBC (4.0-5.2) X10^6/uL Hgb (12.0-16.0) g/dL Hct (36-46) % MCV (80-100) fL MCH (26-34) PG MCHC (30-36) % RDW (11.6-14.8) % Plt Count (150-400) X10^3/uL Neut % (Auto) (50-75) % Lymph % (Auto) (25-40) % Evangeline % (Auto) (3-14) % Eos % (Auto) (2-4) % Baso % (Auto) (0-2) % Neut # (Auto) (8362-1313) /uL Lymph # (Auto) (1316-4598) /uL Evangeline # (Auto) (0-900) /uL Eos # (Auto) (0-450) /uL Baso # (Auto) (0-100) /uL PT (10.1-12.7) SECONDS INR (0.9-1.3) D-Dimer (<500) ng/ml Sodium (137-145) mmol/L Potassium (3.4-5.1) mmol/L Chloride (98-107) mmol/L Carbon Dioxide (22-32) mmol/L BUN (7-17) mg/dL Creatinine (0.52-1.04) mg/dL Estimated GFR (>60) mL/min BUN/Creatinine Ratio (6-22) Glucose (80-110) mg/dL Lactate (0.7-2.1) mmol/L Calcium (8.4-10.2) mg/dL Total Bilirubin (0.2-1.3) mg/dL AST (14-36) IU/L ALT (<35) IU/L Alkaline Phosphatase (38-126) U/L Total Creatine Kinase (30-135) U/L CK-MB (CK-2) CK-MB (CK-2) Rel Index Troponin I < 0.012 (0.01-0.034) ng/mL NT-Pro-B Natriuret Pep (<125) pg/mL Total Protein (6.3-8.2) g/dL Albumin (3.5-5.0) g/dL Globulin (1.7-4.1) g/dL Albumin/Globulin Ratio (1.0-2.8) Lipase (23-300) U/L Procalcitonin (<0.5) ng/mL Chlamy pneumoniae PCR (Not Detect) Adenovirus (PCR) (Not Detect) B. pertussis DNA (PCR) (Not Detecte) B.parapertussis DNA PCR (Not Detecte) Coronavirus OC43 (PCR) (Not Detect) Coronavirus HKU1 (PCR) (Not Detect) Coronavirus 229E (PCR) (Not Detect) SARS-CoV-2 (PCR) (Not Detecte) Coronavirus NL63 (PCR) (Not Detect) Human Metapneumovir PCR (Not Detect) Influenza Type A (PCR) (Not Detect) Influenza Type B (PCR) (Not Detect) M. pneumoniae (PCR) (Not Detect) Parainfluenza 1 (PCR) (Not Detect) Parainfluenza 2 (PCR) (Not Detect) Parainfluenza 3 (PCR) (Not Detect) Parainfluenza 4 (PCR) (Not Detect) RSV (PCR) (Not Detect) Entero/Rhino (PCR) (Not Detect) Imaging Data CT scan - chest: Radiologist's Impression: PROCEDURE:? CT ANGIO CHEST PE PROTOCOL ? INDICATIONS:? tachy, hypoxia, recent hospitalization, also ? zoster pna ? TECHNIQUE:? After the administration of intravenous contrast, 2 mm thick sections acquired from the pulmonary apices to the posterior costophrenic angles.? 3-dimensional maximum intensity projection (MIP) coronal and sagittal reformats were then acquired through the thorax.? For radiation dose reduction, the following was used:? automated exposure control, adjustment of mA and/or kV according to patient size.? ? COMPARISON:? [facility], CT, CT CHEST ABDOMEN PELVIS WITHOUT CONTRAST, 09/26/2018, 11:24.? [facility], CT, CT ANGIO CHEST PE PROTOCOL, 08/30/2022, 9:13.? [facility], CT, CT ANGIO CHEST PE PROTOCOL, 09/30/2022, 15:41. ? FINDINGS:? Image quality:? Respiratory motion artifacts are present.? ? Pulmonary arteries:? Pulmonary arteries are normal in size, and demonstrate no intraluminal filling defects to suggest central pulmonary embolism.? ? Lungs and pleura:? There are patchy infiltrates and consolidation in right upper lobe, right lower lobe and left lower lobe.? Small to moderate right pleural effusion, increased since the last exam..? No pleural effusions or pneumothorax.? Central and peripheral airways are patent.? ? Mediastinum:? Heart size is normal, without pericardial effusion.? Mild coronary artery calcification.? No mediastinal or hilar adenopathy.? Thoracic aorta is normal in caliber and enhancement.? Esophagus is normal in caliber.? Small hiatal hernia.? Mild concentric thickening at the gastroesophageal junction.? ? Bones and chest wall:? No suspicious bony lesions.? Ribs and thoracic spine appear intact throughout.? Thyroid gland is unremarkable.? No axillary or supraclavicular adenopathy.? Soft tissue densities in breasts bilaterally are probably asymmetric fibroglandular tissues but cannot rule out masses.? There is a Port-A-Cath in the right anterior chest.? ? ? Multiple compression fractures again noted in thoracic and lumbar spine.? Numerous lucencies are seen in osseous structures, in keeping with history of multiple myelomas. ? Abdomen:? Liver demonstrates nodular contour.? There are calcified granulomas in spleen.? ? ? IMPRESSION:? ? 1. Suboptimal examination due to respiratory motion artifacts.? No definitive evidence for pulmonary embolism. 2. Bilateral airspace infiltrates consistent with pneumonia. 3. Small right pleural effusion, increased since the last exam. 4. Concentric thickening at the gastroesophageal junction.? Consider esophagram or EGD for follow-up. 5.? Multiple compression fractures in thoracic and upper lumbar spine.? There are multiple lucencies in bones in keeping with multiple myelomas.? MDM Narrative Medical decision making narrative: Dr Triplett: Received turned over. Review patient's history and physical and workup up to this point. Reviewed patient's past medical records. She was recently just admitted to the hospital for pneumonia. Was sent home with a prescription for Levaquin. She states she just got that medication yesterday and took a dose yesterday and also today. She is positive for adenovirus. CT scan does show pneumonia but no signs of pulmonary embolism. She also has shingles. After fluids and time here in the emergency department she states she feels much better. We were able to turn her oxygen off when she was lying in bed and she was able to maintain her saturations greater than 95%. States she felt well. She got up and walked to the bathroom when she came back her saturations dropped to 86% she became tachycardic. She stated that she did feel short of breath at the time. We put her back on oxygen and she quickly recovered. The initial plan was to admit the patient to the hospital secondary to the hypoxia and the persistent pneumonia however further questioning the patient we did find out that she does have an oxygen generator at home. She did not have the oxygen tubing. We were able to get her oxygen tubing. I did talk with her oncologist as well. He agreed with the current plan. He wanted me to reiterate that the patient should be on valacyclovir 2 times a day for the rest of her life. I did talk with her about this. She understands this and does have a prescription for this. The reason she came into the emergency department today was because of right-sided chest discomfort. Unsure of the exact etiology for this but it does not appear to be cardiac. It could potentially be her pneumonia. There is no signs of pneumothorax. Patient states she feels comfortable going home now that she has access to her oxygen. She was given strict return precautions. She expressed understanding and agreement. Discharge Plan Departure Patient Disposition: Home Clinical Impression: Pneumonia, Anemia, Hypoxia, Multiple myeloma, Herpes zoster Instructions: DI for Pneumonia -- Adult Activity Restrictions/Additional Instructions: It is important that you continue to take all of your medications as directed. Continue the antibiotics that you started yesterday that were prescribed to you after your last hospital stay. Your oncologist also would like you to continue to take the antiviral medicine twice a day. You should have a prescription for this already as well. Your oncologist stated that he would like to hold on any treatments for today. Your next appointment with him is on the of this month. Please keep that appointment. Use the oxygen at home like we discussed and return to the emergency department for any new or worsening symptoms. Prescriptions: New hydrocodone-acetaminophen 5-325 mg tablet 1 tab PO BEDTIME PRN (Reason: pain) Qty: 7 0RF No Action oxycodone 5 mg tablet 5 mg PO Q8H PRN (Reason: pain) Qty: 14 0RF aspirin 81 mg Tablet 81 mg PO DAILY pantoprazole 40 mg Tablet,Delayed Release (Dr/Ec) 40 mg PO DAILY Pomalyst 3 mg Capsule 3 mg PO DAILY Rx Instructions: Patient takes this for 21 days straight and then is off of it for 7 days. She has 4 capsules left to take and then will be off for one week. levofloxacin 750 mg tablet 750 mg PO DAILY 11 Days Qty: 11 0RF Referrals: Wilfredo Garcia MD [Primary Care Provider] - Stand Alone Forms: Patient Portal/API
--- NOTE | 2022-10-06 05:47 | DI.RAD.S_ITS ---
PROCEDURE: XR CHEST 1V INDICATIONS: chest pain TECHNIQUE: One view of the chest was acquired. COMPARISON: [facility], CT, CT ANGIO CHEST PE PROTOCOL, 09/30/2022, 15:41. [facility], CR, XR CHEST 1V, 09/30/2022, 15:23. FINDINGS: Surgical changes and devices: There is a Port-A-Cath on the right with the tip projecting to the SVC. Lungs and pleura: Infiltrates in the right mid to lower lung zone, decreased since 09/30/2022. No pleural effusions or pneumothorax. Mediastinum: Mediastinal contours appear normal. Heart size is normal. Bones and chest wall: No suspicious bony lesions. Overlying soft tissues appear unremarkable. IMPRESSION: Infiltrates to right mid to lower lung zone compatible with resolving pneumonia. Recommend follow-up to resolution. No significant discrepancy with the shift commander radiology preliminary report. Dictated by: Rome Wilson M.D. on 10/06/2022 at 8:57 Approved by: Rome Wilson M.D. on 10/06/2022 at 8:59
--- NOTE | 2022-10-06 06:03 | PC.NURSE ---
Addendum entered by Domi Martell R.N. 10/06/22 06:44: pt's shingles are on the left back and radiate around to the front, areas are scabbed over with no drainage noted Original Note: pt d/c from [facility] with pneumonia and shingles, pt states when she lays down it is very painful and hurts to breathe, pt's shingles are on her left back, pt is a chemo pt that usually gets a chemo injection weekly but has not had the medication x 3 wks d/t her being ill. States this is a new medication and she was not this sick with the other medications. pt has a port to the right chest wall, not accessed at this time, port area is warm and dry no drainage, redness or tenderness
[2022-10-06] MEDS: SODIUM CHLORIDE 0.9% 1,000 ML 150 ML IV (06:18)
[2022-10-06 06:24] LABS: Add Manual Diff / Slide Review NO; Basophils Absolute Auto 0 /uL (0-100); Basophils Percent Auto 0.2 % (0-2); Eosinophils Absolute Auto 100 /uL (0-450); Eosinophils Percent Auto 1.4 % (2-4); Hematocrit 29.4 % (36-46); Lymphocytes Absolute Auto 100 /uL (1100-4500); Lymphocytes Percent Auto 3.1 % (25-40); Mean Corpuscular HGB Conc 33.9 % (30-36); Mean Corpuscular Volume 94.4 fL (80-100); Monocytes Absolute Auto 900 /uL (0-900); Monocytes Percent Auto 19.1 % (3-14); Neutrophils Absolute Auto 3500 /uL (1500-7000); Neutrophils Percent Auto 76.2 % (50-75); Platelet Count 134 X10^3/uL (150-400); Red Blood Cell Count 3.12 X10^6/uL (4.0-5.2); Red Cell Distribution Width 12.3 % (11.6-14.8); White Blood Cell Count 4.6 X10^3/uL (4.5-11.0)
[2022-10-06 06:26] LABS: INR 1.2 (0.9-1.3); Prothrombin Time 13.3 SECONDS (10.1-12.7)
[2022-10-06 06:28] LABS: D Dimer 1659 ng/ml (<500)
[2022-10-06 06:32] LABS: Lactate (Lactic Acid) 1.2 mmol/L (0.7-2.1)
[2022-10-06 06:33] LABS: Alanine Aminotransferase 21 IU/L (<35); Albumin 3.4 g/dL (3.5-5.0); Albumin Globulin Ratio 1.5 (1.0-2.8); Alkaline Phosphatase 66 U/L (38-126); Aspartate Aminotransferase 18 IU/L (14-36); BUN Creatinine Ratio 9.1 (6-22); Bilirubin Total 0.6 mg/dL (0.2-1.3); Blood Urea Nitrogen 8 mg/dL (7-17); Calcium 8.3 mg/dL (8.4-10.2); Carbon Dioxide 33 mmol/L (22-32); Chloride 101 mmol/L (98-107); Creatine Kinase 28 U/L (30-135); Estimated Glomerular Filt Rate > 60 mL/min (>60); Globulin 2.3 g/dL (1.7-4.1); Glucose 128 mg/dL (80-110); HEMOLYSIS < 15 (0-50); Lipase 40 U/L (23-300); Potassium 3.4 mmol/L (3.4-5.1); Sodium 138 mmol/L (137-145); Total Protein 5.7 g/dL (6.3-8.2)
[2022-10-06 06:42] LABS: NT-proBNP (BNP-Adult 18+) 2940 pg/mL (<125)
--- NOTE | 2022-10-06 06:43 | PC.NURSE ---
pt placed on O2 @ 2liters NC d/t room air sats remain in the low 90's and pt continues tachypneic.
[2022-10-06 06:45] LABS: Troponin I < 0.012 ng/mL (0.01-0.034)
[2022-10-06] MEDS: SODIUM CHLORIDE 0.9% 766.57 ML IV (06:48)
[2022-10-06] MEDS: KETOROLAC 30 MG/ML VIAL 15 MG IV (06:48)
[2022-10-06 06:49] LABS: Procalcitonin 0.32 ng/mL (<0.5)
--- NOTE | 2022-10-06 06:50 | DI.CT.S_ITS ---
PROCEDURE: CT ANGIO CHEST PE PROTOCOL INDICATIONS: tachy, hypoxia, recent hospitalization, also ? zoster pna TECHNIQUE: After the administration of intravenous contrast, 2 mm thick sections acquired from the pulmonary apices to the posterior costophrenic angles. 3-dimensional maximum intensity projection (MIP) coronal and sagittal reformats were then acquired through the thorax. For radiation dose reduction, the following was used: automated exposure control, adjustment of mA and/or kV according to patient size. COMPARISON: [facility], CT, CT CHEST ABDOMEN PELVIS WITHOUT CONTRAST, 09/26/2018, 11:24. Merged With [facility], CT, CT ANGIO CHEST PE PROTOCOL, 08/30/2022, 9:13. Merged With [facility], CT, CT ANGIO CHEST PE PROTOCOL, 09/30/2022, 15:41. FINDINGS: Image quality: Respiratory motion artifacts are present. Pulmonary arteries: Pulmonary arteries are normal in size, and demonstrate no intraluminal filling defects to suggest central pulmonary embolism. Lungs and pleura: There are patchy infiltrates and consolidation in right upper lobe, right lower lobe and left lower lobe. Small to moderate right pleural effusion, increased since the last exam.. No pleural effusions or pneumothorax. Central and peripheral airways are patent. Mediastinum: Heart size is normal, without pericardial effusion. Mild coronary artery calcification. No mediastinal or hilar adenopathy. Thoracic aorta is normal in caliber and enhancement. Esophagus is normal in caliber. Small hiatal hernia. Mild concentric thickening at the gastroesophageal junction. Bones and chest wall: No suspicious bony lesions. Ribs and thoracic spine appear intact throughout. Thyroid gland is unremarkable. No axillary or supraclavicular adenopathy. Soft tissue densities in breasts bilaterally are probably asymmetric fibroglandular tissues but cannot rule out masses. There is a Port-A-Cath in the right anterior chest. Multiple compression fractures again noted in thoracic and lumbar spine. Numerous lucencies are seen in osseous structures, in keeping with history of multiple myelomas. Abdomen: Liver demonstrates nodular contour. There are calcified granulomas in spleen. IMPRESSION: 1. Suboptimal examination due to respiratory motion artifacts. No definitive evidence for pulmonary embolism. 2. Bilateral airspace infiltrates consistent with pneumonia. 3. Small right pleural effusion, increased since the last exam. 4. Concentric thickening at the gastroesophageal junction. Consider esophagram or EGD for follow-up. 5. Multiple compression fractures in thoracic and upper lumbar spine. There are multiple lucencies in bones in keeping with multiple myelomas. Dictated by: Rome Wilson M.D. on 10/06/2022 at 8:00 Approved by: Rome Wilson M.D. on 10/06/2022 at 8:10
[2022-10-06] MEDS: CEFEPIME 2 GM in SODIUM CHLORIDE 0.9% 100 ML IV (07:06)
[2022-10-06] MEDS: VANCOMYCIN 1,500 MG/300 ML PIGGYBACK 200 MG IV (07:40)
[2022-10-06 08:06] LABS: Adenovirus Not Detected (Not Detect); B. parapertussis Not Detected (Not Detecte); Bordetella pertussis Not Detected (Not Detecte); Chlamydophila pneumoniae Not Detected (Not Detect); Coronavirus 229E Not Detected (Not Detect); Coronavirus HKU1 Not Detected (Not Detect); Coronavirus NL 63 Not Detected (Not Detect); Coronavirus OC43 Not Detected (Not Detect); Human Metapneumovirus Not Detected (Not Detect); Human Rhinovirus/Enterovirus Detected (Not Detect); Influenza A Not Detected (Not Detect); Influenza B Not Detected (Not Detect); Mycoplasma pneumoniae Not Detected (Not Detect); Parainfluenza Virus 1 Not Detected (Not Detect); Parainfluenza Virus 2 Not Detected (Not Detect); Parainfluenza Virus 3 Not Detected (Not Detect); Parainfluenza Virus 4 Not Detected (Not Detect); Respiratory Syncytial Virus Not Detected (Not Detect); SARS- CoV-2 Not Detected (Not Detecte)
[2022-10-06 08:21] LABS: Troponin I < 0.012 ng/mL (0.01-0.034)
--- NOTE | 2022-10-06 08:39 | PC.NURSE ---
Pt ambulated to bathroom on RA, desat to 86% and heart rate increase to 135. Pt took a few minutes to recover, now 93% on RA. Ambulated with steady gait. Dr. Triplett notified.
--- NOTE | 2022-10-06 09:39 | PC.NURSE ---
Pt ambulated on 2L NC, saturations 93%.
== END 2022-10-06 10:00 | disposition home or self-care (01) ==
PROVIDERS: Emergency Medicine; Emergency Provider Emergency Medicine; Family Provider Family Medicine; PCP Internal Medicine Hematology & Oncology
DX: J18.9 Pneumonia, unspecified organism (principal); D64.9 Anemia, unspecified; R09.02 Hypoxemia; C90.00 Multiple myeloma not having achieved remission; B02.9 Zoster without complications; Z20.822 Contact with and (suspected) exposure to COVID-19
CPT/HCPCS: 36415; 71045; 71275; 80053; 82550; 83605; 83690; 83880; 84145; 84484; 85025; 85379; 85610; 87040; 87633; 93005; 93010; 96361; 96365; 96366; 96367; 96375; 99285; J0692; J1885

== ENCOUNTER 2023-04-24 04:24 | Inpatient (IN) | payer MEDICARE, MEDICAID, SELFPAY ==
[2017-11-20 18:10] VITALS: PULSE 93; RESP 26; O2SAT 94
[2022-09-30 17:22] VITALS: BMI 30.9
[2023-04-24] VITALS (53 sets, daily range): BP systolic 85–133; BP diastolic 52–88; PULSE 65–115; RESP 17–49; TEMP 30–36.6; O2SAT 76–100; BMI 30.2
--- NOTE | 2023-04-24 04:50 | DI.CT.S_ITS ---
PROCEDURE: CT ANGIO CHEST PE PROTOCOL INDICATIONS: Shortness of breath, hypoxia. TECHNIQUE: After the administration of intravenous contrast, 2 mm thick sections acquired from the pulmonary apices to the posterior costophrenic angles. 3-dimensional maximum intensity projection (MIP) coronal and sagittal reformats were then acquired through the thorax. For radiation dose reduction, the following was used: automated exposure control, adjustment of mA and/or kV according to patient size. COMPARISON: [facility], CT, CT ANGIO CHEST PE PROTOCOL, 08/30/2022, 9:13. [facility], CT, CT ANGIO CHEST PE PROTOCOL, 10/06/2022, 7:27. FINDINGS: Image quality: Excellent. Pulmonary arteries: Pulmonary arteries are normal in size, and demonstrate no intraluminal filling defects to suggest central pulmonary embolism. Lungs and pleura: Poorly defined nodular opacities can be seen throughout the lungs, which overall appear slightly worse on the current study than on the prior. Within the left lower lobe, there is a poorly defined nodule with spiculated margins measuring 9 x 7 mm in greatest axial dimension. The previously seen right-sided pleural effusion has resolved. No pleural effusions or pneumothorax. Central and peripheral airways are patent. Mediastinum: Heart size is moderately enlarged, with particular enlargement of the right heart. No pericardial effusion. No mediastinal or hilar adenopathy. Thoracic aorta is normal in caliber and enhancement. Esophagus is normal in caliber, without hiatal hernia. Stable wall thickening can be seen involving the distal esophagus. Bones and chest wall: No suspicious bony lesions. No displaced rib fractures are seen. Numerous thoracic spine anterior wedge deformities are seen, which appears similar to the prior. Accentuated thoracic kyphosis is seen. Thyroid gland demonstrates no significant abnormality. No axillary or supraclavicular adenopathy. A right-sided chest port is seen, with the tip within the inferior aspect of the superior vena cava. Abdomen: Calcified granulomas can be seen within the spleen. There is reflux of contrast seen into the inferior vena cava and into the hepatic veins. The visualized portions of the upper abdominal structures are otherwise unremarkable for imaging technique. IMPRESSION: Negative for pulmonary embolism. There is cardiomegaly with reflux of contrast seen into the inferior vena cava and into the patent veins. CHF is suspected. 9 mm nodule seen within the left lower lobe. Please consider three-month follow-up noncontrast chest CT. Patchy nodular infiltrates are seen throughout the lungs. Infection is suspected. Stable wall thickening involving the distal esophagus. Please consider gastroesophageal reflux disease. Additional findings: Right-sided chest port Numerous thoracic spine anterior wedge deformities Accentuated thoracic kyphosis Resolved right pleural effusion Prior granulomatous exposure. Note: This case (including differences between this final report and the preliminary report) discussed by telephone with Dr. Leah Acharya at 9:03 a.m. [place] time on April 24, 2023. Dictated by: Ruperto Kc M.D. on 04/24/2023 at 8:54 Approved by: Ruperto Kc M.D. on 04/24/2023 at 9:04
--- NOTE | 2023-04-24 04:52 | ED.SOB ---
HPI - SOB/Dyspnea <Shanda Childress DO - Last Filed: 04/25/23 03:17> General Chief Complaint: Shortness of Breath/Dyspnea Stated Complaint: sob Time Seen by Provider: 04/24/23 04:50 Source: patient and family Mode of arrival: Wheelchair Limitations: no limitations History of Present Illness HPI Narrative: Patient is a 72-year-old female history of multiple myeloma over 5 years presents today with increasing shortness of breath. She reports that over the last 1 week she is had increasing shortness of breath she is unable to sleep. She has severe dyspnea with exertion. No real chest pain she denies fever. She is chronic cough that is nonproductive. She reports that she gets chemotherapy shot every couple weeks. She denies any abdominal pain or lower extremity edema. She reports that she is sometimes on oxygen as needed but has needed it more over the last couple of days. Currently on about 2 L. he was previously admitted to the hospital in September with similar presentation elevated BNP CT scan showed pneumonia. However at the time she was having fever chills and cough Related Data Home Medications Medication Instructions Recorded Confirmed aspirin 81 mg tablet 81 mg PO DAILY 03/08/21 10/01/22 pantoprazole 40 mg tablet,delayed 40 mg PO DAILY 03/08/21 10/01/22 release pomalidomide 3 mg capsule 3 mg PO DAILY 03/08/21 10/01/22 (Pomalyst) Previous Rx's Medication Instructions Recorded oxycodone 5 mg tablet 5 mg PO Q8H PRN pain #14 tabs 12/15/21 hydrocodone 5 mg-acetaminophen 325 1 tab PO BEDTIME PRN pain #7 tabs 10/06/22 mg tablet Allergies Allergy/AdvReac Type Severity Reaction Status Date / Time No Known Drug Allergies Allergy Verified 09/30/22 15:13 Review of Systems <Shanda Childress DO - Last Filed: 04/25/23 03:17> Review of Systems ROS Unobtainable: All systems reviewed & are unremarkable except as noted in HPI and below Patient History <Shanda Childress DO - Last Filed: 04/25/23 03:17> Medical History Multiple myeloma Congestive heart failure Anemia Pneumonia Surgical History No significant past surgical history Family History Mother Cancer Social History household members: friend(s) and other Smoking Status: Former smoker alcohol intake: current additional social history: The patient smokes tobacco. She does not use alcohol. No drugs. Family and social history are otherwise noncontributory Smoking Status: Former smoker tobacco type: cigarettes alcohol intake frequency: holidays/special occasions only Substance Use Type: does not use Exam <Shanda Childress DO - Last Filed: 04/25/23 03:17> Initial Vital Signs Initial Vital Signs: Vital Signs Blood Pressure 93/62 04/24/23 04:34 GENERAL: Alert 72-year-old female in mild respiratory distress HEENT: Head atraumatic,EOMI, pupils reactive, face symmetric, [moist] mucous membranes CARDIOVASCULAR: Regular rate and rhythm without murmurs, rubs or gallops. RESPIRATORY: Tachypnea with crackles by laterally mild conversational dyspnea ABDOMEN: Soft, nontender. Normoactive bowel sounds all 4 quadrants. No guarding or rebound. EXTREMITIES: Normal range of motion, no clubbing or edema. Neurovascularly intact NEUROLOGICAL: Alert and oriented x4.Normal gait and speech. SKIN: Warm, dry, no laceration, no petechiae, no rashes or lesions. <Leah Acharya MD - Last Filed: 04/24/23 07:43> Initial Vital Signs Initial Vital Signs: Vital Signs Blood Pressure 93/62 04/24/23 04:34 Course <Shanda Childress DO - Last Filed: 04/25/23 03:17> Orders Ordered: ED Orders 04/25/23 05:00 BMP [Basic Metabolic Panel] DAILY CBC Auto Diff [Complete Blood Count AUTO DIFF] DAILY Procalcitonin DAILY 04/26/23 05:00 BMP [Basic Metabolic Panel] DAILY CBC Auto Diff [Complete Blood Count AUTO DIFF] DAILY Procalcitonin DAILY 04/27/23 05:00 BMP [Basic Metabolic Panel] DAILY CBC Auto Diff [Complete Blood Count AUTO DIFF] DAILY Procalcitonin DAILY 04/28/23 05:00 BMP [Basic Metabolic Panel] DAILY CBC Auto Diff [Complete Blood Count AUTO DIFF] DAILY 04/29/23 05:00 BMP [Basic Metabolic Panel] DAILY CBC Auto Diff [Complete Blood Count AUTO DIFF] DAILY Acetaminophen (Acetaminophen 325 Mg Tablet) 650 mg PO Q6H PRN PRN Reason: Fever/Mild Pain (1-3) Last Admin: 04/24/23 20:27 Dose: 650 mg Documented By: FR Aspirin (Aspirin Ec 81 Mg Tablet) 81 mg PO DAILY COUNTS INCLUDE 234 BEDS AT THE [facility] Last Admin: 04/24/23 12:57 Dose: 81 mg Documented By: BV Azithromycin (Azithromycin 250 Mg Tablet) 500 mg PO DAILY COUNTS INCLUDE 234 BEDS AT THE [facility] Stop: 04/25/23 09:01 Last Admin: 04/24/23 11:33 Dose: Not Given Documented By: Admin: 04/24/23 08:10 Dose: 500 mg Documented By: SPF Benzonatate (Benzonatate 100 Mg Capsule) 100 mg PO TID PRN PRN Reason: Cough Last Admin: 04/24/23 20:26 Dose: 100 mg Documented By: Admin: 04/24/23 12:57 Dose: 100 mg Documented By: BV Furosemide (Furosemide 40 Mg/4 Ml Vial) 40 mg IV 1600,0800 COUNTS INCLUDE 234 BEDS AT THE [facility] Last Admin: 04/24/23 15:40 Dose: 40 mg Documented By: BV Guaifenesin (Guaifenesin Er 600 Mg Tab) 600 mg PO BID COUNTS INCLUDE 234 BEDS AT THE [facility] Last Admin: 04/24/23 20:26 Dose: 600 mg Documented By: Admin: 04/24/23 12:57 Dose: 600 mg Documented By: BV Heparin Sodium (Porcine) (Heparin 5,000 Unit/Ml Vial) 5,000 unit SUBCUT BID COUNTS INCLUDE 234 BEDS AT THE [facility] Last Admin: 04/24/23 20:26 Dose: 5,000 unit Documented By: Admin: 04/24/23 12:56 Dose: 5,000 unit Documented By: BV Heparin Sodium (Porcine) (Heparin 500 Unit/5 Ml Port Flush) 500 unit IV PRN PRN PRN Reason: Flush dexmedeTOMIDine in 0.9 % NaCL (Precedex) 400 mcg in 100 mls @ 3.742 mls/hr IV TITRATE COUNTS INCLUDE 234 BEDS AT THE [facility]; Protocol Last Admin: 04/25/23 02:15 Dose: 0.5 mcg/kg/hr, 9.355 mls/hr Documented By: Titration: 04/25/23 02:15 Dose: Infused Documented By: Titration: 04/24/23 19:00 Dose: 0.6 mcg/kg/hr, 11.226 mls/hr Documented By: Titration: 04/24/23 18:43 Dose: 0.4 mcg/kg/hr, 7.484 mls/hr Documented By: Admin: 04/24/23 18:06 Dose: 0.2 mcg/kg/hr, 3.742 mls/hr Documented By: CW Sodium Chloride (Normal Saline 0.9%) 250 mls @ 21 mls/hr IV Q24H PRN PRN Reason: Flush Last Admin: 04/24/23 18:40 Dose: 21 mls/hr Documented By: CW Piperacillin Sod/Tazobactam (Sod 3.375 gm/ Sodium Chloride) 100 mls @ 25 mls/hr IV Q8H MYRNA Last Admin: 04/24/23 23:31 Dose: 25 mls/hr Documented By: Melatonin (Melatonin 3 Mg Tablet) 6 mg PO BEDTIME PRN PRN Reason: Insomnia Last Admin: 04/24/23 20:27 Dose: 6 mg Documented By: FR Naloxone HCl (Naloxone 0.4 Mg/Ml Vial) 0.2 mg IV Q2MIN PRN PRN Reason: Opiate Reversal Oxycodone HCl (Oxycodone Ir 5 Mg Tablet) 5 mg PO Q8H PRN PRN Reason: pain Last Admin: 04/24/23 20:27 Dose: 5 mg Documented By: Pantoprazole Sodium (Pantoprazole Dr 40 Mg Tablet) 40 mg PO 0700 COUNTS INCLUDE 234 BEDS AT [facility] Polyethylene Glycol (Polyethylene Glycol 3350 17 Gm Powd.Pack) 17 gm PO DAILY PRN PRN Reason: Constipation Prednisone (Prednisone 20 Mg Tablet) 40 mg PO DAILY COUNTS INCLUDE 234 BEDS AT [facility] Stop: 04/28/23 09:01 Last Admin: 04/24/23 12:57 Dose: 40 mg Documented By: ABIGAIL Sennosides (Sennosides 8.6 Mg Tablet) 8.6 mg PO BID PRN PRN Reason: Constipation Sodium Chloride (Sodium Chloride 0.9% Flush) 10 ml IV BID MYRNA Last Admin: 04/24/23 20:26 Dose: 10 ml Documented By: Admin: 04/24/23 15:41 Dose: 10 ml Documented By: ABIGAIL Discontinued Medications Furosemide (Furosemide 40 Mg/4 Ml Vial) 40 mg IV NOW ONE Stop: 04/24/23 04:51 Last Admin: 04/24/23 05:36 Dose: 40 mg Documented By: LEOBARDO Ceftriaxone Sodium 1,000 mg/ (Sodium Chloride) 100 mls @ 200 mls/hr IV Q24H MYRNA Stop: 04/25/23 07:44 Last Infusion: 04/24/23 09:00 Dose: Infused Documented By: Admin: 04/24/23 08:10 Dose: 200 mls/hr Documented By: LEONORA Piperacillin Sod/Tazobactam (Sod 3.375 gm/ Sodium Chloride) 100 mls @ 200 mls/hr IV NOW ONE Stop: 04/24/23 18:44 Last Infusion: 04/24/23 20:00 Dose: Infused Documented By: Admin: 04/24/23 18:42 Dose: 200 mls/hr Documented By: PIETRO Magnesium Chloride (Magnesium Chloride 64 Mg Tablet) 128 mg PO NOW ONE Stop: 04/24/23 09:01 Last Admin: 04/24/23 10:01 Dose: 128 mg Documented By: ABIGAIL Vital Signs Vital signs: Vital Signs - 8 hr 04/24/23 04:34 04/24/23 04:35 04/24/23 04:39 Temperature Pulse Rate 112 H 108 H Respiratory Rate Blood Pressure 93/62 Pulse Oximetry 76 L 93 Oxygen Delivery Method Oxygen Flow Rate 04/24/23 04:39 04/24/23 04:44 04/24/23 05:00 Temperature 98 F Pulse Rate 112 H 112 H Respiratory Rate 36 H Blood Pressure 126/78 93/62 Pulse Oximetry 93 92 Oxygen Delivery Method Nasal Cannula Oxygen Flow Rate 2 04/24/23 05:00 04/24/23 05:30 04/24/23 05:30 Temperature Pulse Rate 114 H Respiratory Rate Blood Pressure 133/82 123/71 Pulse Oximetry 95 Oxygen Delivery Method Nasal Cannula Oxygen Flow Rate 2 04/24/23 06:12 04/24/23 06:23 04/24/23 06:23 Temperature Pulse Rate 111 H 109 H Respiratory Rate 18 24 Blood Pressure 119/81 Pulse Oximetry 79 L 91 Oxygen Delivery Method Nasal Cannula Oxygen Flow Rate 5 <Leah Acharya MD - Last Filed: 04/24/23 07:43> Orders Ordered: ED Orders 04/25/23 05:00 BMP [Basic Metabolic Panel] DAILY CBC Auto Diff [Complete Blood Count AUTO DIFF] DAILY Procalcitonin DAILY 04/26/23 05:00 BMP [Basic Metabolic Panel] DAILY CBC Auto Diff [Complete Blood Count AUTO DIFF] DAILY Procalcitonin DAILY 04/27/23 05:00 BMP [Basic Metabolic Panel] DAILY CBC Auto Diff [Complete Blood Count AUTO DIFF] DAILY Procalcitonin DAILY 04/28/23 05:00 BMP [Basic Metabolic Panel] DAILY CBC Auto Diff [Complete Blood Count AUTO DIFF] DAILY 04/29/23 05:00 BMP [Basic Metabolic Panel] DAILY CBC Auto Diff [Complete Blood Count AUTO DIFF] DAILY Acetaminophen (Acetaminophen 325 Mg Tablet) 650 mg PO Q6H PRN PRN Reason: Fever/Mild Pain (1-3) Last Admin: 04/24/23 20:27 Dose: 650 mg Documented By: FR Aspirin (Aspirin Ec 81 Mg Tablet) 81 mg PO DAILY COUNTS INCLUDE 234 BEDS AT [facility] Last Admin: 04/24/23 12:57 Dose: 81 mg Documented By: BV Azithromycin (Azithromycin 250 Mg Tablet) 500 mg PO DAILY COUNTS INCLUDE 234 BEDS AT [facility] Stop: 04/25/23 09:01 Last Admin: 04/24/23 11:33 Dose: Not Given Documented By: Admin: 04/24/23 08:10 Dose: 500 mg Documented By: SPF Benzonatate (Benzonatate 100 Mg Capsule) 100 mg PO TID PRN PRN Reason: Cough Last Admin: 04/24/23 20:26 Dose: 100 mg Documented By: Admin: 04/24/23 12:57 Dose: 100 mg Documented By: BV Furosemide (Furosemide 40 Mg/4 Ml Vial) 40 mg IV 1600,0800 COUNTS INCLUDE 234 BEDS AT [facility] Last Admin: 04/24/23 15:40 Dose: 40 mg Documented By: BV Guaifenesin (Guaifenesin Er 600 Mg Tab) 600 mg PO BID COUNTS INCLUDE 234 BEDS AT [facility] Last Admin: 04/24/23 20:26 Dose: 600 mg Documented By: Admin: 04/24/23 12:57 Dose: 600 mg Documented By: BV Heparin Sodium (Porcine) (Heparin 5,000 Unit/Ml Vial) 5,000 unit SUBCUT BID COUNTS INCLUDE 234 BEDS AT [facility] Last Admin: 04/24/23 20:26 Dose: 5,000 unit Documented By: Admin: 04/24/23 12:56 Dose: 5,000 unit Documented By: BV Heparin Sodium (Porcine) (Heparin 500 Unit/5 Ml Port Flush) 500 unit IV PRN PRN PRN Reason: Flush dexmedeTOMIDine in 0.9 % NaCL (Precedex) 400 mcg in 100 mls @ 3.742 mls/hr IV TITRATE MYRNA; Protocol Last Admin: 04/25/23 02:15 Dose: 0.5 mcg/kg/hr, 9.355 mls/hr Documented By: Titration: 04/25/23 02:15 Dose: Infused Documented By: Titration: 04/24/23 19:00 Dose: 0.6 mcg/kg/hr, 11.226 mls/hr Documented By: Titration: 04/24/23 18:43 Dose: 0.4 mcg/kg/hr, 7.484 mls/hr Documented By: Admin: 04/24/23 18:06 Dose: 0.2 mcg/kg/hr, 3.742 mls/hr Documented By: CW Sodium Chloride (Normal Saline 0.9%) 250 mls @ 21 mls/hr IV Q24H PRN PRN Reason: Flush Last Admin: 04/24/23 18:40 Dose: 21 mls/hr Documented By: CW Piperacillin Sod/Tazobactam (Sod 3.375 gm/ Sodium Chloride) 100 mls @ 25 mls/hr IV Q8H MYRNA Last Admin: 04/24/23 23:31 Dose: 25 mls/hr Documented By: FR Melatonin (Melatonin 3 Mg Tablet) 6 mg PO BEDTIME PRN PRN Reason: Insomnia Last Admin: 04/24/23 20:27 Dose: 6 mg Documented By: FR Naloxone HCl (Naloxone 0.4 Mg/Ml Vial) 0.2 mg IV Q2MIN PRN PRN Reason: Opiate Reversal Oxycodone HCl (Oxycodone Ir 5 Mg Tablet) 5 mg PO Q8H PRN PRN Reason: pain Last Admin: 04/24/23 20:27 Dose: 5 mg Documented By: FR Pantoprazole Sodium (Pantoprazole Dr 40 Mg Tablet) 40 mg PO 0700 COUNTS INCLUDE 234 BEDS AT [facility] Polyethylene Glycol (Polyethylene Glycol 3350 17 Gm Powd.Pack) 17 gm PO DAILY PRN PRN Reason: Constipation Prednisone (Prednisone 20 Mg Tablet) 40 mg PO DAILY COUNTS INCLUDE 234 BEDS AT [facility] Stop: 04/28/23 09:01 Last Admin: 04/24/23 12:57 Dose: 40 mg Documented By: BV Sennosides (Sennosides 8.6 Mg Tablet) 8.6 mg PO BID PRN PRN Reason: Constipation Sodium Chloride (Sodium Chloride 0.9% Flush) 10 ml IV BID COUNTS INCLUDE 234 BEDS AT [facility] Last Admin: 04/24/23 20:26 Dose: 10 ml Documented By: Admin: 04/24/23 15:41 Dose: 10 ml Documented By: ABIGAIL Discontinued Medications Furosemide (Furosemide 40 Mg/4 Ml Vial) 40 mg IV NOW ONE Stop: 04/24/23 04:51 Last Admin: 04/24/23 05:36 Dose: 40 mg Documented By: LEOBARDO Ceftriaxone Sodium 1,000 mg/ (Sodium Chloride) 100 mls @ 200 mls/hr IV Q24H MYRNA Stop: 04/25/23 07:44 Last Infusion: 04/24/23 09:00 Dose: Infused Documented By: Admin: 04/24/23 08:10 Dose: 200 mls/hr Documented By: LEONORA Piperacillin Sod/Tazobactam (Sod 3.375 gm/ Sodium Chloride) 100 mls @ 200 mls/hr IV NOW ONE Stop: 04/24/23 18:44 Last Infusion: 04/24/23 20:00 Dose: Infused Documented By: Admin: 04/24/23 18:42 Dose: 200 mls/hr Documented By: PIETRO Magnesium Chloride (Magnesium Chloride 64 Mg Tablet) 128 mg PO NOW ONE Stop: 04/24/23 09:01 Last Admin: 04/24/23 10:01 Dose: 128 mg Documented By: ABIGAIL Vital Signs Vital signs: Vital Signs - 8 hr 04/24/23 04:34 04/24/23 04:35 04/24/23 04:39 Temperature Pulse Rate 112 H 108 H Respiratory Rate Blood Pressure 93/62 Pulse Oximetry 76 L 93 Oxygen Delivery Method Oxygen Flow Rate 04/24/23 04:39 04/24/23 04:44 04/24/23 05:00 Temperature 98 F Pulse Rate 112 H 112 H Respiratory Rate 36 H Blood Pressure 126/78 93/62 Pulse Oximetry 93 92 Oxygen Delivery Method Nasal Cannula Oxygen Flow Rate 2 04/24/23 05:00 04/24/23 05:30 04/24/23 05:30 Temperature Pulse Rate 114 H Respiratory Rate Blood Pressure 133/82 123/71 Pulse Oximetry 95 Oxygen Delivery Method Nasal Cannula Oxygen Flow Rate 2 04/24/23 06:12 04/24/23 06:23 04/24/23 06:23 Temperature Pulse Rate 111 H 109 H Respiratory Rate 18 24 Blood Pressure 119/81 Pulse Oximetry 79 L 91 Oxygen Delivery Method Nasal Cannula Oxygen Flow Rate 5 MDM - SOB/Dyspnea <Shanda Monroe, DO - Last Filed: 04/25/23 03:17> Lab Data 04/24/23 05:10 04/24/23 05:10 Labs: Lab Results 04/24/23 04/24/23 Range/Units 04:42 05:10 WBC 9.6 (4.5-11.0) X10^3/uL RBC 3.36 L (4.0-5.2) X10^6/uL Hgb 10.6 L (12.0-16.0) g/dL Hct 31.4 L (36-46) % MCV 93.4 (80-100) fL MCH 31.5 (26-34) PG MCHC 33.7 (30-36) % RDW 14.8 (11.6-14.8) % Plt Count 139 L (150-400) X10^3/uL Neut % (Auto) Not Reportable Lymph % (Auto) Not Reportable [place] % (Auto) Not Reportable Eos % (Auto) Not Reportable Baso % (Auto) Not Reportable Lymph # (Auto) Not Reportable [place] # (Auto) Not Reportable Baso # (Auto) Not Reportable Total Counted 100 Seg Neutrophils % 69.0 (38-70) % Band Neutrophils % 20.0 H (3-7) % Lymphocytes % (Manual) 4.0 L (25-45) % Monocytes % (Manual) 5.0 (2-11) % Basophils % (Manual) 1.0 (0-1) % Myelocytes % 1.0 H (-0) % Neutrophils # (Manual) 8544 H (8729-0913) /uL RBC Morphology See below Anisocytosis 1+ H PT 15.8 H (10.1-12.7) SECONDS INR 1.4 H (0.9-1.3) Sodium 134 L (137-145) mmol/L Potassium 4.8 (3.4-5.1) mmol/L Chloride 96 L (98-107) mmol/L Carbon Dioxide 30 (22-32) mmol/L BUN 28 H (7-17) mg/dL Creatinine 1.28 H (0.52-1.04) mg/dL Estimated GFR 45 L (>60) mL/min BUN/Creatinine Ratio 21.9 (6-22) Glucose 155 H (80-110) mg/dL Lactate 1.3 (0.7-2.1) mmol/L Calcium 8.7 (8.4-10.2) mg/dL Magnesium 1.4 L (1.6-2.3) mg/dL Total Bilirubin 1.4 H (0.2-1.3) mg/dL AST 26 (14-36) IU/L ALT 19 (<35) IU/L Alkaline Phosphatase 92 (38-126) U/L Troponin I 0.029 (0.01-0.034) ng/mL NT-Pro-B Natriuret Pep 06738 H (<125) pg/mL Total Protein 6.0 L (6.3-8.2) g/dL Albumin 3.6 (3.5-5.0) g/dL Globulin 2.4 (1.7-4.1) g/dL Albumin/Globulin Ratio 1.5 (1.0-2.8) Procalcitonin 0.12 (<0.5) ng/mL TSH 3.35 (0.47-4.68) uIU/mL SARS-CoV-2 (PCR) Negative (Negative) Influenza A (RT-PCR) Flu a negative (NEGATIVE) Influenza B (RT-PCR) Flu b negative (NEGATIVE) Urine Dip Bedside Urine Glucose Negative Bedside Urine Bilirubin - Negative Bedside Urine Ketone - Negative Urine Specific Walters 1.010 Bedside Urine Occult Blood - Negative Bedside Urine pH 6.0 Bedside Urine Protein - Negative Bedside Urine Urobilinogen - Negative Bedside Urine Nitrite - Negative Bedside Urine Leukocytes - Negative Esterase Imaging Data CT scan - chest: Radiologist's Impression: Preliminary report no pulmonary embolism scattered reticular nodule type infiltrate throughout right lung likely infectious etiology. Increase in size of left lower lobe nodule concern for malignancy. ECG Data Interpretation: Sinus rhythm rate 110 IL interval 140 QRS 90 QTC 452 mild artifact noted no ST changes MDM Narrative Medical decision making narrative: Patient is 72-year-old female presenting today with increasing shortness of breath. Her echocardiogram in September showed an EF of 45-50%. Today her BNP is 1700 up significantly from previously previously was 10,400 and trended down to 2900. She is a negative troponin. She is given Lasix she is been urinating feeling better. Difficult to get good read on pulse oximeter oxygen is increased but she is awake alert sitting and playing a game on her phone. She continues to have audible wheezing but no conversational dyspnea overall looks comfortable. Other blood work does not show any clinical significant abnormality. CT angio was done secondary to hypoxia and cancer to rule out pulmonary embolism although this is clinically congestive heart failure. CT does not show any pulmonary embolism suggested an infectious etiology however he is no fever leukocytosis I do not think infection. It does appear that Oncology started her on furosemide 20 mg once a day April 12. Patient is given 40 mg of Lasix she started urinating signed out to dr Acharya 730am care is reviewed with Dr. Maciel, hospitalist. Reviewed findings of CT scan including absence of pulmonary embolism, reticular nodular type infiltrate concerning for infection (he will add antibiotics when she is on the floor, there is no evidence of sepsis at this time), and concern for malignancy with the left lower lobe lung nodule growing. Admit is accepted. <Leah Acharya MD - Last Filed: 04/24/23 07:43> Lab Data Labs: Lab Results 04/24/23 04/24/23 Range/Units 04:42 05:10 WBC 9.6 (4.5-11.0) X10^3/uL RBC 3.36 L (4.0-5.2) X10^6/uL Hgb 10.6 L (12.0-16.0) g/dL Hct 31.4 L (36-46) % MCV 93.4 (80-100) fL MCH 31.5 (26-34) PG MCHC 33.7 (30-36) % RDW 14.8 (11.6-14.8) % Plt Count 139 L (150-400) X10^3/uL Neut % (Auto) Not Reportable Lymph % (Auto) Not Reportable [place] % (Auto) Not Reportable Eos % (Auto) Not Reportable Baso % (Auto) Not Reportable Lymph # (Auto) Not Reportable [place] # (Auto) Not Reportable Baso # (Auto) Not Reportable Total Counted 100 Seg Neutrophils % 69.0 (38-70) % Band Neutrophils % 20.0 H (3-7) % Lymphocytes % (Manual) 4.0 L (25-45) % Monocytes % (Manual) 5.0 (2-11) % Basophils % (Manual) 1.0 (0-1) % Myelocytes % 1.0 H (-0) % Neutrophils # (Manual) 8544 H (5007-3612) /uL RBC Morphology See below Anisocytosis 1+ H PT 15.8 H (10.1-12.7) SECONDS INR 1.4 H (0.9-1.3) Sodium 134 L (137-145) mmol/L Potassium 4.8 (3.4-5.1) mmol/L Chloride 96 L (98-107) mmol/L Carbon Dioxide 30 (22-32) mmol/L BUN 28 H (7-17) mg/dL Creatinine 1.28 H (0.52-1.04) mg/dL Estimated GFR 45 L (>60) mL/min BUN/Creatinine Ratio 21.9 (6-22) Glucose 155 H (80-110) mg/dL Lactate 1.3 (0.7-2.1) mmol/L Calcium 8.7 (8.4-10.2) mg/dL Magnesium 1.4 L (1.6-2.3) mg/dL Total Bilirubin 1.4 H (0.2-1.3) mg/dL AST 26 (14-36) IU/L ALT 19 (<35) IU/L Alkaline Phosphatase 92 (38-126) U/L Troponin I 0.029 (0.01-0.034) ng/mL NT-Pro-B Natriuret Pep 89177 H (<125) pg/mL Total Protein 6.0 L (6.3-8.2) g/dL Albumin 3.6 (3.5-5.0) g/dL Globulin 2.4 (1.7-4.1) g/dL Albumin/Globulin Ratio 1.5 (1.0-2.8) Procalcitonin 0.12 (<0.5) ng/mL TSH 3.35 (0.47-4.68) uIU/mL SARS-CoV-2 (PCR) Negative (Negative) Influenza A (RT-PCR) Flu a negative (NEGATIVE) Influenza B (RT-PCR) Flu b negative (NEGATIVE) Urine Dip Bedside Urine Glucose Negative Bedside Urine Bilirubin - Negative Bedside Urine Ketone - Negative Urine Specific [place] 1.010 Bedside Urine Occult Blood - Negative Bedside Urine pH 6.0 Bedside Urine Protein - Negative Bedside Urine Urobilinogen - Negative Bedside Urine Nitrite - Negative Bedside Urine Leukocytes - Negative Esterase MDM Narrative Medical decision making narrative: Patient is 72-year-old female presenting today with increasing shortness of breath. Her echocardiogram in September showed an EF of 45-50%. Today her BNP is 1700 up significantly from previously previously was 10,400 and trended down to 2900. She is a negative troponin. She is given Lasix she is been urinating feeling better. Difficult to get good read on pulse oximeter oxygen is increased but she is awake alert sitting and playing a game on her phone. She continues to have audible wheezing but no conversational dyspnea overall looks comfortable. Other blood work does not show any clinical significant abnormality. CT angio was done secondary to hypoxia and cancer to rule out pulmonary embolism although this is clinically congestive heart failure. CT does not show any pulmonary embolism suggested an infectious etiology however he is no fever leukocytosis I do not think infection. It does appear that Oncology started her on furosemide 20 mg once a day April 12. Patient is given 40 mg of Lasix she started urinating 730am care is reviewed with Dr. Maciel, hospitalist. Reviewed findings of CT scan including absence of pulmonary embolism, reticular nodular type infiltrate concerning for infection (he will add antibiotics when she is on the floor, there is no evidence of sepsis at this time), and concern for malignancy with the left lower lobe lung nodule growing. Admit is accepted. Discharge Plan Departure Patient Disposition: Admitted As Inpatient Clinical Impression: Lung nodules, Acute kidney injury Acute exacerbation of CHF (congestive heart failure) Qualifiers: Heart failure type: unspecified Qualified Code(s): I50.9 - Heart failure, unspecified Admit Date/Time: 04/24/23 07:44 Admit Provider: Doyle Maciel
[2023-04-24 05:26] LABS: Hematocrit 31.4 % (36-46); Hemoglobin 10.6 g/dL (12.0-16.0); Mean Corpuscular HGB Conc 33.7 % (30-36); Mean Corpuscular Hemoglobin 31.5 PG (26-34); Mean Corpuscular Volume 93.4 fL (80-100); Platelet Count 139 X10^3/uL (150-400); Red Blood Cell Count 3.36 X10^6/uL (4.0-5.2); Red Cell Distribution Width 14.8 % (11.6-14.8); White Blood Cell Count 9.6 X10^3/uL (4.5-11.0)
[2023-04-24 05:27] LABS: Add Manual Diff / Slide Review YES
[2023-04-24 05:34] LABS: INR 1.4 (0.9-1.3); Prothrombin Time 15.8 SECONDS (10.1-12.7)
[2023-04-24] MEDS: FUROSEMIDE 40 MG/4 ML VIAL IV ×2 (05:36→15:40)
[2023-04-24 05:38] LABS: Lactate (Lactic Acid) 1.3 mmol/L (0.7-2.1)
[2023-04-24 05:39] LABS: Alanine Aminotransferase 19 IU/L (<35); Albumin 3.6 g/dL (3.5-5.0); Albumin Globulin Ratio 1.5 (1.0-2.8); Alkaline Phosphatase 92 U/L (38-126); Aspartate Aminotransferase 26 IU/L (14-36); BUN Creatinine Ratio 21.9 (6-22); Bilirubin Total 1.4 mg/dL (0.2-1.3); Blood Urea Nitrogen 28 mg/dL (7-17); Calcium 8.7 mg/dL (8.4-10.2); Carbon Dioxide 30 mmol/L (22-32); Chloride 96 mmol/L (98-107); Estimated Glomerular Filt Rate 45 mL/min (>60); Globulin 2.4 g/dL (1.7-4.1); Glucose 155 mg/dL (80-110); HEMOLYSIS < 15 (0-50); Potassium 4.8 mmol/L (3.4-5.1); Sodium 134 mmol/L (137-145)
[2023-04-24 05:50] LABS: NT-proBNP (BNP-Adult 18+) 21700 pg/mL (<125); Troponin I 0.029 ng/mL (0.01-0.034)
[2023-04-24 06:19] LABS: Influenza A - CEPHEID Flu A NEGATIVE (NEGATIVE); Influenza B - CEPHEID Flu B NEGATIVE (NEGATIVE)
[2023-04-24 06:21] LABS: COVID-19 CEPHEID 4-PLEX PCR Negative (Negative)
[2023-04-24 06:52] LABS: Neutrophils Absolute Manual 8544 /uL (3000-5900); Total Cells Counted 100
[2023-04-24 06:53] LABS: Anisocytosis 1+
--- NOTE | 2023-04-24 07:34 | PC.NURSE ---
Patient laying in bed asleep, tachypneic at 34 respirations/min. Patient woke up and states she does not have any pain or nausea. Oxygen saturation 99-100% on 5L NC. Oxygen flow decreased to 4L/min. No further concerns at this time.
--- NOTE | 2023-04-24 07:36 | DI.ECHO.S_ITS ---
[facility] +---------+ : : [address] : [address] : : : : [id number] : : : : Phone: [phone]+ Echocardiogram Report + + :Name: MICHI LEA Study Date: 04/25/2023 Height: 62 in : :[facility] ReadingLocation: Weight: 165 lb: : Gender: Female BSA: 1.8 m2 : :: 1950 Age: 72 yrs BP: 93/54 mmHg: :Reason For Study: CHF : :Ordering Physician: ERIKA, : :EDY Chisholm Performed By: Martha Aguilar : :Referring: EDY JAMES : + + Interpretation Summary The study quality was technically difficult. The ejection fraction is estimated to be 40-45%. The interventricular septum is flattened, consistent with a right ventricular pressure/volume condition. The right ventricle is severely dilated. Right ventricular systolic function is moderately reduced. The right atrium is severely dilated. There is no Doppler evidence for an interatrial shunt. There is mild aortic valve sclerosis. There is mild to moderate tricuspid regurgitation. The right ventricular systolic pressure is estimated to be at least 57 mmHg based on an estimated right atrial pressure of 8 mm Hg. Procedure: A two-dimensional transthoracic echocardiogram with color flow and Doppler was performed. The study quality was technically difficult. Comparison is made with the echocardiogram of 10/03/2022. The patient was in normal sinus rhythm during the exam. Left Ventricle: The left ventricle is normal in size. The ejection fraction is estimated to be 40-45%. The interventricular septum is flattened, consistent with a right ventricular pressure/volume condition. Diastolic parameters suggest a relaxation abnormality of the left ventricle, consistent with probable normal filling pressures. Right Ventricle: The right ventricle is severely dilated. Right ventricular systolic function is moderately reduced. Atria: The left atrial size is normal. The right atrium is severely dilated. There is no Doppler evidence for an interatrial shunt. Mitral Valve: The mitral valve leaflets appear mildly thickened, but open well. There is no mitral valve stenosis. There is trace mitral regurgitation. Aortic Valve: The aortic valve is trileaflet. The aortic valve opens well. There is mild aortic valve sclerosis. There is no aortic valve stenosis. There is trace aortic regurgitation. Tricuspid Valve: The tricuspid valve is normal. There is no tricuspid stenosis. There is mild to moderate tricuspid regurgitation. The right ventricular systolic pressure is estimated to be at least 57 mmHg based on an estimated right atrial pressure of 8 mm Hg. Pulmonic Valve: The pulmonic valve is not well visualized. There is no pulmonic valvular stenosis. There is mild pulmonic regurgitation. Great Vessels: The aortic root is normal size. The ascending aorta is mildly enlarged. The pulmonary artery is normal size. The IVC is dilated (diameter is greater than 2.1 cm) yet it collapses greater than 50% with a sniff. This suggests a right atrial pressure of 8 mm Hg. Pericardium/ Pleura There is no pericardial effusion. There is no pleural effusion. MMode/2D Measurements & Calculations LVIDd: 4.3 cm LVOT diam: 2.0 cm LVIDs: 3.4 cm Ao root diam: 3.3 cm FS: 20.9 % asc Aorta Diam: 3.9 cm EPSS: 1.3 cm IVSd: 1.0 cm LVPWd: 1.0 cm LV daniel. diameter/BSA (cm/m^2): 2.4 LV sys. diameter/BSA (cm/m^2): 1.9 LA A2 area: 13.4 cm2 RA long axis: 5.9 cm LA A4 area: 12.4 cm2 RA area: 25.1 cm2 LA length (vol): 4.8 cm RA vol: 89.9 ml LA vol: 29.6 ml RA : 51.0 ml/m2 LA vol index: 16.8 ml/m2 RVD1 (basal): 5.1 cm LVAd ap4: 14.9 cm2 LVAs ap4: 6.6 cm2 LVLs ap4: 5.6 cm LVAd ap2: 20.2 cm2 TAPSE_phl: 1.8 cm LVLd ap2: 6.2 cm LVAs ap2: 11.6 cm2 LVLs ap2: 5.3 cm Doppler Measurements & Calculations Ao V2 max: 96.4 cm/sec LVOT Max Moise: 83.8 cm/sec Ao V2 mean: 66.0 cm/sec LV V1 max P.8 mmHg Ao max P.0 mmHg LV V1 VTI: 16.3 cm Ao mean P.0 mmHg CED(I,D): 2.6 cm2 Ao V2 VTI: 19.5 cm CED(V,D): 2.7 cm2 sev ratio: 0.83 CED indexed to BSA (cm^2/m^2): 1.5 MV E max moise: 40.1 cm/sec TR max moise: 290.5 cm/sec MV A max moise: 70.3 cm/sec TR max P.7 mmHg MV E/A: 0.57 PA V2 max: 89.0 cm/sec Med Peak E' Moise: 5.0 cm/sec PA V2 mean: 56.5 cm/sec E/E' med: 8.0 PA mean P.0 mmHg Lat Peak E' Moise: 8.5 cm/sec E/E' lat: 4.7 E/e' average: 6.4 MV dec time: 0.20 sec SV(LVOT): 51.1 ml AV VR_phl: 0.87 CED(VTI)/BSA_phl: 1.5 Reading Physician:11:04 AM
--- NOTE | 2023-04-24 08:00 | P.HP_ITS ---
History of Present Illness History of Present Illness Date Patient Seen: 04/24/23 Chief complaint: sob Narrative: Tory Barney is a 72yo F with PMH of multiple myeloma on chemo, CHF, and GERD who presents with 1 week of SOB. Last dose of chemo 2 weeks ago. Found in ED to have multinodular infiltrates consistent with PNA as well as pulm edema suggesting CHF exacerbation. Given IV lasix and abx. Required 2L NC. Patient coughing alot during exam. Somewhat somnolent. She denies CP, NV, abd pain or diarrhea. Says she has home O2 and uses it only PRN usually, but the past week has needed it all the time at 2-3L. Addendum: At approx 1600 patient became more somnolent and O2 was up to 5L NC. ABG showed pH 7.3, pCO2 68 and PO2 72. She was moved to the ICU for bipap. [facility] Medical History Multiple myeloma Congestive heart failure Anemia Pneumonia Surgical History No significant past surgical history Family History Mother Cancer Social History household members: friend(s) and other Smoking Status: Former smoker alcohol intake: current additional social history: The patient smokes tobacco. She does not use alcohol. No drugs. Family and social history are otherwise noncontributory Meds Home Medications and Allergies Home Medications Medication Instructions Recorded Confirmed Type aspirin 81 mg tablet 81 mg PO DAILY 03/08/21 10/01/22 History pantoprazole 40 mg tablet,delayed 40 mg PO DAILY 03/08/21 10/01/22 History release pomalidomide 3 mg capsule 3 mg PO DAILY 03/08/21 10/01/22 History (Pomalyst) oxycodone 5 mg tablet 5 mg PO Q8H PRN pain #14 tabs 12/15/21 10/01/22 Rx hydrocodone 5 mg-acetaminophen 325 1 tab PO BEDTIME PRN pain #7 tabs 10/06/22 Rx mg tablet Allergies Allergy/AdvReac Type Severity Reaction Status Date / Time No Known Drug Allergies Allergy Verified 09/30/22 15:13 Review of Systems Review of Systems Narrative: All other systems reviewed with the patient and are negative unless otherwise stated. Exam Vital Signs (past 8 hours): - 04/24/23 04:34 04/24/23 04:35 04/24/23 04:39 Temperature Pulse Rate 112 H 108 H Respiratory Rate Blood Pressure 93/62 Pulse Oximetry 76 L 93 Oxygen Delivery Method Oxygen Flow Rate 04/24/23 04:39 04/24/23 04:44 04/24/23 05:00 Temperature 98 F Pulse Rate 112 H 112 H Respiratory Rate 36 H Blood Pressure 126/78 93/62 Pulse Oximetry 93 92 Oxygen Delivery Method Nasal Cannula Oxygen Flow Rate 2 04/24/23 05:00 04/24/23 05:30 04/24/23 05:30 Temperature Pulse Rate 114 H Respiratory Rate Blood Pressure 133/82 123/71 Pulse Oximetry 95 Oxygen Delivery Method Nasal Cannula Oxygen Flow Rate 2 04/24/23 06:12 04/24/23 06:23 04/24/23 06:23 Temperature Pulse Rate 111 H 109 H Respiratory Rate 18 24 Blood Pressure 119/81 Pulse Oximetry 79 L 91 Oxygen Delivery Method Nasal Cannula Oxygen Flow Rate 5 04/24/23 07:00 04/24/23 07:15 04/24/23 07:30 Temperature Pulse Rate 111 H 112 H Respiratory Rate 37 H 38 H Blood Pressure 120/82 Pulse Oximetry 99 99 Oxygen Delivery Method Nasal Cannula Nasal Cannula Oxygen Flow Rate 5 5 04/24/23 07:30 04/24/23 07:33 04/24/23 07:45 Temperature Pulse Rate 111 H Respiratory Rate 34 H Blood Pressure 125/83 Pulse Oximetry 99 98 Oxygen Delivery Method Nasal Cannula Nasal Cannula Oxygen Flow Rate 4 4 Oxygen Delivery Method Nasal Cannula Oxygen Flow Rate 4 Narrative Exam Narrative: GEN: somnolent HEENT: moist mucous membranes, PERRL NECK: trachea midline, no JVD CV: regular rate and rhythm, no murmurs PULM: bilateral rales ABD: soft, nontender, nondistended, no organomegaly EXT: warm and well perfused with no edema NEURO: somnolent, oriented, no focal deficits Objective Labs 04/24/23 05:10 04/24/23 05:10 Labs: Laboratory Results - last 24 hr 10/08/23 10/08/23 04:42 05:10 WBC 9.6 RBC 3.36 L Hgb 10.6 L Hct 31.4 L MCV 93.4 MCH 31.5 MCHC 33.7 RDW 14.8 Plt Count 139 L Neut % (Auto) Not Reportable Lymph % (Auto) Not Reportable [place] % (Auto) Not Reportable Eos % (Auto) Not Reportable Baso % (Auto) Not Reportable Lymph # (Auto) Not Reportable [place] # (Auto) Not Reportable Baso # (Auto) Not Reportable Total Counted 100 Seg Neutrophils % 69.0 Band Neutrophils % 20.0 H Lymphocytes % (Manual) 4.0 L Monocytes % (Manual) 5.0 Basophils % (Manual) 1.0 Myelocytes % 1.0 H Neutrophils # (Manual) 8544 H RBC Morphology See below Anisocytosis 1+ H PT 15.8 H INR 1.4 H Sodium 134 L Potassium 4.8 Chloride 96 L Carbon Dioxide 30 BUN 28 H Creatinine 1.28 H Estimated GFR 45 L BUN/Creatinine Ratio 21.9 Glucose 155 H Lactate 1.3 Calcium 8.7 Total Bilirubin 1.4 H AST 26 ALT 19 Alkaline Phosphatase 92 Troponin I 0.029 NT-Pro-B Natriuret Pep 67392 H Total Protein 6.0 L Albumin 3.6 Globulin 2.4 Albumin/Globulin Ratio 1.5 SARS-CoV-2 (PCR) Negative Influenza A (RT-PCR) Flu a negative Influenza B (RT-PCR) Flu b negative Assessment & Plan Assessment & Plan narrative: # acute on chronic hypoxic resp failure, with hypercapnea -up to 5L NC, then required bipap due to hypercapnea -likely due to below problems -ABG pH 7.3, pCO2 68. Previously 38 in September 2022. -Bipap as needed, recheck ABG on bipap -appreciate tele ICU consult -wean O2 to 2L baseline as able # CHF exacerbation -CTA with pulm edema, BNP 21k -rales on exam -echo ordered -IV lasix ordered # possible bacterial pneumonia -CTA with nodular infiltrates suggestive of PNA, pt with lots of coughing on exam -initially put on rocephin, azithro but broadened after moved to ICU -continue zosyn -sputum cultures ordered # multiple myeloma -currently on chemo with last dose 2 weeks ago # GERD -continue PPI Code status is DNR. DVT prophylaxis with heparin SQ. Proxy is her friend Don. I have reviewed home meds and used all available resources to reconcile the home meds. Case discussed with ED physician/APC and patient will be admitted to the hospitalist service for further workup and management. I spent a total of 35 minutes of critical care time on this patient's care today; this time is exclusive of procedural time. This patient will be admitted as ICU and will require greater than 2 midnights of hospital time to treat hypoxic and hypercapnic resp failure.
[2023-04-24 08:02] LABS: Procalcitonin 0.12 ng/mL (<0.5)
[2023-04-24 08:06] LABS: Magnesium 1.4 mg/dL (1.6-2.3)
[2023-04-24] MEDS: cefTRIAXone 1,000 MG in SODIUM CHLORIDE 0.9% 100 ML 200 MG IV (08:10)
[2023-04-24] MEDS: AZITHROMYCIN 250 MG TABLET 500 MG PO (08:10)
[2023-04-24 08:23] LABS: TSH w/ Reflex to FT4 3.35 uIU/mL (0.47-4.68)
--- NOTE | 2023-04-24 08:44 | PC.NURSE ---
Patient states she accidentally disconnected her purewix and wet the bed. Patient requested to use the commode. She was able to stand and pivot to commode while we changed the bedding. Her o2 saturation dropped to 84% on 4L NC with exhertion. Pt put on 5L NC while ambulatory. Within 1minute in bed o2 saturation increased to 95%. O2 NC flow at 4L while at rest.
[2023-04-24] MEDS: MAGNESIUM CHLORIDE 64 MG TABLET 128 MG PO (10:01)
--- NOTE | 2023-04-24 11:40 | PC.NURSE ---
1000: new admit from ED, dx SOB. hx of multiple myeloma, chemo, LLL mass, o2 dependance. full code. port-o-cath R chest is accessed, dressing is CDI. 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 Marilou provided flutter valve, gave patient instructions on use. orders for prednisone, mucinex and tessalon perles. PO zithromax given in ED. placed on telemetry. pulse 107, becomes SOB w/ exertion, desats to mid 80's. recovers slowly. cpox on. declines purewick, prefers BSC, which is next to her bed. next UOP will collect u/a. call light w/in reach.
[2023-04-24] MEDS: HEPARIN 5,000 UNIT/ML VIAL 5000 UNIT SUBCUT ×2 (12:56→20:26)
[2023-04-24] MEDS: guaiFENesin ER 600 MG TAB PO ×2 (12:57→20:26)
[2023-04-24] MEDS: predniSONE 20 MG TABLET 40 MG PO (12:57)
[2023-04-24] MEDS: ASPIRIN EC 81 MG TABLET PO (12:57)
[2023-04-24] MEDS: BENZONATATE 100 MG CAPSULE PO ×2 (12:57→20:26)
--- NOTE | 2023-04-24 14:56 | CM.DANOTE ---
Patient is a 72 yo female who was admitted on 04/24/23 for SOB. Pt has [facility] and [facility] for insurance and her PCP is Eliu Barnard. EMR was reviewed. Per MD, pt with hx of multiple myeloma and EF of 45-50% and admitted for increased SOB and oxygen needs and dyspnea. SW met beside with pt and explained role and she confirms she lives in [place] with her roommate Anurag who assists as needed but that pt is typically independent with ADLs and does not use DME for ambulation and still drives when she feels good. Pt confirms her PCP is now Eliu Barnard at [facility] and she now has home oxygen at baseline but currently requiring more oxygen than her normal home O2. Pt denies any DPOA at this time and denies any hx of HH or SNF. Pt states that she does not have any other local family but her supports are her roommate Anurag and her friend Isi. Pt confirms her Oncologist is Dr. Garcia and she gets chemo every 3 weeks. Pt states she is very weak and fatigued at this time but hopeful for d/c home when medically stable. Pt's last admission was in September 2022 this year and was able to d/c home with roommate at that time and outpt f/u. Plan; SW to follow closely to confirm safe plan of discharge to home with roommate support and any further identified discharge planning needs. JOSELITO Granda Discharge Planning/Care Management Advanced directive, confirm from FAMILY Start: 04/24/23 14:14 Freq: Q24H Status: Active Protocol: Document 04/24/23 14:14 BV (Rec: 04/24/23 14:34 BV [id number]) Advance Directive, confirm on record Time 11:00 Person contacted self Copy received No CM Discharge Assessment Start: 04/24/23 14:53 Freq: Status: Active Protocol: Document 04/24/23 14:53 BF (Rec: 04/24/23 14:54 BF [id number]) Discharge Planning Assessment Assigned Parking Meter Installer JOSELITO Al DPOA/Assigned Designee Name none Advance Directives? No Advance Directives on File No History Provided By Patient,Medical Record Has Patient been admitted in last 30 No days? Prior Living Arrangements House Household Members friend(s),other Comment roommate./friend Don Type of transporation used prior to Drives own vehicle admit Independent with ADL's Yes Is patient alert and oriented? Yes Needs Assistance With Home Chores / Shopping Caregiver for Another No Community Services used prior to Oxygen Therapy admission: DME Already Rented / Owned Oxygen Comment r/o HH Comment It's likely none are needed, follow closely. Barriers to Discharge No Comment 3 cats. Discharge Plan Home Transportation Arrangement Family/friend Additional Comment See attached assessment note. Whiteboard Updated in Patient Room with Yes name and ext. # of Parking Meter Installer Review Status In Process Please Provide Date Initial DC 04/24/23 Assessment Was Performed Next Review Type Continued Stay Review
[2023-04-24 15:26] LABS: Appearance Urine UA CLEAR; Bilirubin Urine UA NEGATIVE (NEGATIVE); Color Urine UA YELLOW; Glucose Urine UA NEGATIVE (Negative); Ketones Urine UA NEGATIVE (NEGATIVE); Leukocyte Esterase Urine UA NEGATIVE (NEGATIVE); Nitrite Urine UA NEGATIVE (Negative); Occult Blood Urine UA NEGATIVE (Negative); Protein Urine UA NEGATIVE (Negative)
[2023-04-24 15:29] LABS: pH Urine UA 5.5 (4.5-8.0)
[2023-04-24] MEDS: SODIUM CHLORIDE 0.9% FLUSH 10 ML IV ×2 (15:41→20:26)
[2023-04-24 15:46] LABS: Bacteria Urine None Seen; Culture Indicated Urine Cult Not Indicated; RBC Urine None Seen (0-5/HPF); Squamous Epithelial Cell Urine None Seen (0-5/HPF); WBC Urine 0-1/HPF (0-5/HPF)
--- NOTE | 2023-04-24 16:04 | DI.RAD.S_ITS ---
PROCEDURE: XR CHEST 1V INDICATIONS: hypoxia TECHNIQUE: One view of the chest was acquired. COMPARISON: [facility], CT, CT ANGIO CHEST PE PROTOCOL, 04/24/2023, 6:00. [facility], CT, CT ANGIO CHEST PE PROTOCOL, 10/06/2022, 7:27. [facility], CR, XR CHEST 1V, 10/06/2022, 6:19. FINDINGS: Surgical changes and devices: There is a stable right-sided chest port. Lungs and pleura: An incomplete inspiratory result is noted, causing a crowded appearance to the lung markings. No focal infiltrates are seen. No pneumothorax or significant pleural effusions are seen. Mediastinum: The cardiac contours are within normal limits. The aorta demonstrates calcification and tortuosity. Bones and chest wall: No suspicious bony lesions. Age-appropriate bony degenerative changes are seen. Overlying soft tissues appear unremarkable. IMPRESSION: Portable chest within normal limits for age. Dictated by: Ruperto Kc M.D. on 04/24/2023 at 15:30 Approved by: Ruperto Kc M.D. on 04/24/2023 at 15:31
--- NOTE | 2023-04-24 16:32 | PC.NURSE ---
Addendum entered by Jocelyn Lei R.N. 04/24/23 18:48: patient notified of need for bipap. transferred via w/c and assisted into ICU room 226. report to NIXON Uribe. RT available, placing patient on bipap after transferred to her bed and made comfortable. Original Note: patient is more lethargic, o2 needs increasing. RT recommended ABG's- co2 68 RT hiren conferred w/ Dr Maciel and recommends Bipap. orders to transfer to ICU.
[2023-04-24 16:50] LABS: PCO2 ABG 68.7 mmHg (35-45)
[2023-04-24 16:51] LABS: Allen Test for ABG Passed? Yes, Passed; Blood Gas Collection Site Left Radial; Fractionated Inspired Oxygen 32; HCO3 ABG 34 mmol/L (23-27); Oxygen Saturation ABG 92 % (95-100); PO2 ABG 72 mmHg (80-100); TCO2 ABG 36 mmol/L (23-27)
--- NOTE | 2023-04-24 17:56 | P.TELICUCN_ITS ---
History of Present Illness Consult details IF CAMERA ACTIVATED, patient seen via real-time interactive audiovisual communication: Camera activated Chief complaint: sob Consent obtained for tele-lapidary apprentice care: Yes Patient Location: ICU Provider location (State): Other participants/roles: , RN Narrative: 72-year-old female history of MM 5 years, admitted today for increasing shortness of breath over the last 1 week, She has chronic dry nonproductive cough, denies any chest pain, cough, fever. Gets chemotherapy shot every couple weeks. last one was about 2 weeks ago. Use oxygen as needed but has needed it more over the last couple of days. Initially was placed on 2 then 4 L. Pt was found to have elevated BNP & CTA scan showed BL infiltarte concern for CHF exacerbation and pneumonia. Pt became encephalopathic with C02 retention, placed on BiPAP & transferred to ICU. Currently fully awake on BiPAP, feels ok. Assessment: Acute hypoxic and hypercarpic resp failure CHF exacerbation BL PNA Acute hypercpnic encephloathy LYLE/ CRS Hypomagnesemia Plan: BiPAP adjusted 14/5/40%, sat goal 92 % Precedex as needed IV lasix 40 mg bid, double the dose if goal bot acheived ( goal neg 2 L daily BMP, mag and phos daily, BMP Q12 hr if lasix dose doubled, lytes replacment as needed Braoden the spectrum of Ab to Zosy, Dc Ceftriaxon and continue Azithro F/U blood Cx Check 2 D echo On aspirin, PPI & SC heparin F/U with PCP/ pul for lung nodule as per guideline Daily VBG or when clinical changes happens CCT 40 min [facility] Medical History Multiple myeloma Congestive heart failure Anemia Pneumonia Surgical History No significant past surgical history Family History Mother Cancer Social History household members: friend(s) and other Smoking Status: Former smoker alcohol intake: current additional social history: The patient smokes tobacco. She does not use alcohol. No drugs. Family and social history are otherwise noncontributory Current Medications Current Medications Medications: Home Medications aspirin 81 mg tablet 81 mg PO DAILY 03/08/21 [History Confirmed 10/01/22] pantoprazole 40 mg tablet,delayed release 40 mg PO DAILY 03/08/21 [History Confirmed 10/01/22] pomalidomide 3 mg capsule (Pomalyst) 3 mg PO DAILY 03/08/21 [History Confirmed 10/01/22] oxycodone 5 mg tablet 5 mg PO Q8H PRN pain #14 tabs 12/15/21 [Rx Confirmed 10/01/22] hydrocodone 5 mg-acetaminophen 325 mg tablet 1 tab PO BEDTIME PRN pain #7 tabs 10/06/22 [Rx] Visit Medications (administered) Generic Name Dose Route Start Last Admin Trade Name Freq PRN Reason Stop Dose Admin Aspirin 81 mg 04/24/23 09:00 04/24/23 12:57 Aspirin Ec 81 Mg Tablet PO 81 mg DAILY MYRNA Administration Azithromycin 500 mg 04/24/23 07:35 04/24/23 11:33 Azithromycin 250 Mg Tablet PO 04/25/23 09:01 Not Given DAILY MYRNA Benzonatate 100 mg 04/24/23 12:14 04/24/23 12:57 Benzonatate 100 Mg Capsule PO 100 mg TID PRN Administration Cough Furosemide 40 mg 04/24/23 16:00 04/24/23 15:40 Furosemide 40 Mg/4 Ml Vial IV 40 mg 1600,0800 MYRNA Administration Guaifenesin 600 mg 04/24/23 12:15 04/24/23 12:57 Guaifenesin Er 600 Mg Tab PO 600 mg BID MYRNA Administration Heparin Sodium (Porcine) 5,000 unit 04/24/23 09:00 04/24/23 12:56 Heparin 5,000 Unit/Ml Vial SUBCUT 5,000 unit BID MYRNA Administration Ceftriaxone Sodium 1,000 mg/ 100 mls @ 200 mls/hr 04/24/23 07:45 04/24/23 09:00 Sodium Chloride IV 04/28/23 07:46 Infused Q24H MYRNA Infusion Prednisone 40 mg 04/24/23 12:45 04/24/23 12:57 Prednisone 20 Mg Tablet PO 04/28/23 09:01 40 mg DAILY MYRNA Administration Sodium Chloride 10 ml 04/24/23 15:40 04/24/23 15:41 Sodium Chloride 0.9% Flush IV 10 ml BID MYRNA Administration Exam Vital Signs (past 8 hours): - 04/24/23 10:00 04/24/23 14:00 04/24/23 17:31 Temperature 97.1 F L 97.0 F L Pulse Rate 107 H 97 H Respiratory Rate 17 17 Blood Pressure 128/88 110/69 117/63 Pulse Oximetry 90 L 98 Oxygen Flow Rate 4 5 Fraction of Inspired Oxygen 50 04/24/23 17:51 Temperature 97.8 F Pulse Rate 88 Respiratory Rate 23 Blood Pressure 117/63 Pulse Oximetry 98 Oxygen Flow Rate Fraction of Inspired Oxygen Fraction of Inspired Oxygen 50 Oxygen Delivery Method Nasal Cannula Oxygen Flow Rate 5 Objective Labs 04/24/23 05:10 04/24/23 05:10 Labs: Laboratory Results - last 24 hr 04/24/23 04/24/23 04/24/23 04:42 05:10 15:00 WBC 9.6 RBC 3.36 L Hgb 10.6 L Hct 31.4 L MCV 93.4 MCH 31.5 MCHC 33.7 RDW 14.8 Plt Count 139 L Neut % (Auto) Not Reportable Lymph % (Auto) Not Reportable [place] % (Auto) Not Reportable Eos % (Auto) Not Reportable Baso % (Auto) Not Reportable Lymph # (Auto) Not Reportable [place] # (Auto) Not Reportable Baso # (Auto) Not Reportable Total Counted 100 Seg Neutrophils % 69.0 Band Neutrophils % 20.0 H Lymphocytes % (Manual) 4.0 L Monocytes % (Manual) 5.0 Basophils % (Manual) 1.0 Myelocytes % 1.0 H Neutrophils # (Manual) 8544 H RBC Morphology See below Anisocytosis 1+ H PT 15.8 H INR 1.4 H ABG Sample Site ABG pH ABG pCO2 ABG pO2 ABG HCO3 ABG Total CO2 ABG O2 Saturation ABG Base Excess FiO2 Sodium 134 L Potassium 4.8 Chloride 96 L Carbon Dioxide 30 BUN 28 H Creatinine 1.28 H Estimated GFR 45 L BUN/Creatinine Ratio 21.9 Glucose 155 H Lactate 1.3 Calcium 8.7 Magnesium 1.4 L Total Bilirubin 1.4 H AST 26 ALT 19 Alkaline Phosphatase 92 Troponin I 0.029 NT-Pro-B Natriuret Pep 85159 H Total Protein 6.0 L Albumin 3.6 Globulin 2.4 Albumin/Globulin Ratio 1.5 Procalcitonin 0.12 TSH 3.35 Urine Color Yellow Urine Appearance Clear Urine pH 5.5 Ur Specific [place] 1.010 Urine Protein Negative Urine Glucose (UA) Negative Urine Ketones Negative Urine Occult Blood Negative Urine Nitrate Negative Urine Bilirubin Negative Urine Urobilinogen 1.0 Ur Leukocyte Esterase Negative Urine RBC None seen Urine WBC 0-1/hpf Ur Squamous Epith Cells None seen Urine Bacteria None seen Ur Culture Indicated? Cult not indicated SARS-CoV-2 (PCR) Negative Influenza A (RT-PCR) Flu a negative Influenza B (RT-PCR) Flu b negative 04/24/23 16:12 WBC RBC Hgb Hct MCV MCH MCHC RDW Plt Count Neut % (Auto) Lymph % (Auto) [place] % (Auto) Eos % (Auto) Baso % (Auto) Lymph # (Auto) [place] # (Auto) Baso # (Auto) Total Counted Seg Neutrophils % Band Neutrophils % Lymphocytes % (Manual) Monocytes % (Manual) Basophils % (Manual) Myelocytes % Neutrophils # (Manual) RBC Morphology Anisocytosis PT INR ABG Sample Site Left radial ABG pH 7.30 L ABG pCO2 68.7 H* ABG pO2 72 L ABG HCO3 34 H ABG Total CO2 36 H ABG O2 Saturation 92 L ABG Base Excess 8.0 H FiO2 32 Sodium Potassium Chloride Carbon Dioxide BUN Creatinine Estimated GFR BUN/Creatinine Ratio Glucose Lactate Calcium Magnesium Total Bilirubin AST ALT Alkaline Phosphatase Troponin I NT-Pro-B Natriuret Pep Total Protein Albumin Globulin Albumin/Globulin Ratio Procalcitonin TSH Urine Color Urine Appearance Urine pH Ur Specific [place] Urine Protein Urine Glucose (UA) Urine Ketones Urine Occult Blood Urine Nitrate Urine Bilirubin Urine Urobilinogen Ur Leukocyte Esterase Urine RBC Urine WBC Ur Squamous Epith Cells Urine Bacteria Ur Culture Indicated? SARS-CoV-2 (PCR) Influenza A (RT-PCR) Influenza B (RT-PCR)
[2023-04-24] MEDS: dexmedeTOMIDine in 0.9 % NaCL 400 MCG/100 ML PLAST..BAG IV (18:06)
--- NOTE | 2023-04-24 18:34 | PC.NURSE ---
1720 Pt brought to ICU rm 226 for BiPaP - Settings adjusted with input from EICU Pt not tolerating well. Precidex ordered and started at 0.2mcg/kg/hr. Will titrate up until pt can tolerated mask. in the interim placed on nasal cannula 5L.
[2023-04-24] MEDS: SODIUM CHLORIDE 0.9% 250 ML 21 ML IV (18:40)
[2023-04-24] MEDS: PIPERACILLIN/TAZO 3.375 GM in SODIUM CHLORIDE 0.9% 100 ML IV ×2 (18:42→23:31)
[2023-04-24] MEDS: OXYCODONE IR 5 MG TABLET PO (20:27)
[2023-04-24] MEDS: ACETAMINOPHEN 325 MG TABLET 650 MG PO (20:27)
[2023-04-24] MEDS: MELATONIN 3 MG TABLET 6 MG PO (20:27)
[2023-04-25] VITALS (59 sets, daily range): BP systolic 78–131; BP diastolic 52–77; PULSE 42–87; RESP 12–57; TEMP 35.6–36.2; O2SAT 80–100
[2023-04-25] MEDS: dexmedeTOMIDine in 0.9 % NaCL 400 MCG/100 ML PLAST..BAG 9.355 MCG IV (02:15)
[2023-04-25 04:34] LABS: Add Manual Diff / Slide Review YES; Hematocrit 32.1 % (36-46); Hemoglobin 10.9 g/dL (12.0-16.0); Mean Corpuscular HGB Conc 33.9 % (30-36); Mean Corpuscular Hemoglobin 31.1 PG (26-34); Mean Corpuscular Volume 91.8 fL (80-100); Platelet Count 124 X10^3/uL (150-400); Red Blood Cell Count 3.49 X10^6/uL (4.0-5.2); Red Cell Distribution Width 14.7 % (11.6-14.8); White Blood Cell Count 5.6 X10^3/uL (4.5-11.0)
[2023-04-25 05:02] LABS: Magnesium 1.4 mg/dL (1.6-2.3)
[2023-04-25 05:03] LABS: BUN Creatinine Ratio 31.7 (6-22); Blood Urea Nitrogen 32 mg/dL (7-17); Calcium 8.1 mg/dL (8.4-10.2); Carbon Dioxide 35 mmol/L (22-32); Chloride 95 mmol/L (98-107); Estimated Glomerular Filt Rate 60 mL/min (>60); Glucose 188 mg/dL (80-110); HEMOLYSIS 26 (0-50); Potassium 4.6 mmol/L (3.4-5.1); Sodium 136 mmol/L (137-145)
[2023-04-25 05:20] LABS: Procalcitonin 0.12 ng/mL (<0.5)
[2023-04-25] MEDS: PIPERACILLIN/TAZO 3.375 GM in SODIUM CHLORIDE 0.9% 100 ML IV (06:00)
[2023-04-25] MEDS: PANTOPRAZOLE DR 40 MG TABLET PO (06:00)
[2023-04-25 07:13] LABS: Neutrophils Absolute Manual 4648 /uL (3000-5900); Total Cells Counted 100
[2023-04-25 07:14] LABS: Anisocytosis 1+
[2023-04-25] MEDS: FUROSEMIDE 40 MG/4 ML VIAL IV (07:46)
--- NOTE | 2023-04-25 07:59 | PM.DS.1 ---
History of Present Illness History of Present Illness Chief complaint: sob Narrative: Tory Barney is a 72yo F with PMH of multiple myeloma on chemo, CHF, and GERD who presents with 1 week of SOB. Last dose of chemo 2 weeks ago. Found in ED to have multinodular infiltrates consistent with PNA as well as pulm edema suggesting CHF exacerbation. Given IV lasix and abx. Required 2L NC. Patient coughing alot during exam. Somewhat somnolent. She denies CP, NV, abd pain or diarrhea. Says she has home O2 and uses it only PRN usually, but the past week has needed it all the time at 2-3L. Addendum: At approx 1600 patient became more somnolent and O2 was up to 5L NC. ABG showed pH 7.3, pCO2 68 and PO2 72. She was moved to the ICU for bipap. 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 Weaned off quickly. -likely due to below problems -ABG pH 7.3, pCO2 68. Previously 38 in September 2022. -appreciate tele ICU consult -wean O2 to 2L baseline as able # CHF exacerbation -CTA with pulm edema, BNP 21k -rales on exam improved -echo with EF 40-45%, severely dilated RV, mod reduced RV function, mild-mod TR, RVSP 51 -IV lasix ordered, diuresed off -3L -started on lisinopril 2.5mg and metoprolol XL 12.5mg daily due to CHF # possible bacterial pneumonia -CTA with nodular infiltrates suggestive of PNA, pt with lots of coughing on exam -initially put on rocephin, azithro but broadened after moved to ICU -discharged on levaquin to complete 5 day course -albuterol script given # possible COPD -given 5 days of po prednisone 40mg # multiple myeloma -currently on chemo with last dose 2 weeks ago # GERD -continue PPI Hospital Course: Admitted for 1 week of SOB and thought to have combination of CHF exacerbation, PNA and COPD. Given abx, steroids and lasix. Diuresed 3L. Breathing improved. Echo showed EF 40-45%. Placed on lisinopril and metoprolol at lowest doses. Increased lasix po to 40mg daily. Given a few more days of po levaquin and po prednisone on discharge plus albuterol inhaler. Exam Vital Signs (past 8 hours): Fraction of Inspired Oxygen 44 SaO2/FiO2 Ratio 213 Oxygen Delivery Method Nasal Cannula Oxygen Flow Rate 6 Narrative Exam Narrative: GEN: NAD HEENT: moist mucous membranes, PERRL NECK: trachea midline, no JVD CV: regular rate and rhythm, no murmurs PULM: bilateral rales ABD: soft, nontender, nondistended, no organomegaly EXT: warm and well perfused with no edema NEURO: awake and alert, oriented, no focal deficits Objective Labs 04/25/23 04:15 04/25/23 04:15 [facility] Medical History Multiple myeloma Congestive heart failure Anemia Pneumonia Surgical History No significant past surgical history Family History Mother Cancer Social History household members: friend(s) and other Smoking Status: Former smoker alcohol intake: current additional social history: The patient smokes tobacco. She does not use alcohol. No drugs. Family and social history are otherwise noncontributory Discharge Plan Discharge Plan Patient Disposition: Home Health Service Discharge orders & Medications Prescriptions: New prednisone 20 mg Tablet 40 mg PO DAILY 3 Days Qty: 6 0RF furosemide [Lasix] 40 mg tablet 40 mg PO DAILY Qty: 30 0RF metoprolol succinate 25 mg tablet extended release 24 hr 12.5 mg PO DAILY Qty: 30 0RF lisinopril 2.5 mg tablet 2.5 mg PO DAILY Qty: 30 0RF levofloxacin 750 mg tablet 750 mg PO DAILY 4 Days Qty: 4 0RF albuterol sulfate 90 mcg/actuation HFA aerosol inhaler 2 inh inhalation QID PRN (Reason: shortness of breath or wheezing) Qty: 8.5 0RF Continued oxycodone 5 mg tablet 5 mg PO Q8H PRN (Reason: pain) Qty: 14 0RF aspirin 81 mg Tablet 81 mg PO DAILY pantoprazole 40 mg Tablet,Delayed Release (Dr/Ec) 40 mg PO DAILY Pomalyst 3 mg Capsule 3 mg PO DAILY Rx Instructions: Patient takes this for 21 days straight and then is off of it for 7 days. She has 4 capsules left to take and then will be off for one week. hydrocodone-acetaminophen 5-325 mg tablet 1 tab PO BEDTIME PRN (Reason: pain) Qty: 7 0RF Follow up/Referrals: Wilfredo Garcia MD [Primary Care Provider] - Visit Report/Discharge Packet Instructions: DI for Heart Failure Stand Alone Forms: Patient Portal/API, Stroke Signs & Symptoms Discharge Data Primary Care Provider: Wilfredo Garcia Discharges patient from system. Discharge Date/Time: 04/25/23 13:45 Quality VTE Deep Vein Thrombosis/Pulmonary Embolism Present on Admission: No
[2023-04-25] MEDS: MAGNESIUM SULFATE 4 GM/100 ML PIGGYBACK IV (08:00)
[2023-04-25] MEDS: ALBUTEROL/IPRATROPIUM 3 ML AMPUL INH (08:38)
[2023-04-25] MEDS: AZITHROMYCIN 250 MG TABLET 500 MG PO (08:40)
[2023-04-25] MEDS: HEPARIN 5,000 UNIT/ML VIAL 5000 UNIT SUBCUT (08:40)
[2023-04-25] MEDS: guaiFENesin ER 600 MG TAB PO (08:40)
[2023-04-25] MEDS: ASPIRIN EC 81 MG TABLET PO (08:40)
[2023-04-25] MEDS: predniSONE 20 MG TABLET 40 MG PO (08:40)
[2023-04-25] MEDS: SODIUM CHLORIDE 0.9% 500 ML IV (09:53)
[2023-04-25] MEDS: levoFLOXacin 250 MG TABLET 750 MG PO (10:46)
[2023-04-25] MEDS: SODIUM CHLORIDE 0.9% FLUSH 10 ML IV (10:46)
--- NOTE | 2023-04-25 11:22 | PT.IIE ---
Current Diagnoses Respiratory failure, unspecified, unspecified whether with hypoxia or hypercapnia (04/24/23) Hypoxemia (04/24/23) Surgical History (Last Reviewed 04/24/23 @ 04:53 by Shanda Childress DO) No significant past surgical history Medical History (Last Reviewed 04/24/23 @ 04:53 by Shanda Childress DO) Anemia Congestive heart failure Multiple myeloma Pneumonia Physical Therapy Inpatient Evaluation/Re-Eval M1 PT/OT-IP Prior Functional Status Start: 04/25/23 10:21 Freq: NEEDED Status: Active Protocol: Document 04/25/23 11:22 AW (Rec: 04/25/23 12:05 AW [id number]) Medical Review Prior Functional Status Medical History Reviewed Yes Communication WNL Mobility and Gait Independent for household and very limited community mobility. Pt states she has access to a cane but does not use it at all. She states a walker does not fit in her RV. Activities of Daily Living and IADL's Independent with basic ADL's. Pt's roommate, Don, assists with cooking, cleaning, shopping, and driving. Prior Functional Level (Other details) Has home O2. Uses 3L/min a few times per day. Social History Household Members friend(s),other Living Arrangements RV Number of Floors (Floors) One Floor Number of Stairs To Enter/Railing? 5 DAYO with railing. Home Environment Standard Height Toilet,Tub/ Shower Home Equipment Straight Cane,Grab Bars In Shower M2 PT-IP Current Condition Start: 04/25/23 10:21 Freq: NEEDED Status: Active Protocol: Document 04/25/23 11:22 AW (Rec: 04/25/23 12:05 AW [id number]) Physical Therapy Current Condition Current Condition Evaluation Date 04/25/23 Treatment Diagnosis acute on chronic hypoxic/ hypercapneic resp failure; impaired mobility Onset Date 04/23/23 M3 PT-IP Subjective Start: 04/25/23 10:21 Freq: NEEDED Status: Active Protocol: Document 04/25/23 11:22 AW (Rec: 04/25/23 12:05 AW [id number]) Subjective Physical Therapy Visit Type Type Initial Evaluation Visit Start Time 10:56 Visit Stop Time 11:22 Total Visit Minutes 26 Physical Therapy Visit Comments Patient Comments Pt is willing to participate with PT Patient Goals Return home [facility] Therapy Pain Assessment Pain When Pain Assessed During Mobility Pain Present Pain Present Denied Pain M4 PT-IP Mobility and Gait Start: 04/25/23 10:21 Freq: NEEDED Status: Active Protocol: Document 04/25/23 11:22 AW (Rec: 04/25/23 12:05 AW [id number]) PT-Bed Mobility Assessment Supine to Sit Supine to Sit Independent Scooting Scooting to Edge of Bed Independent PT-Transfer Assessment Sit to and From Stand Sit to and from Stand Independent Equipment Transfer Assistive Device None Transfers Transfer Destination Chair,Bedside Commode Transfer Technique Stand Step Pivot Transfer Ability Level of Assist Standby Assistance Comments Mobility Comments Assist required for line management primarily. Gait Assessment Gait Gait Assistance Required: Standby Assistance Distance (Feet) 25 Assistive Devices Assistive Device None Orthotic/Prosthetic Devices or Brace: No Gait Deviations General Gait Pattern Within Normal Limits Factors Limiting Gait Function Factors Limiting Gait Function Decreased Strength,Poor Balance,Respiratory Distress Comments Gait Comments SpO2 97% on 6L/min pre- mobility. Drops to mid-80's during mobilization attempts but quickly recovers to 94% when pt cued for PLB. Stair Climbing Assessment Comments Stair Climbing Comments Not assessed PT-Balance Assessment Sitting Balance and Reactions Static Sitting Balance Ability Normal Dynamic Sitting Balance Ability Normal Standing Balance and Reactions Static Standing Balance Ability Good Dynamic Standing Balance Ability Good Device Used none M5 PT-IP Objective Assessments Start: 04/25/23 10:21 Freq: NEEDED Status: Active Protocol: Document 04/25/23 11:22 AW (Rec: 04/25/23 12:05 AW [id number]) Orientation Orientation/Cognition Level of Alertness Alert Orientation Name,Day of Week,Place, Situation Language Function Ability No Deficits Noted Safety Awareness Understands Safety Issues Gross Range of Motion Upper Extremity ROM Assessment Within Functional Limits Lower Extremity ROM Assessment Within Functional Limits Strength Upper Extremity Strength Assessment Within Functional Limits Lower Extremity Strength Assessment Within Functional Limits Comments Strength Comments LE strength 4+/5 hip to 5/5 distally Sensation Assessment Sensation Gross Sensation WNL M6 PT-IP Treatment Start: 04/25/23 10:21 Freq: NEEDED Status: Active Protocol: Document 04/25/23 11:22 AW (Rec: 04/25/23 12:05 AW [id number]) Physical Therapy Treatment Education Education Provided Safety Other Treatments Other Treatment Performed Discussed energy conservation techniques for home management and pt seems well familiar with all suggestions. M7 PT-IP Assessment and Plan Start: 04/25/23 10:21 Freq: NEEDED Status: Active Protocol: Document 04/25/23 11:22 AW (Rec: 04/25/23 12:05 AW [id number]) PT Summary Assessment and Plan Potential Rehabilitation Potential Good Status of Condition at Evaluation Evolving Summary Impairments Bed Mobility,Activity Tolerance Assessment Summary Tory is a 72 yo woman seen for PT evaluation while admitted with acute on chronic hypoxic and hypercapneic respiratory failure. She was transferred to ICU last night for BiPAP but is no longer needing such support and has been downgraded. PMH includes multiple myeloma and CHF. She has home O2 which she uses intermittently at 3L/min. PLOF : Pt is independent for mobility in her RV and for short distances outside such as going to her mailbox. She is independent with basic ADL' s and her roommate assists with IADL's. CLOF: Pt is mobilizing at or near her baseline mobility level but is needing increased O2 support (up to 6L/min) to maintain SpO2 90-95%. Her activity tolerance is limited as at baseline. PT will continue to follow for stairs assessment and to progress mobility as tolerated while pt is hospitalized. Recommend discharge home with assist. Home PT is recommended to increase activity tolerance for prison management of chronic conditions. Goals Bed Mobility Goal Independent Transfer Goal Independent Gait Goal Independent Gait Distance 100 Other Goals - up/down 5 steps with rail and SBA Days to Meet Goals 3 Frequency of Treatment Frequency Of Treatment Once a Day Treatment Plan Physical Therapy Treatment Plan Bed Mobility Training,Transfer Training,Gait Training, Therapeutic Exercise,Balance Retraining,Discharge Planning, Hot or Cold Pack,Neuromuscular Re-ed Precautions Other Precautions monitor SpO2 Recommendations To Nursing Amount of Assist Needed Standby Assistance Discharge Recommendations PT Discharge Recommendations Home with Assistance,Home Health Transportation Needs at Discharge Private Vehicle
--- NOTE | 2023-04-25 14:35 | CM.DPC ---
DCP Discharge Home Per MD, pt stable for d/c home today pending PT eval and recommendations and likely could benefit from HH. SW attempted to meet with pt to discuss HH but pt having coughing/breathing issues and RT called for breathing tx. Per PT eval, pt seems back to baseline with mobility and FWW does not fit in her RV and therefore she uses cane but has increased O2 needs and could benefit from HH. Pt lives on [facility] and SW reached out to the two agencies that cover [facility]. [facility] currently in contract negotiations with [facility] and not currently able to accept new [facility] referrals. [facility] not contracted with [facility]. HH is not an option for pt at d/c. Pt agreeable with d/c home and outpt f/u and roommate to arrive to provide transport home and [employer] took pt down to POV after RN provided discharge instructions. Plan: Patient to discharge home to her RV today via roommate POV and outpt f/u and no further SW needs at this time. Mikaela Stephens [employer]
== END 2023-04-25 13:45 | disposition home or self-care (01) | DRG 193 ==
LOC: ED 07:43 → AC 07:44 → ICU 17:25
PROVIDERS: Admitting Provider Student in an Organized Health Care Education/Training Program; Emergency Provider Emergency Medicine; Family Provider Family Medicine; PCP Internal Medicine Hematology & Oncology; Referring Provider Emergency Medicine; Visit Provider Student in an Organized Health Care Education/Training Program
DX: J18.9 Pneumonia, unspecified organism (principal); J96.21 Acute and chronic respiratory failure with hypoxia; J96.22 Acute and chronic respiratory failure with hypercapnia; C90.00 Multiple myeloma not having achieved remission; K21.9 Gastro-esophageal reflux disease without esophagitis; I50.9 Heart failure, unspecified; J44.9 Chronic obstructive pulmonary disease, unspecified; Z87.891 Personal history of nicotine dependence; Z66 Do not resuscitate
CPT/HCPCS: 36415; 36591; 36600; 71045; 71275; 80048; 80053; 81001; 81003; 82805; 83605; 83735; 83880; 84145; 84443; 84484; 85007; 85025; 85610; 87040; 87635; 93005; 93306; 94640; 94660; 94762; 96365; 96375; 97162; 99285; C9803; J0696; J1642; J1644; J1940; J2543; J3475; Q9967

== ENCOUNTER 2023-07-20 21:35 | Inpatient (IN) | payer MEDICARE, MEDICAID, SELFPAY ==
[2023-04-24 07:56] VITALS: BMI 30.2
[2023-04-24 17:31] VITALS: PULSE 92; RESP 22; O2SAT 100
[2023-07-20] VITALS (10 sets, daily range): BP systolic 112–152; BP diastolic 68–95; PULSE 63–95; RESP 12–40; TEMP 29–36.4; O2SAT 92–99; BMI 29.2
[2023-07-20] MEDS: ALBUTEROL/IPRATROPIUM 3 ML AMPUL INH (21:56)
--- NOTE | 2023-07-20 22:00 | DI.CT.S_ITS ---
PROCEDURE: CT ANGIO CHEST PE PROTOCOL INDICATIONS: dyspnea, tachpynea TECHNIQUE: After the administration of intravenous contrast, 2 mm thick sections acquired from the pulmonary apices to the posterior costophrenic angles. 3-dimensional maximum intensity projection (MIP) coronal and sagittal reformats were then acquired through the thorax. For radiation dose reduction, the following was used: automated exposure control, adjustment of mA and/or kV according to patient size. COMPARISON: [facility], CT, CT ANGIO CHEST PE PROTOCOL, 04/24/2023, 6:00. FINDINGS: Image quality: Diagnostic. Pulmonary arteries: Main pulmonary artery is dilated at 3.8 cm. No intraluminal filling defects to suggest central pulmonary embolism. Lower Neck: No enlarged lymph nodes. Thyroid: No thyroid nodules which require sonographic follow up, per consensus guidelines. Axillae: No enlarged lymph nodes. Chest Wall: Unremarkable. Bones: Decreased osseous mineralization. Numerous anterior wedge compression deformities throughout the thoracic spine are redemonstrated.. Lungs and Pleura: Redemonstration of 9 mm nodule within the left lower lobe (5/163), this nodule now demonstrates small cavitation. Redemonstration of nodular opacities throughout the bilateral lungs which appears similar in appearance to prior, there most pronounced within the right lower lobe. Small right pleural effusion is new compared to prior. Biapical pleuroparenchymal scarring. There is diffuse bronchial wall thickening, most pronounced within the right lower lobe. Heart: Heart size is enlarged with reflux of contrast into the IVC. No pericardial effusion. Thoracic Vessels: Ascending thoracic aorta is at the upper limits of normal measuring 4.0 cm. Atherosclerotic vascular calcifications are present. Right chest wall Port-A-Cath with tip in the cavoatrial junction. Mediastinum and Brandy: No enlarged lymph nodes. Esophagus: No wall thickening. No hiatal hernia. Upper Abdomen: Splenic calcifications are noted. IMPRESSION: 1. No evidence of pulmonary embolism. 2. Dilated main pulmonary artery at 3.8 cm, suggestive of pulmonary hypertension. 3. Small right pleural effusion is new compared to prior. 4. Redemonstration of poorly defined nodular opacities throughout the bilateral lungs, most pronounced within the right lower lobe, similar appearance compared to prior. Diffuse bronchial wall thickening is noted. Findings may represent an atypical or chronic infectious or inflammatory process. 5. Left lower lobe 9 mm pulmonary nodule is stable in size, however demonstrates new small cavitation. This may represent atypical infection. Given change, recommend [address] 6. Cardiomegaly with reflux of contrast IVC, recommend correlation with elevated right heart pressures. 7. Ascending thoracic aorta measures at the upper limits of normal, 4 cm. 8. Stable appearance of decreased osseous mineralization and numerous thoracic anterior wedge compression deformities. Dictated by: Oswald George M.D. on 07/20/2023 at 23:29 Approved by: Oswald George M.D. on 07/20/2023 at 23:37
--- NOTE | 2023-07-20 22:14 | RT ---
Noting improvement in WOB and tachypnea. Pt agrees that she is feeling better in terms of her breathing.
[2023-07-20 22:16] LABS: Hematocrit 30.2 % (36-46); Hemoglobin 9.9 g/dL (12.0-16.0); Mean Corpuscular HGB Conc 32.8 % (30-36); Mean Corpuscular Hemoglobin 30.3 PG (26-34); Mean Corpuscular Volume 92.5 fL (80-100); Platelet Count 65 X10^3/uL (150-400); Red Blood Cell Count 3.26 X10^6/uL (4.0-5.2); Red Cell Distribution Width 16.9 % (11.6-14.8); White Blood Cell Count 3.7 X10^3/uL (4.5-11.0)
[2023-07-20 22:18] LABS: Add Manual Diff / Slide Review YES
--- NOTE | 2023-07-20 22:21 | ED_ITS ---
HPI - General Adult General Chief complaint: Shortness of Breath/Dyspnea Stated complaint: difficulty breathing Time Seen by Provider: 07/20/23 21:45 Source: patient and family Mode of arrival: Family Vehicle History of Present Illness HPI narrative: 72-year-old woman with a history of multiple myeloma, congestive heart failure, COPD with as needed oxygen available at home, hypertension who presents with significant increased work of breathing. She notes she is had mild upper respiratory symptoms for the past 3-4 days but today became significantly worse, has been using her oxygen at home all day, significant increased work of breathing. She describes cough more productive than usual, no significant fevers, no chest pain or palpitations. No nausea vomiting or diarrhea. Has not recently had fevers. Related Data Home Medications Medication Instructions Recorded Confirmed aspirin 81 mg tablet 81 mg PO DAILY 03/08/21 10/01/22 pantoprazole 40 mg tablet,delayed 40 mg PO DAILY 03/08/21 10/01/22 release pomalidomide 3 mg capsule 3 mg PO DAILY 03/08/21 10/01/22 (Pomalyst) Previous Rx's Medication Instructions Recorded oxycodone 5 mg tablet 5 mg PO Q8H PRN pain #14 tabs 12/15/21 hydrocodone 5 mg-acetaminophen 325 1 tab PO BEDTIME PRN pain #7 tabs 10/06/22 mg tablet albuterol sulfate 90 mcg/actuation 2 inh inhalation QID PRN shortness 04/25/23 aerosol inhaler of breath or wheezing #8.5 grams furosemide 40 mg tablet (Lasix) 40 mg PO DAILY #30 tabs 04/25/23 lisinopril 2.5 mg tablet 2.5 mg PO DAILY #30 tabs 04/25/23 metoprolol succinate 25 mg 12.5 mg (1/2 x 25 mg) PO DAILY #30 04/25/23 tablet,extended release 24 hr tabs Allergies Allergy/AdvReac Type Severity Reaction Status Date / Time No Known Drug Allergies Allergy Verified 07/20/23 21:46 Review of Systems Review of Systems Narrative: Pertinent positive and negative findings as per HPI Patient History Medical History Multiple myeloma Congestive heart failure Anemia Pneumonia Surgical History No significant past surgical history Family History Mother Cancer Social History household members: friend(s) and other Smoking Status: Former smoker alcohol intake: current additional social history: The patient smokes tobacco. She does not use alcohol. No drugs. Family and social history are otherwise noncontributory Smoking Status: Former smoker tobacco type: cigarettes alcohol intake frequency: holidays/special occasions only Substance Use Type: does not use Exam Initial Vital Signs Initial Vital Signs: Vital Signs Temperature 97.5 F L 07/20/23 21:44 Pulse Rate 95 H 07/20/23 21:44 Respiratory Rate 40 H 07/20/23 21:44 Blood Pressure 113/72 07/20/23 21:44 Pulse Oximetry 92 07/20/23 21:44 Oxygen Delivery Method Room Air 07/20/23 21:44 General: Chronically ill appearing, appears older than stated age. She is tachypneic, tachycardic with increased work of breathing and accessory muscle use. She is able to cooperate fully with exam and is able to speak in 3-5 word sentences. HEENT: Moist mucous membranes, normal sclera with reactive pupils, Neck: No JVD, supple Respiratory: Lungs with minimal scattered wheeze, no rhonchi, no rales. She is tachypneic with minor accessory muscle use. She has a port in her right upper chest wall Cardiac: Tachycardic but no murmurs appreciated Abdomen: Soft, nontender, good bowel tones, no flank pain Skin: Slightly pale but otherwise Warm and dry, no rashes Neurologic: Globally weak, Grossly neurologically intact with no obvious asymmetries or abnormalities Extremities: No trauma, well perfused, no significant lower extremity edema Psych: Cooperative, appropriate insight and affect Course Orders Ordered: ED Orders 07/20/23 21:46 EKG-12 Lead Stat Measure peak expiratory flow ONCE RT Consult Eval and Treat NOW 07/20/23 21:55 Respiratory Panel (Film Array) Stat 07/20/23 22:00 CT angio chest PE protocol Stat Complete Blood Count AUTO DIFF Stat Comprehensive Metabolic Panel Stat Lactate (Lactic Acid) Stat NT-proBNP (BNP-Adult 18+) Stat Prothrombin Time INR Stat Troponin I Stat Discontinued Medications Albuterol/Ipratropium (Albuterol/Ipratropium 3 Ml Ampul) 3 ml INH NOW ONE Stop: 07/20/23 21:55 Last Admin: 07/20/23 21:56 Dose: 3 ml Documented By: JESSICA Vital Signs Vital signs: Vital Signs - 8 hr 07/20/23 21:44 07/20/23 21:56 Temperature 97.5 F L Pulse Rate 95 H 64 Respiratory Rate 40 H 24 Blood Pressure 113/72 Pulse Oximetry 92 98 Oxygen Delivery Method Room Air Nasal Cannula Oxygen Flow Rate 3 Fraction of Inspired Oxygen 32 Medical Decision Making Lab Data 07/20/23 22:00 07/20/23 22:00 Labs: Lab Results 07/20/23 Range/Units 22:00 WBC 3.7 L (4.5-11.0) X10^3/uL RBC 3.26 L (4.0-5.2) X10^6/uL Hgb 9.9 L (12.0-16.0) g/dL Hct 30.2 L (36-46) % MCV 92.5 (80-100) fL MCH 30.3 (26-34) PG MCHC 32.8 (30-36) % RDW 16.9 H (11.6-14.8) % Plt Count 65 L (150-400) X10^3/uL Neut % (Auto) Not Reportable Lymph % (Auto) Not Reportable [place] % (Auto) Not Reportable Eos % (Auto) Not Reportable Baso % (Auto) Not Reportable Lymph # (Auto) Not Reportable [place] # (Auto) Not Reportable Baso # (Auto) Not Reportable Imaging Data CT PE study: Radiologist's Impression: FINDINGS: Image quality: Diagnostic. Pulmonary arteries: Main pulmonary artery is dilated at 3.8 cm. No intraluminal filling defects to suggest central pulmonary embolism. Lower Neck: No enlarged lymph nodes. Thyroid: No thyroid nodules which require sonographic follow up, per consensus guidelines. Axillae: No enlarged lymph nodes. Chest Wall: Unremarkable. Bones: Decreased osseous mineralization. Numerous anterior wedge compression deformities throughout the thoracic spine are redemonstrated.. Lungs and Pleura: Redemonstration of 9 mm nodule within the left lower lobe (5/163), this nodule now demonstrates small cavitation. Redemonstration of nodular opacities throughout the bilateral lungs which appears similar in appearance to prior, there most pronounced within the right lower lobe. Small right pleural effusion is new compared to prior. Biapical pleuroparenchymal scarring. There is diffuse bronchial wall thickening, most pronounced within the right lower lobe. Heart: Heart size is enlarged with reflux of contrast into the IVC. No pericardial effusion. Thoracic Vessels: Ascending thoracic aorta is at the upper limits of normal measuring 4.0 cm. Atherosclerotic vascular calcifications are present. Right chest wall Port-A-Cath with tip in the cavoatrial junction. Mediastinum and [place]andy: No enlarged lymph nodes. Esophagus: No wall thickening. No hiatal hernia. Upper Abdomen: Splenic calcifications are noted. IMPRESSION: 1. No evidence of pulmonary embolism. 2. Dilated main pulmonary artery at 3.8 cm, suggestive of pulmonary hypertension. 3. Small right pleural effusion is new compared to prior. 4. Redemonstration of poorly defined nodular opacities throughout the bilateral lungs, most pronounced within the right lower lobe, similar appearance compared to prior. Diffuse bronchial wall thickening is noted. Findings may represent an atypical or chronic infectious or inflammatory process. 5. Left lower lobe 9 mm pulmonary nodule is stable in size, however demonstrates new small cavitation. This may represent atypical infection. Given change, recommend [address] 6. Cardiomegaly with reflux of contrast IVC, recommend correlation with elevated right heart pressures. 7. Ascending thoracic aorta measures at the upper limits of normal, 4 cm. 8. Stable appearance of decreased osseous mineralization and numerous thoracic anterior wedge compression deformities. Dictated by: Oswald George M.D. on 07/20/2023 at 23:29 MDM Narrative Medical decision making narrative: CC: Acute dyspnea Complicating co-morbidities: Currently being treated for multiple myeloma, history of congestive heart failure, ischemic cardiomyopathy, chronic anemia Data collected from: patient Social determinants of health that may influence the patients condition: Medical records reviewed: Most recent echocardiogram April of 2023 showing ejection fraction in the 40-45% range significant right ventricle and right atrial dilation Differential considered: Viral syndrome, bacterial pneumonia, congestive heart failure, pulmonary embolism, acute coronary syndrome Exam documented above, pertinent findings include: Significant tachypnea, tachycardia and overall work of breathing with fairly unimpressive pulmonary exam. No significant lower extremity edema. Slight cough Lab Test results independently reviewed as above. Pertinent findings: CBC shows white count low at 3.7, H and H at 9.9 and 30.2 which is similar to her baseline. Platelets are at 65 which is slightly lower than baseline Chemistries are notable for slight bump in creatinine from 1-1.26. Potassium is appropriate. Calcium slightly low at 8.2 which appears chronic. Bilirubin slightly elevated at 2.0 ( AST not run due to reagent shortages in the lab) ALTs slightly elevated at 868 alk-phos is normal Troponin is elevated at 0.161, 2nd trop decreased to .143 ProBNP is elevated at 16,800 thousand eight hundred. This is lower than it has been in the past but obviously still significantly elevated Respiratory panel is positive for entero/rhinovirus. It is notable that she has tested positive for rhino virus in September as well Independently reviewed EKG: Sinus rhythm at a rate of 67, poor baseline. Rightward axis, no acute ischemic changes Imaging studies independently reviewed: CT angiogram does not show pulmonary embolism however likely pulmonary hypertension as evidenced by dilated pulmonary artery. Small right pleural effusion. Continued poorly defined nodular opacities in all lung aguilar with most in the right lower lobe. 9 mm nodule in the left lower lobe now with small amount of cavitation Consultations: Dr Aponte, hospitalist. CODE discussion: Patient very clearly states that she has had code discussions with previous physicians and family members and would prefer to be DNR DNI Treatments: Patient is on daily aspirin, she is given a DuoNeb inhaler, heparin drip NSTEMI protocol initiated, nitroglycerin topically and IV Lasix along with BiPAP started for her congestive heart failure Re-evaluations: Patient is slightly less tachypneic with nasal cannula oxygen 78%. With significantly elevated troponin returning I suspect that this is a non STEMI likely exacerbating her congestive heart failure rather than the other way around. Will go ahead and obtain the CT scan of the chest to make sure there is no evidence of dissection or pulmonary embolism. She is started on heparin, NSTEMI protocol. We will also place her on nitroglycerin and begin BiPAP along with 80 mg of IV Lasix to see if we can diurese her slightly. 1150pm tolerating low pressure bipap. 1250am repeat troponin is trending down. She is put out a L of fluid so far. She tolerated the BiPAP for approximately 2 hours but is feeling too claustrophobic to continue at this point. Blood pressures are stable, respiratory rate is trending down Discussion: 72-year-old woman with a history of congestive heart failure, coronary artery disease, likely pulmonary hypertension who presents with increasing shortness of breath worse for the last 24 hours with upper respiratory symptoms for the last 4 days. She is testing positive for rhino/enterovirus and I suspect that was the inciting problem. With the viral syndrome to complicate things her congestive heart failure has slightly decompensated and because of the congestive heart failure her troponin has increased. At this point her troponin is beginning to trend down. She is somewhat better after voiding over a L of fluid and response to the 80 mg of IV Lasix given. She also has nitroglycerin topically in place. She was able to tolerate approximately 2 hours of BiPAP and may be able to tolerate it intermittently over the course of the evening but at this point prefers to have it off due to claustrophobia symptoms. She is had a DuoNeb but was not particularly wheezy to start with. She is currently on 2 L of oxygen with her respiratory rate trending down nicely and oxygen saturations staying in the upper 60s. This is down from initially 3 L of oxygen. At this point she she is clearly trending in the right directions and will be safe for admission to [facility] for treatment of her congestive heart failure, NSTEMI and viral upper respiratory infection with respiratory distress. Critical Care Time Critical Care Time Critical Care Time: Yes Total Critical Care Time: 33 Attestation: Critical care time is separate from other billable procedures. There is a high probability of a significant, sudden or life-threatening deterioration that requires my full and direct attention, intervention and personal management. This critical care time includes consultation with family and other consulting doctors, review of records, and interpretation of data from labs, EKGs and imaging as well as managements of respiratory failure, IV heparin management for acute NSTEMI and congestive heart failure with BiPAP management. Discharge Plan Departure Patient Disposition: Admitted As Inpatient Clinical Impression: Acute non-ST elevation myocardial infarction (NSTEMI), Rhinovirus infection, Acute respiratory distress CHF (congestive heart failure) Qualifiers: Heart failure type: unspecified Heart failure chronicity: acute on chronic Q ualified Code(s): I50.9 - Heart failure, unspecified
[2023-07-20 22:24] LABS: INR 1.3 (0.9-1.3); Prothrombin Time 14.7 SECONDS (9.4-12.5)
[2023-07-20 22:33] LABS: Albumin 3.1 g/dL (3.5-5.0); Albumin Globulin Ratio 1.2 (1.0-2.8); Alkaline Phosphatase 94 U/L (38-126); BUN Creatinine Ratio 39.7 (6-22); Blood Urea Nitrogen 50 mg/dL (7-17); Calcium 8.2 mg/dL (8.4-10.2); Carbon Dioxide 32 mmol/L (22-32); Chloride 98 mmol/L (98-107); Estimated Glomerular Filt Rate 46 mL/min (>60); Globulin 2.5 g/dL (1.7-4.1); Glucose 130 mg/dL (80-110); HEMOLYSIS < 15 (0-50); Potassium 4.5 mmol/L (3.4-5.1); Sodium 136 mmol/L (137-145); Total Protein 5.6 g/dL (6.3-8.2)
[2023-07-20 22:34] LABS: Lactate (Lactic Acid) 1.9 mmol/L (0.7-2.1); Neutrophils Absolute Manual 2701 /uL (3000-5900); Total Cells Counted 100
[2023-07-20 22:35] LABS: Anisocytosis 1+
[2023-07-20 22:44] LABS: NT-proBNP (BNP-Adult 18+) 16800 pg/mL (<125)
[2023-07-20 22:59] LABS: Troponin I 0.161 ng/mL (0.01-0.034)
[2023-07-20 23:00] LABS: Alanine Aminotransferase 868 IU/L (<35)
[2023-07-20 23:10] LABS: Adenovirus Not Detected (Not Detect); B. parapertussis Not Detected (Not Detecte); Bordetella pertussis Not Detected (Not Detect); Chlamydophila pneumoniae Not Detected (Not Detect); Coronavirus 229E Not Detected (Not Detect); Coronavirus HKU1 Not Detected (Not Detect); Coronavirus NL 63 Not Detected (Not Detect); Coronavirus OC43 Not Detected (Not Detect); Human Metapneumovirus Not Detected (Not Detect); Human Rhinovirus/Enterovirus Detected (Not Detect); Influenza A Not Detected (Not Detect); Influenza B Not Detected (Not Detect); Mycoplasma pneumoniae Not Detected (Not Detect); Parainfluenza Virus 1 Not Detected (Not Detect); Parainfluenza Virus 2 Not Detected (Not Detect); Parainfluenza Virus 3 Not Detected (Not Detect); Parainfluenza Virus 4 Not Detected (Not Detect); Respiratory Syncytial Virus Not Detected (Not Detect); SARS- CoV-2 Not Detected (Not Detecte)
[2023-07-20] MEDS: HEPARIN DRIP 25,000 UNIT/500 ML IV.SOLN 17.418 UNIT IV (23:13)
[2023-07-20] MEDS: HEPARIN 5,000 UNIT/ML VIAL 4350 UNIT IV (23:14)
[2023-07-20] MEDS: NITROGLYCERIN OINT 1 INCH/GM OINT...G. 0.5 INCH TOP (23:15)
[2023-07-20 23:16] LABS: Microcytosis 1+; Ovalocytes 1+
[2023-07-20] MEDS: FUROSEMIDE 80 MG in SODIUM CHLORIDE 0.9% 50 ML 116 MG IV (23:17)
[2023-07-20 23:18] LABS: PTT Partial Thromboplastin Tim 29 SECONDS (25.1-36.5)
--- NOTE | 2023-07-20 23:25 | RT ---
Addendum entered by Josiane Carreno 07/20/23 23:54: Pt placed on BiPAP at 2325 on 07/20/23. Original Note: Pt placed on BiPAP at this time, tolerating well, will cont. to monitor.
[2023-07-21] VITALS (33 sets, daily range): BP systolic 98–156; BP diastolic 65–101; PULSE 70–111; RESP 8–58; TEMP 36.1–36.5; O2SAT 91–98; BMI 29.2
--- NOTE | 2023-07-21 00:45 | RT ---
Called to pt's room by RN. Pt removed the BiPAP mask, c/o claustrophobia. She is back on 3LNC: SpO2 92%, HR [address] Acharya aware.
[2023-07-21 00:51] LABS: Troponin I 0.143 ng/mL (0.01-0.034)
--- NOTE | 2023-07-21 01:40 | P.HP_ITS ---
History of Present Illness History of Present Illness Date Patient Seen: 07/21/23 Chief complaint: difficulty breathing Narrative: 72 y/o with PMH of ischemic cardiomyopathy, recent hospitalization with CHF exacerbation, in 04/2023, presented to ED with progressive dyspnea. She has chronic hypoxemic respiratory failure, on 2 L of oxygen at home, prn, and suspected COPD. Diagnosed with entero/rhino virus upper respiratory infection, acute on chronic hypoxemic respiratory failure and acute on chronic systolic HF and, with elevated troponins - NSTEMI. In the ED given 80 mg of Lasix and started on heparin drip. [facility] Medical History (Updated 07/21/23 @ 02:10 by Won Cabrera MD) GERD (gastroesophageal reflux disease) Multiple myeloma Congestive heart failure Anemia Pneumonia Surgical History No significant past surgical history Family History Mother Cancer Social History household members: friend(s) and other Smoking Status: Former smoker alcohol intake: former additional social history: The patient smokes tobacco. She does not use alcohol. No drugs. Family and social history are otherwise noncontributory Meds Home Medications and Allergies Home Medications Medication Instructions Recorded Confirmed Type aspirin 81 mg tablet 81 mg PO DAILY 03/08/21 10/01/22 History pantoprazole 40 mg tablet,delayed 40 mg PO DAILY 03/08/21 10/01/22 History release pomalidomide 3 mg capsule 3 mg PO DAILY 03/08/21 10/01/22 History (Pomalyst) oxycodone 5 mg tablet 5 mg PO Q8H PRN pain #14 tabs 12/15/21 10/01/22 Rx hydrocodone 5 mg-acetaminophen 325 1 tab PO BEDTIME PRN pain #7 tabs 10/06/22 Rx mg tablet albuterol sulfate 90 mcg/actuation 2 inh inhalation QID PRN shortness 04/25/23 Rx aerosol inhaler of breath or wheezing #8.5 grams furosemide 40 mg tablet (Lasix) 40 mg PO DAILY #30 tabs 04/25/23 Rx lisinopril 2.5 mg tablet 2.5 mg PO DAILY #30 tabs 04/25/23 Rx metoprolol succinate 25 mg 12.5 mg (1/2 x 25 mg) PO DAILY #30 04/25/23 Rx tablet,extended release 24 hr tabs Allergies Allergy/AdvReac Type Severity Reaction Status Date / Time No Known Drug Allergies Allergy Verified 07/20/23 21:46 Review of Systems Constitutional Comments: w.o chills or fever feels weak Cardiovascular Comments: w/o chest pain or palpitations Respiratory Comments: short of breath Exam Vital Signs (past 8 hours): - 07/20/23 21:44 07/20/23 21:56 07/20/23 22:00 Temperature 97.5 F L Pulse Rate 95 H 64 63 Respiratory Rate 40 H 24 26 H Blood Pressure 113/72 112/68 Pulse Oximetry 92 98 99 Oxygen Delivery Method Room Air Nasal Cannula Nasal Cannula Oxygen Flow Rate 3 2 Fraction of Inspired Oxygen 32 07/20/23 22:30 07/20/23 23:00 07/20/23 23:15 Temperature Pulse Rate 90 92 H 93 H Respiratory Rate 28 H 24 Blood Pressure 140/87 143/90 H 143/90 H Pulse Oximetry 95 96 Oxygen Delivery Method Nasal Cannula Oxygen Flow Rate 2 Fraction of Inspired Oxygen 07/20/23 23:25 07/20/23 23:30 07/20/23 23:45 Temperature Pulse Rate 89 85 Respiratory Rate 30 H 26 H Blood Pressure Pulse Oximetry 98 96 Oxygen Delivery Method BiPAP Oxygen Flow Rate Fraction of Inspired Oxygen 32 07/20/23 23:54 07/20/23 23:54 07/21/23 00:00 Temperature Pulse Rate 83 76 Respiratory Rate 22 17 Blood Pressure 152/95 H Pulse Oximetry 98 92 Oxygen Delivery Method BiPAP Oxygen Flow Rate Fraction of Inspired Oxygen 07/21/23 00:00 07/21/23 00:30 07/21/23 00:30 Temperature Pulse Rate 91 H Respiratory Rate 19 Blood Pressure 138/96 H 156/101 H Pulse Oximetry 96 Oxygen Delivery Method Oxygen Flow Rate Fraction of Inspired Oxygen 07/21/23 01:00 07/21/23 01:00 Temperature Pulse Rate 86 Respiratory Rate 18 Blood Pressure 128/82 Pulse Oximetry 94 Oxygen Delivery Method Nasal Cannula Oxygen Flow Rate 2 Fraction of Inspired Oxygen Fraction of Inspired Oxygen 32 SaO2/FiO2 Ratio 306 Oxygen Delivery Method Nasal Cannula Oxygen Flow Rate 2 Const Other: sitting in bed in no distress HENMT Other: O2 via NC Eyes Other: eomi Neck Other: supple Resp Other: wheezing, rhonchi Cardio Other: RRR GI Other: not distended Neuro Other: w/o deficits Objective Labs 07/21/23 04:21 07/21/23 04:21 Labs: Laboratory Results - last 24 hr 07/20/23 07/20/23 07/21/23 21:49 22:00 00:15 WBC 3.7 L RBC 3.26 L Hgb 9.9 L Hct 30.2 L MCV 92.5 MCH 30.3 MCHC 32.8 RDW 16.9 H Plt Count 65 L Neut % (Auto) Not Reportable Lymph % (Auto) Not Reportable [place] % (Auto) Not Reportable Eos % (Auto) Not Reportable Baso % (Auto) Not Reportable Lymph # (Auto) Not Reportable [place] # (Auto) Not Reportable Baso # (Auto) Not Reportable Total Counted 100 Seg Neutrophils % 55.0 Band Neutrophils % 18.0 H Lymphocytes % (Manual) 3.0 L Monocytes % (Manual) 10.0 Eosinophils % (Manual) 1.0 L Metamyelocytes % 5.0 H Myelocytes % 8.0 H Neutrophils # (Manual) 2701 L RBC Morphology See below Anisocytosis 1+ H Microcytosis 1+ H Ovalocytes 1+ H PT 14.7 H INR 1.3 APTT 29 Sodium 136 L Potassium 4.5 Chloride 98 Carbon Dioxide 32 BUN 50 H Creatinine 1.26 H Estimated GFR 46 L BUN/Creatinine Ratio 39.7 H Glucose 130 H Lactate 1.9 Calcium 8.2 L Total Bilirubin 2.0 H AST TNP ALT 868 H Alkaline Phosphatase 94 Troponin I 0.161 H* 0.143 H* NT-Pro-B Natriuret Pep 77119 H Total Protein 5.6 L Albumin 3.1 L Globulin 2.5 Albumin/Globulin Ratio 1.2 Chlamy pneumoniae PCR Not detected Adenovirus (PCR) Not detected B.parapertussis DNA PCR Not detected Coronavirus OC43 (PCR) Not detected Coronavirus HKU1 (PCR) Not detected Coronavirus 229E (PCR) Not detected SARS-CoV-2 (PCR) Not detected Coronavirus NL63 (PCR) Not detected Human Metapneumovir PCR Not detected Influenza Type A (PCR) Not detected Influenza Type B (PCR) Not detected M. pneumoniae (PCR) Not detected Parainfluenza 1 (PCR) Not detected Parainfluenza 2 (PCR) Not detected Parainfluenza 3 (PCR) Not detected Parainfluenza 4 (PCR) Not detected RSV (PCR) Not detected Entero/Rhino (PCR) Detected H Assessment & Plan Assessment and plan (1) Acute on chronic systolic (congestive) heart failure: Status: Acute Plan: Diuresis. EF 45% 2 months ago, repeat echo Is/Os, weights (2) NSTEMI (non-ST elevated myocardial infarction): Status: Acute Plan: started heparin drip in the ED, to be reassessed in am. On ASA 81 mg at home Checking lipids Cycled troponins Echo fo regional wall motion abnormalities if indicated (3) Acute and chronic respiratory failure: Status: Acute Plan: On previous hospitalization and earlier today in the ED, on BiPAP. Admitted to ICU, she might need additional BiPAP Both hypoxemic and hypercapnic (4) Rhinovirus infection: Status: Acute Plan: Likely major contributor to respiratory / heart failure (5) Acute kidney injury: Status: Acute Plan: monitored renal function (6) GERD (gastroesophageal reflux disease): Status: Acute Plan: PPI
[2023-07-21 03:24] LABS: Fractionated Inspired Oxygen 28; HCO3 ABG 31 mmol/L (23-27); Oxygen Saturation ABG 95 % (95-100); PCO2 ABG 39.8 mmHg (35-45); PO2 ABG 71 mmHg (80-100); TCO2 ABG 32 mmol/L (23-27)
[2023-07-21 03:25] LABS: Allen Test for ABG Passed? Yes, Passed; Blood Gas Collection Site Right Radial
--- NOTE | 2023-07-21 03:45 | PC.NURSE ---
Bilateral foot with open areas between toes.
[2023-07-21 05:03] LABS: Add Manual Diff / Slide Review NO; Basophils Absolute Auto 0 /uL (0-100); Basophils Percent Auto 0.3 % (0-2); Eosinophils Absolute Auto 0 /uL (0-450); Eosinophils Percent Auto 0.8 % (2-4); Hematocrit 32.5 % (36-46); Hemoglobin 10.6 g/dL (12.0-16.0); Lymphocytes Absolute Auto 200 /uL (1100-4500); Lymphocytes Percent Auto 4.5 % (25-40); Mean Corpuscular HGB Conc 32.7 % (30-36); Mean Corpuscular Hemoglobin 30.1 PG (26-34); Monocytes Absolute Auto 300 /uL (0-900); Monocytes Percent Auto 7.7 % (3-14); Neutrophils Absolute Auto 3300 /uL (1500-7000); Neutrophils Percent Auto 86.7 % (50-75); Platelet Count 64 X10^3/uL (150-400); Red Blood Cell Count 3.54 X10^6/uL (4.0-5.2); Red Cell Distribution Width 16.9 % (11.6-14.8); White Blood Cell Count 3.8 X10^3/uL (4.5-11.0)
[2023-07-21 05:04] LABS: BUN Creatinine Ratio 37.1 (6-22); Blood Urea Nitrogen 46 mg/dL (7-17); Calcium 8.2 mg/dL (8.4-10.2); Carbon Dioxide 35 mmol/L (22-32); Chloride 96 mmol/L (98-107); Cholesterol 131 mg/dL (140-199); Estimated Glomerular Filt Rate 47 mL/min (>60); Glucose 173 mg/dL (80-110); HDL Cholesterol 28 mg/dL (40-60); HEMOLYSIS < 15 (0-50); LDL Cholesterol Calculated 67 mg/dL (<100); Potassium 4.1 mmol/L (3.4-5.1); Sodium 137 mmol/L (137-145); Triglycerides 181 mg/dL (35-150)
[2023-07-21 05:11] LABS: NT-proBNP (BNP-Adult 18+) 13100 pg/mL (<125)
[2023-07-21 05:50] LABS: PTT Partial Thromboplastin Tim 51 SECONDS (25.1-36.5)
[2023-07-21 06:14] LABS: MRSA (Nasal) PCR Not Detected (Not Detect)
[2023-07-21 07:27] LABS: Troponin I 0.135 ng/mL (0.01-0.034)
[2023-07-21] MEDS: ASPIRIN 81 MG CHEW TAB PO (08:38)
[2023-07-21] MEDS: lisinopriL 5 MG TABLET 2.5 MG PO (08:39)
[2023-07-21] MEDS: METOPROLOL ER 25 MG TABLET 12.5 MG PO (08:39)
[2023-07-21] MEDS: FUROSEMIDE 40 MG TABLET PO (08:39)
[2023-07-21] MEDS: PANTOPRAZOLE DR 40 MG TABLET PO (08:39)
--- NOTE | 2023-07-21 09:07 | DI.ECHO.S_ITS ---
[facility] +---------+ : : [address] [place] : : : : [id number] : : : : Phone: [phone] Echocardiogram Report + + :Name: MICHI LEA Study Date: 07/21/2023 Height: 62 in : :[facility] ReadingLocation: Weight: 160 lb : : Gender: Female BSA: 1.7 m2 : :: 1950 Age: 72 yrs BP: 100/65 mmHg: :Reason For Study: SHORTNESS OF BREATH : :Ordering Physician: EBONY, : :JORGE ALBERTO FRANKLIN Performed By: Misty Harrington : :Referring: JORGE ALBERTO BECK : + + Interpretation Summary The left ventricle is normal in size and wall thickness. The ejection fraction is estimated to be 40-45%. There has been no significant change since the previous exam. The interventricular septum is flattened, consistent with a right ventricular pressure/volume condition. The right ventricle is severely dilated. Right ventricular systolic function is moderate to severely reduced. The right ventricular systolic pressure is estimated to be at least 84 mmHg based on an estimated right atrial pressure of 8 mm Hg. Compared to the prior echo exam, there has been an increase in the severity of pulmonary hypertension. The right atrium is severely dilated. There is moderate to severe tricuspid regurgitation. Compared to the prior echo exam, there has been an increase in TR severity. Procedure: The study quality was technically limited. The study quality was technically adequate. Comparison is made with the echocardiogram of 04/25/2023. The patient was in sinus rhythm with heart rates between 88-105 bpm during the exam. Left Ventricle: The left ventricle is normal in size and wall thickness. The ejection fraction is estimated to be 40-45%. There has been no significant change since the previous exam. The interventricular septum is flattened, consistent with a right ventricular pressure/volume condition. Right Ventricle: The right ventricle is severely dilated. Right ventricular systolic function is moderate to severely reduced. Atria: The left atrial size is normal. The right atrium is severely dilated. Tricuspid Valve: The right ventricular systolic pressure is estimated to be at least 84 mmHg based on an estimated right atrial pressure of 8 mm Hg. Compared to the prior echo exam, there has been an increase in the severity of pulmonary hypertension. There is moderate to severe tricuspid regurgitation. Compared to the prior echo exam, there has been an increase in TR severity. Great Vessels: The IVC is dilated (diameter is greater than 2.1 cm) yet it collapses greater than 50% with a sniff. This suggests a right atrial pressure of 8 mm Hg. Pericardium/ Pleura There is no pericardial effusion. There is no pleural effusion. MMode/2D Measurements & Calculations LVIDd: 4.3 cm LA A2 area: 16.8 cm2 LVIDs: 3.0 cm LA A4 area: 12.2 cm2 FS: 28.7 % LA length (vol): 5.2 cm IVSd: 0.95 cm LA vol: 33.1 ml LVPWd: 0.77 cm LA vol index: 19.1 ml/m2 LV daniel. diameter/BSA (cm/m^2): 2.5 LV sys. diameter/BSA (cm/m^2): 1.7 RA long axis: 6.3 cm RVD1 (basal): 5.3 cm RA area: 32.2 cm2 RVD2 (mid): 4.4 cm RA vol: 139.8 ml TAPSE: 1.3 cm RA : 80.4 ml/m2 IVC diam: 2.5 cm RVDd major: 7.6 cm Doppler Measurements & Calculations TR max manjit: 435.1 cm/sec TR max P.7 mmHg Reading Physician:05:34 PM
--- NOTE | 2023-07-21 11:15 | CM.DANOTE ---
Initial DCP Assessment Note Pt is a 72 yo female, resident of [place], presents with difficulty breathing, admitted for management of CHF exacerbation, Rhinovirus w/acute respiratory failure. PCP: Eliu Barnard Payer: [facility] Met w/patient to introduce self and role. Patient lives w/roommate Anurag who is also patient's ALLISON caregiver. Patient receives 30 hrs per month, patient does not know the name of her ALLISON case managers. Don assists with getting patient to the , cooks, cleans and drives. Patient has home O2 through [facility]. Discussed home health, patient agreeable if insurance will cover. According to a later conversation with VIRGIL Jenn, neither [facility] or [facility] at this time, patient does not have HH available to her. Anticipate patient will return home w/roommate/ cg Don with close outpatient follow up. Discussed assignment of DPOA, patient reports she does not want to have a DPOA at this time. CM team will plan to follow closely in case any DC needs or concerns arise. JOSELITO Liao Discharge Planning/Care Management CM Discharge Assessment Start: 07/21/23 11:07 Freq: Status: Active Protocol: Document 07/21/23 11:08 RADHA (Rec: 07/21/23 11:15 RADHA [id number]) Discharge Planning Assessment Assigned Medical Grade [place] JOSELITO Richard DPOA/Assigned Designee Name Anurag Shah, Contact Information Friend and roommate, patient says she does not have a DPOA Advance Directives? No Advance Directives on File No History Provided By Patient,Medical Record Has Patient been admitted in last 30 No days? Comment Last admission was april 2023 Prior Living Arrangements Mobile home Comment Trailer Household Members friend(s),other Type of transporation used prior to Relies on Others admit Independent with ADL's No Is patient alert and oriented? Yes Needs Assistance With Meal Prep,Toileting,Managing Medications,Home Chores / Shopping Caregiver for Another No Community Services used prior to Oxygen Therapy admission: Comment Tierney Comment It's likely none are needed, follow closely. Barriers to Discharge No Discharge Plan Home Transportation Arrangement Family/friend
--- NOTE | 2023-07-21 11:31 | P.HP_ITS ---
History of Present Illness History of Present Illness Date Patient Seen: 07/21/23 Time Patient Seen: 10:00 Chief complaint: Difficulty Breathing Narrative: Per overnight provider, 72 y/o with PMH of ischemic cardiomyopathy, recent hospitalization with CHF exacerbation, in 04/2023, presented to ED with progressive dyspnea. She has chronic hypoxemic respiratory failure, on 2 L of oxygen at home, prn, and suspected COPD. Diagnosed with entero/rhino virus upper respiratory infection, acute on chronic hypoxemic respiratory failure and acute on chronic systolic HF and, with elevated troponins - NSTEMI. In the ED given 80 mg of Lasix and started on heparin drip. Upon review, patient is feeling much improved this morning but still a bit short of breath. She is down to 2L of oxygen, her usual amount at home, and troponins have been downtrending. With no chest pain or EKG changes, heparin infusion was stopped as elevated troponin likely due to demand. [facility] Medical History GERD (gastroesophageal reflux disease) Multiple myeloma Congestive heart failure Anemia Pneumonia Surgical History No significant past surgical history Family History Mother Cancer Social History household members: friend(s) and other Smoking Status: Former smoker alcohol intake: former additional social history: The patient smokes tobacco. She does not use alcohol. No drugs. Family and social history are otherwise noncontributory Meds Home Medications and Allergies Home Medications Medication Instructions Recorded Confirmed Type aspirin 81 mg tablet 81 mg PO DAILY 03/08/21 10/01/22 History pantoprazole 40 mg tablet,delayed 40 mg PO DAILY 03/08/21 10/01/22 History release pomalidomide 3 mg capsule 3 mg PO DAILY 03/08/21 10/01/22 History (Pomalyst) oxycodone 5 mg tablet 5 mg PO Q8H PRN pain #14 tabs 12/15/21 10/01/22 Rx hydrocodone 5 mg-acetaminophen 325 1 tab PO BEDTIME PRN pain #7 tabs 10/06/22 Rx mg tablet albuterol sulfate 90 mcg/actuation 2 inh inhalation QID PRN shortness 04/25/23 Rx aerosol inhaler of breath or wheezing #8.5 grams furosemide 40 mg tablet (Lasix) 40 mg PO DAILY #30 tabs 04/25/23 Rx lisinopril 2.5 mg tablet 2.5 mg PO DAILY #30 tabs 04/25/23 Rx metoprolol succinate 25 mg 12.5 mg (1/2 x 25 mg) PO DAILY #30 04/25/23 Rx tablet,extended release 24 hr tabs Allergies Allergy/AdvReac Type Severity Reaction Status Date / Time No Known Drug Allergies Allergy Verified 07/20/23 21:46 Review of Systems Review of Systems Narrative: All other systems reviewed with the patient and are negative unless otherwise stated. Exam Vital Signs (past 8 hours): - 07/21/23 04:00 07/21/23 04:00 07/21/23 04:20 Temperature 97.3 F L Pulse Rate 90 Respiratory Rate 24 Blood Pressure 137/96 H Pulse Oximetry 96 Oxygen Delivery Method Nasal Cannula Oxygen Flow Rate 4 07/21/23 05:00 07/21/23 05:00 07/21/23 06:00 Temperature Pulse Rate 87 97 H Respiratory Rate 26 H 24 Blood Pressure 117/79 Pulse Oximetry 98 95 Oxygen Delivery Method Oxygen Flow Rate 4 07/21/23 06:00 07/21/23 07:00 07/21/23 07:00 Temperature Pulse Rate 80 Respiratory Rate 30 H Blood Pressure 135/86 140/89 Pulse Oximetry 95 Oxygen Delivery Method Oxygen Flow Rate 4 07/21/23 07:00 07/21/23 08:00 07/21/23 08:00 Temperature Pulse Rate 83 Respiratory Rate 25 H Blood Pressure 104/68 Pulse Oximetry 94 Oxygen Delivery Method Nasal Cannula Oxygen Flow Rate 07/21/23 09:00 07/21/23 09:00 07/21/23 09:19 Temperature Pulse Rate 96 H 102 H Respiratory Rate 23 Blood Pressure 104/67 104/67 Pulse Oximetry 96 Oxygen Delivery Method Oxygen Flow Rate 07/21/23 10:00 07/21/23 10:00 07/21/23 11:00 Temperature Pulse Rate 95 H 76 Respiratory Rate 28 H 24 Blood Pressure 98/66 Pulse Oximetry 95 96 Oxygen Delivery Method Oxygen Flow Rate 07/21/23 11:00 Temperature Pulse Rate Respiratory Rate Blood Pressure 115/68 Pulse Oximetry Oxygen Delivery Method Oxygen Flow Rate Fraction of Inspired Oxygen 32 SaO2/FiO2 Ratio 306 Oxygen Delivery Method Nasal Cannula Oxygen Flow Rate 4 Narrative Exam Narrative: GEN: NAD HEENT: moist mucous membranes, PERRL NECK: trachea midline, no JVD CV: regular rate and rhythm, no murmurs PULM: bilateral rales ABD: soft, nontender, nondistended, no organomegaly EXT: warm and well perfused with no edema NEURO: awake and alert, oriented, no focal deficits Objective Labs 07/21/23 04:21 07/21/23 04:21 Labs: Laboratory Results - last 24 hr 07/20/23 07/20/23 07/21/23 21:49 22:00 00:15 WBC 3.7 L RBC 3.26 L Hgb 9.9 L Hct 30.2 L MCV 92.5 MCH 30.3 MCHC 32.8 RDW 16.9 H Plt Count 65 L Neut % (Auto) Not Reportable Lymph % (Auto) Not Reportable Clinch % (Auto) Not Reportable Eos % (Auto) Not Reportable Baso % (Auto) Not Reportable Neut # (Auto) Lymph # (Auto) Not Reportable Clinch # (Auto) Not Reportable Eos # (Auto) Baso # (Auto) Not Reportable Total Counted 100 Seg Neutrophils % 55.0 Band Neutrophils % 18.0 H Lymphocytes % (Manual) 3.0 L Monocytes % (Manual) 10.0 Eosinophils % (Manual) 1.0 L Metamyelocytes % 5.0 H Myelocytes % 8.0 H Neutrophils # (Manual) 2701 L RBC Morphology See below Anisocytosis 1+ H Microcytosis 1+ H Ovalocytes 1+ H PT 14.7 H INR 1.3 APTT 29 ABG Sample Site ABG pH ABG pCO2 ABG pO2 ABG HCO3 ABG Total CO2 ABG O2 Saturation ABG Base Excess FiO2 Sodium 136 L Potassium 4.5 Chloride 98 Carbon Dioxide 32 BUN 50 H Creatinine 1.26 H Estimated GFR 46 L BUN/Creatinine Ratio 39.7 H Glucose 130 H Lactate 1.9 Calcium 8.2 L Total Bilirubin 2.0 H AST TNP ALT 868 H Alkaline Phosphatase 94 Troponin I 0.161 H* 0.143 H* NT-Pro-B Natriuret Pep 36679 H Total Protein 5.6 L Albumin 3.1 L Globulin 2.5 Albumin/Globulin Ratio 1.2 Triglycerides Cholesterol LDL Cholesterol, Calc HDL Cholesterol Nasal Screen MRSA (PCR) Chlamy pneumoniae PCR Not detected Adenovirus (PCR) Not detected B.parapertussis DNA PCR Not detected Coronavirus OC43 (PCR) Not detected Coronavirus HKU1 (PCR) Not detected Coronavirus 229E (PCR) Not detected SARS-CoV-2 (PCR) Not detected Coronavirus NL63 (PCR) Not detected Human Metapneumovir PCR Not detected Influenza Type A (PCR) Not detected Influenza Type B (PCR) Not detected M. pneumoniae (PCR) Not detected Parainfluenza 1 (PCR) Not detected Parainfluenza 2 (PCR) Not detected Parainfluenza 3 (PCR) Not detected Parainfluenza 4 (PCR) Not detected RSV (PCR) Not detected Entero/Rhino (PCR) Detected H 07/21/23 07/21/23 07/21/23 02:40 03:06 04:21 WBC 3.8 L RBC 3.54 L Hgb 10.6 L Hct 32.5 L MCV 92.0 MCH 30.1 MCHC 32.7 RDW 16.9 H Plt Count 64 L Neut % (Auto) 86.7 H Lymph % (Auto) 4.5 L Clinch % (Auto) 7.7 Eos % (Auto) 0.8 L Baso % (Auto) 0.3 Neut # (Auto) 3300 Lymph # (Auto) 200 L Clinch # (Auto) 300 Eos # (Auto) 0 Baso # (Auto) 0 Total Counted Seg Neutrophils % Band Neutrophils % Lymphocytes % (Manual) Monocytes % (Manual) Eosinophils % (Manual) Metamyelocytes % Myelocytes % Neutrophils # (Manual) RBC Morphology Anisocytosis Microcytosis Ovalocytes PT INR APTT 51 H D ABG Sample Site Right radial ABG pH 7.50 H ABG pCO2 39.8 ABG pO2 71 L ABG HCO3 31 H ABG Total CO2 32 H ABG O2 Saturation 95 ABG Base Excess 8.0 H FiO2 28 Sodium 137 Potassium 4.1 Chloride 96 L Carbon Dioxide 35 H BUN 46 H Creatinine 1.24 H Estimated GFR 47 L BUN/Creatinine Ratio 37.1 H Glucose 173 H Lactate Calcium 8.2 L Total Bilirubin AST ALT Alkaline Phosphatase Troponin I 0.135 H* NT-Pro-B Natriuret Pep 96501 H Total Protein Albumin Globulin Albumin/Globulin Ratio Triglycerides 181 H Cholesterol 131 L LDL Cholesterol, Calc 67 HDL Cholesterol 28 L Nasal Screen MRSA (PCR) Not detected Chlamy pneumoniae PCR Adenovirus (PCR) B.parapertussis DNA PCR Coronavirus OC43 (PCR) Coronavirus HKU1 (PCR) Coronavirus 229E (PCR) SARS-CoV-2 (PCR) Coronavirus NL63 (PCR) Human Metapneumovir PCR Influenza Type A (PCR) Influenza Type B (PCR) M. pneumoniae (PCR) Parainfluenza 1 (PCR) Parainfluenza 2 (PCR) Parainfluenza 3 (PCR) Parainfluenza 4 (PCR) RSV (PCR) Entero/Rhino (PCR) Assessment & Plan Assessment & Plan narrative: (1) Acute on chronic systolic (congestive) heart failure with acute on chronic respiratory failure with hypoxia EF 45% 2 months ago, repeat echo limited ordered given elevated troponins to assess for any acute changes in EF or wall motion -continue diuresis with IV furosemide 40 mg IV BID -now on baseline 2L as she is at home, was requiring more than baseline O2 on presentation -suspect transaminase and bili elevations are due to hepatic congestion, though possible low flow state. (2) myocardial injury, NSTEMI less likely - was initially on heparin infusion, with declining trops, no chest pain, and no ischemic EKG changes have stopped heparin now. - limited echo as noted above (3) Acute and chronic respiratory failure, now resolved - likely due to rhinovirus with CHF exacerbation - continue supportive care. - Goal O2 88-96% while on supplemental therapy (4) Rhinovirus infection: - supportive care. (5) Acute kidney injury: - baseline 0.8 - 1.0 last admission. Currently approx 1.25. Continue to trend cr. (6) GERD (gastroesophageal reflux disease): - continue home pantoprazole 7. Transaminase and bilirubin elevations. - ALT 868 on presentation, Tbili 2.0. - differentials include hepatic congestion, low perfusion, others. - check Hepatitis serologies. - RUQ ultrasound ordered Code: DNR, she declines to select surrogate decision maker despite discussion. DVT: Lovenox Dispo: admitted inpatient, stay is expected to exceed two midnights. Will likely discharge home.
[2023-07-21] MEDS: FUROSEMIDE 40 MG/4 ML VIAL IV (17:06)
--- NOTE | 2023-07-21 18:35 | PC.NURSE ---
heparin drip was discontinued this morning; right chest port remains accessed; pt has been getting up to the bsc for most of the day; she requested a purewick when her 1700 dose of lasix was given; she had an echo; she will be NPO after midnight for an US abd in the am; she has been on her home dose of o2/2l since this morning and her sats have maintained >92%
[2023-07-22] VITALS (39 sets, daily range): BP systolic 67–110; BP diastolic 31–75; PULSE 64–117; RESP 17–52; TEMP 36.2–36.8; O2SAT 78–100
[2023-07-22 05:19] LABS: Hematocrit 34.1 % (36-46); Hemoglobin 11.1 g/dL (12.0-16.0); Platelet Count 65 X10^3/uL (150-400)
--- NOTE | 2023-07-22 07:00 | DI.US.S_ITS ---
PROCEDURE: US ABDOMEN LIMITED INDICATIONS: RUQ, elevated transaminase and bilirubin TECHNIQUE: Real-time scanning was performed of the abdominal and retroperitoneal organs, with image documentation. COMPARISON: [facility], CT, CT ANGIO CHEST PE PROTOCOL, 07/20/2023, 23:08. FINDINGS: Liver: Liver is normal in size and mildly heterogeneous in echotexture. There is subtle nodularity of the liver surface. Gallbladder: The gallbladder appears normal without gallstones or gallbladder wall thickening. There is no pericholecystic fluid. Sonographic Streeter sign is negative. Biliary ducts: Intrahepatic bile ducts are non-dilated. Extrahepatic bile duct caliber measures 2 mm. Normal is 6-7 mm or less in diameter, or 10 mm or less post-cholecystectomy. Pancreas: Visualized portions of the pancreas are sonographically normal. IVC: Intrahepatic inferior vena cava is patent where visualized. Miscellaneous: No free abdominal fluid. IMPRESSION: 1. Normal gallbladder. No biliary ductal dilatation. 2. Suspected subtle nodularity of the liver surface. Recommend correlation with clinical and laboratory findings to exclude mild or early cirrhosis. Approved by: Lavelle De La Garza M.D. on 07/22/2023 at 8:34
[2023-07-22 08:19] LABS: Alanine Aminotransferase 712 IU/L (<35); Albumin 3.3 g/dL (3.5-5.0); Albumin Globulin Ratio 1.3 (1.0-2.8); Alkaline Phosphatase 85 U/L (38-126); BUN Creatinine Ratio 27.7 (6-22); Bilirubin Total 1.7 mg/dL (0.2-1.3); Blood Urea Nitrogen 33 mg/dL (7-17); Calcium 7.9 mg/dL (8.4-10.2); Chloride 91 mmol/L (98-107); Estimated Glomerular Filt Rate 49 mL/min (>60); Globulin 2.6 g/dL (1.7-4.1); Glucose 135 mg/dL (80-110); Potassium 3.7 mmol/L (3.4-5.1); Sodium 137 mmol/L (137-145); Total Protein 5.9 g/dL (6.3-8.2)
[2023-07-22 08:26] LABS: Carbon Dioxide 38 mmol/L (22-32)
[2023-07-22] MEDS: ASPIRIN 81 MG CHEW TAB PO (09:09)
[2023-07-22] MEDS: lisinopriL 5 MG TABLET 2.5 MG PO (09:10)
[2023-07-22] MEDS: METOPROLOL ER 25 MG TABLET 12.5 MG PO (09:10)
[2023-07-22] MEDS: PANTOPRAZOLE DR 40 MG TABLET PO (09:10)
[2023-07-22] MEDS: FUROSEMIDE 40 MG/4 ML VIAL IV (10:52)
[2023-07-22 14:52] LABS: Aspartate Aminotransferase 489 IU/L (14-36)
--- NOTE | 2023-07-22 15:01 | PM.PN.1 ---
Subjective Subjective Interval history: No chest pain, dyspnea better and on much less O2 today. No chest or abdomen pain. She still has dyspnea with minimal exertion, feels tired and weak. BP a bit soft, Diuretics held for the afternoon. Exam Vital Signs (past 8 hours): - 07/22/23 08:00 07/22/23 08:00 07/22/23 09:00 Temperature Pulse Rate 101 H Respiratory Rate 22 Blood Pressure 107/75 87/61 L Pulse Oximetry 94 Oxygen Delivery Method 07/22/23 09:00 07/22/23 09:00 07/22/23 09:01 Temperature Pulse Rate 95 H 92 H Respiratory Rate 38 H 31 H Blood Pressure Pulse Oximetry 94 93 Oxygen Delivery Method Nasal Cannula 07/22/23 09:01 07/22/23 09:02 07/22/23 09:02 Temperature Pulse Rate 92 H Respiratory Rate 30 H Blood Pressure 86/60 L 94/64 Pulse Oximetry 94 Oxygen Delivery Method 07/22/23 09:10 07/22/23 09:10 07/22/23 09:55 Temperature Pulse Rate 80 80 Respiratory Rate 27 H Blood Pressure 107/60 107/60 Pulse Oximetry Oxygen Delivery Method 07/22/23 10:00 07/22/23 10:00 07/22/23 10:00 Temperature 97.6 F Pulse Rate 80 84 84 Respiratory Rate 33 H Blood Pressure Pulse Oximetry 93 Oxygen Delivery Method 07/22/23 11:00 07/22/23 13:15 07/22/23 13:38 Temperature Pulse Rate 87 89 Respiratory Rate 19 18 Blood Pressure Pulse Oximetry 97 Oxygen Delivery Method Fraction of Inspired Oxygen 30 SaO2/FiO2 Ratio 320 Oxygen Delivery Method Nasal Cannula Oxygen Flow Rate 3 Narrative Exam Narrative: GEN: NAD HEENT: moist mucous membranes, PERRL NECK: trachea midline, no JVD CV: regular rate and rhythm, no murmurs PULM: bilateral rales ABD: soft, nontender, nondistended, no organomegaly EXT: warm and well perfused with no edema NEURO: awake and alert, oriented, no focal deficits Objective Labs 07/22/23 05:00 07/22/23 05:00 Labs: Laboratory Results - last 24 hr 07/20/23 07/22/23 22:00 05:00 Hgb 11.1 L Hct 34.1 L Plt Count 65 L Sodium 136 L 137 Potassium 4.5 3.7 Chloride 98 91 L Carbon Dioxide 32 38 H BUN 50 H 33 H Creatinine 1.26 H 1.19 H Estimated GFR 46 L 49 L BUN/Creatinine Ratio 39.7 H 27.7 H Glucose 130 H 135 H Calcium 8.2 L 7.9 L Total Bilirubin 2.0 H 1.7 H AST 489 H TNP ALT 868 H 712 H Alkaline Phosphatase 94 85 Troponin I 0.161 H* NT-Pro-B Natriuret Pep 82718 H Total Protein 5.6 L 5.9 L Albumin 3.1 L 3.3 L Globulin 2.5 2.6 Albumin/Globulin Ratio 1.2 1.3 PFSH Medical History GERD (gastroesophageal reflux disease) Multiple myeloma Congestive heart failure Anemia Pneumonia Surgical History No significant past surgical history Family History Mother Cancer Social History household members: friend(s) and other Smoking Status: Former smoker alcohol intake: former additional social history: The patient smokes tobacco. She does not use alcohol. No drugs. Family and social history are otherwise noncontributory Assessment & Plan Assessment & Plan narrative: (1) Acute on chronic systolic (congestive) heart failure with acute on chronic respiratory failure with hypoxia EF 45% 2 months ago, repeat echo limited ordered given elevated troponins to assess for any acute changes in EF or wall motion was unchanged from prior studies. -continued diuresis with IV furosemide 40 mg IV BID until this morning, will transition back to oral furosemide tomorrow. -now on baseline 2L as she is at home, was requiring more than baseline O2 on presentation -suspect transaminase and bili elevations are due to hepatic congestion, though possible low flow state. (2) myocardial injury, NSTEMI ruled out - was initially on heparin infusion, with declining trops, no chest pain, and no ischemic EKG changes have stopped heparin now. - limited echo as noted above (3) Acute and chronic respiratory failure, now resolved - likely due to rhinovirus with CHF exacerbation - continue supportive care. - Goal O2 88-96% while on supplemental therapy (4) Rhinovirus infection: - supportive care. (5) Acute kidney injury: - baseline 0.8 - 1.0 last admission. Currently approx around 1.2. Continue to trend cr. (6) GERD (gastroesophageal reflux disease): - continue home pantoprazole 7. Transaminase and bilirubin elevations. - ALT 868 on presentation, Tbili 2.0. Improving today. - differentials include hepatic congestion, low perfusion, others. - check Hepatitis serologies. - RUQ ultrasound with possible nodular appearance, but no biliary obstruction - further outpatient evaluation recommended after discharge, including repeat testing. Code: DNR, she declines to select surrogate decision maker despite discussion. DVT: holding for thrombocytopenia Dispo: admitted inpatient, stay is expected to exceed two midnights. Will likely discharge home. Discussed with case management, bedside staff to contribute to history and formulate above assessment and plan.
[2023-07-22 15:22] LABS: HEMOLYSIS < 15 (0-50)
[2023-07-22 15:24] LABS: Aspartate Aminotransferase 243 IU/L (14-36)
[2023-07-22] MEDS: SODIUM CHLORIDE 0.9% 500 ML 200 ML IV (18:14)
[2023-07-23] VITALS (7 sets, daily range): BP systolic 107–123; BP diastolic 56–74; PULSE 80–103; RESP 20–30; TEMP 36.5–36.9; O2SAT 92–98
[2023-07-23 05:50] LABS: Hematocrit 35.5 % (36-46); Hemoglobin 11.4 g/dL (12.0-16.0); Mean Corpuscular HGB Conc 32.1 % (30-36); Mean Corpuscular Hemoglobin 29.6 PG (26-34); Platelet Count 57 X10^3/uL (150-400); Red Blood Cell Count 3.86 X10^6/uL (4.0-5.2); Red Cell Distribution Width 16.4 % (11.6-14.8); White Blood Cell Count 4.1 X10^3/uL (4.5-11.0)
[2023-07-23 05:52] LABS: Chloride 93 mmol/L (98-107); HEMOLYSIS < 15 (0-50)
[2023-07-23 05:55] LABS: Alanine Aminotransferase 464 IU/L (<35); Albumin 3.1 g/dL (3.5-5.0); Albumin Globulin Ratio 1.1 (1.0-2.8); Alkaline Phosphatase 78 U/L (38-126); Aspartate Aminotransferase 95 IU/L (14-36); BUN Creatinine Ratio 27.4 (6-22); Bilirubin Total 1.2 mg/dL (0.2-1.3); Blood Urea Nitrogen 29 mg/dL (7-17); Calcium 7.8 mg/dL (8.4-10.2); Estimated Glomerular Filt Rate 57 mL/min (>60); Globulin 2.7 g/dL (1.7-4.1); Glucose 121 mg/dL (80-110); Potassium 3.6 mmol/L (3.4-5.1); Sodium 136 mmol/L (137-145); Total Protein 5.8 g/dL (6.3-8.2)
[2023-07-23 06:01] LABS: Add Manual Diff / Slide Review YES; Carbon Dioxide 39 mmol/L (22-32)
[2023-07-23 06:12] LABS: Neutrophils Absolute Manual 3116 /uL (3000-5900); Total Cells Counted 100
[2023-07-23 06:13] LABS: Hypochromasia 1+
[2023-07-23 06:14] LABS: Anisocytosis 1+; Microcytosis 1+
[2023-07-23] MEDS: PANTOPRAZOLE DR 40 MG TABLET PO (08:42)
[2023-07-23] MEDS: METOPROLOL ER 25 MG TABLET 12.5 MG PO (08:42)
[2023-07-23] MEDS: ASPIRIN 81 MG CHEW TAB PO (08:43)
[2023-07-23] MEDS: lisinopriL 5 MG TABLET 2.5 MG PO (08:43)
[2023-07-23] MEDS: FUROSEMIDE 40 MG TABLET PO (08:43)
--- NOTE | 2023-07-23 08:43 | PM.DS.1 ---
History of Present Illness History of Present Illness Date Patient Seen: 07/23/23 Time Patient Seen: 08:43 Chief complaint: Difficulty Breathing Narrative: Per overnight provider, 72 y/o with PMH of ischemic cardiomyopathy, recent hospitalization with CHF exacerbation, in 04/2023, presented to ED with progressive dyspnea. She has chronic hypoxemic respiratory failure, on 2 L of oxygen at home, prn, and suspected COPD. Diagnosed with entero/rhino virus upper respiratory infection, acute on chronic hypoxemic respiratory failure and acute on chronic systolic HF and, with elevated troponins - NSTEMI. In the ED given 80 mg of Lasix and started on heparin drip. Upon review, patient is feeling much improved this morning but still a bit short of breath. She is down to 2L of oxygen, her usual amount at home, and troponins have been downtrending. With no chest pain or EKG changes, heparin infusion was stopped as elevated troponin likely due to demand. Discharge Providers Provider Date of admission: 07/21/23 01:21 Discharge Date: 07/23/23 Primary care physician: Wilfredo Garcia MD Discharge provider: Blake De Dios DO Summary Hospital Course Discharge Diagnosis: (1) Acute on chronic systolic (congestive) heart failure with acute on chronic respiratory failure with hypoxia (2) myocardial injury, NSTEMI ruled out (3) Acute and chronic respiratory failure, now resolved (4) Rhinovirus infection: (5) Acute kidney injury: (6) GERD (gastroesophageal reflux disease): 7. Transaminase and bilirubin elevations. Hospital Course: This is a 72 year old feamle with PMH of CHFrEF who presented with worsened shortness of breath and acute on chronic hypoxic respiratory failure. Initial troponins were elevated, and heparin drip was started initially for possible NSTEMI. However, patient had quickly improving troponins, no concerning EKG changes, and no chest pain so heparin was stopped. Echocardiogram was performed which showed no acute changes compared to recent study a few months prior. She was diuresed with improvement in symptoms an return to her usual 2L of oxygen. She also had mild LYLE and significant transaminitis which improved with diuresis. RUQ ultrasound was performed which showed no biliary obstruction and possible nodular appearance. Hepatitis serologies are pending at the time of discharge. Recommend continued use of home furosemide 40 mg daily on discharge, and PCP follow up for repeat lab testing in the next 1-2 weeks. Time Spent with Patient Time spent: Greater than 30 minutes Exam Vital Signs (past 8 hours): - 07/23/23 04:00 07/23/23 04:00 07/23/23 07:50 Temperature 98.0 F Pulse Rate 84 Respiratory Rate 30 H Blood Pressure 111/70 Pulse Oximetry 94 96 Oxygen Delivery Method Nasal Cannula Oxygen Flow Rate 3 3 Fraction of Inspired Oxygen 30 SaO2/FiO2 Ratio 320 Oxygen Delivery Method Nasal Cannula Oxygen Flow Rate 3 Narrative Exam Narrative: GEN: NAD HEENT: moist mucous membranes, PERRL NECK: trachea midline, no JVD CV: regular rate and rhythm, no murmurs PULM: bilateral rales ABD: soft, nontender, nondistended, no organomegaly EXT: warm and well perfused with no edema NEURO: awake and alert, oriented, no focal deficits Objective Labs 07/23/23 05:20 07/23/23 05:20 Labs: Laboratory Results - last 24 hr 07/20/23 07/22/23 07/23/23 22:00 05:00 05:20 WBC 4.1 L RBC 3.86 L Hgb 11.4 L Hct 35.5 L MCV 92.0 MCH 29.6 MCHC 32.1 RDW 16.4 H Plt Count 57 L Neut % (Auto) Not Reportable Lymph % (Auto) Not Reportable [place] % (Auto) Not Reportable Eos % (Auto) Not Reportable Baso % (Auto) Not Reportable Lymph # (Auto) Not Reportable [place] # (Auto) Not Reportable Baso # (Auto) Not Reportable Total Counted 100 Seg Neutrophils % 61.0 Band Neutrophils % 15.0 H Lymphocytes % (Manual) 12.0 L Monocytes % (Manual) 8.0 Eosinophils % (Manual) 1.0 L Metamyelocytes % 3.0 H Neutrophils # (Manual) 3116 RBC Morphology See below Hypochromasia 1+ H Anisocytosis 1+ H Microcytosis 1+ H Sodium 136 L 136 L Potassium 4.5 3.6 Chloride 98 93 L Carbon Dioxide 32 39 H BUN 50 H 29 H Creatinine 1.26 H 1.06 H Estimated GFR 46 L 57 L BUN/Creatinine Ratio 39.7 H 27.4 H Glucose 130 H 121 H Calcium 8.2 L 7.8 L Total Bilirubin 2.0 H 1.2 AST 489 H 243 H 95 H ALT 868 H 464 H Alkaline Phosphatase 94 78 Troponin I 0.161 H* NT-Pro-B Natriuret Pep 57901 H Total Protein 5.6 L 5.8 L Albumin 3.1 L 3.1 L Globulin 2.5 2.7 Albumin/Globulin Ratio 1.2 1.1 [facility] Medical History GERD (gastroesophageal reflux disease) Multiple myeloma Congestive heart failure Anemia Pneumonia Surgical History No significant past surgical history Family History Mother Cancer Social History household members: friend(s) and other Smoking Status: Former smoker alcohol intake: former additional social history: The patient smokes tobacco. She does not use alcohol. No drugs. Family and social history are otherwise noncontributory Discharge Plan Discharge Plan Patient Disposition: Home Health Service Provider Discharge Comment: You were admitted to the hospital with shortness of breath, likely due to fluid overload. The extra fluid was taken off with additional furosemide, you can continue your previous dosing of this medication on discharge without any changes. Discharge orders & Medications Prescriptions: Continued furosemide [Lasix] 40 mg tablet 40 mg PO DAILY Qty: 30 0RF metoprolol succinate 25 mg tablet extended release 24 hr 12.5 mg PO DAILY Qty: 30 0RF lisinopril 2.5 mg tablet 2.5 mg PO DAILY Qty: 30 0RF albuterol sulfate 90 mcg/actuation HFA aerosol inhaler 2 inh inhalation QID PRN (Reason: shortness of breath or wheezing) Qty: 8.5 0RF aspirin 81 mg Tablet 81 mg PO DAILY pantoprazole 40 mg Tablet,Delayed Release (Dr/Ec) 40 mg PO DAILY Pomalyst 3 mg Capsule 3 mg PO DAILY Rx Instructions: Patient takes this for 21 days straight and then is off of it for 7 days. She has 4 capsules left to take and then will be off for one week. hydrocodone-acetaminophen 5-325 mg tablet 1 tab PO BEDTIME PRN (Reason: pain) Qty: 7 0RF Follow up/Referrals: Wilfredo Garcia MD [Primary Care Provider] - Diet/Activity/Treatments Diet: Diet as Tolerated and Low-sodium Activity: As tolerated no restrictions Oxygen: O2 goal 89-96% while on supplemental therapy, typically between 0-2 L Visit Report/Discharge Packet Stand Alone Forms: Patient Portal/API, Stroke Signs & Symptoms Discharge Data Primary Care Provider: Wilfredo Garcia MIPS - Admit I confirm the patient?s Advance Care Plan is present, Code status is documented, Surrogate decision maker is in patient?s record [If Yes, STOP here]: Yes MIPS - DC The patient has a history of heart transplant or Left Ventricular Assist Device (LVAD). If yes, STOP here.: No The patient has current or prior documentation of left ventricular ejection fraction (LVEF) less than or equal to 40%, or moderate or severely depressed left ventricular systolic function.: No A. The patient was prescribed or already taking an Angiotensin-Converting Enzyme (ANAIS) Inhibitor, or Angiotensin Receptor Usha (ARB).: Yes B. The patient was prescribed or already taking a beta-usha. [If Yes to Both A & B, STOP here]: Yes
--- NOTE | 2023-07-23 11:19 | PC.NURSE ---
Pt met discharge criteria. VSS.
--- NOTE | 2023-07-23 12:28 | CM.DPNOTE ---
Addendum entered by JOSELITO Rasmussen 07/23/23 13:27: ADD: Faxed F2F and HH order to Martha at [facility] Original Note: DC Note Discharge home today, IMM provided. Patient eager to return home, says she cannot get a hold of anyone to give her a ride. RN suggests BLS as patient will require 3L continuous O2 for the ride home. 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 BLS form completed, signed, given to crew with face sheet and POLST. Emailed Martha w[facility] program patient's DC summary. Plan: Discharge home w/friend/[facility] caregiver Don to assist, [facility] for home O2, via BLS (patient does not have a portable O2 option or ride) JW
[2023-07-23 20:58] LABS: Hepatitis B Surface Antigen NEGATIVE s/c (NEGATIVE)
[2023-07-24 01:15] LABS: Hep C Virus Ab w/Reflex Quant NEGATIVE s/c (NEGATIVE)
[2023-07-25 06:31] LABS: Hepatitis B Core Antibody Positive (Negative)
[2023-07-26 05:54] LABS: Hepatitis B Surf Ab Qualitativ Reactive (.)
== END 2023-07-23 11:20 | disposition home health service (06) | DRG 291 ==
LOC: ED 07-21 01:00 → AC 07-21 01:21 → ICU 07-21 01:53
PROVIDERS: Internal Medicine; Admitting Provider Internal Medicine; Emergency Provider Emergency Medicine; Family Provider Family Medicine; PCP Internal Medicine Hematology & Oncology; Referring Provider Emergency Medicine; Visit Provider Internal Medicine
DX: I11.0 Hypertensive heart disease with heart failure (principal); I50.23 Acute on chronic systolic (congestive) heart failure; J96.21 Acute and chronic respiratory failure with hypoxia; J96.22 Acute and chronic respiratory failure with hypercapnia; I5A Non-ischemic myocardial injury (non-traumatic); K21.9 Gastro-esophageal reflux disease without esophagitis; B97.89 Other viral agents as the cause of diseases classified elsewhere; R74.01 Elevation of levels of liver transaminase levels; J44.9 Chronic obstructive pulmonary disease, unspecified; Z87.891 Personal history of nicotine dependence; Z99.81 Dependence on supplemental oxygen
CPT/HCPCS: 36415; 36591; 36600; 71275; 76705; 80048; 80053; 80061; 82805; 83605; 83880; 84484; 85007; 85014; 85018; 85025; 85049; 85610; 85730; 86704; 86706; 86803; 87340; 87633; 87797; 93005; 93307; 94762; 96365; 96367; 96368; 96376; 99285; 99291; J1642; J1644; J1940; Q9967

== ENCOUNTER 2023-08-03 19:52 | Inpatient (IN) | payer MEDICARE, MEDICAID, SELFPAY ==
[2023-07-20 23:25] VITALS: PULSE 88; RESP 24; O2SAT 95
[2023-07-21 03:22] VITALS: BMI 29.2
[2023-08-03] VITALS (25 sets, daily range): BP systolic 94–126; BP diastolic 61–74; PULSE 74–125; RESP 23–47; TEMP 36.4–38.6; O2SAT 74–100; BMI 29.2; BMI 30.6
--- NOTE | 2023-08-03 20:04 | DI.RAD.S_ITS ---
PROCEDURE: XR CHEST 1V INDICATIONS: Shortness of breath TECHNIQUE: One view of the chest was acquired. COMPARISON: [facility], CR, XR CHEST 1V, 04/24/2023, 16:02. [facility], CR, XR CHEST 1V, 10/06/2022, 6:19. FINDINGS: Surgical changes and devices: Right-sided port with the catheter tip at the middle 3rd of the SVC. Lungs and pleura: Lungs are clear. No pleural effusions or pneumothorax. Mediastinum: Mediastinal contours appear normal. Heart size is normal. Bones and chest wall: No suspicious bony lesions. Overlying soft tissues appear unremarkable. IMPRESSION: No acute cardiopulmonary abnormality is seen. Dictated by: Russell Hackett M.D. on 08/03/2023 at 21:32 Approved by: Russell Hackett M.D. on 08/03/2023 at 21:33
[2023-08-03] MEDS: ALBUTEROL 2.5 MG/3 ML NEB (ADULT) 7.5 MG INH (20:12)
[2023-08-03] MEDS: ALBUTEROL/IPRATROPIUM 3 ML AMPUL INH ×3 (20:13→20:39)
[2023-08-03 20:17] LABS: Hematocrit 33.5 % (36-46); Mean Corpuscular HGB Conc 32.9 % (30-36); Mean Corpuscular Volume 91.3 fL (80-100); Platelet Count 61 X10^3/uL (150-400); Red Blood Cell Count 3.67 X10^6/uL (4.0-5.2); Red Cell Distribution Width 16.4 % (11.6-14.8); White Blood Cell Count 5.7 X10^3/uL (4.5-11.0)
[2023-08-03 20:19] LABS: Add Manual Diff / Slide Review YES
[2023-08-03 20:20] LABS: INR 1.1 (0.9-1.3); Prothrombin Time 12.4 SECONDS (9.4-12.5)
[2023-08-03 20:27] LABS: Alanine Aminotransferase 41 IU/L (<35); Albumin 3.5 g/dL (3.5-5.0); Albumin Globulin Ratio 1.5 (1.0-2.8); Alkaline Phosphatase 63 U/L (38-126); Aspartate Aminotransferase 28 IU/L (14-36); BUN Creatinine Ratio 24.1 (6-22); Bilirubin Total 1.3 mg/dL (0.2-1.3); Blood Urea Nitrogen 20 mg/dL (7-17); Calcium 8.1 mg/dL (8.4-10.2); Carbon Dioxide 38 mmol/L (22-32); Chloride 94 mmol/L (98-107); Estimated Glomerular Filt Rate > 60 mL/min (>60); Globulin 2.4 g/dL (1.7-4.1); Glucose 165 mg/dL (80-110); HEMOLYSIS < 15 (0-50); Potassium 3.9 mmol/L (3.4-5.1); Sodium 137 mmol/L (137-145); Total Protein 5.9 g/dL (6.3-8.2)
[2023-08-03 20:30] LABS: Neutrophils Absolute Manual 3534 /uL (3000-5900); RBC Morphology Normal Morphology; Total Cells Counted 100
--- NOTE | 2023-08-03 20:33 | ED.GENADULT ---
HPI - General Adult General Chief complaint: Shortness of Breath/Dyspnea Stated complaint: SOB-COPD Time Seen by Provider: 08/03/23 20:07 Source: patient and EMS Mode of arrival: EMS History of Present Illness HPI narrative: Patient is a 72-year-old female. History of COPD. Does have home oxygen that she uses. Also has a history of CHF. On Lasix. Has a history of multiple myeloma. Receives an injection every 2 weeks for this. Last ejection fraction from April 2023 showed 40-45%. Most likely has a history of pulmonary hypertension based on a CTA that was performed here in the emergency department just a few weeks ago. Is a DNR/DNI which I did confirm with her today after conversation with her and family at bedside. Recently discharged from the hospital after being admitted for NSTEMI, entero/rhinovirus infection, COPD exacerbation. She states she was discharged home. She thinks that she was not feeling much better when she was discharged and since that time has been worsening and then significantly worsened over the past 24 hours. She denies chest pain. Is having a productive cough. Had a fever over the past 24 hours as well. No abdominal pain or nausea vomiting. No lower extremity swelling. Related Data Home Medications Medication Instructions Recorded Confirmed aspirin 81 mg tablet 81 mg PO DAILY 03/08/21 07/22/23 pantoprazole 40 mg tablet,delayed 40 mg PO DAILY 03/08/21 07/22/23 release pomalidomide 3 mg capsule 3 mg PO DAILY 03/08/21 07/22/23 (Pomalyst) Previous Rx's Medication Instructions Recorded hydrocodone 5 mg-acetaminophen 325 1 tab PO BEDTIME PRN pain #7 tabs 10/06/22 mg tablet albuterol sulfate 90 mcg/actuation 2 inh inhalation QID PRN shortness 04/25/23 aerosol inhaler of breath or wheezing #8.5 grams furosemide 40 mg tablet (Lasix) 40 mg PO DAILY #30 tabs 04/25/23 lisinopril 2.5 mg tablet 2.5 mg PO DAILY #30 tabs 04/25/23 metoprolol succinate 25 mg 12.5 mg (1/2 x 25 mg) PO DAILY #30 04/25/23 tablet,extended release 24 hr tabs Allergies Allergy/AdvReac Type Severity Reaction Status Date / Time No Known Drug Allergies Allergy Verified 07/20/23 21:46 Review of Systems Review of Systems ROS Unobtainable: All systems reviewed & are unremarkable except as noted in HPI and below Patient History Medical History GERD (gastroesophageal reflux disease) Multiple myeloma Congestive heart failure Anemia Pneumonia Surgical History No significant past surgical history Family History Mother Cancer Social History household members: friend(s) and other Smoking Status: Former smoker alcohol intake: former additional social history: The patient smokes tobacco. She does not use alcohol. No drugs. Family and social history are otherwise noncontributory Smoking Status: Former smoker tobacco type: cigarettes alcohol intake frequency: holidays/special occasions only Substance Use Type: does not use Exam Initial Vital Signs Initial Vital Signs: Vital Signs Pulse Rate 74 08/03/23 19:56 Blood Pressure 116/61 08/03/23 19:56 Pulse Oximetry 84 L 08/03/23 19:56 Oxygen Delivery Method Nasal Cannula 08/03/23 19:56 Oxygen Flow Rate 3 08/03/23 19:56 Const General: cooperative and ill appearing [facility] Head: normal to inspection and normocephalic Resp Effort & Inspection: cough, labored, pursed lip breathing and tachypneic Auscultation: clear to auscultation bilaterally Cardio Rate: tachycardic Rhythm: regular rhythm GI Inspection: normal to inspection and non-distended Skin General: no rashes or lesions noted Neuro General: patient alert and patient awake Extrem General: capillary refill normal Scores GCS Dante coma scale eye opening: Spontaneous Luciano coma scale verbal response: Orientated Luciano coma scale motor response: Obey commands Luciano coma scale total score: 15 Course Orders Ordered: ED Orders 08/03/23 20:01 Blood Culture Stat Complete Blood Count AUTO DIFF Stat Comprehensive Metabolic Panel Stat Lactate (Lactic Acid) Stat Magnesium Stat NT-proBNP (BNP-Adult 18+) Stat Procalcitonin Stat Prothrombin Time INR Stat Respiratory Panel (Film Array) Stat Troponin I Stat 08/03/23 20:04 XR chest 1V Stat EKG-12 Lead Stat Measure peak expiratory flow ONCE RT Consult Eval and Treat NOW 08/03/23 20:31 ABG [Arterial Blood Gas] Stat 08/03/23 20:35 Urine Microscopic Stat Magnesium Sulfate (Magnesium Sulfate) 2 gm in 50 mls @ 25 mls/hr IV NOW ONE Stop: 08/03/23 22:34 Last Admin: 08/03/23 20:56 Dose: 25 mls/hr Documented By: NOEL Co-signed By: SB Discontinued Medications Albuterol (Albuterol 2.5 Mg/3 Ml Neb (Adult)) 7.5 mg INH NOW ONE Stop: 08/03/23 20:09 Last Admin: 08/03/23 20:12 Dose: 7.5 mg Documented By: LALIT Albuterol (Albuterol 2.5 Mg/3 Ml Neb (Adult)) 5 mg INH NOW ONE Stop: 08/03/23 21:15 Last Admin: 08/03/23 22:13 Dose: Not Given Documented By: NOEL Albuterol/Ipratropium (Albuterol/Ipratropium 3 Ml Ampul) 3 ml INH NOW ONE Stop: 08/03/23 20:13 Last Admin: 08/03/23 20:13 Dose: 3 ml Documented By: LALIT Albuterol/Ipratropium (Albuterol/Ipratropium 3 Ml Ampul) 3 ml INH NOW ONE Stop: 08/03/23 20:33 Last Admin: 08/03/23 20:39 Dose: 3 ml Documented By: LALIT Albuterol/Ipratropium (Albuterol/Ipratropium 3 Ml Ampul) 3 ml INH NOW ONE Stop: 08/03/23 20:33 Last Admin: 08/03/23 20:39 Dose: 3 ml Documented By: LALIT Levofloxacin (Levaquin) 750 mg in 150 mls @ 100 mls/hr IV NOW ONE Stop: 08/03/23 22:04 Last Admin: 08/03/23 20:48 Dose: 100 mls/hr Documented By: NOEL Acetaminophen (Ofirmev) 1,000 mg in 100 mls @ 400 mls/hr IV NOW ONE Stop: 08/03/23 21:05 Furosemide 60 mg/ Sodium (Chloride) 56 mls @ 112 mls/hr IV NOW ONE Stop: 08/03/23 20:52 Methylprednisolone (Methylprednisolone 125 Mg/2 Ml Vial) 125 mg IV NOW ONE Stop: 08/03/23 20:32 Last Admin: 08/03/23 20:49 Dose: 125 mg Documented By: NOEL Vital Signs Vital signs: Vital Signs - 8 hr 08/03/23 19:56 08/03/23 19:56 08/03/23 19:59 Temperature 101.5 F H Pulse Rate 74 113 H Respiratory Rate 30 H Blood Pressure 116/61 116/61 Pulse Oximetry 84 L 94 Oxygen Delivery Method Nasal Cannula Nasal Cannula Oxygen Flow Rate 3 3 08/03/23 20:00 08/03/23 20:06 08/03/23 20:06 Temperature Pulse Rate 114 H 108 H Respiratory Rate 23 Blood Pressure 107/64 Pulse Oximetry 92 85 L Oxygen Delivery Method Nasal Cannula Nasal Cannula Oxygen Flow Rate 3 3 08/03/23 20:10 08/03/23 20:12 08/03/23 20:13 Temperature Pulse Rate 109 H 100 H Respiratory Rate 29 H 26 H Blood Pressure Pulse Oximetry 87 L 98 95 Oxygen Delivery Method Nasal Cannula Aerosol Mask Nasal Cannula Oxygen Flow Rate 5 8 3 08/03/23 20:20 08/03/23 20:30 08/03/23 20:31 Temperature Pulse Rate 119 H 118 H Respiratory Rate 38 H 47 H Blood Pressure 103/74 Pulse Oximetry 96 88 L Oxygen Delivery Method Aerosol Mask Oxygen Flow Rate 8 08/03/23 20:31 08/03/23 20:40 08/03/23 20:50 Temperature Pulse Rate 124 H 121 H 121 H Respiratory Rate 42 H 25 H 32 H Blood Pressure Pulse Oximetry 75 L 80 L 90 L Oxygen Delivery Method Aerosol Mask Aerosol Mask Aerosol Mask Oxygen Flow Rate 8 8 8 08/03/23 21:00 08/03/23 21:00 08/03/23 21:10 Temperature Pulse Rate 118 H 122 H Respiratory Rate 26 H 34 H Blood Pressure 126/66 Pulse Oximetry 90 L 74 L Oxygen Delivery Method Nasal Cannula Nasal Cannula Oxygen Flow Rate 4 4 08/03/23 21:20 08/03/23 21:30 08/03/23 21:30 Temperature Pulse Rate 121 H 121 H Respiratory Rate 23 35 H Blood Pressure 114/63 Pulse Oximetry 82 L 75 L Oxygen Delivery Method Nasal Cannula Nasal Cannula Oxygen Flow Rate 4 4 Medical Decision Making Medical Records Medical records reviewed: Yes I reviewed the patient's medical records. Lab Data Lab results reviewed: Yes I reviewed the patient's lab results. 08/03/23 20:01 08/03/23 20:01 Labs: Lab Results 08/03/23 08/03/23 Range/Units 20:01 20:35 WBC 5.7 (4.5-11.0) X10^3/uL RBC 3.67 L (4.0-5.2) X10^6/uL Hgb 11.0 L (12.0-16.0) g/dL Hct 33.5 L (36-46) % MCV 91.3 (80-100) fL MCH 30.0 (26-34) PG MCHC 32.9 (30-36) % RDW 16.4 H (11.6-14.8) % Plt Count 61 L (150-400) X10^3/uL Neut % (Auto) Not Reportable Lymph % (Auto) Not Reportable [place] % (Auto) Not Reportable Eos % (Auto) Not Reportable Baso % (Auto) Not Reportable Lymph # (Auto) Not Reportable [place] # (Auto) Not Reportable Baso # (Auto) Not Reportable Total Counted 100 Seg Neutrophils % 53.0 (38-70) % Band Neutrophils % 9.0 H (3-7) % Lymphocytes % (Manual) 34.0 (25-45) % Monocytes % (Manual) 3.0 (2-11) % Eosinophils % (Manual) 1.0 L (2-4) % Neutrophils # (Manual) 3534 (4658-8000) /uL RBC Morphology Normal morphology PT 12.4 (9.4-12.5) SECONDS INR 1.1 (0.9-1.3) Sodium 137 (137-145) mmol/L Potassium 3.9 (3.4-5.1) mmol/L Chloride 94 L (98-107) mmol/L Carbon Dioxide 38 H (22-32) mmol/L BUN 20 H (7-17) mg/dL Creatinine 0.83 (0.52-1.04) mg/dL Estimated GFR > 60 (>60) mL/min BUN/Creatinine Ratio 24.1 H (6-22) Glucose 165 H (80-110) mg/dL Lactate 3.3 H (0.7-2.1) mmol/L Calcium 8.1 L (8.4-10.2) mg/dL Magnesium 0.9 L* (1.6-2.3) mg/dL Total Bilirubin 1.3 (0.2-1.3) mg/dL AST 28 (14-36) IU/L ALT 41 H (<35) IU/L Alkaline Phosphatase 63 (38-126) U/L Troponin I 0.029 (0.01-0.034) ng/mL NT-Pro-B Natriuret Pep 6520 H (<125) pg/mL Total Protein 5.9 L (6.3-8.2) g/dL Albumin 3.5 (3.5-5.0) g/dL Globulin 2.4 (1.7-4.1) g/dL Albumin/Globulin Ratio 1.5 (1.0-2.8) Procalcitonin 0.17 (<0.5) ng/mL Urine RBC None seen (0-5/HPF) Urine WBC 0-1/hpf (0-5/HPF) Ur Squamous Epith Cells 0-1 /hpf (0-5/HPF) Urine Bacteria Occasional (0-1) (None) Ur Culture Indicated? Cult not indicated Chlamy pneumoniae PCR Not detected (Not Detect) Adenovirus (PCR) Not detected (Not Detect) B.parapertussis DNA PCR Not detected (Not Detecte) Coronavirus OC43 (PCR) Not detected (Not Detect) Coronavirus HKU1 (PCR) Not detected (Not Detect) Coronavirus 229E (PCR) Not detected (Not Detect) SARS-CoV-2 (PCR) Not detected (Not Detecte) Coronavirus NL63 (PCR) Not detected (Not Detect) Human Metapneumovir PCR Not detected (Not Detect) Influenza Type A (PCR) Not detected (Not Detect) Influenza Type B (PCR) Not detected (Not Detect) M. pneumoniae (PCR) Not detected (Not Detect) Parainfluenza 1 (PCR) Not detected (Not Detect) Parainfluenza 2 (PCR) Not detected (Not Detect) Parainfluenza 3 (PCR) Not detected (Not Detect) Parainfluenza 4 (PCR) Not detected (Not Detect) RSV (PCR) Not detected (Not Detect) Entero/Rhino (PCR) Detected H (Not Detect) Urine Dip Bedside Urine Glucose Negative Bedside Urine Bilirubin - Negative Bedside Urine Ketone - Negative Urine Specific [place] 1.00 Bedside Urine Occult Blood ++ Bedside Urine pH 8.0 Bedside Urine Protein +/- 15 Bedside Urine Urobilinogen - Negative Bedside Urine Nitrite - Negative Bedside Urine Leukocytes + 70 Esterase Point of care testing: Urine Dip Bedside Urine Glucose Negative Bedside Urine Bilirubin - Negative Bedside Urine Ketone - Negative Urine Specific [place] 1.00 Bedside Urine Occult Blood ++ Bedside Urine pH 8.0 Bedside Urine Protein +/- 15 Bedside Urine Urobilinogen - Negative Bedside Urine Nitrite - Negative Bedside Urine Leukocytes + 70 Esterase Imaging Data Chest x-ray: Radiologist's Impression: PROCEDURE: XR CHEST 1V INDICATIONS: Shortness of breath TECHNIQUE: One view of the chest was acquired. COMPARISON: [facility], CR, XR CHEST 1V, 04/24/2023, 16:02. [facility], CR, XR CHEST 1V, 10/06/2022, 6:19. FINDINGS: Surgical changes and devices: Right-sided port with the catheter tip at the middle 3rd of the SVC. Lungs and pleura: Lungs are clear. No pleural effusions or pneumothorax. Mediastinum: Mediastinal contours appear normal. Heart size is normal. Bones and chest wall: No suspicious bony lesions. Overlying soft tissues appear unremarkable. IMPRESSION: No acute cardiopulmonary abnormality is seen. ECG Data Attestation: I personally reviewed and interpreted this ECG as follows: Interpretation: Sinus tachycardia Ventricular rate of 113 Normal axis Right bundle-branch block Nonspecific ST T wave changes MDM Narrative Medical decision making narrative: Had an extensive discussion with the patient and her at bedside. She does confirm that she does not want intubated. She has a DNR/DNI. She is okay with the more noninvasive forms of respiratory support. She declined the offer for BiPAP. The last time that she had BiPAP but she was here several days ago she became very claustrophobic. Initially oxygen saturations maintained on nasal cannula but we will switch her to high-flow. Chest x-ray does not show any signs of overt pneumonia. She was positive for enterovirus/rhino virus. She was febrile upon arrival. Blood cultures and antibiotics were administered prior to the respiratory panel showing most likely viral illness. She denies chest pain. Tachycardic however she has received quite a bit of albuterol. Magnesium was initially ordered for smooth muscle relaxation because of her breathing issues and then labs subsequently show that she did have low magnesium. Steroids were also administered. Lasix administered even though her BNP was not as high as what it was a couple weeks ago. Her troponin is lower than what it was a couple weeks ago as well. She is nonspecific changes on her EKG. Suspect that her symptoms are related to the enterovirus/rhinovirus in the setting of her chronic cardiopulmonary if she was. Discuss the case with hospitalist on-call who will admit for further evaluation and treatment. Discussed need for admission with the patient and family. They expressed understanding and agreement as well. Critical Care Time Critical Care Time Critical Care Time: Yes Total Critical Care Time: 40 Attestation: The high probability of a clinically significant, sudden or life threatening deterioration of the [respiratory, cardiovascular] system(s) required my full and direct attention, intervention and personal management. The aggregate critical care time was [40] minutes. This time is in addition to time spent performing reported procedures but includes the following: [x] Data Review and interpretation [x] Patient assessment and monitoring of vital signs [x] Documentation [x] Medication orders and management Discharge Plan Departure Patient Disposition: Admitted As Inpatient Clinical Impression: COPD with exacerbation, Hypoxia, CHF (congestive heart failure), Rhinovirus Admit Date/Time: 08/03/23 21:30 Admit Provider: Vamshi Resendiz
[2023-08-03 20:38] LABS: NT-proBNP (BNP-Adult 18+) 6520 pg/mL (<125); Troponin I 0.029 ng/mL (0.01-0.034)
[2023-08-03 20:40] LABS: Lactate (Lactic Acid) 3.3 mmol/L (0.7-2.1)
[2023-08-03] MEDS: levoFLOXacin 750 MG/150 ML PIGGYBACK 100 MG IV (20:48)
[2023-08-03] MEDS: methylPREDNISolone 125 MG/2 ML VIAL IV (20:49)
[2023-08-03] MEDS: MAGNESIUM SULFATE 2 GM/50 ML PIGGYBACK IV (20:56)
[2023-08-03 20:59] LABS: Magnesium 0.9 mg/dL (1.6-2.3)
[2023-08-03 21:01] LABS: Adenovirus Not Detected (Not Detect); B. parapertussis Not Detected (Not Detecte); Bordetella pertussis Not Detected (Not Detect); Chlamydophila pneumoniae Not Detected (Not Detect); Coronavirus 229E Not Detected (Not Detect); Coronavirus HKU1 Not Detected (Not Detect); Coronavirus NL 63 Not Detected (Not Detect); Coronavirus OC43 Not Detected (Not Detect); Human Metapneumovirus Not Detected (Not Detect); Human Rhinovirus/Enterovirus Detected (Not Detect); Influenza A Not Detected (Not Detect); Influenza B Not Detected (Not Detect); Mycoplasma pneumoniae Not Detected (Not Detect); Parainfluenza Virus 1 Not Detected (Not Detect); Parainfluenza Virus 2 Not Detected (Not Detect); Parainfluenza Virus 3 Not Detected (Not Detect); Parainfluenza Virus 4 Not Detected (Not Detect); Respiratory Syncytial Virus Not Detected (Not Detect); SARS- CoV-2 Not Detected (Not Detecte)
[2023-08-03 21:05] LABS: Procalcitonin 0.17 ng/mL (<0.5)
[2023-08-03 21:22] LABS: RBC Urine None Seen (0-5/HPF); Squamous Epithelial Cell Urine 0-1 /HPF (0-5/HPF); WBC Urine 0-1/HPF (0-5/HPF)
[2023-08-03 21:23] LABS: Bacteria Urine Occasional (0-1); Culture Indicated Urine Cult Not Indicated
[2023-08-03 22:15] LABS: Reflexed Lactate in 2 Hours Y
[2023-08-03 23:11] LABS: Lactate 2HR (Lactic Acid Rflx) 3.2 mmol/L (0.7-2.1)
[2023-08-03 23:14] LABS: PO2 ABG 59 mmHg (80-100); pH ABG 7.53 (7.35-7.45)
[2023-08-03 23:15] LABS: Allen Test for ABG Passed? Yes, Passed; Blood Gas Collection Site Right Radial; Fractionated Inspired Oxygen 36; HCO3 ABG 34 mmol/L (23-27); Oxygen Saturation ABG 93 % (95-100); TCO2 ABG 35 mmol/L (23-27)
--- NOTE | 2023-08-03 23:55 | PM.HP.1 ---
History of Present Illness History of Present Illness Date Patient Seen: 08/03/23 Time Patient Seen: 22:30 Chief complaint: SOB-COPD Narrative: 72 years old female with a past medical history of severe COPD, ischemic cardiomyopathy, multiple myeloma on IV infusion every 2 weeks, GERD, Sleep apnea, congestive heart failure, recent hospitalization for respiratory failure now present to the emergency room for worsening shortness of breath since her discharge but worse in the past 24 hours. At baseline usually around 4 L during the previous hospitalization oxygen requirements have dropped to 2 L. But now noted to be in acute respiratory distress on arrival and tachypneic. Has productive cough with yellowish-green sputum. Denies any chest pain palpitation or dizziness. Her dyspnea makes her more anxious but patient has refused BiPAP in the emergency room. Workup in the ED was still positive for enterorhinovirus. The chest x-ray concerning for possible mild fluid overload. Presumptive diagnosis of underlying COPD exacerbation with heart failure and pneumonia was considered. Patient received IV Solu-Medrol, nebulizers with oxygen supplementation and pending cultures, was initiated on IV levofloxacin. Admitted for further evaluation [facility] Medical History GERD (gastroesophageal reflux disease) Multiple myeloma Congestive heart failure Anemia Pneumonia Surgical History No significant past surgical history Family History Mother Cancer Social History household members: friend(s) and other Smoking Status: Former smoker alcohol intake: former additional social history: The patient smokes tobacco. She does not use alcohol. No drugs. Family and social history are otherwise noncontributory Meds Home Medications and Allergies Home Medications Medication Instructions Recorded Confirmed Type aspirin 81 mg tablet 81 mg PO DAILY 03/08/21 08/03/23 History pantoprazole 40 mg tablet,delayed 40 mg PO DAILY 03/08/21 08/03/23 History release pomalidomide 3 mg capsule 3 mg PO DAILY 03/08/21 08/03/23 History (Pomalyst) hydrocodone 5 mg-acetaminophen 325 1 tab PO BEDTIME PRN pain #7 tabs 10/06/22 08/03/23 Rx mg tablet albuterol sulfate 90 mcg/actuation 2 inh inhalation QID PRN shortness 04/25/23 08/03/23 Rx aerosol inhaler of breath or wheezing #8.5 grams furosemide 40 mg tablet (Lasix) 40 mg PO DAILY #30 tabs 04/25/23 08/03/23 Rx lisinopril 2.5 mg tablet 2.5 mg PO DAILY #30 tabs 04/25/23 08/03/23 Rx metoprolol succinate 25 mg 12.5 mg (1/2 x 25 mg) PO DAILY #30 04/25/23 08/03/23 Rx tablet,extended release 24 hr tabs Allergies Allergy/AdvReac Type Severity Reaction Status Date / Time No Known Drug Allergies Allergy Verified 07/20/23 21:46 Review of Systems Review of Systems Narrative: 12 point review of system is negative unless otherwise stated in the history of present illness Exam Vital Signs (past 8 hours): - 08/03/23 19:56 08/03/23 19:56 08/03/23 19:59 Temperature 101.5 F H Pulse Rate 74 113 H Respiratory Rate 30 H Blood Pressure 116/61 116/61 Pulse Oximetry 84 L 94 Oxygen Delivery Method Nasal Cannula Nasal Cannula Oxygen Flow Rate 3 3 08/03/23 20:00 08/03/23 20:06 08/03/23 20:06 Temperature Pulse Rate 114 H 108 H Respiratory Rate 23 Blood Pressure 107/64 Pulse Oximetry 92 85 L Oxygen Delivery Method Nasal Cannula Nasal Cannula Oxygen Flow Rate 3 3 08/03/23 20:10 08/03/23 20:12 08/03/23 20:13 Temperature Pulse Rate 109 H 100 H Respiratory Rate 29 H 26 H Blood Pressure Pulse Oximetry 87 L 98 95 Oxygen Delivery Method Nasal Cannula Aerosol Mask Nasal Cannula Oxygen Flow Rate 5 8 3 08/03/23 20:20 08/03/23 20:30 08/03/23 20:31 Temperature Pulse Rate 119 H 118 H Respiratory Rate 38 H 47 H Blood Pressure 103/74 Pulse Oximetry 96 88 L Oxygen Delivery Method Aerosol Mask Oxygen Flow Rate 8 08/03/23 20:31 08/03/23 20:40 08/03/23 20:50 Temperature Pulse Rate 124 H 121 H 121 H Respiratory Rate 42 H 25 H 32 H Blood Pressure Pulse Oximetry 75 L 80 L 90 L Oxygen Delivery Method Aerosol Mask Aerosol Mask Aerosol Mask Oxygen Flow Rate 8 8 8 08/03/23 21:00 08/03/23 21:00 08/03/23 21:10 Temperature Pulse Rate 118 H 122 H Respiratory Rate 26 H 34 H Blood Pressure 126/66 Pulse Oximetry 90 L 74 L Oxygen Delivery Method Nasal Cannula Nasal Cannula Oxygen Flow Rate 4 4 08/03/23 21:20 08/03/23 21:30 08/03/23 21:30 Temperature Pulse Rate 121 H 121 H Respiratory Rate 23 35 H Blood Pressure 114/63 Pulse Oximetry 82 L 75 L Oxygen Delivery Method Nasal Cannula Nasal Cannula Oxygen Flow Rate 4 4 08/03/23 21:40 08/03/23 21:50 08/03/23 22:00 Temperature Pulse Rate 125 H 119 H Respiratory Rate 37 H 30 H Blood Pressure 94/61 Pulse Oximetry 93 94 Oxygen Delivery Method High Flow Nasal Cannula Heated High Flow High Flow Nasal Cannula Heated High Flow Oxygen Flow Rate 40 40 08/03/23 22:00 08/03/23 22:10 08/03/23 22:19 Temperature Pulse Rate 117 H 116 H 120 H Respiratory Rate 35 H 37 H 46 H Blood Pressure Pulse Oximetry 99 96 92 Oxygen Delivery Method High Flow Nasal Cannula Heated High Flow High Flow Nasal Cannula Heated High Flow Oxygen Flow Rate 40 40 08/03/23 22:20 08/03/23 22:22 08/03/23 22:22 Temperature Pulse Rate 118 H 116 H Respiratory Rate 46 H 42 H Blood Pressure 117/73 Pulse Oximetry 94 93 Oxygen Delivery Method High Flow Nasal Cannula Heated High Flow High Flow Nasal Cannula Heated High Flow Oxygen Flow Rate 40 40 08/03/23 22:28 08/03/23 22:30 08/03/23 22:30 Temperature 97.5 F L Pulse Rate 113 H 115 H Respiratory Rate 26 H Blood Pressure 119/73 109/63 Pulse Oximetry 99 100 Oxygen Delivery Method High Flow Nasal Cannula Heated High Flow Oxygen Flow Rate 40 10 08/03/23 22:42 Temperature Pulse Rate Respiratory Rate Blood Pressure Pulse Oximetry Oxygen Delivery Method High Flow Nasal Cannula Oxygen Flow Rate 10 Oxygen Delivery Method High Flow Nasal Cannula Oxygen Flow Rate 10 Narrative Exam Narrative: Patient appears short of breath/anxious and not able to speak in full sentences. Objective Labs 08/03/23 20:01 08/03/23 20:01 Labs: Laboratory Results - last 24 hr 08/03/23 08/03/23 08/03/23 20:01 20:31 20:35 WBC 5.7 RBC 3.67 L Hgb 11.0 L Hct 33.5 L MCV 91.3 MCH 30.0 MCHC 32.9 RDW 16.4 H Plt Count 61 L Neut % (Auto) Not Reportable Lymph % (Auto) Not Reportable [place] % (Auto) Not Reportable Eos % (Auto) Not Reportable Baso % (Auto) Not Reportable Lymph # (Auto) Not Reportable [place] # (Auto) Not Reportable Baso # (Auto) Not Reportable Total Counted 100 Seg Neutrophils % 53.0 Band Neutrophils % 9.0 H Lymphocytes % (Manual) 34.0 Monocytes % (Manual) 3.0 Eosinophils % (Manual) 1.0 L Neutrophils # (Manual) 3534 RBC Morphology Normal morphology PT 12.4 INR 1.1 ABG Sample Site Right radial ABG pH 7.53 H ABG pCO2 40.0 ABG pO2 59 L ABG HCO3 34 H ABG Total CO2 35 H ABG O2 Saturation 93 L ABG Base Excess 11.0 H FiO2 36 Sodium 137 Potassium 3.9 Chloride 94 L Carbon Dioxide 38 H BUN 20 H Creatinine 0.83 Estimated GFR > 60 BUN/Creatinine Ratio 24.1 H Glucose 165 H Lactate 3.3 H Calcium 8.1 L Magnesium 0.9 L* Total Bilirubin 1.3 AST 28 ALT 41 H Alkaline Phosphatase 63 Troponin I 0.029 NT-Pro-B Natriuret Pep 6520 H Total Protein 5.9 L Albumin 3.5 Globulin 2.4 Albumin/Globulin Ratio 1.5 Procalcitonin 0.17 Urine RBC None seen Urine WBC 0-1/hpf Ur Squamous Epith Cells 0-1 /hpf Urine Bacteria Occasional (0-1) Ur Culture Indicated? Cult not indicated Chlamy pneumoniae PCR Not detected Adenovirus (PCR) Not detected B.parapertussis DNA PCR Not detected Coronavirus OC43 (PCR) Not detected Coronavirus HKU1 (PCR) Not detected Coronavirus 229E (PCR) Not detected SARS-CoV-2 (PCR) Not detected Coronavirus NL63 (PCR) Not detected Human Metapneumovir PCR Not detected Influenza Type A (PCR) Not detected Influenza Type B (PCR) Not detected M. pneumoniae (PCR) Not detected Parainfluenza 1 (PCR) Not detected Parainfluenza 2 (PCR) Not detected Parainfluenza 3 (PCR) Not detected Parainfluenza 4 (PCR) Not detected RSV (PCR) Not detected Entero/Rhino (PCR) Detected H 08/03/23 22:43 WBC RBC Hgb Hct MCV MCH MCHC RDW Plt Count Neut % (Auto) Lymph % (Auto) [place] % (Auto) Eos % (Auto) Baso % (Auto) Lymph # (Auto) [place] # (Auto) Baso # (Auto) Total Counted Seg Neutrophils % Band Neutrophils % Lymphocytes % (Manual) Monocytes % (Manual) Eosinophils % (Manual) Neutrophils # (Manual) RBC Morphology PT INR ABG Sample Site ABG pH ABG pCO2 ABG pO2 ABG HCO3 ABG Total CO2 ABG O2 Saturation ABG Base Excess FiO2 Sodium Potassium Chloride Carbon Dioxide BUN Creatinine Estimated GFR BUN/Creatinine Ratio Glucose Lactate 3.2 H Calcium Magnesium Total Bilirubin AST ALT Alkaline Phosphatase Troponin I NT-Pro-B Natriuret Pep Total Protein Albumin Globulin Albumin/Globulin Ratio Procalcitonin Urine RBC Urine WBC Ur Squamous Epith Cells Urine Bacteria Ur Culture Indicated? Chlamy pneumoniae PCR Adenovirus (PCR) B.parapertussis DNA PCR Coronavirus OC43 (PCR) Coronavirus HKU1 (PCR) Coronavirus 229E (PCR) SARS-CoV-2 (PCR) Coronavirus NL63 (PCR) Human Metapneumovir PCR Influenza Type A (PCR) Influenza Type B (PCR) M. pneumoniae (PCR) Parainfluenza 1 (PCR) Parainfluenza 2 (PCR) Parainfluenza 3 (PCR) Parainfluenza 4 (PCR) RSV (PCR) Entero/Rhino (PCR) Assessment & Plan Assessment & Plan narrative: 72 years old female with a past medical history of severe COPD, ischemic cardiomyopathy, multiple myeloma on IV infusion every 2 weeks, GERD, Sleep apnea, congestive heart failure, recent hospitalization for respiratory failure now present to the emergency room for worsening shortness of breath since her discharge but worse in the past 24 hours. At baseline usually around 4 L during the previous hospitalization oxygen requirements have dropped to 2 L. But now noted to be in acute respiratory distress on arrival and tachypneic. Has productive cough with yellowish-green sputum. Denies any chest pain palpitation or dizziness. Her dyspnea makes her more anxious but patient has refused BiPAP in the emergency room. Workup in the ED was still positive for enterorhinovirus. The chest x-ray concerning for possible mild fluid overload. Presumptive diagnosis of underlying COPD exacerbation with heart failure and pneumonia was considered. Patient received IV Solu-Medrol, nebulizers with oxygen supplementation and pending cultures, was initiated on IV levofloxacin. Admitted for further evaluation 1. Acute hypoxemic respiratory failure appears to be multifactorial due to combination of underlying COPD exacerbation/congestive heart failure exacerbation and further complicated by superimposed bacterial pneumonia in the setting of recent viral infection #2 Pneumonia community-acquired #3 acute systolic congestive heart failure with reduced ejection fraction in the EF of 40-45% noted in April 2023 #4 acute COPD exacerbation Continue with IV Solu-Medrol with nebulizers and oxygen supplementation in addition to IV Lasix/inhaled steroids. Pending cultures, continue with IV levofloxacin orally for now Extensive discussion about the goals of care with the patient given the respiratory failure with recurrent hospitalization. Patient is very clear and not wanting BiPAP and want to maintain DNR status. She wants to focus on symptom management. Will initiate oral morphine for air hunger and lorazepam for anxiety. May eventually benefit by palliative care 5. History of cardiomyopathy with myocardial injury. Need to verify the home medications and resume 6 multiple myeloma. Ongoing follow-up in the outpatient setting 7 GERD initiate Protonix DVT prophylaxis will be Lovenox Goals of care has been reviewed with the patient. She has reconfirmed DNR status and possibility would like to pursue palliative care Patient will be admitted under inpatient status. Given the acute hypoxic respiratory failure in the setting of CHF/COPD exacerbation with pneumonia, patient meets criteria for inpatient with expected length of stay greater than 2 midnights Patient was evaluated with the help of video communication device. Provider is located in [facility]
[2023-08-04] VITALS (7 sets, daily range): BP systolic 93–102; BP diastolic 56–71; PULSE 84–114; RESP 19–28; TEMP 35.8–36.4; O2SAT 93–100
--- NOTE | 2023-08-04 | PM.HP.1 ---
History of Present Illness History of Present Illness Chief complaint: SOB-COPD Narrative: ERROR/ DUPLICATE DOCUMENT [facility] Medical History GERD (gastroesophageal reflux disease) Multiple myeloma Congestive heart failure Anemia Pneumonia Surgical History No significant past surgical history Family History Mother Cancer Social History household members: friend(s) and other Smoking Status: Former smoker alcohol intake: former additional social history: The patient smokes tobacco. She does not use alcohol. No drugs. Family and social history are otherwise noncontributory Meds Home Medications and Allergies Home Medications Medication Instructions Recorded Confirmed Type aspirin 81 mg tablet 81 mg PO DAILY 03/08/21 08/03/23 History pantoprazole 40 mg tablet,delayed 40 mg PO DAILY 03/08/21 08/03/23 History release pomalidomide 3 mg capsule 3 mg PO DAILY 03/08/21 08/03/23 History (Pomalyst) hydrocodone 5 mg-acetaminophen 325 1 tab PO BEDTIME PRN pain #7 tabs 10/06/22 08/03/23 Rx mg tablet albuterol sulfate 90 mcg/actuation 2 inh inhalation QID PRN shortness 04/25/23 08/03/23 Rx aerosol inhaler of breath or wheezing #8.5 grams furosemide 40 mg tablet (Lasix) 40 mg PO DAILY #30 tabs 04/25/23 08/03/23 Rx lisinopril 2.5 mg tablet 2.5 mg PO DAILY #30 tabs 04/25/23 08/03/23 Rx metoprolol succinate 25 mg 12.5 mg (1/2 x 25 mg) PO DAILY #30 04/25/23 08/03/23 Rx tablet,extended release 24 hr tabs prednisone 20 mg tablet 40 mg (2 x 20 mg) PO DAILY 4 days 08/04/23 Rx #8 tabs Allergies Allergy/AdvReac Type Severity Reaction Status Date / Time No Known Drug Allergies Allergy Verified 07/20/23 21:46 Review of Systems Review of Systems Narrative: 12 point review of system is negative unless otherwise stated in the history of present illness Exam Vital Signs (past 8 hours): - 08/03/23 19:56 08/03/23 19:56 08/03/23 19:59 Temperature 101.5 F H Pulse Rate 74 113 H Respiratory Rate 30 H Blood Pressure 116/61 116/61 Pulse Oximetry 84 L 94 Oxygen Delivery Method Nasal Cannula Nasal Cannula Oxygen Flow Rate 3 3 08/03/23 20:00 08/03/23 20:06 08/03/23 20:06 Temperature Pulse Rate 114 H 108 H Respiratory Rate 23 Blood Pressure 107/64 Pulse Oximetry 92 85 L Oxygen Delivery Method Nasal Cannula Nasal Cannula Oxygen Flow Rate 3 3 08/03/23 20:10 08/03/23 20:12 08/03/23 20:13 Temperature Pulse Rate 109 H 100 H Respiratory Rate 29 H 26 H Blood Pressure Pulse Oximetry 87 L 98 95 Oxygen Delivery Method Nasal Cannula Aerosol Mask Nasal Cannula Oxygen Flow Rate 5 8 3 08/03/23 20:20 08/03/23 20:30 08/03/23 20:31 Temperature Pulse Rate 119 H 118 H Respiratory Rate 38 H 47 H Blood Pressure 103/74 Pulse Oximetry 96 88 L Oxygen Delivery Method Aerosol Mask Oxygen Flow Rate 8 08/03/23 20:31 08/03/23 20:40 08/03/23 20:50 Temperature Pulse Rate 124 H 121 H 121 H Respiratory Rate 42 H 25 H 32 H Blood Pressure Pulse Oximetry 75 L 80 L 90 L Oxygen Delivery Method Aerosol Mask Aerosol Mask Aerosol Mask Oxygen Flow Rate 8 8 8 08/03/23 21:00 08/03/23 21:00 08/03/23 21:10 Temperature Pulse Rate 118 H 122 H Respiratory Rate 26 H 34 H Blood Pressure 126/66 Pulse Oximetry 90 L 74 L Oxygen Delivery Method Nasal Cannula Nasal Cannula Oxygen Flow Rate 4 4 08/03/23 21:20 08/03/23 21:30 08/03/23 21:30 Temperature Pulse Rate 121 H 121 H Respiratory Rate 23 35 H Blood Pressure 114/63 Pulse Oximetry 82 L 75 L Oxygen Delivery Method Nasal Cannula Nasal Cannula Oxygen Flow Rate 4 4 08/03/23 21:40 08/03/23 21:50 08/03/23 22:00 Temperature Pulse Rate 125 H 119 H Respiratory Rate 37 H 30 H Blood Pressure 94/61 Pulse Oximetry 93 94 Oxygen Delivery Method High Flow Nasal Cannula Heated High Flow High Flow Nasal Cannula Heated High Flow Oxygen Flow Rate 40 40 08/03/23 22:00 08/03/23 22:10 08/03/23 22:19 Temperature Pulse Rate 117 H 116 H 120 H Respiratory Rate 35 H 37 H 46 H Blood Pressure Pulse Oximetry 99 96 92 Oxygen Delivery Method High Flow Nasal Cannula Heated High Flow High Flow Nasal Cannula Heated High Flow Oxygen Flow Rate 40 40 08/03/23 22:20 08/03/23 22:22 08/03/23 22:22 Temperature Pulse Rate 118 H 116 H Respiratory Rate 46 H 42 H Blood Pressure 117/73 Pulse Oximetry 94 93 Oxygen Delivery Method High Flow Nasal Cannula Heated High Flow High Flow Nasal Cannula Heated High Flow Oxygen Flow Rate 40 40 08/03/23 22:28 08/03/23 22:30 08/03/23 22:30 Temperature 97.5 F L Pulse Rate 113 H 115 H Respiratory Rate 26 H Blood Pressure 119/73 109/63 Pulse Oximetry 99 100 Oxygen Delivery Method High Flow Nasal Cannula Heated High Flow Oxygen Flow Rate 40 10 08/03/23 22:42 Temperature Pulse Rate Respiratory Rate Blood Pressure Pulse Oximetry Oxygen Delivery Method High Flow Nasal Cannula Oxygen Flow Rate 10 Oxygen Delivery Method High Flow Nasal Cannula Oxygen Flow Rate 10 Narrative Exam Narrative: Patient is oriented and following commands. Gives a good history. Significant rigidity with slow range of motion wounds noted in the upper extremity Objective Labs 08/04/23 03:00 08/04/23 03:00 Labs: Laboratory Results - last 24 hr 08/03/23 08/03/23 08/03/23 20:01 20:31 20:35 WBC 5.7 RBC 3.67 L Hgb 11.0 L Hct 33.5 L MCV 91.3 MCH 30.0 MCHC 32.9 RDW 16.4 H Plt Count 61 L Neut % (Auto) Not Reportable Lymph % (Auto) Not Reportable [place] % (Auto) Not Reportable Eos % (Auto) Not Reportable Baso % (Auto) Not Reportable Lymph # (Auto) Not Reportable [place] # (Auto) Not Reportable Baso # (Auto) Not Reportable Total Counted 100 Seg Neutrophils % 53.0 Band Neutrophils % 9.0 H Lymphocytes % (Manual) 34.0 Monocytes % (Manual) 3.0 Eosinophils % (Manual) 1.0 L Neutrophils # (Manual) 3534 RBC Morphology Normal morphology PT 12.4 INR 1.1 ABG Sample Site Right radial ABG pH 7.53 H ABG pCO2 40.0 ABG pO2 59 L ABG HCO3 34 H ABG Total CO2 35 H ABG O2 Saturation 93 L ABG Base Excess 11.0 H FiO2 36 Sodium 137 Potassium 3.9 Chloride 94 L Carbon Dioxide 38 H BUN 20 H Creatinine 0.83 Estimated GFR > 60 BUN/Creatinine Ratio 24.1 H Glucose 165 H Lactate 3.3 H Calcium 8.1 L Magnesium 0.9 L* Total Bilirubin 1.3 AST 28 ALT 41 H Alkaline Phosphatase 63 Troponin I 0.029 NT-Pro-B Natriuret Pep 6520 H Total Protein 5.9 L Albumin 3.5 Globulin 2.4 Albumin/Globulin Ratio 1.5 Procalcitonin 0.17 Urine RBC None seen Urine WBC 0-1/hpf Ur Squamous Epith Cells 0-1 /hpf Urine Bacteria Occasional (0-1) Ur Culture Indicated? Cult not indicated Chlamy pneumoniae PCR Not detected Adenovirus (PCR) Not detected B.parapertussis DNA PCR Not detected Coronavirus OC43 (PCR) Not detected Coronavirus HKU1 (PCR) Not detected Coronavirus 229E (PCR) Not detected SARS-CoV-2 (PCR) Not detected Coronavirus NL63 (PCR) Not detected Human Metapneumovir PCR Not detected Influenza Type A (PCR) Not detected Influenza Type B (PCR) Not detected M. pneumoniae (PCR) Not detected Parainfluenza 1 (PCR) Not detected Parainfluenza 2 (PCR) Not detected Parainfluenza 3 (PCR) Not detected Parainfluenza 4 (PCR) Not detected RSV (PCR) Not detected Entero/Rhino (PCR) Detected H 08/03/23 22:43 WBC RBC Hgb Hct MCV MCH MCHC RDW Plt Count Neut % (Auto) Lymph % (Auto) [place] % (Auto) Eos % (Auto) Baso % (Auto) Lymph # (Auto) [place] # (Auto) Baso # (Auto) Total Counted Seg Neutrophils % Band Neutrophils % Lymphocytes % (Manual) Monocytes % (Manual) Eosinophils % (Manual) Neutrophils # (Manual) RBC Morphology PT INR ABG Sample Site ABG pH ABG pCO2 ABG pO2 ABG HCO3 ABG Total CO2 ABG O2 Saturation ABG Base Excess FiO2 Sodium Potassium Chloride Carbon Dioxide BUN Creatinine Estimated GFR BUN/Creatinine Ratio Glucose Lactate 3.2 H Calcium Magnesium Total Bilirubin AST ALT Alkaline Phosphatase Troponin I NT-Pro-B Natriuret Pep Total Protein Albumin Globulin Albumin/Globulin Ratio Procalcitonin Urine RBC Urine WBC Ur Squamous Epith Cells Urine Bacteria Ur Culture Indicated? Chlamy pneumoniae PCR Adenovirus (PCR) B.parapertussis DNA PCR Coronavirus OC43 (PCR) Coronavirus HKU1 (PCR) Coronavirus 229E (PCR) SARS-CoV-2 (PCR) Coronavirus NL63 (PCR) Human Metapneumovir PCR Influenza Type A (PCR) Influenza Type B (PCR) M. pneumoniae (PCR) Parainfluenza 1 (PCR) Parainfluenza 2 (PCR) Parainfluenza 3 (PCR) Parainfluenza 4 (PCR) RSV (PCR) Entero/Rhino (PCR) Assessment & Plan Assessment and plan (1) Acute on chronic systolic (congestive) heart failure: Status: Acute Plan ERROR/ DUPLICATE DOCUMENT Assessment & Plan narrative: ERROR/ DUPLICATE DOCUMENT
[2023-08-04] MEDS: ACETAMINOPHEN IV 1,000 MG/100 ML VIAL 400 MG IV (01:14)
[2023-08-04] MEDS: FUROSEMIDE 60 MG in SODIUM CHLORIDE 0.9% 50 ML 112 MG IV (01:15)
[2023-08-04 01:24] LABS: Lactate (Lactic Acid) 3.4 mmol/L (0.7-2.1)
[2023-08-04 02:49] LABS: Reflexed Lactate in 2 Hours Y
[2023-08-04 03:45] LABS: Hematocrit 32.5 % (36-46); Hemoglobin 10.6 g/dL (12.0-16.0); Mean Corpuscular HGB Conc 32.6 % (30-36); Mean Corpuscular Hemoglobin 29.7 PG (26-34); Mean Corpuscular Volume 91.1 fL (80-100); Platelet Count 59 X10^3/uL (150-400); Red Blood Cell Count 3.57 X10^6/uL (4.0-5.2); White Blood Cell Count 5.6 X10^3/uL (4.5-11.0)
[2023-08-04 03:47] LABS: Add Manual Diff / Slide Review YES
[2023-08-04 03:53] LABS: Blood Urea Nitrogen 18 mg/dL (7-17); Carbon Dioxide 34 mmol/L (22-32); Chloride 92 mmol/L (98-107); Estimated Glomerular Filt Rate > 60 mL/min (>60); Glucose 279 mg/dL (80-110); HEMOLYSIS < 15 (0-50); Magnesium 1.4 mg/dL (1.6-2.3); Potassium 3.8 mmol/L (3.4-5.1); Sodium 135 mmol/L (137-145)
[2023-08-04 04:00] LABS: Lactate 2HR (Lactic Acid Rflx) 4.7 mmol/L (0.7-2.1)
[2023-08-04 04:02] LABS: NT-proBNP (BNP-Adult 18+) 5180 pg/mL (<125)
[2023-08-04 04:25] LABS: Neutrophils Absolute Manual 4592 /uL (3000-5900); Total Cells Counted 100
[2023-08-04 04:29] LABS: Anisocytosis 2+; Hypochromasia 1+; Microcytosis 2+; Ovalocytes 1+; Platelet Estimate Decreased on smear
[2023-08-04 06:36] LABS: Lactate (Lactic Acid) 4.9 mmol/L (0.7-2.1)
[2023-08-04] MEDS: BUDESONIDE 0.5 MG/2 ML NEB INH (07:17)
[2023-08-04 08:01] LABS: Reflexed Lactate in 2 Hours Y
[2023-08-04] MEDS: SODIUM CHLORIDE 0.9% 500 ML 250 ML IV ×2 (08:04→11:04)
[2023-08-04] MEDS: MAGNESIUM CHLORIDE 64 MG TABLET 128 MG PO (10:01)
[2023-08-04 10:21] LABS: Lactate 2HR (Lactic Acid Rflx) 4.3 mmol/L (0.7-2.1)
[2023-08-04 10:49] LABS: Hemoglobin A1C% w Est Avg Glu 6.7 % (4.0-6.0)
[2023-08-04] MEDS: INSULIN LISPRO 100 UNIT/ML 3ML VIAL SUBCUT (12:21)
[2023-08-04 15:41] LABS: Lactate (Lactic Acid) 2.9 mmol/L (0.7-2.1)
--- NOTE | 2023-08-04 15:51 | CM.DANOTE ---
Initial DCP Assessment Note Reviewed EMR and team rounds for pt's medical status. Met with pt at bedside to introduce self and role, pt alert/oriented and able to participate in visit. Plan is to d/c home with [facility] streeter in place and [facility] to resume services. F/F and referral sent to [facility]. Pt's roommate will transport home. Payor: [facility] PCP: Dr. Resendiz Discharge Planning/Care Management CM Discharge Assessment Start: 08/04/23 15:48 Freq: Status: Active Protocol: Document 08/04/23 15:48 DPL (Rec: 08/04/23 15:51 DPL [id number]) Discharge Planning Assessment Assigned Office Clerk JOSELITO Prasad Advance Directives? Yes Advance Directives on File No History Provided By Patient,Medical Record Expected Length of Stay 2 Has Patient been admitted in last 30 Yes days? Comment D/C 07/23/23 Prior Living Arrangements Mobile home Household Members friend(s),other Comment Has ALLISON streeter, Don. Type of transporation used prior to Relies on Others admit Independent with ADL's No: Modified independent Needs Assistance With Meal Prep,Managing Medications ,Home Chores / Shopping Community Services used prior to Oxygen Therapy,Physical admission: Therapy,Home Health Nurse Comment [facility] never had a chance to get established, but she was signed up briefly. Submitted new referral and f/f . DME Already Rented / Owned Oxygen Clinicals Faxed Yes Patient/Family Preference Home with Home Health Comment It's likely none are needed, follow closely. Barriers to Discharge No Comment 3 cats. Discharge Plan Home Transportation Arrangement Family/friend Additional Comment See attached assessment note. Medicare Choice List Provided Yes Medicare choice list reviewed on patient electronic tablet with SNF/HH Preference [facility] Has Agency SNF been contacted Yes Whiteboard Updated in Patient Room with Yes name and ext. # of Office Clerk Review Status In Process Please Provide Date Initial DC 08/04/23 Assessment Was Performed
--- NOTE | 2023-08-04 16:58 | P.DS_ITS ---
History of Present Illness History of Present Illness Date Patient Seen: 08/03/23 Time Patient Seen: 22:30 Chief complaint: SOB-COPD Narrative: 72 years old female with a past medical history of severe COPD, ischemic cardiomyopathy, multiple myeloma on IV infusion every 2 weeks, GERD, Sleep apnea, congestive heart failure, recent hospitalization for respiratory failure now present to the emergency room for worsening shortness of breath since her discharge but worse in the past 24 hours. At baseline usually around 4 L during the previous hospitalization oxygen requirements have dropped to 2 L. But now noted to be in acute respiratory distress on arrival and tachypneic. Has productive cough with yellowish-green sputum. Denies any chest pain palpitation or dizziness. Her dyspnea makes her more anxious but patient has refused BiPAP in the emergency room. Workup in the ED was still positive for enterorhinovirus. The chest x-ray concerning for possible mild fluid overload. Presumptive diagnosis of underlying COPD exacerbation with heart failure and pneumonia was considered. Patient received IV Solu-Medrol, nebulizers with oxygen supplementation and pending cultures, was initiated on IV levofloxacin. Admitted for further evaluation Discharge Providers Provider Date of admission: 08/03/23 21:30 Discharge Date: 08/04/23 Primary care physician: Wilfredo Garcia MD Consults: 08/04/23 15:49 Consult to Home Health Routine Comment: PT/OT/RN Reason For Exam: Home Health Services Discharge provider: Doyle Maciel DO Summary Hospital Course Discharge Diagnosis: # Acute on chronic hypoxemic respiratory failure 2/2 rhinovirus causing COPD exacerbation # Acute systolic congestive heart failure with reduced ejection fraction in the EF of 40-45% noted in April 2023 # Acute COPD exacerbation # History of cardiomyopathy with myocardial injury. # Multiple myeloma. Received weekly chemo injections. # Lactic acidosis. Lactate up to 4.9 and improved to 2.9 with IVF. Hospital Course: Admitted for COPD exacerbation and found to be rhinovirus positive. Required HFNC then was quickly weaned to 3L NC with steroids and nebs. Lactic acid high at 4.9 and small fluid boluses given of 250cc which improved this to 2.9. Patient desperately wanted to go home, and threatened to leave AMA but since she was at her baseline O2 she was discharged home on 4 more days of po prednisone. Exam Vital Signs (past 8 hours): - 08/04/23 12:24 08/04/23 16:00 Temperature 96.4 F L 97.1 F L Pulse Rate 91 H 84 Respiratory Rate 20 19 Blood Pressure 102/71 98/67 Pulse Oximetry 94 93 Oxygen Flow Rate 3 3 Oxygen Delivery Method High Flow Nasal Cannula Oxygen Flow Rate 3 Narrative Exam Narrative: GEN: chronically ill appearing HEENT: moist mucous membranes, PERRL NECK: trachea midline, no JVD CV: regular rate and rhythm, no murmurs PULM: wheezes bilaterally ABD: soft, nontender, nondistended, no organomegaly EXT: warm and well perfused with no edema NEURO: awake, alert, oriented, no focal deficits Objective Labs 08/04/23 03:00 08/04/23 03:00 Labs: Laboratory Results - last 24 hr 08/03/23 08/03/23 08/03/23 20:01 20:31 20:35 WBC 5.7 RBC 3.67 L Hgb 11.0 L Hct 33.5 L MCV 91.3 MCH 30.0 MCHC 32.9 RDW 16.4 H Plt Count 61 L Neut % (Auto) Not Reportable Lymph % (Auto) Not Reportable [place] % (Auto) Not Reportable Eos % (Auto) Not Reportable Baso % (Auto) Not Reportable Lymph # (Auto) Not Reportable [place] # (Auto) Not Reportable Baso # (Auto) Not Reportable Total Counted 100 Seg Neutrophils % 53.0 Band Neutrophils % 9.0 H Lymphocytes % (Manual) 34.0 Monocytes % (Manual) 3.0 Eosinophils % (Manual) 1.0 L Metamyelocytes % Myelocytes % Promyelocytes % Neutrophils # (Manual) 3534 Platelet Estimate RBC Morphology Normal morphology Hypochromasia Anisocytosis Microcytosis Ovalocytes PT 12.4 INR 1.1 ABG Sample Site Right radial ABG pH 7.53 H ABG pCO2 40.0 ABG pO2 59 L ABG HCO3 34 H ABG Total CO2 35 H ABG O2 Saturation 93 L ABG Base Excess 11.0 H FiO2 36 Sodium 137 Potassium 3.9 Chloride 94 L Carbon Dioxide 38 H BUN 20 H Creatinine 0.83 Estimated GFR > 60 BUN/Creatinine Ratio 24.1 H Glucose 165 H Hemoglobin A1c Lactate 3.3 H Calcium 8.1 L Magnesium 0.9 L* Total Bilirubin 1.3 AST 28 ALT 41 H Alkaline Phosphatase 63 Troponin I 0.029 NT-Pro-B Natriuret Pep 6520 H Total Protein 5.9 L Albumin 3.5 Globulin 2.4 Albumin/Globulin Ratio 1.5 Procalcitonin 0.17 Urine RBC None seen Urine WBC 0-1/hpf Ur Squamous Epith Cells 0-1 /hpf Urine Bacteria Occasional (0-1) Ur Culture Indicated? Cult not indicated Chlamy pneumoniae PCR Not detected Adenovirus (PCR) Not detected B.parapertussis DNA PCR Not detected Coronavirus OC43 (PCR) Not detected Coronavirus HKU1 (PCR) Not detected Coronavirus 229E (PCR) Not detected SARS-CoV-2 (PCR) Not detected Coronavirus NL63 (PCR) Not detected Human Metapneumovir PCR Not detected Influenza Type A (PCR) Not detected Influenza Type B (PCR) Not detected M. pneumoniae (PCR) Not detected Parainfluenza 1 (PCR) Not detected Parainfluenza 2 (PCR) Not detected Parainfluenza 3 (PCR) Not detected Parainfluenza 4 (PCR) Not detected RSV (PCR) Not detected Entero/Rhino (PCR) Detected H 08/03/23 08/04/23 08/04/23 22:43 00:50 03:00 WBC 5.6 RBC 3.57 L Hgb 10.6 L Hct 32.5 L MCV 91.1 MCH 29.7 MCHC 32.6 RDW 17.0 H Plt Count 59 L Neut % (Auto) Not Reportable Lymph % (Auto) Not Reportable [place] % (Auto) Not Reportable Eos % (Auto) Not Reportable Baso % (Auto) Not Reportable Lymph # (Auto) Not Reportable [place] # (Auto) Not Reportable Baso # (Auto) Not Reportable Total Counted 100 Seg Neutrophils % 71.0 H Band Neutrophils % 11.0 H Lymphocytes % (Manual) 5.0 L Monocytes % (Manual) 1.0 L Eosinophils % (Manual) Metamyelocytes % 5.0 H Myelocytes % 6.0 H Promyelocytes % 1.0 H Neutrophils # (Manual) 4592 Platelet Estimate Decreased on smear RBC Morphology See below Hypochromasia 1+ H Anisocytosis 2+ H Microcytosis 2+ H Ovalocytes 1+ H PT INR ABG Sample Site ABG pH ABG pCO2 ABG pO2 ABG HCO3 ABG Total CO2 ABG O2 Saturation ABG Base Excess FiO2 Sodium 135 L Potassium 3.8 Chloride 92 L Carbon Dioxide 34 H BUN 18 H Creatinine 0.90 Estimated GFR > 60 BUN/Creatinine Ratio 20.0 Glucose 279 H D Hemoglobin A1c 6.7 H Lactate 3.2 H 3.4 H 4.7 H* Calcium 8.0 L Magnesium 1.4 L Total Bilirubin AST ALT Alkaline Phosphatase Troponin I NT-Pro-B Natriuret Pep 5180 H Total Protein Albumin Globulin Albumin/Globulin Ratio Procalcitonin Urine RBC Urine WBC Ur Squamous Epith Cells Urine Bacteria Ur Culture Indicated? Chlamy pneumoniae PCR Adenovirus (PCR) B.parapertussis DNA PCR Coronavirus OC43 (PCR) Coronavirus HKU1 (PCR) Coronavirus 229E (PCR) SARS-CoV-2 (PCR) Coronavirus NL63 (PCR) Human Metapneumovir PCR Influenza Type A (PCR) Influenza Type B (PCR) M. pneumoniae (PCR) Parainfluenza 1 (PCR) Parainfluenza 2 (PCR) Parainfluenza 3 (PCR) Parainfluenza 4 (PCR) RSV (PCR) Entero/Rhino (PCR) 08/04/23 08/04/23 08/04/23 05:58 10:03 15:25 WBC RBC Hgb Hct MCV MCH MCHC RDW Plt Count Neut % (Auto) Lymph % (Auto) [place] % (Auto) Eos % (Auto) Baso % (Auto) Lymph # (Auto) [place] # (Auto) Baso # (Auto) Total Counted Seg Neutrophils % Band Neutrophils % Lymphocytes % (Manual) Monocytes % (Manual) Eosinophils % (Manual) Metamyelocytes % Myelocytes % Promyelocytes % Neutrophils # (Manual) Platelet Estimate RBC Morphology Hypochromasia Anisocytosis Microcytosis Ovalocytes PT INR ABG Sample Site ABG pH ABG pCO2 ABG pO2 ABG HCO3 ABG Total CO2 ABG O2 Saturation ABG Base Excess FiO2 Sodium Potassium Chloride Carbon Dioxide BUN Creatinine Estimated GFR BUN/Creatinine Ratio Glucose Hemoglobin A1c Lactate 4.9 H* 4.3 H* 2.9 H Calcium Magnesium Total Bilirubin AST ALT Alkaline Phosphatase Troponin I NT-Pro-B Natriuret Pep Total Protein Albumin Globulin Albumin/Globulin Ratio Procalcitonin Urine RBC Urine WBC Ur Squamous Epith Cells Urine Bacteria Ur Culture Indicated? Chlamy pneumoniae PCR Adenovirus (PCR) B.parapertussis DNA PCR Coronavirus OC43 (PCR) Coronavirus HKU1 (PCR) Coronavirus 229E (PCR) SARS-CoV-2 (PCR) Coronavirus NL63 (PCR) Human Metapneumovir PCR Influenza Type A (PCR) Influenza Type B (PCR) M. pneumoniae (PCR) Parainfluenza 1 (PCR) Parainfluenza 2 (PCR) Parainfluenza 3 (PCR) Parainfluenza 4 (PCR) RSV (PCR) Entero/Rhino (PCR) [facility] Medical History GERD (gastroesophageal reflux disease) Multiple myeloma Congestive heart failure Anemia Pneumonia Surgical History No significant past surgical history Family History Mother Cancer Social History household members: friend(s) and other Smoking Status: Former smoker alcohol intake: former additional social history: The patient smokes tobacco. She does not use alcohol. No drugs. Family and social history are otherwise noncontributory Discharge Plan Discharge Plan Patient Disposition: Home Provider Discharge Comment: You were found to have rhinovirus which exacerbated your COPD. I've sent steroids for you to finish at home. Continue using your oxygen at 2-3L. Dr. Maciel Discharge orders & Medications Prescriptions: New prednisone 20 mg tablet 40 mg PO DAILY 4 Days Qty: 8 0RF Continued furosemide [Lasix] 40 mg tablet 40 mg PO DAILY Qty: 30 0RF metoprolol succinate 25 mg tablet extended release 24 hr 12.5 mg PO DAILY Qty: 30 0RF lisinopril 2.5 mg tablet 2.5 mg PO DAILY Qty: 30 0RF albuterol sulfate 90 mcg/actuation HFA aerosol inhaler 2 inh inhalation QID PRN (Reason: shortness of breath or wheezing) Qty: 8.5 0RF aspirin 81 mg Tablet 81 mg PO DAILY pantoprazole 40 mg Tablet,Delayed Release (Dr/Ec) 40 mg PO DAILY Pomalyst 3 mg Capsule 3 mg PO DAILY Rx Instructions: Patient takes this for 21 days straight and then is off of it for 7 days. She has 4 capsules left to take and then will be off for one week. hydrocodone-acetaminophen 5-325 mg tablet 1 tab PO BEDTIME PRN (Reason: pain) Qty: 7 0RF Follow up/Referrals: Wilfredo Garcia MD [Primary Care Provider] - Visit Report/Discharge Packet Stand Alone Forms: Patient Portal/API, Stroke Signs & Symptoms Discharge Data Primary Care Provider: Wilfredo Garcia
[2023-08-04 17:09] LABS: Reflexed Lactate in 2 Hours Y
== END 2023-08-04 17:20 | disposition home health service (06) | DRG 865 ==
LOC: ED 20:07 → AC 21:30
PROVIDERS: Student in an Organized Health Care Education/Training Program; Admitting Provider Internal Medicine; Emergency Provider Emergency Medicine; Family Provider Family Medicine; PCP Internal Medicine Hematology & Oncology; Referring Provider Emergency Medicine; Visit Provider Internal Medicine
DX: B34.8 Other viral infections of unspecified site (principal); I50.21 Acute systolic (congestive) heart failure; J96.21 Acute and chronic respiratory failure with hypoxia; J44.1 Chronic obstructive pulmonary disease with (acute) exacerbation; C90.00 Multiple myeloma not having achieved remission; K21.9 Gastro-esophageal reflux disease without esophagitis; Z66 Do not resuscitate; Z87.891 Personal history of nicotine dependence
CPT/HCPCS: 36415; 36592; 36600; 71045; 80048; 80053; 81003; 81015; 82805; 82962; 83036; 83605; 83735; 83880; 84145; 84484; 85007; 85025; 85610; 87040; 87633; 93005; 93010; 94640; 94762; 96365; 96367; 96368; 96375; 99285; 99291; J0136; J1815; J1940; J1956; J2919; J2930; J3475; J7613

== ENCOUNTER 2024-05-24 18:15 | Emergency (ER) | payer MEDICARE, MEDICAID, SELFPAY ==
[2023-07-20 23:25] VITALS: PULSE 88; RESP 24; O2SAT 95
[2023-08-03 23:41] VITALS: BMI 30.6
[2024-05-24 18:54] VITALS: BP 96/66; PULSE 98; RESP 16; TEMP 36.5; O2SAT 94; BMI 28.1
[2024-05-24 21:21] LABS: Hematocrit 31.7 % (36-46); Hemoglobin 10.6 g/dL (12.0-16.0); Mean Corpuscular HGB Conc 33.4 % (30-36); Mean Corpuscular Hemoglobin 32.5 PG (26-34); Mean Corpuscular Volume 97.4 fL (80-100); Platelet Count 188 X10^3/uL (150-400); Red Blood Cell Count 3.25 X10^6/uL (4.0-5.2); Red Cell Distribution Width 15.6 % (11.6-14.8); White Blood Cell Count 6.4 X10^3/uL (4.5-11.0)
[2024-05-24 21:22] LABS: Add Manual Diff / Slide Review YES
[2024-05-24 21:36] LABS: BUN Creatinine Ratio 18.1 (6-22); Blood Urea Nitrogen 15 mg/dL (7-17); Calcium 8.8 mg/dL (8.4-10.2); Carbon Dioxide 30 mmol/L (22-32); Chloride 95 mmol/L (98-107); Estimated Glomerular Filt Rate > 60 mL/min (>60); Glucose 117 mg/dL (80-110); HEMOLYSIS 22 (0-50); Potassium 5.3 mmol/L (3.4-5.1); Sodium 130 mmol/L (137-145)
[2024-05-24 22:15] LABS: Neutrophils Absolute Manual 4736 /uL (3000-5900); Total Cells Counted 100
[2024-05-24 22:16] LABS: Anisocytosis 1+; Hypochromasia 1+; Smudge Cells 1+
--- NOTE | 2024-05-24 22:40 | ED.GENADULT ---
HPI - General Adult General Chief complaint: Extremity Injury, Upper Stated complaint: WIC; Poss Blood Clot R Arm Time Seen by Provider: 05/24/24 21:54 Source: patient Mode of arrival: Ambulatory Limitations: no limitations History of Present Illness HPI narrative: Patient is a 73-year-old female who is here for evaluation of pain and swelling to her right wrist and hand. States the symptoms have been present for the past 4 days. No specific trauma. She states that there was a small wound on the back of her right arm that she does not know how it got there but has been putting topical antibiotic ointment over the area. She has noticed pain with movement of the wrist since then. It is warm to the touch. Tender to the touch. No fevers. No history of gout. Her fingers are unremarkable. Elbows unremarkable. No other joint pain. Related Data Home Medications Medication Instructions Recorded Confirmed aspirin 81 mg tablet 81 mg PO DAILY 03/08/21 08/03/23 pantoprazole 40 mg tablet,delayed 40 mg PO DAILY 03/08/21 08/03/23 release pomalidomide 3 mg capsule 3 mg PO DAILY 03/08/21 08/03/23 (Pomalyst) Previous Rx's Medication Instructions Recorded hydrocodone 5 mg-acetaminophen 325 1 tab PO BEDTIME PRN pain #7 tabs 10/06/22 mg tablet albuterol sulfate 90 mcg/actuation 2 inh inhalation QID PRN shortness 04/25/23 aerosol inhaler of breath or wheezing #8.5 grams furosemide 40 mg tablet (Lasix) 40 mg PO DAILY #30 tabs 04/25/23 lisinopril 2.5 mg tablet 2.5 mg PO DAILY #30 tabs 04/25/23 metoprolol succinate 25 mg 12.5 mg (1/2 x 25 mg) PO DAILY #30 04/25/23 tablet,extended release 24 hr tabs cephalexin 500 mg capsule 500 mg PO BID 7 days #14 caps 05/24/24 Allergies Allergy/AdvReac Type Severity Reaction Status Date / Time No Known Drug Allergies Allergy Verified 07/20/23 21:46 Review of Systems Review of Systems Narrative: See HPI Patient History Medical History GERD (gastroesophageal reflux disease) Multiple myeloma Congestive heart failure Anemia Pneumonia Surgical History No significant past surgical history Family History Mother Cancer Social History household members: friend(s) and other Smoking Status: Former smoker alcohol intake: former additional social history: The patient smokes tobacco. She does not use alcohol. No drugs. Family and social history are otherwise noncontributory Smoking Status: Former smoker tobacco type: cigarettes alcohol intake frequency: holidays/special occasions only Substance Use Type: does not use Exam Initial Vital Signs Initial Vital Signs: Vital Signs Temperature 97.7 F 05/24/24 18:54 Pulse Rate 98 H 05/24/24 18:54 Respiratory Rate 16 05/24/24 18:54 Blood Pressure 96/66 05/24/24 18:54 Pulse Oximetry 94 05/24/24 18:54 Oxygen Delivery Method Nasal Cannula 05/24/24 18:54 Oxygen Flow Rate 3 05/24/24 18:54 Const General: cooperative, comfortable and No ill appearing Cardio Pulses: radial pulses present on the right Skin Other: Mild redness and warmth specifically to the dorsum of the right wrist. It was a 0.25 cm lesion on the dorsum of the right wrist with minimal if any surrounding erythema. No pustules. No blisters. Extrem Other: Right shoulder and right elbow are unremarkable. Has swelling throughout the right wrist. Has discomfort with flexion and extension and also supination. Course Orders Ordered: ED Orders 05/24/24 20:56 Basic Metabolic Panel Stat Complete Blood Count AUTO DIFF Stat Discontinued Medications Hydrocodone Bitart/Acetaminophen (Hydrocodone/Acet 5/325 Tablet) 1 tab PO NOW ONE Stop: 05/24/24 22:41 Last Admin: 05/24/24 22:51 Dose: 1 tab Documented By: MALU Hydrocodone Bitart/Acetaminophen (Hydrocodone/Acet 5/325 Prepack) 1 bottle MISC DIRECTED ONE Stop: 05/24/24 22:41 Cephalexin HCl (Cephalexin 250 Mg Capsule) 500 mg PO NOW ONE Stop: 05/24/24 22:41 Last Admin: 05/24/24 22:51 Dose: 500 mg Documented By: MALU Vital Signs Vital signs: Vital Signs - 8 hr 05/24/24 23:02 Pulse Rate 94 H Respiratory Rate 20 Blood Pressure 117/76 Pulse Oximetry 96 Oxygen Delivery Method Nasal Cannula Oxygen Flow Rate 3 Medical Decision Making Lab Data Lab results reviewed: Yes I reviewed the patient's lab results. 05/24/24 20:56 05/24/24 20:56 Labs: Lab Results 05/24/24 Range/Units 20:56 WBC 6.4 (4.5-11.0) X10^3/uL RBC 3.25 L (4.0-5.2) X10^6/uL Hgb 10.6 L (12.0-16.0) g/dL Hct 31.7 L (36-46) % MCV 97.4 (80-100) fL MCH 32.5 (26-34) PG MCHC 33.4 (30-36) % RDW 15.6 H (11.6-14.8) % Plt Count 188 (150-400) X10^3/uL Neut % (Auto) Not Reportable Lymph % (Auto) Not Reportable [place] % (Auto) Not Reportable Eos % (Auto) Not Reportable Baso % (Auto) Not Reportable Lymph # (Auto) Not Reportable [place] # (Auto) Not Reportable Baso # (Auto) Not Reportable Total Counted 100 Seg Neutrophils % 74.0 H (38-70) % Lymphocytes % (Manual) 11.0 L (25-45) % Monocytes % (Manual) 14.0 H (2-11) % Basophils % (Manual) 1.0 (0-1) % Neutrophils # (Manual) 4736 ([id number]) /uL [place] Cells 1+ H RBC Morphology See below Hypochromasia 1+ H Anisocytosis 1+ H Sodium 130 L (137-145) mmol/L Potassium 5.3 H (3.4-5.1) mmol/L Chloride 95 L (98-107) mmol/L Carbon Dioxide 30 (22-32) mmol/L BUN 15 (7-17) mg/dL Creatinine 0.83 (0.52-1.04) mg/dL Estimated GFR > 60 (>60) mL/min BUN/Creatinine Ratio 18.1 (6-22) Glucose 117 H (80-110) mg/dL Calcium 8.8 (8.4-10.2) mg/dL MDM Narrative Medical decision making narrative: She was no trauma to the right wrist so I have low suspicion that there is fractures or dislocations. Her right wrist does have warmth and very mild redness but is significantly tender to palpation. I have low suspicion for septic joint based on her presentation today. She was a small lesion in the skin of the dorsum of the right forearm and given the findings with the right wrist I do have a suspicion that this maybe cellulitis. Because of this will start her on antibiotics. We also discussed the possibility of gout. She does not have a history of gout. He will say that her presentation is not specifically consistent with gout. We also discussed the possibility that this is an arthritis flare. Plan will be to put her in a removable wrist splint for soft tissue rest. Will place on antibiotics. First dose given here in the ER and a prescription was sent to the pharmacy of her choice. She was given return precautions. She expressed understanding and agreement.. Discharge Plan Departure Patient Disposition: Home Clinical Impression: Cellulitis, Arthritis Instructions: How To Perform RICE (Rest, Ice, Compress, Elevate) Activity Restrictions/Additional Instructions: Use the wrist brace as needed for your comfort. You can take it off to wash your hands and to take a shower and also take it off to ice your wrist. Take the antibiotics as directed. Recommended continued conservative measures to include Tylenol/ibuprofen. Use the pain medication for breakthrough pain. Contact your primary doctor for a follow-up. Prescriptions: New cephalexin 500 mg capsule 500 mg PO BID 7 Days Qty: 14 0RF No Action furosemide [Lasix] 40 mg tablet 40 mg PO DAILY Qty: 30 0RF metoprolol succinate 25 mg tablet extended release 24 hr 12.5 mg PO DAILY Qty: 30 0RF lisinopril 2.5 mg tablet 2.5 mg PO DAILY Qty: 30 0RF albuterol sulfate 90 mcg/actuation HFA aerosol inhaler 2 inh inhalation QID PRN (Reason: shortness of breath or wheezing) Qty: 8.5 0RF aspirin 81 mg Tablet 81 mg PO DAILY pantoprazole 40 mg Tablet,Delayed Release (Dr/Ec) 40 mg PO DAILY Pomalyst 3 mg Capsule 3 mg PO DAILY Rx Instructions: Patient takes this for 21 days straight and then is off of it for 7 days. She has 4 capsules left to take and then will be off for one week. hydrocodone-acetaminophen 5-325 mg tablet 1 tab PO BEDTIME PRN (Reason: pain) Qty: 7 0RF Referrals: Wilfredo Garcia MD [Primary Care Provider] - Stand Alone Forms: Patient Portal/API/Survey
[2024-05-24] MEDS: HYDROCODONE/ACET 5/325 TABLET 1 TAB PO (22:51)
[2024-05-24] MEDS: cephALEXin 250 MG CAPSULE 500 MG PO (22:51)
[2024-05-24 23:02] VITALS: BP 117/76; PULSE 94; RESP 20; O2SAT 96
== END 2024-05-24 23:04 | disposition home or self-care (01) ==
PROVIDERS: Emergency Provider Emergency Medicine; Family Provider Family Medicine; PCP Internal Medicine Hematology & Oncology
DX: L03.113 Cellulitis of right upper limb (principal); M19.90 Unspecified osteoarthritis, unspecified site
CPT/HCPCS: 80048; 85007; 85025; 99283; 99285